=== PATIENT | male | born 1960 | race African-American/Black ===

== ENCOUNTER 2016-09-21 16:53 | Emergency (ER) | payer MEDICAID ==
--- NOTE | 2016-09-21 18:11 | ER Document Report ---
ED Medical Screen (RME) - General Chief Complaint: Toothache Stated Complaint: TOOTH PAIN Mode of Arrival: Ambulatory Information source: Patient Notes: 56 y/o M presents to ED c/o right posterior dental pain over the last 4 days. Reports saw dentist on Wednesday and prescribed PenVk and Tylenol with Codeine but pain is persistent. Denies fever, difficulty breathing, or swallowing. I have greeted and performed a rapid initial assessment of this patient. A comprehensive ED assessment and evaluation of the patient, analysis of test results and completion of the medical decision making process will be conducted by additional ED providers. TRAVEL OUTSIDE OF THE [place] IN LAST 30 DAYS: No - Related Data Allergies/Adverse Reactions: No Known Allergies Allergy (Verified 09/21/16 18:04) Past Medical History - Social History Chew tobacco use (# tins/day): No Frequency of alcohol use: None Drug Abuse: None - Past Medical History Cardiac Medical History: Reports: Hx Congestive Heart Failure, Hx Coronary Artery Disease - stents , Hx Heart Attack - 2001, Hx Hypertension Pulmonary Medical History: Denies: Hx Asthma - sarcoidosis, Hx Bronchitis, Hx COPD, Hx Pneumonia Neurological Medical History: Denies: Hx Cerebrovascular Accident, Hx Seizures Renal/ Medical History: Reports: Hx Kidney Stones. Denies: Hx Peritoneal Dialysis Musculoskeltal Medical History: Reports Hx Arthritis - hips,knees Past Surgical History: Reports: Hx Cardiac Catheterization - two stents - Immunizations Immunizations up to date: No Hx Diphtheria, Pertussis, Tetanus Vaccination: Yes Physical Exam - Vital signs Vitals: Pulse Resp BP Pulse Ox 67 16 124/89 H 98 09/21/16 18:01 09/21/16 18:01 09/21/16 18:01 09/21/16 18:01 - General General appearance: Appears well, Alert In distress: None - Respiratory Respiratory status: No respiratory distress Course - Vital Signs Vital signs: Temp Pulse Resp BP Pulse Ox 67 16 124/89 H 98 09/21/16 18:01 09/21/16 18:01 09/21/16 18:01 09/21/16 18:01
--- NOTE | 2016-09-21 19:31 | ER Document Report ---
ED Oral Problem - General Chief Complaint: Toothache Stated Complaint: TOOTH PAIN Time seen by provider: 19:26 Mode of Arrival: Ambulatory Information source: Patient Notes: This is a 56-year-old man that presents with right upper tooth pain. Patient was recently seen by a dentist and is referred to an oral surgeon. He has an appointment with the oral surgeon on . He is currently on Tylenol with Codeine No. 3 and penicillin. He presents cause a worsening pain. TRAVEL OUTSIDE OF THE [place] IN LAST 30 DAYS: No - HPI Patient complains to provider of: Toothache. No: Sore throat, Swelling of face , Swelling of jaw Onset: Last week Onset: Gradual Quality of pain: Dull Severity: Moderate Pain Level: 4 Context: Fractured tooth, Recent antibiotic use. denies: Recent dental extractions Sore throat: Moderate Associated symptoms: denies: Cough, Fever Worsened by: Heat Similar symptoms previously: No Recently seen / treated by doctor/dentist: Yes - Related Data Allergies/Adverse Reactions: No Known Allergies Allergy (Verified 09/21/16 18:04) Past Medical History - General Information source: Patient - Social History Smoking Status: Never Smoker Cigarette use (# per day): No Chew tobacco use (# tins/day): No Frequency of alcohol use: None Drug Abuse: None Lives with: Family Family History: Reviewed & Not Pertinent Patient has suicidal ideation: No Patient has homicidal ideation: No - Past Medical History Cardiac Medical History: Reports: Hx Congestive Heart Failure, Hx Coronary Artery Disease - stents , Hx Heart Attack - 2001, Hx Hypertension Pulmonary Medical History: Denies: Hx Asthma - sarcoidosis, Hx Bronchitis, Hx COPD, Hx Pneumonia Neurological Medical History: Denies: Hx Cerebrovascular Accident, Hx Seizures Renal/ Medical History: Reports: Hx Kidney Stones. Denies: Hx Peritoneal Dialysis Musculoskeltal Medical History: Reports Hx Arthritis - hips,knees Past Surgical History: Reports: Hx Cardiac Catheterization - two stents - Immunizations Immunizations up to date: No Hx Diphtheria, Pertussis, Tetanus Vaccination: Yes Review of Systems - Review of Systems Notes: Review of systems: Constitutional: Denies fever, chills. EENT: See H&P Cardiovascular: Denies chest pain, palpitations, dyspnea or edema. Respiratory: Denies wheezing, cough, hemoptysis. Abdomen: Denies abdominal pain, nausea, vomiting, diarrhea. Denies BRBPR or melena. Genitourinary: Denies dysuria, pyuria, hematuria, flank pain. Musculoskeletal: denies joint pain or swelling, denies back pain. Neurologic: Denies headache, photophobia, neck stiffness, weakness. Denies loss of bowel or bladder function. Denies saddle anesthesia. Skin: Denies rash, lesions. Physical Exam - Vital signs Vitals: Pulse Resp BP Pulse Ox 67 16 124/89 H 98 09/21/16 18:01 09/21/16 18:09/21/16 18:01 09/21/16 18:01 Notes: Physical exam: GENERAL: 56-year-old man, alert and oriented 3, no acute distress HEAD: Atraumatic, normocephalic. EYES: Pupils equal round and reactive to light, extraocular movements intact, sclera anicteric, conjunctiva are normal. ENT: oropharynx clear without exudates. Right upper dental caries. Moist mucous membranes. NECK: Normal range of motion, supple without lymphadenopathy. Soft in the submental and submandibular spaces. No neck tenderness. LUNGS: Breath sounds clear to auscultation bilaterally and equal. No wheezes rales or rhonchi. HEART: Regular rate and rhythm without murmurs, rubs or gallops. PSYCH: Normal mood, normal affect. SKIN: Warm, Dry, normal turgor, no rashes or lesions noted. Course - Vital Signs Vital signs: Temp Pulse Resp BP Pulse Ox 67 16 124/89 H 98 09/21/16 18:01 09/21/16 18:01 09/21/16 18:01 09/21/16 18:01 Discharge - Discharge Clinical Impression: dental caries Condition: Stable Disposition: HOME, SELF-CARE Instructions: Toothache (OM), Oral Narcotic Medication (OM), Penicillin V K ( [facility]) Additional Instructions: Recommendations: You can continue the penicillin as previously prescribed. Stop taking the Tylenol and codeine. The [place] is hydrocodone and Tylenol. You can take 1-2 every 6 hours for pain. This is a narcotic, see the narcotic instruction sheet. Do not drive or operate machinery while on the narcotic. They will make you constipated, drink plenty of fluids. Follow-up with the oral surgeon on as planned Prescriptions: Hydrocodone/Acetaminophen [[place] 5-325 mg Tablet] 2 tab PO Q6HP PRN #20 tablet PRN Reason:
[2016-09-21 20:08] VITALS: BP 145/73
== END 2016-09-21 20:10 | disposition home or self-care (01) ==
LOC: ER 16:53
DX: K02.9 Dental caries, unspecified (principal); K08.89 Other specified disorders of teeth and supporting structures
CPT/HCPCS: 99283

== ENCOUNTER 2016-10-29 10:15 | Day surgery (SDC) | payer MEDICAID ==
[2016-10-27 11:19] LABS: HEMATOCRIT 43.8 % (37.9-51.0); HEMOGLOBIN 14.3 g/dL (13.5-17.0); HGB HCT DIFFERENCE -0.9; MEAN CORPUSCULAR HEMOGLOBIN 28.6 pg (27.0-33.4); MEAN CORPUSCULAR HGB CONC 32.7 g/dL (32.0-36.0); MEAN CORPUSCULAR VOLUME 88 fl (80-97); RED CELL DISTRIBUTION WIDTH 13.1 % (11.5-14.0); WHITE BLOOD COUNT 6.8 10^3/uL (4.0-10.5)
[2016-10-27 11:47] LABS: ANION GAP 14 (5-19); BLOOD UREA NITROGEN 10 mg/dL (7-20); CALCIUM 9.6 mg/dL (8.4-10.2); CARBON DIOXIDE 26 mmol/L (22-30); CHLORIDE 107 mmol/L (98-107); CREATININE RESULT 0.62 mg/dL (0.52-1.25); GLUCOSE 104 mg/dL (75-110); POTASSIUM 3.8 mmol/L (3.6-5.0); SODIUM 146.9 mmol/L (137-145)
--- NOTE | 2016-10-27 13:11 | EKG REPORT ---
SEVERITY:- NORMAL ECG - SINUS RHYTHM : Confirmed by: Ashlyn Jang MD 27-Oct-2016 13:09:01
[~2016-10-29 10:15] MED LIST: LIDOCAINE 0.5% INJ-PF (5 MG/ML) 50 ML SDV SUBCUT PRN; RINGERS SOLUTION,LACTATED 1,000 ML IV PRN
[2016-10-29] MEDS ORDERED: MIDAZOLAM 2 MG/2 ML INJ ONE (10:23)
[2016-10-29] MEDS ORDERED: FENTANYL CITRATE INJ/PF 100 MCG/2 ML AMPUL ONE ×2 (10:23)
[2016-10-29] MEDS ORDERED: ACETAMINOPHEN 100 ML IV ONE (10:24)
[2016-10-29] MEDS ORDERED: DEXMEDETOMIDINE INJ 80 MCG/20 ML VIAL IV ONE (10:24)
[2016-10-29] MEDS ORDERED: PROPOFOL INJ 200 MG/20 ML VIAL IV ONE (10:24)
[2016-10-29] MEDS ORDERED: EPHEDRINE SULFATE INJ 50 MG/1 ML AMPULE ONE (10:24)
[2016-10-29] MEDS ORDERED: ONDANSETRON HCL INJ/PF 4 MG/2 ML SDV IV PRN (11:52)
[2016-10-29] MEDS ORDERED: DIPHENHYDRAMINE HCL 50 MG/ML VIAL IV PRN (11:52)
[2016-10-29] MEDS ORDERED: FENTANYL CITRATE INJ/PF 100 MCG/2 ML AMPUL IV PRN ×3 (11:52)
[2016-10-29] MEDS ORDERED: MEPERIDINE HCL/PF INJ 25 MG/1 ML DISP.SYRIN IV PRN (11:52)
[2016-10-29] MEDS ORDERED: PROMETHAZINE HCL INJ 25 MG/1 ML VIAL IV PRN ×2 (11:52)
[2016-10-29] MEDS ORDERED: LIDOCAINE 2%/EPINEPHRINE INJ 1.7 ML CARTRIDGE ONE (12:21)
[2016-10-29] MEDS ORDERED: BUPIVACAINE HCL 0.5%/EPI 1:200000 INJ 1.8 ML CARTRIDGE ONE (12:22)
--- NOTE | 2016-10-29 13:24 | Operative Report ---
Operative Report DATE OF SURGERY: 10/29/16 PREOPERATIVE DIAGNOSIS: Dental caries POSTOPERATIVE DIAGNOSIS: Same OPERATION: Surgical removal of teeth numbers 2 and 30 SURGEON: GERA OCONNOR ANESTHESIA: GA TISSUE REMOVED OR ALTERED: Teeth which were discarded COMPLICATIONS: None ESTIMATED BLOOD LOSS: 20 mL INTRAOPERATIVE FINDINGS: Broken down and nonrestorable teeth numbers 2 and 30 PROCEDURE: The patient was brought into operating room #4 and placed on the operating room table in supine position. General anesthesia was induced via a peripheral IV and continued utilizing endotracheal intubation. The patient was then prepped and draped in usual fashion for an intraoral procedure. A total of 3 carpules of 2% lidocaine with 1:100,000 epinephrine and 1 carpule of 1/2% Marcaine with 1 :200,000 epinephrine were delivered to the planned surgical sites via both infiltration and nerve block. The oral cavity and oropharynx were suctioned and a moistened oropharyngeal throat pack was placed. Full-thickness mucoperiosteal flaps were then developed via sulcular incisions with distobuccal release incisions. Ostectomy was completed as needed. Teeth were then delivered using elevators and forceps. The sockets were curetted free of any debris and irrigated with normal saline solution. The flaps were reapproximated and sutured with 4-0 chromic gut suture. The oral cavity was inspected and suctioned. It was found to be free of debris. The throat pack was removed. A bite block was used throughout the procedure. There was no sinus communication noted. The nerves were not seen. The mandible was intact postoperatively. A gauze pack was placed to aid in continued hemostasis. The patient was awakened from general anesthesia, extubated in the operating room and taken recovery room in spontaneous breathing fashion.
[2016-10-29] MEDS ORDERED: LIDOCAINE 2% INJ-PF (20 MG/ML) 10 ML AMPUL ONE (14:04)
[2016-10-29] MEDS ORDERED: DEXAMETHASONE SOD PHOSPHATE INJ 4 MG/1 ML VIAL ONE (14:04)
[2016-10-29] MEDS ORDERED: GLYCOPYRROLATE INJ 0.4 MG/2 ML VIAL ONE (14:04)
[2016-10-29] MEDS ORDERED: METOCLOPRAMIDE HCL INJ/PF 10 MG/2 ML SDV ONE (14:04)
[2016-10-29] MEDS ORDERED: KETOROLAC TROMETHAMINE 60 MG/2 ML SDV ONE (14:04)
[2016-10-29] MEDS ORDERED: SUCCINYLCHOLINE CHLORIDE INJ 200 MG/10 ML VIAL ONE (14:04)
[2016-10-29] MEDS ORDERED: ONDANSETRON HCL INJ/PF 4 MG/2 ML SDV ONE (14:04)
[2016-10-29] MEDS ORDERED: OXYCODONE-ACETAMINOPHEN 5-325 MG TABLET PO PRN (14:40)
[2016-10-29 15:29] VITALS: BP 117/70
== END 2016-10-29 16:25 | disposition home or self-care (01) ==
LOC: OROUT 10:15
PROVIDERS: ATTEND Dentist Oral and Maxillofacial Surgery
PROC: 0CDWXZ1 Extraction of Upper Tooth, Multiple, External Approach (ICD-10-PCS; 2016-10-29)
PROC: 0CDXXZ1 Extraction of Lower Tooth, Multiple, External Approach (ICD-10-PCS; principal; 2016-10-29 12:00)
DX: K02.9 Dental caries, unspecified (principal); J44.9 Chronic obstructive pulmonary disease, unspecified; I25.10 Atherosclerotic heart disease of native coronary artery without angina pectoris; K70.30 Alcoholic cirrhosis of liver without ascites; M17.9 Osteoarthritis of knee, unspecified; E66.9 Obesity, unspecified; D86.9 Sarcoidosis, unspecified; J30.2 Other seasonal allergic rhinitis; Z79.82 Long term (current) use of aspirin; Z79.899 Other long term (current) drug therapy
CPT/HCPCS: 41899; 93005; 36415; 85027; 80048; 93010; J2250; J3490 ×5; J1100; J1885; J3010; J2765; J0330; J2405; J2704; J0131; 170

== ENCOUNTER 2016-12-14 13:30 | Emergency (ER) | payer MEDICAID ==
--- NOTE | 2016-12-14 14:28 | RADIOLOGY REPORT (SQ) ---
EXAM DESCRIPTION: CHEST PA/LAT COMPLETED DATE/TIME: 12/14/2016 2:18 pm REASON FOR STUDY: chest pain COMPARISON: 09/08/2013 EXAM PARAMETERS: NUMBER OF VIEWS: two views TECHNIQUE: Digital Frontal and Lateral radiographic views of the chest acquired. RADIATION DOSE: NA LIMITATIONS: none FINDINGS: LUNGS AND PLEURA: Chronic scarring is seen in both upper lung [place]. There is lucency saldivar ggestive of emphysematous change. No acute infiltrate or pleural effusion is appreciated. MEDIASTINUM AND HILAR STRUCTURES: No masses or contour abnormalities. HEART AND VASCULAR STRUCTURES: Heart normal size. No evidence for failure. BONES: No acute findings. HARDWARE: None in the chest. OTHER: No other significant finding. IMPRESSION: Chronic lung changes with no acute cardiopulmonary disease. TECHNICAL DOCUMENTATION: JOB ID: [id number] [employer]- All Rights Reserved
--- NOTE | 2016-12-14 15:20 | ER Document Report ---
ED Cardiac - General Chief Complaint: Chest Pain > 30 Stated Complaint: CHEST PAIN Time Seen by Provider: 12/14/16 15:19 Mode of Arrival: Ambulatory Information source: Patient Notes: Pt c/o right anterior chest pain that started today. Pt states that when he gets up from chairs he lifts with his arms which causes his right chest to spasm and become painful. Pt denies any cough or cold symptoms. Pt denies any n/ v. Pt states that occasionally the muscles to his chest will spasm without provocation. TRAVEL OUTSIDE OF THE [place] IN LAST 30 DAYS: No - HPI Patient complains to provider of: Chest pain Chest pain location: Other - right chest Quality of pain: Other - spasm Pain level currently: 1 Cardiac risk factors: None Associated symptoms: denies: Abdominal pain, Anxiety, Back pain, Fatigue, Lightheaded, Nausea/vomiting, Neck pain, Palpitations, Shortness of breath Exacerbated by: Other - using upper extremity to lift out of chair Relieved by: Rest Similar symptoms previously: No Recently seen / treated by doctor: No - Related Data Allergies/Adverse Reactions: No Known Allergies Allergy (Verified 12/14/16 14:25) Past Medical History - General Information source: Patient - Social History Smoking Status: Never Smoker Frequency of alcohol use: None Drug Abuse: None Occupation: none Family History: Reviewed & Not Pertinent Patient has suicidal ideation: No Patient has homicidal ideation: No - Past Medical History Cardiac Medical History: Reports: Hx Congestive Heart Failure, Hx Coronary Artery Disease - stents x2, 2001/2002, Hx Heart Attack - 2001, Hx Hypertension Pulmonary Medical History: Denies: Hx Bronchitis, Hx COPD, Hx Pneumonia Comment Only: Hx Asthma - sarcoidosis Neurological Medical History: Denies: Hx Cerebrovascular Accident, Hx Seizures Renal/ Medical History: Reports: Hx Kidney Stones. Denies: Hx Peritoneal Dialysis Musculoskeltal Medical History: Reports Hx Arthritis - hips,knees Past Surgical History: Reports: Hx Cardiac Catheterization - two stents - Immunizations Immunizations up to date: No Hx Diphtheria, Pertussis, Tetanus Vaccination: Yes Review of Systems - Review of Systems Constitutional: No symptoms reported. denies: Fever, Recent illness EENT: No symptoms reported Cardiovascular: Chest pain Respiratory: No symptoms reported. denies: Cough, Short of breath Gastrointestinal: No symptoms reported. denies: Nausea, Vomiting Genitourinary: No symptoms reported Male Genitourinary: No symptoms reported Musculoskeletal: No symptoms reported. denies: Back pain Skin: No symptoms reported Hematologic/Lymphatic: No symptoms reported Neurological/Psychological: No symptoms reported Physical Exam - Vital signs Vitals: Temp Pulse Resp BP Pulse Ox 98.1 F 58 L 20 125/89 H 99 12/14/16 14:28 12/14/16 14:28 12/14/16 14:28 12/14/16 14:12/14/16 14:28 - General General appearance: Appears well, Alert In distress: None - HEENT Head: Normocephalic, Atraumatic Eyes: Normal Conjunctiva: Normal Pupils: PERRL Nasal: Normal Mouth/Lips: Normal Mucous membranes: Normal Neck: Normal, Supple. No: Lymphadenopathy - Respiratory Respiratory status: No respiratory distress Chest status: Nontender Breath sounds: Normal Chest palpation: Normal - Cardiovascular Rhythm: Regular Heart sounds: S1 appreciated, S2 appreciated Murmur: No - Abdominal Inspection: Normal Distension: No distension Bowel sounds: Normal Tenderness: Nontender Organomegaly: No organomegaly - Back Back: Normal, Nontender. No: CVA tenderness - Extremities General upper extremity: Normal inspection, Normal ROM General lower extremity: Normal inspection, Normal ROM - Neurological Neuro grossly intact: Yes Cognition: Normal [place] Coma Scale Eye Opening: Spontaneous [place] Coma Scale Verbal: Oriented [place] Coma Scale Motor: Obeys Commands [place] Coma Scale Total: 15 - Psychological Associated symptoms: Normal affect, Normal mood - Skin Skin Temperature: Warm Skin Moisture: Dry Skin Color: Normal Course - Re-evaluation Re-evalutation: 12/14/16 17:[address] Harris, reviewed pt's hx, presentation, and diagnostics. Dr harris advises rechecking trop and adding a tsh. 12/14/16 17:49 Patient resting comfortably in a wheelchair in lobby smiling, conversant with visitor. Patient denies any pain at this time. Patient updated regarding plan of care. 12/14/16 19:17 pt updated regarding plan of care, bedside report and handoff give to Francy CAPPS. Pt denies complaint at present. - Vital Signs Vital signs: Temp Pulse Resp BP Pulse Ox 98.1 F 58 L 20 125/89 H 99 12/14/16 14:28 12/14/16 14:28 12/14/16 14:28 12/14/16 14:28 12/14/16 14:28 - Laboratory Result Diagrams: 12/14/16 15:40 12/14/16 15:40 Laboratory results interpreted by me: 12/14/16 15:40 Total Protein 8.4 H Labs- Entire Visit 12/14/16 12/14/16 12/14/16 15:40 15:40 15:40 WBC 7.5 RBC 5.07 Hgb 14.4 Hct 44.6 MCV 88 MCH 28.4 MCHC 32.3 RDW 12.8 Plt Count 206 Seg Neutrophils % 47.2 Lymphocytes % 43.2 Monocytes % 6.1 Eosinophils % 2.6 Basophils % 0.9 Absolute Neutrophils 3.6 Absolute Lymphocytes 3.3 Absolute Monocytes 0.5 Absolute Eosinophils 0.2 Absolute Basophils 0.1 Sodium 143.4 Potassium 4.8 Chloride 104 Carbon Dioxide 29 Anion Gap 10 BUN 12 Creatinine 0.75 Est GFR ( Amer) > 60 Est GFR (Non-Af Amer) > 60 Glucose 93 Calcium 9.6 Total Bilirubin 0.8 Direct Bilirubin 0.4 Indirect Bilirubin Not Reportable Neonat Total Bilirubin Not Reportable AST 30 ALT 38 Alkaline Phosphatase 101 Creatine Kinase 86 Troponin I < 0.012 NT-Pro-B Natriuret Pep 42 Total Protein 8.4 H Albumin 4.4 Lipase 66.1 - Diagnostic Test Radiology reviewed: Reports reviewed Discharge - Discharge Clinical Impression: Muscle spasm Chest pain Qualifiers: Chest pain type: unspecified Qualified Code(s): R07.9 - Chest pain, unspecified Instructions: Chest Wall Pain ([facility]), Chest Pain of Unclear Cause ([facility]), Warm Packs ([facility]) Additional Instructions: Return immediately for any new or worsening symptoms Followup with your primary care provider, call tomorrow to make a followup appointment Prescriptions: Cyclobenzaprine HCl [Flexeril 10 Mg Tablet] 10 mg PO TID #12 tablet Referrals: DEEPALI TOURE MD [ACTIVE STAFF] - Follow up tomorrow
[2016-12-14 15:53] LABS: ABSOLUTE BASOPHILS # (AUTO) 0.1 10^3/uL (0.0-0.2); ABSOLUTE EOSINOPHILS # (AUTO) 0.2 10^3/uL (0.0-0.6); ABSOLUTE LYMPHOCYTES (AUTO) 3.3 10^3/uL (0.5-4.7); ABSOLUTE MONOCYTES (AUTO) 0.5 10^3/uL (0.1-1.4); ABSOLUTE NEUT (AUTO) 3.6 10^3/uL (1.7-8.2); BASOPHILS % (AUTO) 0.9 % (0-2); EOSINOPHILS % (AUTO) 2.6 % (0-6); HEMATOCRIT 44.6 % (37.9-51.0); HEMOGLOBIN 14.4 g/dL (13.5-17.0); HGB HCT DIFFERENCE -1.4; LYMPHOCYTES % (AUTO) 43.2 % (13-45); MEAN CORPUSCULAR HEMOGLOBIN 28.4 pg (27.0-33.4); MEAN CORPUSCULAR HGB CONC 32.3 g/dL (32.0-36.0); MEAN CORPUSCULAR VOLUME 88 fl (80-97); MONOCYTES % (AUTO) 6.1 % (3-13); RED BLOOD COUNT 5.07 10^6/uL (4.35-5.55); RED CELL DISTRIBUTION WIDTH 12.8 % (11.5-14.0); SEGMENTED NEUTROPHILS % (AUTO) 47.2 % (42-78); WHITE BLOOD COUNT 7.5 10^3/uL (4.0-10.5)
[2016-12-14 16:12] LABS: ALANINE AMINOTRANSFERASE 38 U/L (21-72); ALBUMIN 4.4 g/dL (3.5-5.0); ALKALINE PHOSPHATASE 101 U/L (38-126); ANION GAP 10 (5-19); ASPARTATE AMINO TRANSFERASE 30 U/L (17-59); BILIRUBIN,DIRECT 0.4 mg/dL (0.0-0.4); BILIRUBIN,TOTAL 0.8 mg/dL (0.2-1.3); BLOOD UREA NITROGEN 12 mg/dL (7-20); CALCIUM 9.6 mg/dL (8.4-10.2); CARBON DIOXIDE 29 mmol/L (22-30); CHLORIDE 104 mmol/L (98-107); CREATINE KINASE 86 U/L (55-170); CREATININE RESULT 0.75 mg/dL (0.52-1.25); GLUCOSE 93 mg/dL (75-110); LIPASE 66.1 U/L (23-300); POTASSIUM 4.8 mmol/L (3.6-5.0); SODIUM 143.4 mmol/L (137-145); TOTAL PROTEIN 8.4 g/dL (6.3-8.2)
[2016-12-14 16:24] LABS: TROPONIN I < 0.012 ng/mL
--- NOTE | 2016-12-14 18:39 | EKG REPORT ---
SEVERITY:- NORMAL ECG - SINUS RHYTHM : Confirmed by: Kevin Guardado MD 14-Dec-2016 18:37:59
[2016-12-14 20:26] VITALS: BP 127/84
== END 2016-12-14 20:26 | disposition home or self-care (01) ==
LOC: ER 13:30
DX: M62.838 Other muscle spasm (principal); R07.89 Other chest pain; I25.10 Atherosclerotic heart disease of native coronary artery without angina pectoris; I10 Essential (primary) hypertension; I25.2 Old myocardial infarction; Z98.61 Coronary angioplasty status
CPT/HCPCS: 36415; 71020; 80053; 82550; 83690; 83880; 84443; 84484; 85025; 93005; 93010; 99285

== ENCOUNTER → 2017-09-24 | Outpatient (CLI) | payer MEDICAID ==
[2017-09-24 10:09] LABS: ABSOLUTE BASOPHILS # (AUTO) 0.1 10^3/uL (0.0-0.2); ABSOLUTE EOSINOPHILS # (AUTO) 0.2 10^3/uL (0.0-0.6); ABSOLUTE LYMPHOCYTES (AUTO) 3.1 10^3/uL (0.5-4.7); ABSOLUTE MONOCYTES (AUTO) 0.6 10^3/uL (0.1-1.4); ABSOLUTE NEUT (AUTO) 3.2 10^3/uL (1.7-8.2); BASOPHILS % (AUTO) 0.9 % (0-2); EOSINOPHILS % (AUTO) 2.5 % (0-6); HEMATOCRIT 42.7 % (37.9-51.0); HEMOGLOBIN 14.2 g/dL (13.5-17.0); LYMPHOCYTES % (AUTO) 43.9 % (13-45); MEAN CORPUSCULAR HEMOGLOBIN 28.8 pg (27.0-33.4); MEAN CORPUSCULAR HGB CONC 33.2 g/dL (32.0-36.0); MEAN CORPUSCULAR VOLUME 87 fl (80-97); MONOCYTES % (AUTO) 7.7 % (3-13); PLATELET COUNT 194 10^3/uL (150-450); RED BLOOD COUNT 4.93 10^6/uL (4.35-5.55); RED CELL DISTRIBUTION WIDTH 12.7 % (11.5-14.0); TOTAL CELLS COUNTED % (AUTO) 100 %; WHITE BLOOD COUNT 7.2 10^3/uL (4.0-10.5)
[2017-09-24 10:35] LABS: ALANINE AMINOTRANSFERASE 43 U/L (21-72); ALBUMIN 4.7 g/dL (3.5-5.0); ALKALINE PHOSPHATASE 91 U/L (38-126); ANION GAP 13 (5-19); ASPARTATE AMINO TRANSFERASE 39 U/L (17-59); BILIRUBIN,DIRECT 0.2 mg/dL (0.0-0.4); BILIRUBIN,TOTAL 0.4 mg/dL (0.2-1.3); BLOOD UREA NITROGEN 12 mg/dL (7-20); CALCIUM 9.5 mg/dL (8.4-10.2); CARBON DIOXIDE 26 mmol/L (22-30); CHLORIDE 103 mmol/L (98-107); CHOLESTEROL 164.47 mg/dL (0-200); GLUCOSE 93 mg/dL (75-110); POTASSIUM 4.4 mmol/L (3.6-5.0); SODIUM 142.2 mmol/L (137-145); TOTAL PROTEIN 7.6 g/dL (6.3-8.2); TRIGLYCERIDES 113 mg/dL (<150)
[2017-09-24 10:46] LABS: DIRECT LDL 105 mg/dL (<100)
== END ==
LOC: OD 08:46
PROVIDERS: ATTEND Family Medicine Geriatric Medicine
DX: I25.10 Atherosclerotic heart disease of native coronary artery without angina pectoris (principal); J44.9 Chronic obstructive pulmonary disease, unspecified; D86.9 Sarcoidosis, unspecified; Z79.899 Other long term (current) drug therapy
CPT/HCPCS: 36415; 80053; 80061; 84443; 85025

== ENCOUNTER 2017-09-26 20:40 | Emergency (ER) | payer MEDICAID ==
[2017-09-26] MEDS ORDERED: ASPIRIN 81 MG TABLET, CHEWABLE PO ONE (21:10)
--- NOTE | 2017-09-26 21:46 | ER Document Report ---
ED Cardiac - General Chief Complaint: Chest Pain Stated Complaint: CHEST PAIN Time Seen by Provider: 09/26/17 21:24 Mode of Arrival: Ambulatory Information source: Patient TRAVEL OUTSIDE OF THE [place] IN LAST 30 DAYS: No - HPI Patient complains to provider of: Chest pain Notes: Patient is here with complaints of chest pain. He states that he had just eaten dinner and was eating a snack of Doritos in his bed when he started to have some pain felt like indigestion in his chest. He does report that he had some pain going down his left arm, but states that he has this frequently from a pinched nerve in his neck. He denies any new shortness of breath with this. He denies any chest pain currently. Nothing in particular seems to make the pain better or worse. He denies any fever or cough. He denies any leg pain or leg swelling, recent trips or surgeries, history of DVT or PE, history of cancer. Patient does have a history of CAD and has had 2 stents placed in the past and also has a history of congestive heart failure. He denies history of diabetes, smoking, drugs. He does not know his family history as he was adopted. At this point the patient states that he feels fine, he just wanted to make sure everything was okay. He denies any other complaints at this time. - Related Data Allergies/Adverse Reactions: No Known Allergies Allergy (Verified 12/14/16 14:25) Past Medical History - Social History Smoking Status: Former Smoker Family History: Reviewed & Not Pertinent Patient has suicidal ideation: No Patient has homicidal ideation: No - Past Medical History Cardiac Medical History: Reports: Hx Congestive Heart Failure, Hx Coronary Artery Disease - stents x2, , Hx Heart Attack - 2001, Hx Hypertension Pulmonary Medical History: Denies: Hx Bronchitis, Hx COPD, Hx Pneumonia Comment Only: Hx Asthma - sarcoidosis Neurological Medical History: Denies: Hx Cerebrovascular Accident, Hx Seizures Renal/ Medical History: Reports: Hx Kidney Stones. Denies: Hx Peritoneal Dialysis Musculoskeltal Medical History: Reports Hx Arthritis - hips,knees Past Surgical History: Reports: Hx Cardiac Catheterization - two stents, Hx Orthopedic Surgery - R hip replacement - Immunizations Immunizations up to date: No Hx Diphtheria, Pertussis, Tetanus Vaccination: Yes Review of Systems - Review of Systems -: Yes All other systems reviewed and negative Physical Exam - Vital signs Vitals: Temp Pulse Resp BP Pulse Ox 98.1 F 75 16 139/86 H 95 09/26/17 20:52 09/26/17 20:52 09/26/17 20:52 09/26/17 20:52 09/26/17 20:52 - Notes Notes: GENERAL: alert, cooperative, nontoxic, no distress. HEAD: normocephalic, atraumatic EYES: conjunctiva pink without discharge, no external redness or swelling. EARS: no external swelling, no external redness NOSE: atraumatic, no external swelling MOUTH/THROAT: mucous membranes moist and pink, posterior pharynx without erythema, swelling, exudate. No trismus or drooling. NECK: soft, supple, full range of motion, no meningismus. CHEST: no distress, lungs clear and equal throughout. No wheezing, rales, rhonchi. CARDIAC: regular rate and rhythm, no murmur, normal capillary refill, normal pulses. No peripheral edema noted. ABDOMEN: Soft, nontender. BACK: full range of motion, no CVA tenderness. EXTREMITIES: full range of motion of all extremities. No redness, no swelling. NEURO: alert and oriented x 3, no focal deficits, full range of motion of all extremities. PYSCH: appropriate mood, affect. Patient is cooperative. SKIN: pink, warm, dry, no rash. Course - Re-evaluation Re-evalutation: 09/27/17 00:15 The patient is nontoxic appearing with stable vitals. The patient arrives with complaints of chest pain approximately an hour and half prior to being evaluated here. Said that he had just eaten dinner and was eating Doritos in bed when he started to have what felt like indigestion. No diaphoresis or significant shortness of breath. He has no PE risk factors. PE is very unlikely in this patient. Patient has an initial EKG which is normal, negative troponin, negative chest x-ray aside from COPD changes. Would like to perform a delta troponin for completeness sake to rule out ACS in this patient, but he states that he would like to leave now and will be signing out AGAINST MEDICAL ADVICE. Patient has a heart score of 3. Again, the patient will be leaving AGAINST MEDICAL ADVICE. I explained to the patient that there is risk of bleeding without having a second troponin done. I am not completely able to rule out ACS as a source of his chest pain. Explained that he runs the risk of increased morbidity/mortality and even . He is of sound mind to make this decision and will be leaving AGAINST MEDICAL ADVICE. He was instructed to please return the emergency department at any time if he develops any worsening symptoms or has any further concerns. States that he has an appointment with his family physician tomorrow and he will be following up with his doctor at that time. The patient is noted to have elevated blood pressure during today's emergency department visit. The patient was informed of this finding. The patient was instructed that this may be related to pre-hypertension and requires further evaluation with a primary care provider. The patient has no hypertensive symptoms at this time. - Vital Signs Vital signs: Temp Pulse Resp BP Pulse Ox 98.1 F 75 17 115/79 98 09/26/17 20:52 09/26/17 20:52 09/27/17 00:01 09/27/17 00:01 09/27/17 00:01 - Laboratory Result Diagrams: 09/26/17 21:55 09/26/17 21:55 Laboratory results interpreted by me: 09/26/17 21:55 Seg Neutrophils % 38.9 L Lymphocytes % 50.7 H - Diagnostic Test Radiology reviewed: Image reviewed, Reports reviewed - COPD changes, no acute findings. - EKG Interpretation by [facility] EKG shows normal: Sinus rhythm, Spivey, Intervals, QRS Complexes, ST-T Waves Rate: Normal When compared to previous EKG there are: No significant change Discharge - Discharge Clinical Impression: Chest pain Qualifiers: Chest pain type: unspecified Qualified Code(s): R07.9 - Chest pain, unspecified Condition: Stable Disposition: AGAINST MEDICAL ADVICE Instructions: Chest Pain of Unclear Cause ([facility]) Additional Instructions: Follow-up with your doctor as scheduled tomorrow. Return the emergency department immediately for worsening chest pain, difficulty breathing, passing out, or for any further concerns at all. Your blood pressure was elevated during today's visit. Have this rechecked with your doctor. Forms: Elevated Blood Pressure, Smoking Cessation Education
[2017-09-26 22:10] LABS: ABSOLUTE BASOPHILS # (AUTO) 0.1 10^3/uL (0.0-0.2); ABSOLUTE EOSINOPHILS # (AUTO) 0.2 10^3/uL (0.0-0.6); ABSOLUTE LYMPHOCYTES (AUTO) 4.2 10^3/uL (0.5-4.7); ABSOLUTE MONOCYTES (AUTO) 0.6 10^3/uL (0.1-1.4); ABSOLUTE NEUT (AUTO) 3.2 10^3/uL (1.7-8.2); BASOPHILS % (AUTO) 1.1 % (0-2); HEMATOCRIT 40.9 % (37.9-51.0); HEMOGLOBIN 13.5 g/dL (13.5-17.0); LYMPHOCYTES % (AUTO) 50.7 % (13-45); MEAN CORPUSCULAR HEMOGLOBIN 28.7 pg (27.0-33.4); MEAN CORPUSCULAR HGB CONC 33.1 g/dL (32.0-36.0); MEAN CORPUSCULAR VOLUME 87 fl (80-97); MONOCYTES % (AUTO) 7.3 % (3-13); PLATELET COUNT 190 10^3/uL (150-450); RED BLOOD COUNT 4.72 10^6/uL (4.35-5.55); RED CELL DISTRIBUTION WIDTH 12.6 % (11.5-14.0); SEGMENTED NEUTROPHILS % (AUTO) 38.9 % (42-78); TOTAL CELLS COUNTED % (AUTO) 100 %; WHITE BLOOD COUNT 8.2 10^3/uL (4.0-10.5)
--- NOTE | 2017-09-26 22:20 | RADIOLOGY REPORT (SQ) ---
EXAM DESCRIPTION: CHEST SINGLE VIEW COMPLETED DATE/TIME: 09/26/2017 10:04 pm REASON FOR STUDY: chest pain COMPARISON: 12/14/2016 NUMBER OF VIEWS: One view. TECHNIQUE: Single frontal radiographic view of the chest acquired. LIMITATIONS: None. FINDINGS: LUNGS AND PLEURA: No opacities, masses or pneumothorax. No pleural effusion. Attenuated bl ood vessels and flattened dieter-diaphragms. MEDIASTINUM AND HILAR STRUCTURES: No masses. Contour normal. HEART AND VASCULAR STRUCTURES: Heart normal in size. Normal vasculature. BONES: No acute findings. HARDWARE: None in the chest. OTHER: No other significant finding. IMPRESSION: COPD. NO ACUTE RADIOGRAPHIC FINDING IN THE CHEST. TECHNICAL DOCUMENTATION: JOB ID: [id number] [employer]- All Rights Reserved Reading location - IP/workstation name: [email or web address]
[2017-09-26 22:28] LABS: ALANINE AMINOTRANSFERASE 35 U/L (21-72); ALBUMIN 4.3 g/dL (3.5-5.0); ALKALINE PHOSPHATASE 75 U/L (38-126); ANION GAP 12 (5-19); ASPARTATE AMINO TRANSFERASE 26 U/L (17-59); BILIRUBIN,DIRECT 0.1 mg/dL (0.0-0.4); BILIRUBIN,TOTAL 0.4 mg/dL (0.2-1.3); BLOOD UREA NITROGEN 11 mg/dL (7-20); CALCIUM 9.6 mg/dL (8.4-10.2); CARBON DIOXIDE 26 mmol/L (22-30); CHLORIDE 106 mmol/L (98-107); CREATINE KINASE 116 U/L (55-170); GLUCOSE 94 mg/dL (75-110); POTASSIUM 3.6 mmol/L (3.6-5.0); SODIUM 143.7 mmol/L (137-145); TOTAL PROTEIN 6.9 g/dL (6.3-8.2)
[2017-09-26 22:39] LABS: CREATINE KINASE MB 0.79 ng/mL (<4.55)
[2017-09-26 22:40] LABS: TROPONIN I < 0.012 ng/mL
--- NOTE | 2017-09-26 23:12 | EKG REPORT ---
SEVERITY:- NORMAL ECG - SINUS RHYTHM : Confirmed by: Kevin Guardado MD 26-Sep-2017 23:11:56
[2017-09-27 01:44] VITALS: BP 127/83
== END 2017-09-27 00:38 | disposition left against medical advice (07) ==
LOC: ER 20:40
DX: R07.9 Chest pain, unspecified (principal); I50.9 Heart failure, unspecified; Z87.891 Personal history of nicotine dependence; Z87.442 Personal history of urinary calculi
CPT/HCPCS: 36415; 71045; 80053; 82550; 82553; 84484; 85025; 93005; 93010; 99285

== ENCOUNTER 2017-10-11 10:07 | Emergency (ER) | payer MEDICAID ==
--- NOTE | 2017-10-11 10:29 | ER Document Report ---
ED Medical Screen (RME) - General Chief Complaint: Pain All Over Stated Complaint: BODY ACHES Time Seen by Provider: 10/11/17 10:27 Notes: pt has hx of two stents 10yrs ago. Patient has had some chest discomfort for the last couple of days. States that it does not feel similar to when he had the stents placed -he said the stent pain felt like a tightness and indigestion. He states he thinks that he may be having some chest discomfort from a new workout regimen. However he states that he is concerned because he has been lightheaded and dizzy however he thinks this may be due to pollen or sinus disease. TRAVEL OUTSIDE OF THE [place] IN LAST 30 DAYS: No - Related Data Allergies/Adverse Reactions: No Known Allergies Allergy (Verified 10/11/17 10:08) Past Medical History - Social History Frequency of alcohol use: None Drug Abuse: None - Past Medical History Cardiac Medical History: Reports: Hx Congestive Heart Failure, Hx Coronary Artery Disease - stents x2, 2001/2002, Hx Heart Attack - 2001, Hx Hypertension Pulmonary Medical History: Denies: Hx Bronchitis, Hx COPD, Hx Pneumonia Comment Only: Hx Asthma - sarcoidosis Neurological Medical History: Denies: Hx Cerebrovascular Accident, Hx Seizures Renal/ Medical History: Reports: Hx Kidney Stones. Denies: Hx Peritoneal Dialysis Musculoskeltal Medical History: Reports Hx Arthritis - hips,knees Past Surgical History: Reports: Hx Cardiac Catheterization - two stents, Hx Orthopedic Surgery - R hip replacement - Immunizations Immunizations up to date: No Hx Diphtheria, Pertussis, Tetanus Vaccination: Yes Physical Exam - Vital signs Vitals: Temp Pulse Resp BP Pulse Ox 97.9 F 72 16 145/95 H 97 10/11/17 10:13 10/11/17 10:13 10/11/17 10:13 10/11/17 10:13 10/11/17 10:13 Course - Vital Signs Vital signs: Temp Pulse Resp BP Pulse Ox 97.9 F 72 16 145/95 H 97 10/11/17 10:13 10/11/17 10:13 10/11/17 10:13 10/11/17 10:13 10/11/17 10:13
--- NOTE | 2017-10-11 11:10 | ER Document Report ---
ED General Pain - General Chief Complaint: Pain All Over Stated Complaint: BODY ACHES Time Seen by Provider: 10/11/17 10:27 Notes: The patient is a 57-year-old male, past medical history CAD, presents with diffuse body aches for several days and mild right upper chest pain that is worse with movement. He said that he has been working out recently right before the chest pain started and this pain feels different than when he had his stents placed for this. He is also having sinus congestion and is supposed to take Claritin and Flonase, but he has not been taking it. He denies fevers, difficulty swallowing, shortness of breath, leg swelling, numbness, tingling, nausea, vomiting, back pain or abdominal pain. TRAVEL OUTSIDE OF THE [place] IN LAST 30 DAYS: No - Related Data Allergies/Adverse Reactions: No Known Allergies Allergy (Verified 10/11/17 10:08) Past Medical History - General Information source: Patient - Social History Smoking Status: Former Smoker Frequency of alcohol use: None Drug Abuse: None Family History: Reviewed & Not Pertinent Patient has suicidal ideation: No Patient has homicidal ideation: No - Past Medical History Cardiac Medical History: Reports: Hx Congestive Heart Failure, Hx Coronary Artery Disease - stents x2, 2001/2002, Hx Heart Attack - 2001, Hx Hypertension Pulmonary Medical History: Denies: Hx Bronchitis, Hx COPD, Hx Pneumonia Comment Only: Hx Asthma - sarcoidosis Neurological Medical History: Denies: Hx Cerebrovascular Accident, Hx Seizures Renal/ Medical History: Reports: Hx Kidney Stones. Denies: Hx Peritoneal Dialysis Musculoskeltal Medical History: Reports Hx Arthritis - hips,knees Past Surgical History: Reports: Hx Cardiac Catheterization - two stents, Hx Orthopedic Surgery - R hip replacement - Immunizations Immunizations up to date: No Hx Diphtheria, Pertussis, Tetanus Vaccination: Yes Review of Systems - Review of Systems Notes: REVIEW OF SYSTEMS: CONSTITUTIONAL: -fevers, -chills EENT: -eye pain, -difficulty swallowing, +nasal congestion CARDIOVASCULAR: +chest pain, -syncope. RESPIRATORY: -cough, -SOB GASTROINTESTINAL: -abdominal pain, -nausea, -vomiting, -diarrhea GENITOURINARY: -dysuria, -hematuria MUSCULOSKELETAL: -back pain, -neck pain SKIN: -rash or skin lesions. HEMATOLOGIC: -easy bruising or bleeding. LYMPHATIC: -swollen, enlarged glands. NEUROLOGICAL: -altered mental status or loss of consciousness, -headache, - neurologic symptoms PSYCHIATRIC: -anxiety, -depression. ALL OTHER SYSTEMS REVIEWED AND NEGATIVE. Physical Exam - Vital signs Vitals: Temp Pulse Resp BP Pulse Ox 97.9 F 72 16 145/95 H 97 10/11/17 10:13 10/11/17 10:10/11/17 10:10/11/17 10:10/11/17 10:13 - Notes Notes: PHYSICAL EXAMINATION: GENERAL: Well-appearing, well-nourished and in no acute distress. HEAD: Atraumatic, normocephalic. EYES: Pupils equal round and reactive to light, extraocular movements intact, sclera anicteric, conjunctiva are normal. ENT: nares patent, oropharynx clear without exudates. Moist mucous membranes. Swollen nasal turbinates. Cobblestoning in posterior pharynx. NECK: Normal range of motion, supple without lymphadenopathy LUNGS: Breath sounds clear to auscultation bilaterally and equal. No wheezes rales or rhonchi. HEART: Regular rate and rhythm without murmurs CHEST WALL: Tenderness over left lateral chest wall. ABDOMEN: Soft, nontender, normoactive bowel sounds. No guarding, no rebound. No masses appreciated. EXTREMITIES: Normal range of motion, no pitting or edema. No cyanosis. Strong distal pulses. NEUROLOGICAL: Cranial nerves grossly intact. Normal speech, normal gait. Normal sensory and motor exams. PSYCH: Normal mood, normal affect. SKIN: Warm, Dry, normal turgor, no rashes or lesions noted. Course - Re-evaluation Re-evalutation: Patient appears very well. His EKG does not show any ischemic changes and troponin is negative. Rest of blood work is unremarkable. With chest pain starting after the lifting heavy weights during a chest workup, suspect that his pain is related to chest wall strain. However, with his risk factors, he will follow-up with his primary care physician for further evaluation and treatment. HEART score 3 (2 for risk factors, 1 for age). Also instructed him to take his Claritin and Flonase for his allergic rhinitis. Given very strict return precautions and he understands. - Vital Signs Vital signs: Temp Pulse Resp BP Pulse Ox 97.9 F 72 16 145/95 H 97 10/11/17 10:13 10/11/17 10:13 10/11/17 10:13 10/11/17 10:13 10/11/17 10:13 - Laboratory Result Diagrams: 10/11/17 10:55 10/11/17 10:55 Laboratory results interpreted by me: 10/11/17 10:55 Sodium 145.8 H Potassium 3.5 L - Diagnostic Test Radiology reviewed: Image reviewed, Reports reviewed Radiology results interpreted by me: CXR: NAD - EKG Interpretation by Me EKG shows normal: Sinus rhythm, [place], Intervals, QRS Complexes, ST-T Waves Rate: Normal Discharge - Discharge Clinical Impression: Allergic rhinitis Qualifiers: Allergic rhinitis trigger: other Allergic rhinitis seasonality: seasonal Qualified Code(s): J30.89 - Other allergic rhinitis Chest pain Qualifiers: Chest pain type: unspecified Qualified Code(s): R07.9 - Chest pain, unspecified Condition: Stable Disposition: HOME, SELF-CARE Additional Instructions: Use the Flonase and Claritin as directed. Follow with your primary care physician for further evaluation and treatment. You may use Motrin for any pain that occurs after you work out. CHEST PAIN OF UNCLEAR CAUSE: The exact cause of your chest pain isn't clear. Fortunately, there is no evidence of a dangerous medical condition. Further testing may be required to find the source of the pain. Most often, we find that this pain is coming from the chest wall -- the muscles or rib joints in the chest. But chest pain can come from the lung and lung lining, the esophagus, the heart valves or heart lining, and even the stomach or gallbladder. Rest. Eat lightly until the pain is gone. We may prescribe medicine for pain and inflammation. You should call the physician immediately if the pain radiates to the shoulder, jaw or arms; if you start to run a fever or develop a cough; or if you develop shortness of breath, or other new or alarming symptoms. NORMAL EXAM AND WORKUP: At this time, your examination and workup show no significant abnormality. No significant abnormal physical findings were noted. All laboratory, EKG, and imaging (x-ray, CT scans, ultrasound) studies that were ordered show no significant abnormality. Although your examination and all studies that were ordered showed no significant abnormal finding, there are no examinations and no studies that are 100% accurate. There is always the possibility that some abnormality could exist and not be detected with physical examination or within the limits and capabilities of laboratory and other studies. You should return or follow up as you were instructed on your visit today for further evaluation if your symptoms do not resolve. CHEST WALL PAIN: Your chest pain may be coming from the chest wall. This is often caused by straining the muscles or joints in the chest during physical activity, direct trauma, coughing, or vigorous vomiting. Persons with arthritis are especially prone to this type of pain, due to inflammation of the cartilage joints near the breast bone. Occasionally, no cause can be found. Rest from strenuous physical activity. This kind of chest pain is usually made worse by movement of the chest. Depending on the symptoms, we may prescribe medicine for pain, muscle relaxation, and antiinflammatory effects. If the pain is new, and seems to be due to muscle strain, cold packs can help. Otherwise, apply gentle warmth to the painful area for 15 minutes every hour or two. You should call contact the doctor immediately if things change. Further evaluation is needed if you develop a fever or cough, if the nature of the pain changes, or if you become short of breath. FOLLOW-UP CARE: If you have been referred to a physician for follow-up care, call the physician s office for an appointment as you were instructed or within the next two days. If you experience worsening or a significant change in your symptoms, notify the physician immediately or return to the Emergency Department at any time for re-evaluation. Sinusitis You have sinusitis, an infection of the sinus cavities of the face. The sinuses are air-filled chambers which open into the inside of the nose. Avoid chemical fumes, pollens, dusts, and smoke (especially cigarette smoke ). Keep the air humidified in your bedroom and work area and take plenty of liquids by mouth. This condition can be serious if the infection spreads. If your symptoms worsen, or if you develop severe headache, high fever, stiff neck, or a rash, you must call the doctor or return for re-evaluation. Prescriptions: Fluticasone Propionate [Flonase Nasal [place] 50 Mcg/[place] 16 gm] 1 spray NASL Q12 #1 inhaler Forms: Elevated Blood Pressure Referrals: DYLAN FAIRBANKS MD [Primary Care Provider] - Follow up as needed
[2017-10-11 11:14] LABS: ABSOLUTE BASOPHILS # (AUTO) 0.1 10^3/uL (0.0-0.2); ABSOLUTE EOSINOPHILS # (AUTO) 0.2 10^3/uL (0.0-0.6); ABSOLUTE LYMPHOCYTES (AUTO) 2.1 10^3/uL (0.5-4.7); ABSOLUTE MONOCYTES (AUTO) 0.4 10^3/uL (0.1-1.4); BASOPHILS % (AUTO) 1.2 % (0-2); EOSINOPHILS % (AUTO) 3.4 % (0-6); HEMATOCRIT 43.9 % (37.9-51.0); HEMOGLOBIN 14.5 g/dL (13.5-17.0); LYMPHOCYTES % (AUTO) 36.8 % (13-45); MEAN CORPUSCULAR HEMOGLOBIN 28.8 pg (27.0-33.4); MEAN CORPUSCULAR HGB CONC 33.1 g/dL (32.0-36.0); MEAN CORPUSCULAR VOLUME 87 fl (80-97); MONOCYTES % (AUTO) 6.6 % (3-13); PLATELET COUNT 198 10^3/uL (150-450); RED BLOOD COUNT 5.05 10^6/uL (4.35-5.55); RED CELL DISTRIBUTION WIDTH 12.7 % (11.5-14.0); TOTAL CELLS COUNTED % (AUTO) 100 %; WHITE BLOOD COUNT 5.8 10^3/uL (4.0-10.5)
[2017-10-11 11:29] LABS: ALANINE AMINOTRANSFERASE 27 U/L (21-72); ALBUMIN 4.2 g/dL (3.5-5.0); ALKALINE PHOSPHATASE 74 U/L (38-126); ANION GAP 12 (5-19); ASPARTATE AMINO TRANSFERASE 24 U/L (17-59); BILIRUBIN,DIRECT 0.3 mg/dL (0.0-0.4); BILIRUBIN,TOTAL 0.7 mg/dL (0.2-1.3); BLOOD UREA NITROGEN 8 mg/dL (7-20); CALCIUM 9.5 mg/dL (8.4-10.2); CARBON DIOXIDE 27 mmol/L (22-30); CHLORIDE 107 mmol/L (98-107); GLUCOSE 108 mg/dL (75-110); POTASSIUM 3.5 mmol/L (3.6-5.0); SODIUM 145.8 mmol/L (137-145); TOTAL PROTEIN 7.5 g/dL (6.3-8.2)
--- NOTE | 2017-10-11 13:02 | RADIOLOGY REPORT (SQ) ---
EXAM DESCRIPTION: CHEST PA/LAT COMPLETED DATE/TIME: 10/11/2017 12:52 pm REASON FOR STUDY: chest pain COMPARISON: 12/14/2016 EXAM PARAMETERS: NUMBER OF VIEWS: two views TECHNIQUE: Digital Frontal and Lateral radiographic views of the chest acquired. RADIATION DOSE: NA LIMITATIONS: none FINDINGS: LUNGS AND PLEURA: Emphysematous changes in the lungs, stable findings. Chronic scarring in the lungs, more so in the upper-mid lung zones. No acute pulmonary consolidation. No pneumothora x or pleural effusion. MEDIASTINUM AND HILAR STRUCTURES: No masses or contour abnormalities. HEART AND VASCULAR STRUCTURES: Heart normal size. No evidence for failure. BONES: No acute findings. HARDWARE: None in the chest. OTHER: No other significant finding. IMPRESSION: 1 No significant interval changes in the lungs since the prior examination dated 12/15/19 17. Emphysematous changes and chronic scarring in the lungs. No acute findings. TECHNICAL DOCUMENTATION: JOB ID: [id number] [employer]- All Rights Reserved Reading location - IP/workstation name: [email or web address]
[2017-10-11 13:11] VITALS: BP 112/74
--- NOTE | 2017-10-11 23:39 | EKG REPORT ---
SEVERITY:- NORMAL ECG - SINUS RHYTHM : Confirmed by: Anila Flor 11-Oct-2017 23:37:27
== END 2017-10-11 13:11 | disposition home or self-care (01) ==
LOC: ER 10:07
DX: R07.9 Chest pain, unspecified (principal); X50.0XXA Overexertion from strenuous movement or load, initial encounter; J30.89 Other allergic rhinitis; T45.0X6A Underdosing of antiallergic and antiemetic drugs, initial encounter; T49.6X6A Underdosing of otorhinolaryngological drugs and preparations, initial encounter; Z91.14 Patient's other noncompliance with medication regimen; I10 Essential (primary) hypertension; I25.10 Atherosclerotic heart disease of native coronary artery without angina pectoris; I25.2 Old myocardial infarction; Z95.5 Presence of coronary angioplasty implant and graft
CPT/HCPCS: 36415; 71046; 80053; 82550; 84484; 85025; 93005; 93010; 99284

== ENCOUNTER 2017-11-17 12:06 | Emergency (ER) | payer MEDICAID ==
[2017-11-17 12:12] VITALS: BP 116/75
--- NOTE | 2017-11-17 13:31 | ER Document Report ---
ED Respiratory Problem - General Chief Complaint: Sinus Congestion Stated Complaint: COLD SYMPTOMS Time Seen by Provider: 11/17/17 13:17 Mode of Arrival: Ambulatory Information source: Patient TRAVEL OUTSIDE OF THE [place] IN LAST 30 DAYS: No - HPI Patient complains to provider of: Other - nasal congestion and cough Notes: Patient is here with complaints of nasal congestion and mild cough for the last 2 days. Patient has a history of COPD as well as seasonal allergies. Is currently on Flonase and Claritin. States that over the last few days he developed nasal congestion and mild cough he denies any chest pain or shortness of breath. No fevers. No nausea, vomiting, diarrhea. No numbness, tingling, weakness. No severe headache. No blurred or loss vision. No numbness, tingling, weakness. He denies any other complaints at this time. - Related Data Allergies/Adverse Reactions: No Known Allergies Allergy (Verified 11/17/17 12:09) Past Medical History - Social History Smoking Status: Current Every Day Smoker Chew tobacco use (# tins/day): No Frequency of alcohol use: Occasional Drug Abuse: None Family History: Reviewed & Not Pertinent Patient has suicidal ideation: No Patient has homicidal ideation: No - Past Medical History Cardiac Medical History: Reports: Hx Congestive Heart Failure, Hx Coronary Artery Disease - stents x2, 2001/2002, Hx Heart Attack - 2001, Hx Hypertension Pulmonary Medical History: Reports: Hx COPD Denies: Hx Bronchitis, Hx Pneumonia Comment Only: Hx Asthma - sarcoidosis Neurological Medical History: Denies: Hx Cerebrovascular Accident, Hx Seizures Renal/ Medical History: Reports: Hx Kidney Stones. Denies: Hx Peritoneal Dialysis Musculoskeltal Medical History: Reports Hx Arthritis - hips,knees Past Surgical History: Reports: Hx Cardiac Catheterization - two stents, Hx Orthopedic Surgery - R hip replacement - Immunizations Immunizations up to date: No Hx Diphtheria, Pertussis, Tetanus Vaccination: Yes Review of Systems - Review of Systems -: Yes All other systems reviewed and negative Physical Exam - Vital signs Vitals: Temp Pulse Resp BP Pulse Ox 99.1 F 72 18 116/75 98 11/17/17 12:11 11/17/17 12:11 11/17/17 12:11 11/17/17 12:11 11/17/17 12:11 - Notes Notes: GENERAL: alert, cooperative, nontoxic, no distress. HEAD: normocephalic, atraumatic EYES: conjunctiva pink without discharge, no external redness or swelling. EARS: no external swelling, no external redness, no mastoid redness, swelling, tenderness. Ear canals are clear without swelling or drainage. TMs pearly herman , no redness, no bulging, normal landmarks, no perforation. NOSE: atraumatic, no external swelling. clear rhinorrhea noted. MOUTH/THROAT: mucous membranes moist and pink, posterior pharynx without erythema, swelling, exudate. No trismus or drooling. NECK: soft, supple, full range of motion, no meningismus. CHEST: no distress, lungs clear and equal throughout. No wheezing, rales, rhonchi. CARDIAC: regular rate and rhythm, no murmur, normal capillary refill, normal pulses. No peripheral edema noted. BACK: full range of motion, no CVA tenderness. EXTREMITIES: full range of motion of all extremities. No redness, no swelling. NEURO: alert and oriented A&O3, no focal deficits, full range of motion of all extremities. PYSCH: appropriate mood, affect. Patient is cooperative. SKIN: pink, warm, dry, no rash. Course - Re-evaluation Re-evalutation: 11/17/17 13:29 Patient is nontoxic appearing with stable vitals. The patient arrives with complaints of nasal congestion and cough for the last 2 days. No shortness of breath. No chest pain. Vitals are stable. Is not hypoxic. Exam is completely benign. He has no signs of traction. This point the patient is already taking Claritin and Flonase. He is instructed to continue taking this and I will write a prescription for Coricidin HPV he can take as needed for cough. Follow-up with his primary care doctor if not better in the next week, sooner for worsening symptoms, high fever, difficulty breathing or swallowing, chest pain, or for any further concerns. The patient's emergency department workup and current diagnosis were explained to the patient and or family. Follow-up instructions were provided. Medications if prescribed were discussed. Instructions for when to return to the emergency department including specific worrisome symptoms were discussed with the patient and/or family. - Vital Signs Vital signs: Temp Pulse Resp BP Pulse Ox 99.1 F 72 18 116/75 98 11/17/17 12:11 11/17/17 12:11 11/17/17 12:11 11/17/17 12:11 11/17/17 12:11 Discharge - Discharge Clinical Impression: URI (upper respiratory infection) Qualifiers: URI type: unspecified viral URI Qualified Code(s): J06.9 - Acute upper respiratory infection, unspecified Condition: Stable Disposition: HOME, SELF-CARE Instructions: Upper Respiratory Illness ([facility]) Additional Instructions: Take medications as prescribed. Continue taking her Claritin and Flonase. Follow-up with your doctor if not better in 1 week, sooner for worsening symptoms, fever, difficulty breathing or swallowing, chest pain, shortness of breath, persistent vomiting, or for any further concerns. Prescriptions: Chlorpheniramine/Dextromethorp [Coricidin Hbp Cough & Cold Tab] 1 each PO BID PRN #14 tablet PRN Reason: Referrals: DYLAN FAIRBANKS MD [Primary Care Provider] - Follow up as needed
== END 2017-11-17 13:35 | disposition home or self-care (01) ==
LOC: ER 12:06
DX: J06.9 Acute upper respiratory infection, unspecified (principal); B97.89 Other viral agents as the cause of diseases classified elsewhere; J30.2 Other seasonal allergic rhinitis; Z79.899 Other long term (current) drug therapy; J44.9 Chronic obstructive pulmonary disease, unspecified; R05 Cough; R09.81 Nasal congestion; F17.200 Nicotine dependence, unspecified, uncomplicated; I10 Essential (primary) hypertension; I25.10 Atherosclerotic heart disease of native coronary artery without angina pectoris; I25.2 Old myocardial infarction; Z95.5 Presence of coronary angioplasty implant and graft
CPT/HCPCS: 99283

== ENCOUNTER → 2018-02-14 | Outpatient (CLI) | payer MEDICAID ==
[2018-02-14 10:46] LABS: ALANINE AMINOTRANSFERASE 29 U/L (21-72); CHOLESTEROL 157.95 mg/dL (0-200); TRIGLYCERIDES 78 mg/dL (<150)
[2018-02-14 10:58] LABS: DIRECT LDL 97 mg/dL (<100)
== END ==
LOC: OD 08:27
PROVIDERS: ATTEND Family Medicine Geriatric Medicine
DX: E78.5 Hyperlipidemia, unspecified (principal)
CPT/HCPCS: 36415; 80061; 84460

== ENCOUNTER 2018-09-28 07:48 | Emergency (ER) | payer MEDICAID ==
[2018-09-28 07:55] VITALS: BP 146/75
--- NOTE | 2018-09-28 08:16 | ER Document Report ---
ED Respiratory Problem - General Chief Complaint: Cold Symptoms Stated Complaint: COLD SYMPTOMS Time Seen by Provider: 09/28/18 08:10 Primary Care Provider: ELLIE MAY MD [Primary Care Provider] - Follow up as needed Notes: 58-year-old male with history of sarcoidosis presents with 3 days of cough congestion and facial pressure. He states his right nostril has been draining yellow drainage and occasionally bleeding. The patient had some sore scratchy throat. Congestion cough. Some nausea but no vomiting no headache but facial pressure worse on the right than the left. Denies any chest pain or shortness of breath. TRAVEL OUTSIDE OF THE [place] IN LAST 30 DAYS: No - Related Data Allergies/Adverse Reactions: No Known Allergies Allergy (Verified 09/28/18 07:50) Past Medical History - Social History Smoking Status: Unknown if Ever Smoked Family History: Reviewed & Not Pertinent - Past Medical History Cardiac Medical History: Reports: Hx Congestive Heart Failure, Hx Coronary Artery Disease - stents x2, 2001/2002, Hx Heart Attack - 2001, Hx Hypertension Pulmonary Medical History: Reports: Hx COPD Denies: Hx Bronchitis, Hx Pneumonia Comment Only: Hx Asthma - sarcoidosis Neurological Medical History: Denies: Hx Cerebrovascular Accident, Hx Seizures Renal/ Medical History: Reports: Hx Kidney Stones. Denies: Hx Peritoneal Dialysis Musculoskeletal Medical History: Reports Hx Arthritis - hips,knees Past Surgical History: Reports: Hx Cardiac Catheterization - two stents, Hx Orthopedic Surgery - R hip replacement - Immunizations Immunizations up to date: No Hx Diphtheria, Pertussis, Tetanus Vaccination: Yes Review of Systems - Review of Systems Constitutional: Chills, Fever EENT: Nose congestion, Nose discharge, Sinus pressure, Sinus discharge. denies: Blurred vision, Double vision Cardiovascular: denies: Chest pain, Edema Respiratory: Cough. denies: Short of breath, Sputum Gastrointestinal: Nausea. denies: Abdominal pain, Diarrhea, Vomiting Genitourinary: denies: Frequency, Hematuria Musculoskeletal: denies: Back pain Neurological/Psychological: denies: Headaches Physical Exam - Vital signs Vitals: Temp Pulse Resp BP Pulse Ox 99.8 F 87 16 146/75 H 96 09/28/18 07:52 09/28/18 07:52 09/28/18 07:52 09/28/18 07:52 09/28/18 07:52 - Notes Notes: GENERAL_APPEARANCE: well_nourished, alert, cooperative, no_acute_distress, no_obvious_discomfort. VITALS: reviewed, see vital signs table. HEAD: no_swelling\tenderness on the head. EYES: PERRL, EOMI, conjunctiva_clear. NOSE: Yellow nasal discharge from the right with some blood. There is overall turbinate inflammation bilateral more so the right than the left MOUTH: (-)decreased moisture. THROAT: Mild throat_inflammation, no_airway_obstruction. no_lymphadenopathy NECK: supple, no_neck_tenderness, (-)thyromegaly. BACK: no_back_tenderness. CHEST_WALL: no_chest_tenderness. LUNGS: no_wheezing, no_rales, no_rhonchi, (-)accessory muscle use, good air exchange bilateral. HEART: normal_rate, normal_rhythm, normal_S1, normal_S2, (-)S3, (-)S4, no_murmur, no_rub. ABDOMEN: normal_BS, soft, no_abd_tenderness, (-)guarding, (-)rebound, no_organomegaly, no_abd_masses. EXTREMITIES: good pulses in all_extremities, no_swelling\tenderness in the extremities, no_edema. SKIN: warm, dry, good_color, no_rash. MENTAL_STATUS: speech_clear, oriented_X_3, normal_affect, responds_appropriately to questions. Course - Re-evaluation Re-evalutation: 09/28/18 08:16 58-year-old male presents with acute sinusitis. In his right nare he has yellow discharge with some blood. He has facial pressure on the right. He is a little bit of throat injection but not significant to seems to be strictly sinusitis we will place him on Augmentin for 10 days. Have him use [id number] decongestants. Otherwise he looks well he is neuro intact. - Vital Signs Vital signs: Temp Pulse Resp BP Pulse Ox 99.8 F 87 16 146/75 H 96 09/28/18 07:52 09/28/18 07:52 09/28/18 07:52 09/28/18 07:52 09/28/18 07:52 Discharge - Discharge Clinical Impression: Acute sinusitis Qualifiers: Sinusitis location: maxillary Recurrence: non-recurrent Qualified Code(s): J01.00 - Acute maxillary sinusitis, unspecified Disposition: HOME, SELF-CARE Instructions: Sinusitis ([facility]) Prescriptions: Amox Tr/Potassium Clavulanate [Augmentin 875-125 Tablet] 1 tab PO BID 10 Days #20 tablet Referrals: ELLIE MAY MD [Primary Care Provider] - Follow up as needed
== END 2018-09-28 08:31 | disposition home or self-care (01) ==
LOC: ER 07:48
DX: J01.00 Acute maxillary sinusitis, unspecified (principal); R05 Cough; R11.0 Nausea; R50.9 Fever, unspecified; R09.81 Nasal congestion; J02.9 Acute pharyngitis, unspecified; I25.10 Atherosclerotic heart disease of native coronary artery without angina pectoris; I10 Essential (primary) hypertension; I25.2 Old myocardial infarction; J44.9 Chronic obstructive pulmonary disease, unspecified; Z95.5 Presence of coronary angioplasty implant and graft
CPT/HCPCS: 99283

== ENCOUNTER → 2018-10-05 | Outpatient (CLI) | payer MEDICAID ==
--- NOTE | 2018-10-05 13:21 | RADIOLOGY REPORT (SQ) ---
EXAM DESCRIPTION: NM LIVER/SPLEEN SCAN COMPLETED DATE/TIME: 10/05/2018 1:08 pm REASON FOR STUDY: HISTORY OF CIRRHOSIS OF LIVER Z87.19 PERSONAL HISTORY OF OTHER DISEASES OF THE DI GESTIVE S COMPARISON: None. RADIONUCLIDE AND DOSE: 5 millicuries Tc-99m Sulfur Colloid. The route of agent administration: Intravenous ADDITIONAL DRUGS AND DOSES: None. TECHNIQUE: Images of the upper abdomen acquired in multiple projections following radionuclide admin istration. LIMITATIONS: None. FINDINGS: Liver: Normal size. Homogeneous activity. No focal lesions. Spleen: Normal size. Homogeneous activity. No focal lesions. Other: No other significant findings. IMPRESSION: Normal liver spleen scan. TECHNICAL DOCUMENTATION: JOB ID: [id number] [employer]- All Rights Reserved Reading location - IP/workstation name: [email or web address]
== END ==
LOC: RAD 10:44
PROVIDERS: ATTEND Family Medicine
DX: Z87.19 Personal history of other diseases of the digestive system (principal)
CPT/HCPCS: 78215; A9541

== ENCOUNTER 2018-12-12 16:22 | Emergency (ER) | payer MEDICAID ==
--- NOTE | 2018-12-14 10:22 | EKG REPORT ---
SEVERITY:- NORMAL ECG - SINUS RHYTHM : Confirmed by: Anila Flor 14-Dec-2018 10:22:01
== END 2018-12-12 17:20 | disposition left against medical advice (07) ==
LOC: ER 16:22
DX: Z53.21 Procedure and treatment not carried out due to patient leaving prior to being seen by health care provider (principal); R07.9 Chest pain, unspecified
CPT/HCPCS: 93005; 93010

== ENCOUNTER 2019-07-23 16:02 | Emergency (ER) | payer MEDICAID ==
[2019-07-23 17:12] VITALS: BP 106/72
--- NOTE | 2019-07-23 17:15 | ER Document Report ---
ED Medical Screen (RME) - General Chief Complaint: Groin Pain Stated Complaint: GROIN PAIN, PRESSURE Time Seen by Provider: 07/23/19 17:11 Primary Care Provider: KACEY PERRY MD [Primary Care Provider] - Follow up as needed TRAVEL OUTSIDE OF THE [place] IN LAST 30 DAYS: No - HPI Notes: 07/23/19 17:14 Patient is a 59-year-old male with a history of congestive heart failure who presents complaining of feeling constipated for the past week and having lower abdominal pain bilaterally. Patient states that he cannot have a good bowel movement and they are usually small and hard. He is still passing some gas today. He is urinating normally. No other nausea or vomiting. No fever. I have treated and performed a rapid initial assessment of this patient. A comprehensive ED assessment and evaluation of the patient, analysis of test results and completion of medical decision making process will be conducted by additional ED providers. PHYSICAL EXAMINATION: GENERAL: Well-appearing, well-nourished and in no acute distress. A&Ox4. Answers questions appropriately. Abdomen: Mild lower abdominal tenderness. Limited exam in triage. - Related Data Allergies/Adverse Reactions: No Known Allergies Allergy (Verified 07/23/19 17:12) Past Medical History - Past Medical History Cardiac Medical History: Reports: Hx Congestive Heart Failure, Hx Coronary Artery Disease - stents x2, , Hx Heart Attack - 2001, Hx Hypertension Pulmonary Medical History: Reports: Hx COPD Denies: Hx Bronchitis, Hx Pneumonia Comment Only: Hx Asthma - sarcoidosis Neurological Medical History: Denies: Hx Cerebrovascular Accident, Hx Seizures Renal/ Medical History: Reports: Hx Kidney Stones. Denies: Hx Peritoneal Dialysis Musculoskeltal Medical History: Reports Hx Arthritis - hips,knees Past Surgical History: Reports: Hx Cardiac Catheterization - two stents, Hx Orthopedic Surgery - R hip replacement - Immunizations Immunizations up to date: No Hx Diphtheria, Pertussis, Tetanus Vaccination: Yes Physical Exam - Vital signs Vitals: Temp Pulse Resp BP Pulse Ox 98.7 F 79 18 106/72 94 07/23/19 16:55 07/23/19 16:55 07/23/19 16:55 07/23/19 16:55 07/23/19 16:55 Course - Vital Signs Vital signs: Temp Pulse Resp BP Pulse Ox 98.7 F 79 18 106/72 94 07/23/19 16:55 07/23/19 16:55 07/23/19 16:55 07/23/19 16:55 07/23/19 16:55 Doctor's Discharge - Discharge Referrals: KACEY PERRY MD [Primary Care Provider] - Follow up as needed
[2019-07-23 18:20] LABS: ABSOLUTE BASOPHILS # (AUTO) 0.2 10^3/uL (0.0-0.2); ABSOLUTE EOSINOPHILS # (AUTO) 0.1 10^3/uL (0.0-0.6); ABSOLUTE LYMPHOCYTES (AUTO) 2.8 10^3/uL (0.5-4.7); ABSOLUTE MONOCYTES (AUTO) 1.7 10^3/uL (0.1-1.4); ABSOLUTE NEUT (AUTO) 13.4 10^3/uL (1.7-8.2); BASOPHILS % (AUTO) 1.1 % (0-2); EOSINOPHILS % (AUTO) 0.6 % (0-6); HEMATOCRIT 35.6 % (37.9-51.0); HEMOGLOBIN 11.7 g/dL (13.5-17.0); LYMPHOCYTES % (AUTO) 15.6 % (13-45); MEAN CORPUSCULAR HEMOGLOBIN 27.5 pg (27.0-33.4); MEAN CORPUSCULAR HGB CONC 32.8 g/dL (32.0-36.0); MEAN CORPUSCULAR VOLUME 84 fl (80-97); MONOCYTES % (AUTO) 9.1 % (3-13); PLATELET COUNT 316 10^3/uL (150-450); RED BLOOD COUNT 4.24 10^6/uL (4.35-5.55); RED CELL DISTRIBUTION WIDTH 13.1 % (11.5-14.0); SEGMENTED NEUTROPHILS % (AUTO) 73.6 % (42-78); TOTAL CELLS COUNTED % (AUTO) 100 %; WHITE BLOOD COUNT 18.2 10^3/uL (4.0-10.5)
[2019-07-23 18:34] LABS: ALBUMIN 3.8 g/dL (3.5-5.0); ALKALINE PHOSPHATASE 101 U/L (38-126); ANION GAP 15 (5-19); ASPARTATE AMINO TRANSFERASE 34 U/L (17-59); BILIRUBIN,DIRECT 0.3 mg/dL (0.0-0.4); BLOOD UREA NITROGEN 11 mg/dL (7-20); CALCIUM 9.4 mg/dL (8.4-10.2); CARBON DIOXIDE 25 mmol/L (22-30); CHLORIDE 99 mmol/L (98-107); GLUCOSE 93 mg/dL (75-110); POTASSIUM 3.7 mmol/L (3.6-5.0); TOTAL PROTEIN 7.8 g/dL (6.3-8.2)
--- NOTE | 2019-07-23 18:39 | ER Document Report ---
ED GI/ - General Chief Complaint: Constipation Stated Complaint: GROIN PAIN, PRESSURE Time Seen by Provider: 07/23/19 17:11 Primary Care Provider: [facility] [Provider Group] - Follow up tomorrow KACEY PERRY MD [COMMUNITY BASED STAFF] - Follow up as needed Notes: Patient is a 59-year-old male who presents the emergency department with a chief complaint of abdominal pain. He states that he feels like he has been constipated for the past week. States that he is not been eating very well and has been eating mainly hamburgers and no vegetables or fruits. He did have a small bowel movement today, but states that it was not enough. He states that it feels like a possible kidney stone pain also. Denies any fever, body aches but admits to chills at night. TRAVEL OUTSIDE OF THE [place] IN LAST 30 DAYS: No - Related Data Allergies/Adverse Reactions: No Known Allergies Allergy (Verified 07/23/19 17:12) Past Medical History - Social History Smoking Status: Never Smoker Chew tobacco use (# tins/day): No Frequency of alcohol use: None Drug Abuse: None Family History: Reviewed & Not Pertinent Patient has suicidal ideation: No Patient has homicidal ideation: No - Past Medical History Cardiac Medical History: Reports: Hx Congestive Heart Failure, Hx Coronary Artery Disease - stents x2, , Hx Heart Attack - 2001, Hx Hypertension Pulmonary Medical History: Reports: Hx COPD Denies: Hx Bronchitis, Hx Pneumonia Comment Only: Hx Asthma - sarcoidosis Neurological Medical History: Denies: Hx Cerebrovascular Accident, Hx Seizures Renal/ Medical History: Reports: Hx Kidney Stones. Denies: Hx Peritoneal Dialysis Musculoskeletal Medical History: Reports Hx Arthritis - hips,knees Past Surgical History: Reports: Hx Cardiac Catheterization - two stents, Hx Orthopedic Surgery - R hip replacement - Immunizations Immunizations up to date: No Hx Diphtheria, Pertussis, Tetanus Vaccination: Yes Review of Systems - Review of Systems Notes: REVIEW OF SYSTEMS: CONSTITUTIONAL : Denies recent illness. Denies recent unintentional weight loss. Denies fever, chills, or sweats. EENT: Denies eye, ear, throat, or mouth pain, discharge, or symptoms. Denies nasal or sinus congestion. CARDIOVASCULAR: Denies chest pain. RESPIRATORY: Denies shortness of breath, cough, congestion, difficulty breathing, or wheezing. GASTROINTESTINAL: See HPI. GENITOURINARY: See HPI. MUSCULOSKELETAL: Denies neck and back pain. Denies joint pain or swelling. SKIN: Denies rash, itchiness, or lesions HEMATOLOGIC : Denies easy bruising or bleeding. LYMPHATIC: Denies swollen, painful, enlarged glands. NEUROLOGICAL: Denies no numbness or tingling denies weakness. Denies headache. Denies altered mental status. Denies alteration in speech. PSYCHIATRIC: Denies stress, anxiety, alteration in sleep patterns, or d epression. All other systems reviewed and negative. Physical Exam - Vital signs Vitals: Temp Pulse Resp BP Pulse Ox 98.7 F 79 18 106/72 94 07/23/19 16:55 07/23/19 16:55 07/23/19 16:55 07/23/19 16:55 07/23/19 16:55 - Notes Notes: PHYSICAL EXAMINATION: GENERAL: Appears well, healthy, well-nourished, no acute distress. HEAD: Normocephalic, atraumatic. EYES: PERRL, conjunctiva normal, all extraocular movements intact, sclera nonicteric ENT: Moist mucous membranes. NECK: Supple, no noticeable swelling, redness, rash. Normal range of motion. LUNGS: Equal breath sounds bilaterally and clear to auscultation. No wheezes rales or rhonchi. CARDIOVASCULAR: S1-S2, regular rate, regular rhythm. Radial pulses 2+, normal. ABDOMEN: Normoactive bowel sounds. Firm, tender mid to right lower abdomen, no guarding, no rebound tenderness, and no masses palpated. EXTREMITIES: Normal strength and range of motion, no pitting or edema. No cyanosis. NEUROLOGICAL: Moves all extremities upon command. Strength 5/5 in all extremities. PSYCH: Normal mood, normal affect. SKIN: Warm, dry. No rash, lesions, ulcerations noted. Normal skin turgor. Course - Re-evaluation Re-evalutation: 07/23/19 18:36 Hematology shows a white blood cell count of 18,000. There is no shift. Patient has mild anemia noted with a hemoglobin of 11.7 hematocrit of 35.6. Urinalysis shows a trace amount of leukocytes. Gonorrhea and Chlamydia will be sent. Patient does not have any blood in his urine. Chemistries are unremarkable. Patient will be sent for a CT of the abdomen pelvis with IV contrast, as he has significant right lower quadrant pain. 07/23/19 19:[address] refusing a CT of the abdomen pelvis with IV contrast. Explained to the patient that there were stones noted on his KUB. I told him that we would get a better picture with an IV, but he states that he will absolutely not have any IV contrast. He is in agreement to have the CT without contrast. 07/23/19 21:45 CT of the abdomen pelvis shows that the patient has right lower lobe scarring in the left lung base. He also has bilateral renal calculi with no evidence of hydronephrosis or hydroureter ureter. Patient also has gallstones noted. There is no bowel obstruction, but according to the radiologist there is a large inflammatory mass with involvement of the loops of small bowel in the right lower quadrant. There could be a possible abscess, sigmoid diverticulitis, or neoplasm in the area. There may also be a fistula formation. I discussed these findings with Dr. Figueroa, the surgeon on. Dr. Figueroa will see the patient. I relayed the findings on to the patient and the patient states that he wants to "get another opinion." I will get Dr. Alanis, my attending to see the patient. Patient is also stating, "I do not want to be treated like a guinea pig and you guys are just experimenting on me." I explained to the patient that it is standard procedure to order labs and scans to figure out what is wrong with him. I told him that I am very concerned with this finding on his CT scan and that the surgeon is recommending oral contrast to have a more accurate depiction of what is going on in his abdomen. 07/23/19 22:14 Dr. Alanis came to bedside, and the patient became even more upset. Patient was stated, "I am going to tomer you. I should have went to [facility]." We discussed the risks and benefits of staying and leaving. He is opting to go home. Patient was yelling at the staff, myself, and Dr. Alanis. Security was called to bedside. He will be started on Augmentin will follow-up with the surgical clinic tomorrow. The patient has chosen to leave the facility against medical advice. The relevant issues have been reviewed and discussed with the patient and family at the bedside. At the time of this assessment there is no indication for involuntary commitment. The patient is alert, oriented, and able to express clearly their reasoning for not wanting to remain in the emergency department for further treatment. The patient is not clinically psychotic, intoxicated, and denies and suicidal ideation. Differential or suspected diagnoses based on medical screening exam: Diverticulitis, appendicitis, fistula, abdominal pain. The patient is aware of the concerning diagnoses and acknowledges understanding of the reasons for the following recommendations: Patient does not want to have CT with contrast done. The following recommendations/services were offered and refused: Patient refused IV contrast The following risks were explained: , permanent disability, loss of function, worsening abdominal pain, worsening possible abscess. Clinical impression: Patient is competent to make decisions regarding the medical that is being offered. - Vital Signs Vital signs: Temp Pulse Resp BP Pulse Ox 98.7 F 79 18 106/72 94 07/23/19 16:55 07/23/19 16:55 07/23/19 16:55 07/23/19 16:55 07/23/19 16:55 - Laboratory Result Diagrams: 07/23/19 18:08 07/23/19 18:08 Laboratory results interpreted by me: 07/23/19 07/23/19 18:08 18:51 WBC 18.2 H RBC 4.24 L Hgb 11.7 L Hct 35.6 L Absolute Neuts (auto) 13.4 H Absolute Monos (auto) 1.7 H Urine Protein 30 H Urine Ketones TRACE H Urine Urobilinogen 2.0 H Leukocyte Esterase Rfl TRACE H Urine Ascorbic Acid 20 H Discharge - Discharge Clinical Impression: Left against medical advice Abdominal pain Qualifiers: Abdominal location: right lower quadrant Qualified Code(s): R10.31 - Right lower quadrant pain Condition: Stable Disposition: AGAINST MEDICAL ADVICE Additional Instructions: You are seen today in the emergency department for abdominal pain. Your work-up was not complete, as you are wishing not to have a CT with contrast. You are wishing to leave. Is a possibility you could , your pain get worse, or have a worsening condition. You are being placed on antibiotics. Please make sure you take all your antibiotics as prescribed. Please follow-up with the surgical clinic tomorrow. Prescriptions: Amox Tr/Potassium Clavulanate [Augmentin 875-125 Tablet] 1 tab PO BID 10 Days tablet Referrals: KACEY PERRY MD [COMMUNITY BASED STAFF] - Follow up as needed [facility] [Provider Group] - Follow up tomorrow
--- NOTE | 2019-07-23 18:46 | RADIOLOGY REPORT (SQ) ---
EXAM DESCRIPTION: KUB/ABDOMEN (SINGLE VIEW) COMPLETED DATE/TIME: 07/23/2019 6:18 pm REASON FOR STUDY: abd pain, ?constipation/impaction COMPARISON: None. NUMBER OF VIEWS: One view. TECHNIQUE: Supine radiographic image of the abdomen acquired. LIMITATIONS: None. FINDINGS: BOWEL GAS PATTERN: Normal bowel gas pattern. No dilated loops. CALCIFICATIONS: Calcific densities projecting over the left greater than right renal shadows. SOFT TISSUES: No gross mass or suggestion of organomegaly. HARDWARE: Total right hip arthroplasty dystrophic calcification. Severe left hip osteoarthritis. BONES: No acute fracture. No worrisome bone lesions. OTHER: No other significant finding. IMPRESSION: Nonobstructive bowel gas pattern. No significant stool burden. Calcific densities projecting over the left greater than right renal shadows suggestive of nephrolith iasis. TECHNICAL DOCUMENTATION: JOB ID: [id number] [employer]- All Rights Reserved Reading location - IP/workstation name: [email or web address]
[2019-07-23 19:11] LABS: APPEARANCE,URINE SLIGHTLY-CLOUDY; BILIRUBIN,URINE NEGATIVE (NEGATIVE); COLOR,URINE YELLOW; GLUCOSE, URINE NEGATIVE (NEGATIVE); KETONES,URINE TRACE mg/dL (NEGATIVE); PROTEIN,URINE 30 mg/dL (NEGATIVE); URINE SPECIFIC GRAVITY 1.013
[2019-07-23] MEDS ORDERED: NORMAL SALINE 1000 ML 1,000 ML IV ONE (20:13)
[2019-07-23] MEDS ORDERED: MORPHINE SULFATE 10 MG/ML INJ IV ONE (20:13)
--- NOTE | 2019-07-23 21:24 | RADIOLOGY REPORT (SQ) ---
EXAM DESCRIPTION: CLINICAL HISTORY: 59 years Male abdominal pain; eval stone COMPARISON: None. TECHNIQUE: Contiguous axial images obtained through the abdomen and pelvis without IV contrast. Reformatted images obtained. This exam was performed according to our department optimization program which includes automated exposure control, adjustment of the mA and/or kv according to patient size and/or use of iterative reconstruction technique. FINDINGS: Patchy area of density in the right lower lobe anterolaterally. Area of scarring in the left lung base. The liver appears unremarkable. The spleen and pancreas appear unremarkable. No adrenal masses. Bilateral renal calculi without hydronephrosis or obstructive uropathy. The gallbladder is present. Gallstones are noted. No aneurysmal dilatation of the aorta. No bowel obstruction. Unremarkable appendix. There is an inflammatory mass in the right lower quadrant with gas and fluid. This is inseparable from loops of small bowel and may represent interloop abscess. The possibility of mass is not excluded. There is adjacent involvement of segments of the sigmoid colon both in the central abdomen and in the right pelvis with wall thickening and inflammatory change. There are scattered small lymph nodes noted. No significant fluid in the pelvis. Images are partially limited by beam hardening artifact from the hip prosthesis. IMPRESSION: Large inflammatory mass with involvement of loops of small bowel in the right lower quadrant. Findings may reflect intraloop abscess as a result of small bowel diverticulitis or adjacent sigmoid diverticulitis, or neoplasm with abscess or fistula formation. Possibility of Meckel's diverticulitis with abscess formation should also be considered. There is adjacent involvement of two separate loops of the sigmoid colon with wall thickening and inflammatory change. Renal calculi Area of stellate scarring in the right lung base which is similar to the examination from 2013 Diverticulosis
[2019-07-23] MEDS ORDERED: AMOXICILLIN TR/POT CLAVULANATE 500-125 MG TAB PO ONE (22:07)
[2019-07-23] MEDS ORDERED: AMOXICILLIN TRIHYD 250 MG CAPSULE PO ONE (22:07)
[2019-07-23 23:13] LABS: CHLAM PCR NOT DETECTED (NOT DETECT)
--- NOTE | 2019-07-23 23:35 | ER Document Report ---
Doctor's Note Notes: 07/23/19 23:31 Patient was initially seen and evaluated by the midlevel provider. She discussed CT findings with general surgery who requested repeat CT with contrast refused and she requires I go talk to the patient. I went in and talk to the patient. Advised him that his CT was definitely abnormal however the radiolog ist was unable determine the exact etiology. Advised him that if his appendicitis would need surgery it was inflammation of his colon he will need antibiotic tariq and abscess he would need drainage also advised him the possibility this could be cancer. Patient had a told him in ED we needed to repeat the CT with contrast. Initially he refused saying that we were just experimenting on him and was not sure why we needed to repeat the test I tried to explain again to the patient why we need to to repeat the test and he still refused saying that we were just experimenting on him. He then asked me if we can guarantee him that we would find a diagnosis if we repeated the CT and I told him that even with the CT with contrast sometimes we can always exact cause further studies might be indicated. He got extremely upset at this point saying that he was nocturnal or 6/min on him and that he wanted to leave. Patient is more than welcome to leave. Upon walking out of the room I told the midlevel providers to make sure she puts on his AMA form that he could of overwhelming sepsis. Normal antibiotics and have him follow-up in the clinic. He became extremely agitated and security was called. I went back in the room 1 additional time to try to convince the patient to stay for further testing he refuses
[2019-07-24 02:53] LABS: URINE AMPHETAMINES SCREEN NEGATIVE; URINE BARBITURATES SCREEN NEGATIVE; URINE BENZODIAZEPINES SCREEN NEGATIVE; URINE COCAINE SCREEN NEGATIVE; URINE MARIJUANA (THC) SCREEN UNCONFIRMED POSITIVE; URINE METHADONE SCREEN NEGATIVE; URINE PHENCYCLIDINE SCREEN NEGATIVE
== END 2019-07-23 22:10 | disposition left against medical advice (07) ==
LOC: ER 16:02
DX: R10.31 Right lower quadrant pain (principal); I50.9 Heart failure, unspecified; I11.0 Hypertensive heart disease with heart failure; I25.10 Atherosclerotic heart disease of native coronary artery without angina pectoris; Z87.442 Personal history of urinary calculi; Z96.641 Presence of right artificial hip joint; I25.2 Old myocardial infarction
CPT/HCPCS: 99284; 96361; 96374; 36415; 87086; 83690; 85025; 80053; 81001; 80307; 87491; 87591; 74018; 74176; J2270; J7030

== ENCOUNTER 2019-10-10 08:20 | Emergency (ER) | payer MEDICAID ==
--- NOTE | 2019-10-10 09:05 | ER Document Report ---
ED General - General Chief Complaint: Abdominal Pain Stated Complaint: ABDOMINAL PAIN Time Seen by Provider: 10/10/19 09:02 Primary Care Provider: MARYBEL BRAGA MD [ACTIVE STAFF] - Follow up as needed KATJA BATISTA MD [ACTIVE STAFF] - Follow up as needed DEEPALI TOURE MD [Primary Care Provider] - Follow up tomorrow TRAVEL OUTSIDE OF THE [place] IN LAST 30 DAYS: No - HPI Notes: 59-year-old male with a history of CHF, [place] with 2 stents in 2001 presents to the emergency room today with complaints of abdominal discomfort, bloating, erection, and GERD congestion that started last night. Pain is 4 out of 10 that comes and goes sharp and achy. patient states that he noticed pain worse after eating some [place] fried chicken last night. Reports some nausea and vomiting, states he had a formed BM yesterday, has been struggling with a history of constipation. Denies any melena patient does report he was notified that he has gallstones a couple months ago when he was having abdominal issues, has not followed up with a office services assistant for these gallstones since. Den ies fevers, chills, chest pain,palpitations, shortness of breath, dyspnea, diarrhea, hematuria,blurred vision, double vision, loss of vision, speech changes, LH, dizziness, syncope, headaches, wheezing, ST, URI, neck pain, weakness, bowel or bladder dysfunction, saddle anesthesia, numbness or tingling in bilateral upper or lower extremities equally, muscle paralysis, weakness in bilateral upper or lower extremities equally or rash. Denies IV drug use. - Related Data Allergies/Adverse Reactions: No Known Allergies Allergy (Verified 10/10/19 11:07) Home Medications: Propranolol, Furosemide, Loratadine Past Medical History - General Information source: Patient - Social History Smoking Status: Never Smoker Family History: Reviewed & Not Pertinent Patient has suicidal ideation: No Patient has homicidal ideation: No - Past Medical History Cardiac Medical History: Reports: Hx Congestive Heart Failure, Hx Coronary Artery Disease - stents x2, , Hx Heart Attack - 2001, Hx Hypertension Pulmonary Medical History: Reports: Hx COPD Denies: Hx Bronchitis, Hx Pneumonia Comment Only: Hx Asthma - sarcoidosis Neurological Medical History: Denies: Hx Cerebrovascular Accident, Hx Seizures Renal/ Medical History: Reports: Hx Kidney Stones. Denies: Hx Peritoneal Dialysis Musculoskeletal Medical History: Reports Hx Arthritis - hips,knees Past Surgical History: Reports: Hx Cardiac Catheterization - two stents, Hx Orthopedic Surgery - R hip replacement - Immunizations Immunizations up to date: No Hx Diphtheria, Pertussis, Tetanus Vaccination: Yes Review of Systems - Review of Systems Constitutional: No symptoms reported EENT: No symptoms reported Cardiovascular: No symptoms reported Respiratory: No symptoms reported Gastrointestinal: See HPI Genitourinary: No symptoms reported Male Genitourinary: No symptoms reported Musculoskeletal: No symptoms reported Skin: No symptoms reported Hematologic/Lymphatic: No symptoms reported Neurological/Psychological: No symptoms reported Physical Exam - Vital signs Vitals: Temp Pulse Resp BP Pulse Ox 98.3 F 88 18 159/88 H 97 10/10/19 08:24 10/10/19 08:24 10/10/19 08:24 10/10/19 08:24 10/10/19 08:24 - Notes Notes: PHYSICAL EXAMINATION:reviewed vital signs by RN GENERAL: Well-appearing, well-nourished and in no acute distress. HEAD: Atraumatic, normocephalic. EYES: Pupils equal round and reactive to light, extraocular movements intact, sclera anicteric, conjunctiva are normal. ENT: Nares patent, oropharynx clear without exudates. Moist mucous membranes. NECK: Normal range of motion, supple without lymphadenopathy LUNGS: Breath sounds clear to auscultation bilaterally and equal. No wheezes ra les or rhonchi. HEART: Regular rate and rhythm without murmurs ABDOMEN: Soft, epigastric and umbilical pain on palpation with mild distention of abdomen. No guarding, no rebound. No masses appreciated. No CVA tenderness appreciated bilaterally Musculoskeletal: Normal range of motion, no pitting or edema. No cyanosis. NEUROLOGICAL: Cranial nerves grossly intact. Normal speech, normal gait. Normal sensory, motor exams PSYCH: Normal mood, normal affect. SKIN: Warm, Dry, normal turgor, no rashes or lesions noted. Course - Re-evaluation Re-evalutation: 10/10/19 09:43 Afebrile vital stable no distress. Nurse's notes reviewed. CT abdomen pelvis with IV contrast in comparison to the CT that was done on 07/23/2019 with IV contrast shows the same small bowel mass where the differential is primary small bowel adenocarcinoma or lymphoma versus inflammation location as inflamed bowel loops which was also seen on the CT from July 23. Patient states that when he went to [facility], they did note this, and he followed up a month later but was "never told about this mass again" so he "assumed it was fine". CT also shows that patient has multiple left-sided intrarenal nonobstructive stones 1 to 2 cm in size in the left pole kidney as well as a 6 mm left proximal ureteral stone at the utero pelvic junction without left-sided hydronephrosis. CBC negative for leukocytosis or anemia, CMP negative for hepatic or renal dysfunction, no electrolyte disturbances. Lipase is normal. BMP was normal, initial troponin was less than 0.0012, urinalysis was unremarkable. With patient's history of 2 stents [place] and CHF, as well as patient having indigestion although he was given a GI cocktail which did help him remarkably, second troponin was repeated which did come back slightly elevated at 0.0016 although patient did not have any chest pain and does have a heart score less than 3 patient's EKG was negative for STEMI, his history is slightly suspicious due to indigestion with a history of [place] GERD, he is greater than 45, he does have a history of hypertension, history of [place] and family history of cardiovascular disease. His risk for myocardial event is 0.9 to 1.7%, will check a third troponin. Consulted with Dr. Nikhil Berry at [address] findings, he did feel that since there was no change in the mass that he does need wound VAC follow-up outpatient since he does not have an obstructive renal stone he also can follow-up outpatient. The last time patient was seen in the emergency room he did leave AGAINST MEDICAL ADVICE and states he went to [facility]. Dr. Hayes advised that he also follow-up with the provider that he did see at [facility] for these issues. After performing a Medical Screening Examination, I estimate there is LOW risk for RUPTURED ESOPHAGUS, PNEUMOTHORAX, PULMONARY EMBOLISM, ACUTE CORONARY SYNDROME, OR THORACIC AORTIC DISSECTION, acute appendicitis, bowel obstruction, acute cholecystitis, perforated diverticulitis, incarcerated hernia, pancreatitis, testicular torsion, perforated ulcer, thus I consider the discharge disposition reasonable. I have reevaluated this patient multiple times and no significant life threatening changes are noted. The patient and I have discussed the diagnosis and risks, and we agree with discharging home with close follow-up. We also discussed returning to the Emergency Department immediately if new or worsening symptoms occur. We have discussed the symptoms which are most concerning (e.g., chest pain, bloody sputum, worsening pain or shortness of breath) that necessitate immediate return. - Vital Signs Vital signs: Temp Pulse Resp BP Pulse Ox 98.3 F 88 18 159/88 H 97 10/10/19 08:24 10/10/19 08:24 10/10/19 08:24 10/10/19 08:24 10/10/19 08:24 - Laboratory Result Diagrams: 10/10/19 10:15 10/10/19 10:15 Laboratory results interpreted by me: 10/10/19 10/10/19 10/10/19 10:15 10:15 10:45 Hgb 12.4 L Hct 37.8 L RDW 14.2 H Seg Neutrophils % 79.3 H Glucose 138 H Ur Leukocyte Esterase SMALL H Discharge - Discharge Clinical Impression: Left renal stone, Small bowel mass Condition: Stable Disposition: HOME, SELF-CARE Instructions: Abdominal Pain ([facility]), Intravenous (IV) Fluids ([facility]), Kidney Stone ([facility]) Additional Instructions: Your labs are normal. You do have a kidney stone that is not obstructed, advised to take Flomax to help open up ureters to pass the stone, Zofran for any nausea or vomiting, ciprofloxacin so you do not get an infection in your urine and hydrocodone as needed for pain, do not drive, drink or operate heavy machinery while taking this medication cause sedation impairment of cognitive function. You have had 3 troponins which have all remained unremarkable. 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 you do need to follow-up with your primary care provider for further evaluation within the next 3 days. Prescriptions: Ciprofloxacin HCl [Cipro 500 mg Tablet] 500 mg PO BID #10 tablet Tamsulosin HCl [Flomax 0.4 mg Cap.sr] 0.4 mg PO DAILY #7 cap.sr.24h Ondansetron [Zofran Odt 4 mg Tablet] 1 - 2 tab PO Q4H PRN #15 tab.rapdis PRN Reason: For Nausea/Vomiting Forms: Return to Work Referrals: MARYBEL BRAGA MD [ACTIVE STAFF] - Follow up as needed DEEPALI TOURE MD [Primary Care Provider] - Follow up tomorrow KATJA BATISTA MD [ACTIVE STAFF] - Follow up as needed
[2019-10-10] MEDS ORDERED: ONDANSETRON HCL INJ/PF 4 MG/2 ML SDV IV ONE (09:09)
[2019-10-10] MEDS ORDERED: NORMAL SALINE 1000 ML 1,000 ML IV ONE ×2 (09:09→14:09)
[2019-10-10] MEDS ORDERED: LIDOCAINE 2% VISCOUS SOLN 15 ML UDCUP PO ONE (09:44)
[2019-10-10] MEDS ORDERED: MAG HYDROX/AL HYDROX/SIMETH SUSP 30 ML UDCUP PO ONE (09:44)
[2019-10-10] MEDS ORDERED: METOCLOPRAMIDE HCL ORAL SOLN 10 MG/10 ML UDCUP PO ONE (09:44)
[2019-10-10 10:29] LABS: ABSOLUTE BASOPHILS # (AUTO) 0.1 10^3/uL (0.0-0.2); ABSOLUTE EOSINOPHILS # (AUTO) 0.1 10^3/uL (0.0-0.6); ABSOLUTE LYMPHOCYTES (AUTO) 1.4 10^3/uL (0.5-4.7); ABSOLUTE MONOCYTES (AUTO) 0.4 10^3/uL (0.1-1.4); ABSOLUTE NEUT (AUTO) 7.4 10^3/uL (1.7-8.2); BASOPHILS % (AUTO) 0.7 % (0-2); EOSINOPHILS % (AUTO) 0.6 % (0-6); HEMATOCRIT 37.8 % (37.9-51.0); HEMOGLOBIN 12.4 g/dL (13.5-17.0); LYMPHOCYTES % (AUTO) 14.8 % (13-45); MEAN CORPUSCULAR HEMOGLOBIN 27.7 pg (27.0-33.4); MEAN CORPUSCULAR HGB CONC 32.7 g/dL (32.0-36.0); MEAN CORPUSCULAR VOLUME 85 fl (80-97); MONOCYTES % (AUTO) 4.6 % (3-13); PLATELET COUNT 286 10^3/uL (150-450); RED BLOOD COUNT 4.46 10^6/uL (4.35-5.55); RED CELL DISTRIBUTION WIDTH 14.2 % (11.5-14.0); SEGMENTED NEUTROPHILS % (AUTO) 79.3 % (42-78); TOTAL CELLS COUNTED % (AUTO) 100 %; WHITE BLOOD COUNT 9.3 10^3/uL (4.0-10.5)
[2019-10-10 11:00] LABS: ALBUMIN 4.2 g/dL (3.5-5.0); ALKALINE PHOSPHATASE 126 U/L (38-126); ANION GAP 12 (5-19); ASPARTATE AMINO TRANSFERASE 29 U/L (17-59); BILIRUBIN,DIRECT 0.3 mg/dL (0.0-0.4); BILIRUBIN,TOTAL 0.5 mg/dL (0.2-1.3); BLOOD UREA NITROGEN 12 mg/dL (7-20); CALCIUM 9.2 mg/dL (8.4-10.2); CARBON DIOXIDE 24 mmol/L (22-30); CHLORIDE 105 mmol/L (98-107); GLUCOSE 138 mg/dL (75-110); POTASSIUM 4.2 mmol/L (3.6-5.0)
[2019-10-10 11:05] LABS: TOTAL PROTEIN 8.2 g/dL (6.3-8.2)
[2019-10-10 11:14] LABS: APPEARANCE,URINE CLEAR; BILIRUBIN,URINE NEGATIVE (NEGATIVE); COLOR,URINE YELLOW; GLUCOSE, URINE NEGATIVE (NEGATIVE); KETONES,URINE NEGATIVE (NEGATIVE); LEUKOCYTE ESTERASE,URINE SMALL (NEGATIVE); NITRITE,URINE NEGATIVE (NEGATIVE); PROTEIN,URINE NEGATIVE (NEGATIVE); URINE SPECIFIC GRAVITY 1.011; UROBILINOGEN,URINE NEGATIVE mg/dL (<2.0)
--- NOTE | 2019-10-10 12:12 | RADIOLOGY REPORT (SQ) ---
EXAM DESCRIPTION: CT ABD/PELVIS WITH IV ONLY COMPLETED DATE/TIME: 10/10/2019 11:46 am REASON FOR STUDY: epigastric pain, abd pain, nausea, sudden onset COMPARISON: CT abdomen pelvis 07/23/2019, 07/12/2013 TECHNIQUE: CT scan of the abdomen and pelvis performed using helical scanning technique with dynamic intravenous contrast injection. No oral contrast. Images reviewed with lung, soft tissue, and bone windows. Reconstructed coronal and sagittal MPR images reviewed. Delayed images for evaluation of the urinary system also acquired. All images stored on PACS. All CT scanners at this facility use dose modulation, iterative reconstruction, and/or weight based d osing when appropriate to reduce radiation dose to as low as reasonably achievable (ALARA). [facility]: Dose Right [facility]: CareDose [facility]: Dose Right [facility]: Teradose 4D [facility]: Kublax CONTRAST TYPE AND DOSE: contrast/concentration: Isovue 350.00 mg/ml; Total Contrast Delivered: 100.0 ml; Total Saline Delivered: 44.4 ml RENAL FUNCTION: GFR > 60. RADIATION DOSE: CT Rad equipment meets quality standard of care and radiation dose reduction techniq ues were employed. CTDIvol: 11.0 - 14.2 mGy. DLP: 1439 mGy-cm.. LIMITATIONS: No oral contrast FINDINGS: On coronal images 33 through 41, an abnormal thick walled right lower quadrant small bowel loop is present. There is mild dilatation of distal small bowel loops in the right lower quadrant a s compared to more proximal jejunal loops. A primary right lower quadrant small bowel mass may be pr esent. Differential is primary small bowel adenocarcinoma or lymphoma versus inflammation from diver ticulosis/diverticulitis or inflammatory bowel disease. These findings are in the same location as i nflamed bowel loops on CT exam 07/23/2019 coronal images 28-35. There is no intra-abdominal or pelvic abscess. No free intraperitoneal air or fluid. Scattered colo dena diverticuli are present without CT signs of acute diverticulitis. LOWER CHEST: No significant findings. No nodules or infiltrates. LIVER: Normal size. No masses. No dilated ducts. SPLEEN: Normal size. No focal lesions. PANCREAS: No masses. No significant calcifications. No adjacent inflammation or peripancreatic fluid collections. Pancreatic duct not dilated. GALLBLADDER: No identified stones by CT criteria. No inflammatory changes to suggest cholecystitis. ADRENAL GLANDS: No significant masses or asymmetry. RIGHT KIDNEY AND URETER: No solid masses. There are multiple right-sided intrarenal nonobstructive stones, the largest is the right renal pelvis, 13 mm in length 720 Hounsfield units density. No hyd ronephrosis or hydroureter. LEFT KIDNEY AND URETER: No solid masses. There are multiple left-sided intrarenal nonobstructive st ones, 1 to 2 cm in size in the left lower pole kidney measuring 973 Hounsfield units. There is a 6 m m left proximal ureteral stone on coronal image 39, which was in the left lower pole kidney on 2018 CT. No significant left hydronephrosis. No hydroureter. AORTA AND VESSELS: No aneurysm. No dissection. Renal arteries, SMA, celiac without stenosis. RETROPERITONEUM: No retroperitoneal adenopathy, hemorrhage or masses. BOWEL AND PERITONEAL CAVITY: As above APPENDIX: Normal. PELVIS: No mass. No free fluid. Normal bladder. Streak artifact from right hip replacement ABDOMINAL WALL: No masses. No hernias. BONES: No significant or acute findings. OTHER: No other significant finding. IMPRESSION: Abnormal thick walled small bowel loops in the right lower quadrant. Differential is pr imary small bowel tumor versus chronic inflammation. 6 mm proximal left ureteral calculus at ureteral pelvic junction without left-sided hydronephrosis TECHNICAL DOCUMENTATION: JOB ID: [id number] Quality ID # [id number]: Final reports with documentation of one or more dose reduction techniques (e.g., Au tomated exposure control, adjustment of the mA and/or kV according to patient size, use of iterative reconstruction technique) 2010 [email or web address]- All Rights Reserved Reading location - IP/workstation name: [id number]
--- NOTE | 2019-10-10 12:15 | RADIOLOGY REPORT (SQ) ---
EXAM DESCRIPTION: CHEST 2 VIEWS COMPLETED DATE/TIME: 10/10/2019 11:56 am REASON FOR STUDY: epigastric pain COMPARISON: Chest films 10/11/2017, 12/14/2016, 09/08/2013 EXAM PARAMETERS: NUMBER OF VIEWS: two views TECHNIQUE: Digital Frontal and Lateral radiographic views of the chest acquired. RADIATION DOSE: NA LIMITATIONS: none FINDINGS: LUNGS AND PLEURA: Stable left upper lobe and right midlung pleural-parenchymal scarring. Lung apices are hyperlucent from obstructive disease. No acute infiltrates. No pleural effusion. No pneumothorax. MEDIASTINUM AND HILAR STRUCTURES: No masses or contour abnormalities. HEART AND VASCULAR STRUCTURES: Heart normal size. No evidence for failure. BONES: No acute findings. HARDWARE: None in the chest. OTHER: No other significant finding. IMPRESSION: No acute findings TECHNICAL DOCUMENTATION: JOB ID: [id number] 2010 [email or web address]- All Rights Reserved Reading location - IP/workstation name: [id number]
[2019-10-10 13:22] LABS: NT PRO BNP 39 pg/mL (<125); TROPONIN I < 0.012 ng/mL
[2019-10-10] MEDS ORDERED: HYDROCODONE/ACETAMINOPHEN 5-325 MG (6 TAB/ER DISP) PO PRN (14:15)
--- NOTE | 2019-10-10 14:34 | EKG REPORT ---
SEVERITY:- BORDERLINE ECG - SINUS RHYTHM BORDERLINE T WAVE ABNORMALITIES : Confirmed by: Ashlyn Jang MD 10-Oct-2019 14:32:58
[2019-10-10 20:25] VITALS: BP 124/81
== END 2019-10-10 20:28 | disposition home or self-care (01) ==
LOC: ER 08:20
DX: N20.0 Calculus of kidney (principal); K63.89 Other specified diseases of intestine; R14.0 Abdominal distension (gaseous); R10.9 Unspecified abdominal pain; R11.2 Nausea with vomiting, unspecified; I11.0 Hypertensive heart disease with heart failure; I50.9 Heart failure, unspecified; I25.2 Old myocardial infarction; Z87.442 Personal history of urinary calculi; Z96.641 Presence of right artificial hip joint
CPT/HCPCS: 93005; 99284; 96361; 96374; 36415; 83690; 85025; 80053; 81001; 84484; 83880; 71046; 74177; 93010; J3490 ×3; J2405; J7030

== ENCOUNTER 2019-11-05 01:45 | Observation (INO) | payer MEDICAID ==
[2019-11-05] MEDS ORDERED: ONDANSETRON HCL INJ/PF 4 MG/2 ML SDV IV ONE (02:38)
[2019-11-05] MEDS ORDERED: HYDROMORPHONE HCL INJ/PF 2 MG/ML AMPULE IV ONE (02:38)
--- NOTE | 2019-11-05 02:48 | ER Document Report ---
Entered by ANYA DEE SCRIBE 11/05/19 0233 Acting as scribe for:RODNEY CABRERA IV, MD ED GI/ - General Mode of Arrival: Wheelchair Information source: Patient TRAVEL OUTSIDE OF THE [place] IN LAST 30 DAYS: No <RODNEY CABRERA IV - Last Filed: 11/05/19 02:48> <JULIANNA GAYLE - Last Filed: 11/05/19 12:50> - General Chief Complaint: Abdominal Pain Stated Complaint: STOMACH PAIN Time Seen by Provider: 11/05/19 02:32 Primary Care Provider: DEEPALI TOURE MD [Primary Care Provider] - Follow up as needed Notes: This 59 year old male patient presents to the ED today with complaints of severe RLQ abdominal pain that started yesterday. Patient describes the pain as feeling like his abdomen is "atul" and making "rumbling noises". He reports that the pain is a 5/5 at this time. He was seen here x1 month ago and diagnosed with a 6 mm kidney stone. Patient denies back pain, nausea, vomiting, diarrhea, fever, or chills. He denies past abdominal surgeries. He states that his last meal was around 1900 yesterday evening. (RODNEY CABRERA IV) - Related Data Allergies/Adverse Reactions: No Known Allergies Allergy (Verified 10/10/19 11:07) Past Medical History - Social History Smoking Status: Never Smoker Cigarette use (# per day): No Chew tobacco use (# tins/day): No Smoking Education Provided: No Family History: Reviewed & Not Pertinent Patient has suicidal ideation: No Patient has homicidal ideation: No - Past Medical History Cardiac Medical History: Reports: Hx Congestive Heart Failure, Hx Coronary Artery Disease - stents x2, 2001/2002, Hx Heart Attack - 2001, Hx Hypertension Pulmonary Medical History: Reports: Hx COPD Comment Only: Hx Asthma - sarcoidosis Renal/ Medical History: Reports: Hx Kidney Stones Musculoskeletal Medical History: Reports Hx Arthritis - hips,knees Past Surgical History: Reports: Hx Cardiac Catheterization - two stents, Hx Orthopedic Surgery - R hip replacement - Immunizations Immunizations up to date: No Hx Diphtheria, Pertussis, Tetanus Vaccination: Yes <RODNEY CABRERA IV - Last Filed: 11/05/19 02:48> Review of Systems - Review of Systems Constitutional: See HPI. denies: Chills, Fever EENT: No symptoms reported Cardiovascular: No symptoms reported Respiratory: No symptoms reported Gastrointestinal: See HPI, Abdominal pain. denies: Diarrhea, Nausea, Vomiting Genitourinary: No symptoms reported Male Genitourinary: No symptoms reported Musculoskeletal: See HPI. denies: Back pain Skin: No symptoms reported Hematologic/Lymphatic: No symptoms reported Neurological/Psychological: No symptoms reported -: Yes All other systems reviewed and negative <RODNEY CABRERA IV - Last Filed: 11/05/19 02:48> Physical Exam - General General appearance: Alert - HEENT Head: Normocephalic, Atraumatic Eyes: Normal Pupils: PERRL - Respiratory Respiratory status: No respiratory distress Chest status: Nontender Breath sounds: Normal Chest palpation: Normal - Cardiovascular Rhythm: Regular Heart sounds: Normal auscultation Murmur: No Friction rub: No Gallop: None auscultated - Abdominal Inspection: Normal Distension: No distension Bowel sounds: Normal Tenderness: Tender - RLQ tenderness to palpation, Other - Abdomen soft Organomegaly: No organomegaly - Back Back: Normal, Nontender. No: CVA tenderness - Extremities General upper extremity: Normal inspection General lower extremity: Normal inspection - Neurological Neuro grossly intact: Yes - Psychological Associated symptoms: Normal affect, Normal mood - Skin Skin Temperature: Warm Skin Moisture: Dry Skin Color: Normal <RODNEY CABRERA IV - Last Filed: 11/05/19 02:48> - Vital signs Vitals: Temp Pulse Resp BP Pulse Ox 97.9 F 94 16 144/87 H 100 11/05/19 01:51 11/05/19 01:51 11/05/19 01:51 11/05/19 01:51 11/05/19 01:51 Course - Laboratory Result Diagrams: 11/05/19 03:30 11/05/19 04:12 <JULIANNA GAYLE - Last Filed: 11/05/19 12:50> - Re-evaluation Re-evalutation: 11/05/19 12:49 CT scan of abdomen and pelvis oral and IV contrast disclose the patient has cholelithiasis, colitis noted in the transverse colon to the rectum, ileus versus small bowel obstruction. Patient was presented for admission to the medical service and a consult was made to the surgical is Dr. Allred (JULIANNA GAYLE) - Vital Signs Vital signs: Temp Pulse Resp BP Pulse Ox 98 F 94 15 120/73 99 11/05/19 09:44 11/05/19 01:51 11/05/19 09:44 11/05/19 09:44 11/05/19 09:44 - Laboratory Laboratory results interpreted by me: 11/05/19 11/05/19 11/05/19 02:32 03:30 04:12 WBC 13.5 H RBC 4.19 L Hgb 11.2 L Hct 34.2 L MCH 26.8 L Lymph % (Auto) 10.0 L Absolute Neuts (auto) 11.2 H Seg Neutrophils % 83.4 H Potassium 3.3 L Glucose 138 H Alkaline Phosphatase 127 H Total Protein 8.6 H Ur Leukocyte Esterase MODERATE H Discharge <RODNEY CABRERA IV - Last Filed: 11/05/19 02:48> - Discharge Admitting Provider: Brandon (Hospitalist) Unit Admitted: Medical Floor <JULIANNA GAYLE - Last Filed: 11/05/19 12:50> - Discharge Clinical Impression: Abdominal pain, Colitis, Ureteral colic, Ureterolithiasis Condition: Fair Disposition: ADMITTED INPATIENT Referrals: DEEPALI TOURE MD [Primary Care Provider] - Follow up as needed I personally performed the services described in the documentation, reviewed and edited the documentation which was dictated to the scribe in my presence, and it accurately records my words and actions.
[2019-11-05] MEDS ORDERED: KETOROLAC TROMETHAMINE INJ/PF 30 MG/1 ML SDV IV ONE (03:08)
[2019-11-05 03:19] LABS: APPEARANCE,URINE CLEAR; BILIRUBIN,URINE NEGATIVE (NEGATIVE); COLOR,URINE YELLOW; GLUCOSE, URINE NEGATIVE (NEGATIVE); KETONES,URINE NEGATIVE (NEGATIVE); LEUKOCYTE ESTERASE,URINE MODERATE (NEGATIVE); NITRITE,URINE NEGATIVE (NEGATIVE); PROTEIN,URINE NEGATIVE (NEGATIVE); URINE SPECIFIC GRAVITY 1.013; UROBILINOGEN,URINE NEGATIVE mg/dL (<2.0)
[2019-11-05 03:37] LABS: ABSOLUTE EOSINOPHILS # (AUTO) 0.1 10^3/uL (0.0-0.6); ABSOLUTE MONOCYTES (AUTO) 0.7 10^3/uL (0.1-1.4); ABSOLUTE NEUT (AUTO) 11.2 10^3/uL (1.7-8.2); MEAN CORPUSCULAR VOLUME 82 fl (80-97); RED CELL DISTRIBUTION WIDTH 13.9 % (11.5-14.0); TOTAL CELLS COUNTED % (AUTO) 100 %
[2019-11-05 03:46] LABS: ABSOLUTE BASOPHILS # (AUTO) 0.1 10^3/uL (0.0-0.2); ABSOLUTE LYMPHOCYTES (AUTO) 1.3 10^3/uL (0.5-4.7); BASOPHILS % (AUTO) 0.4 % (0-2); EOSINOPHILS % (AUTO) 0.7 % (0-6); HEMATOCRIT 34.2 % (37.9-51.0); HEMOGLOBIN 11.2 g/dL (13.5-17.0); MEAN CORPUSCULAR HEMOGLOBIN 26.8 pg (27.0-33.4); MEAN CORPUSCULAR HGB CONC 32.9 g/dL (32.0-36.0); MONOCYTES % (AUTO) 5.5 % (3-13); PLATELET COUNT 294 10^3/uL (150-450); RED BLOOD COUNT 4.19 10^6/uL (4.35-5.55); SEGMENTED NEUTROPHILS % (AUTO) 83.4 % (42-78); WHITE BLOOD COUNT 13.5 10^3/uL (4.0-10.5)
[2019-11-05 04:52] LABS: ALBUMIN 4.4 g/dL (3.5-5.0); ALKALINE PHOSPHATASE 127 U/L (38-126); ANION GAP 9 (5-19); ASPARTATE AMINO TRANSFERASE 29 U/L (17-59); BILIRUBIN,DIRECT 0.2 mg/dL (0.0-0.4); BILIRUBIN,TOTAL 0.4 mg/dL (0.2-1.3); BLOOD UREA NITROGEN 12 mg/dL (7-20); CALCIUM 9.1 mg/dL (8.4-10.2); CARBON DIOXIDE 26 mmol/L (22-30); CHLORIDE 105 mmol/L (98-107); GLUCOSE 138 mg/dL (75-110); POTASSIUM 3.3 mmol/L (3.6-5.0); TOTAL PROTEIN 8.6 g/dL (6.3-8.2)
--- NOTE | 2019-11-05 07:26 | RADIOLOGY REPORT (SQ) ---
EXAM DESCRIPTION: CT ABDOMEN PELVIS WITH IV CONTRAST COMPLETED DATE/TME: 11/05/2019 00:00 CLINICAL HISTORY: 59 years Male, rlq pain Comparison: 10/10/19 Technique: IV and oral contrast. Coronal and sagittal reformat. This exam was performed according to our departmental dose-optimization program, which includes automated exposure control, adjustment of the mA and/or kV according to patient size and/or use of iterative reconstruction technique. [facility]: Dose Right [facility]: CareDose [facility]: Dose Right [facility]: Teradose 4D [facility]: SMITH (formerly [employer]) LIMITATIONS: None Findings: 0.5 cm left distal ureteral stone at the level of the S1 vertebral body with mild left hydronephrosis-hydroureter. 2.6 cm diameter dilated ileum with air-fluid levels due to ileus or low-grade obstruction. Orally administered contrast is seen to the level of the mid small bowel. [id number]-dc-ukioysed diffuse nondistended colitis from the level of the proximal transverse colon to the rectum. Left colon is displaced medially. Atelectasis/scar. Cholelithiasis/gallbladder sludge. Right total hip arthroplasty. Bilateral nephrolithiasis measures up to 1.5 cm on the left. Advanced coronary arterial calcification/stent. Atherosclerotic vascular disease. Hepatic steatosis. No ascites. No pneumoperitoneum. Normal appendix. No gross evidence of gallbladder inflammation, hepatobiliary obstruction, or portal vein defect. No evidence of abdominal aortic aneurysm. Inferior thorax, pancreas, spleen, adrenals, renal system, pelvic organs, lymphatics, vasculature, and musculoskeleton appear otherwise unremarkable. IMPRESSION: 1. 0.5 cm left distal ureteral stone at the level of the S1 vertebral body with mild left hydronephrosis-hydroureter. 2. 2.6 cm diameter dilated ileum with air-fluid levels due to ileus or low-grade obstruction. Orally administered contrast is seen to the level of the mid small bowel. [id number] diffuse nondistended colitis from the level of the proximal transverse colon to the rectum. Interval worsening. 3. Cholelithiasis/gallbladder sludge.
--- NOTE | 2019-11-05 12:09 | PDOC CONSULTATION ---
Consultation Consult Date: 11/05/19 Attending physician:: RODNEY CABRERA IV Provider Consulted: THERESA FULLER Consult reason:: abdominal pain History of Present Illness Admission Date/PCP: DEEPALI TOURE History of Present Illness: SHANIQUA BURNHAM is a 59 year old maleThis 59 year old male patient presents to the ED today with complaints of severe RLQ abdominal pain that started yesterday. Patient describes the pain as feeling like his abdomen is "atul" and making "rumbling noises". He reports that the pain is a 5/5 at this time. He was seen here x1 month ago and diagnosed with a 6 mm kidney stone. Patient denies back pain, nausea, vomiting, diarrhea, fever, or chills. He denies past abdominal surgeries. He states that his last meal was around 1900 yesterday evening Patient states that this pain has been on and off waxing and waning since June 2019 and has been worked up initially here about a month ago. The patient was discharged after CT scan. And then returned to [facility] where he was admitted for a number of days told that he had a questionable mass in the right lower quadrant on CT scan and was given antibiotics and left. He followed up again with at [facility] or repeat CT scan was obtained which showed that the mass was not present anymore. Patient states that eating [employer] chicken last night a large amount of it caused him to have gurgling and more pain in his stomach which caused him to present here to the emergency room today. He states that the pain did not resolve on its own and he did not have a bowel movement until after his CT scan was obtained today what caused him to horan to the bathroom and have diarrhea with a resolution of the abdominal pain. Past Medical History Cardiac Medical History: Reports: Congestive Heart Failure, Coronary Artery Disease - stents x2, 2001/2002, Myocardial Infarction - 2001, Hypertension Pulmonary Medical History: Reports: Chronic Obstructive Pulmonary Disease (COPD) Denies: Bronchitis, Pneumonia Comment Only: Asthma - sarcoidosis Neurological Medical History: Denies: Seizures Musculoskeltal Medical History: Reports: Arthritis - hips,knees Hematology: Denies: Anemia Past Surgical History Past Surgical History: Reports: Cardiac Catheterization - two stents, Orthopedic Surgery - R hip replacement Social History Smoking Status: Never Smoker Family History Family History: Reviewed & Not Pertinent Parental Family History Reviewed: No Children Family History Reviewed: NA Sibling(s) Family History Reviewed.: JORDI Medication/Allergy Home Medications: Loratadine 10 mg PO DAILY #7 tablet 01/20/13 Propranolol HCl 20 mg PO DAILY #7 tablet 01/20/13 Multivitamin [Daily Vitamin] 1 tab PO DAILY 09/08/13 Cholecalciferol (Vitamin D3) [Vitamin D3] 2,000 unit PO DAILY 10/27/16 Furosemide [Lasix] 20 mg PO DAILY 10/27/16 Allergies/Adverse Reactions: No Known Allergies Allergy (Verified 10/10/19 11:07) Review of Systems Constitutional: ABSENT: as per HPI, anorexia, chills, fatigue, fever(s), headache(s), night sweats, weakness, weight gain, weight loss, other Eyes: ABSENT: as per HPI, visual disturbances, other Ears: ABSENT: as per HPI, hearing changes, other Nose, Mouth, and Throat: ABSENT: as per HPI, headache(s), mouth pain, sore thr oat, vertigo, other Breasts: ABSENT: as per HPI, other Cardiovascular: ABSENT: as per HPI, chest pain, dyspnea on exertion, edema, orthropnea, palpitations, other Gastrointestinal: PRESENT: abdominal pain, bloating, diarrhea Musculoskeletal: ABSENT: as per HPI, back pain, deformity, joint swelling, muscle weakness, other Integumentary: ABSENT: as per HPI, diaphoresis, erythema, lesions, pruritus, rash, wounds, other Neurological: ABSENT: as per HPI, abnormal gait, abnormal movements, abnormal speech, confusion, convulsions, dizziness, focal weakness, frequent falls, lack of coordination, memory loss, numbness, paresthesias, restless legs, syncope, tingling, tremor(s), vertigo, weakness, other Psychiatric: ABSENT: as per HPI, anxiety, depression, hallucinations, homidical ideation, suicidal ideation, other Endocrine: ABSENT: as per HPI, cold intolerance, flushing, heat intolerance, menstrual abnormalities, polydipsia, polyphagia, polyuria, other Hematologic/Lymphatic: ABSENT: as per HPI, easy bleeding, easy bruising, lymphadenopathy, other Allergic/Immunologic: ABSENT: as per HPI, seasonal rhinorrhea, other Physical Exam Vital Signs: Temp Pulse Resp BP Pulse Ox 98 F 94 15 120/73 99 11/05/19 09:44 11/05/19 01:51 11/05/19 09:44 11/05/19 09:44 11/05/19 09:44 Intake & Output 11/04/19 11/05/19 11/06/19 06:59 06:59 06:59 Weight 92.986 kg General appearance: PRESENT: no acute distress, cooperative, mild distress, obese Head exam: PRESENT: atraumatic Eye exam: PRESENT: EOMI Ear exam: PRESENT: normal external ear exam Mouth exam: PRESENT: moist Neck exam: PRESENT: full ROM Respiratory exam: PRESENT: clear to auscultation meliton Cardiovascular exam: PRESENT: RRR Pulses: PRESENT: normal radial pulses, normal femoral pulses Breast: PRESENT: Normal GI/Abdominal exam: PRESENT: other - Abdomen is soft obese slightly hypotonic bowel sounds. Patient has no peritoneal signs has some generalized tenderness diffusely in all 4 quadrants to deep palpation Rectal exam: PRESENT: deferred Extremities exam: PRESENT: full ROM Musculoskeletal exam: PRESENT: full ROM Neurological exam: PRESENT: alert, awake, oriented to person, oriented to place Psychiatric exam: PRESENT: appropriate affect Skin exam: PRESENT: dry Results Laboratory Results: 11/05/19 03:30 11/05/19 04:12 11/05/19 11/05/19 11/05/19 02:32 03:30 03:30 WBC 13.5 H RBC 4.19 L Hgb 11.2 L Hct 34.2 L MCV 82 MCH 26.8 L MCHC 32.9 RDW 13.9 Plt Count 294 Seg Neutrophils % 83.4 H Sodium Cancelled Potassium Cancelled Chloride Cancelled Carbon Dioxide Cancelled Anion Gap Cancelled BUN Cancelled Creatinine Cancelled Est GFR ( Amer) Cancelled Est GFR (Non-Af Amer) Cancelled Glucose Cancelled Calcium Cancelled Total Bilirubin Cancelled AST Cancelled Alkaline Phosphatase Cancelled Total Protein Cancelled Albumin Cancelled Lipase Cancelled Urine Color YELLOW Urine Appearance CLEAR Urine pH 7.0 Ur Specific [place] 1.013 Urine Protein NEGATIVE Urine Glucose (UA) NEGATIVE Urine Ketones NEGATIVE Urine Blood NEGATIVE Urine Nitrite NEGATIVE Ur Leukocyte Esterase MODERATE H Urine WBC (Auto) 14 Urine RBC (Auto) 4 11/05/19 04:12 WBC RBC Hgb Hct MCV MCH MCHC RDW Plt Count Seg Neutrophils % Sodium 139.9 Potassium 3.3 L Chloride 105 Carbon Dioxide 26 Anion Gap 9 BUN 12 Creatinine 0.97 Est GFR ( Amer) > 60 Est GFR (Non-Af Amer) Glucose 138 H Calcium 9.1 Total Bilirubin 0.4 AST 29 Alkaline Phosphatase 127 H Total Protein 8.6 H Albumin 4.4 Lipase 26.4 Urine Color Urine Appearance Urine pH Ur Specific [place] Urine Protein Urine Glucose (UA) Urine Ketones Urine Blood Urine Nitrite Ur Leukocyte Esterase Urine WBC (Auto) Urine RBC (Auto) Impressions: Abdomen/Pelvis CT 11/05/19 00:00 IMPRESSION: 1. 0.5 cm left distal ureteral stone at the level of the S1 vertebral body with mild left hydronephrosis-hydroureter. 2. 2.6 cm diameter dilated ileum with air-fluid levels due to ileus or low-grade obstruction. Orally administered contrast is seen to the level of the mid small bowel. [id number] diffuse nondistended colitis from the level of the proximal transverse colon to the rectum. Interval worsening. 3. Cholelithiasis/gallbladder sludge. Assessment & Plan - Plan Summary Plan Summary: Impression; Patient had a somewhat prolonged course of generalized abdominal pain that waxes and wanes for the last few months and has had an extensive work-up with a number of CAT scans. Current findings are consistent with a left ureteral stone that he plans on seeing a urologist for the next couple of weeks. In addition to that the mass that was previously reported to me in the right lower quadrant but does not exist on this CAT scan he does have some generalized colitis there is no evidence of small bowel obstruction is no evidence of appendicitis he does have gallstones but no evidence of cholecystitis. Recommendations ice had a long discussion with the patient and explained that he does need this colonoscopy in the near future however due to the Kovic crisis this cannot be done acutely as he is not acutely ill at this time. I did we discussed that his diet may contributing to his abdominal complaints as he has been eating a fairly high fat fast food type diet. In fact he was doing fairly well until last night when he ate a high fat [employer] fried chicken diet that precipitated his abdominal complaints today that brought him to the emergency room. He underwent a CAT scan with oral contrast and after he completed that he had a horan to the bathroom where he had a large diarrheal bowel movement and states he feels better now. I given the patient my card for follow-up in surgical clinic explained to him that he does need a colonoscopy to evaluate his colitis I see no indication for emergent colonoscopy at this time. He also does not exhibit a acute bowel obstruction or an acute infectious process and in the abdominal cavity.
[2019-11-05] MEDS ORDERED: ACETAMINOPHEN 325 MG TABLET PO PRN (12:56)
[2019-11-05] MEDS ORDERED: ONDANSETRON HCL INJ/PF 4 MG/2 ML SDV IV PRN (13:04)
[2019-11-05] MEDS ORDERED: NORMAL SALINE 1000 ML 1,000 ML IV PRN (13:05)
--- NOTE | 2019-11-05 13:26 | PDOC H&P ---
History of Present Illness Admission Date/PCP: DEEPALI TOURE Patient complains of: abdominal pain History of Present Illness: SHANIQUA BURNHAM is a 59 year old male with a history of kidney stones, recurrent right lower quadrant pain, who presents to the hospital with complaints of sudden onset worsening of right lower quadrant pain started yesterday. His pain began 4 months ago but seems to be waxing and waning. States that he was triggered by eating [employer] chicken yesterday. States he has noticed often exacerbated by greasy food intake. Abdominal pain improved at this moment after he had an episode of diarrhea today. Currently states the pain is significantly better. Denies nausea or vomiting. Denies any other radiation of the pain. Also admits to mild pain in his left groin associated with urination. Denies hematuria. He has had an episode of bloody stool in the past but none recently. Does have known history of renal stone. Notably patient has had prior CT scans that have revealed suspicious findings in the right lower quadrant involving small bowel with question of whether there are masses versus inflammatory lesions. Past Medical History Medical History: Other - sarcoidosis Cardiac Medical History: Reports: Congestive Heart Failure, Coronary Artery Disease - stents x2, 2001/2002 Pulmonary Medical History: Denies: Bronchitis, Pneumonia Neurological Medical History: Denies: Seizures Musculoskeltal Medical History: Reports: Arthritis - hips,knees Hematology: Denies: Anemia Past Surgical History Past Surgical History: Reports: Cardiac Catheterization - two stents, Orthopedic Surgery - R hip replacement Social History Information Source: Patient Smoking Status: Never Smoker Frequency of Alcohol Use: None Hx Recreational Drug Use: No - Advance Directive Resuscitation Status: Full Code Family History Family History: Hypertension Parental Family History Reviewed: No Children Family History Reviewed: NA Sibling(s) Family History Reviewed.: NA Medication/Allergy Home Medications: Loratadine 10 mg PO DAILY #7 tablet 01/20/13 Propranolol HCl 20 mg PO DAILY #7 tablet 01/20/13 Multivitamin [Daily Vitamin] 1 tab PO DAILY 09/08/13 Cholecalciferol (Vitamin D3) [Vitamin D3] 2,000 unit PO DAILY 10/27/16 Furosemide [Lasix] 20 mg PO DAILY 10/27/16 Allergies/Adverse Reactions: No Known Allergies Allergy (Verified 10/10/19 11:07) Review of Systems Constitutional: ABSENT: fatigue, fever(s) Eyes: ABSENT: visual disturbances Nose, Mouth, and Throat: ABSENT: headache(s) Cardiovascular: ABSENT: chest pain Respiratory: ABSENT: cough, dyspnea Gastrointestinal: PRESENT: abdominal pain, bloating, diarrhea. ABSENT: nausea, vomiting Genitourinary: PRESENT: dysuria. ABSENT: hematuria Integumentary: ABSENT: diaphoresis Neurological: ABSENT: confusion Psychiatric: ABSENT: anxiety Endocrine: ABSENT: polydipsia, polyuria Hematologic/Lymphatic: ABSENT: easy bleeding Physical Exam Vital Signs: Temp Pulse Resp BP Pulse Ox 98 F 94 15 120/73 99 11/05/19 09:44 11/05/19 01:51 11/05/19 09:44 11/05/19 09:44 11/05/19 09:44 Intake & Output 11/04/19 11/05/19 11/06/19 06:59 06:59 06:59 Weight 92.986 kg General appearance: PRESENT: no acute distress, cooperative Mouth exam: PRESENT: neck supple Neck exam: ABSENT: JVD Respiratory exam: PRESENT: symmetrical, unlabored. ABSENT: accessory muscle use, retraction, tachypnea, wheezes Cardiovascular exam: PRESENT: RRR, +S1, +S2. ABSENT: tachycardia GI/Abdominal exam: PRESENT: normal bowel sounds, soft, tenderness - b/l lower abdomen. ABSENT: distended, firm, guarding, mass, rebound, rigid Neurological exam: PRESENT: alert, awake, oriented to person, oriented to place, oriented to time, oriented to situation Psychiatric exam: ABSENT: agitated, anxious Focused psych exam: ABSENT: pressured speech Skin exam: ABSENT: jaundice Results Laboratory Results: 11/05/19 03:30 11/05/19 04:12 11/05/19 11/05/19 11/05/19 02:32 03:30 03:30 WBC 13.5 H RBC 4.19 L Hgb 11.2 L Hct 34.2 L MCV 82 MCH 26.8 L MCHC 32.9 RDW 13.9 Plt Count 294 Seg Neutrophils % 83.4 H Sodium Cancelled Potassium Cancelled Chloride Cancelled Carbon Dioxide Cancelled Anion Gap Cancelled BUN Cancelled Creatinine Cancelled Est GFR ( Amer) Cancelled Est GFR (Non-Af Amer) Cancelled Glucose Cancelled Calcium Cancelled Total Bilirubin Cancelled AST Cancelled Alkaline Phosphatase Cancelled Total Protein Cancelled Albumin Cancelled Lipase Cancelled Urine Color YELLOW Urine Appearance CLEAR Urine pH 7.0 Ur Specific [place] 1.013 Urine Protein NEGATIVE Urine Glucose (UA) NEGATIVE Urine Ketones NEGATIVE Urine Blood NEGATIVE Urine Nitrite NEGATIVE Ur Leukocyte Esterase MODERATE H Urine WBC (Auto) 14 Urine RBC (Auto) 4 11/05/19 04:12 WBC RBC Hgb Hct MCV MCH MCHC RDW Plt Count Seg Neutrophils % Sodium 139.9 Potassium 3.3 L Chloride 105 Carbon Dioxide 26 Anion Gap 9 BUN 12 Creatinine 0.97 Est GFR ( Amer) > 60 Est GFR (Non-Af Amer) Glucose 138 H Calcium 9.1 Total Bilirubin 0.4 AST 29 Alkaline Phosphatase 127 H Total Protein 8.6 H Albumin 4.4 Lipase 26.4 Urine Color Urine Appearance Urine pH Ur Specific [place] Urine Protein Urine Glucose (UA) Urine Ketones Urine Blood Urine Nitrite Ur Leukocyte Esterase Urine WBC (Auto) Urine RBC (Auto) Impressions: Abdomen/Pelvis CT 11/05/19 00:00 IMPRESSION: 1. 0.5 cm left distal ureteral stone at the level of the S1 vertebral body with mild left hydronephrosis-hydroureter. 2. 2.6 cm diameter dilated ileum with air-fluid levels due to ileus or low-grade obstruction. Orally administered contrast is seen to the level of the mid small bowel. [id number] diffuse nondistended colitis from the level of the proximal transverse colon to the rectum. Interval worsening. 3. Cholelithiasis/gallbladder sludge. Assessment and Plan - Diagnosis (1) Abdominal pain Qualifiers: Abdominal location: lower abdomen, unspecified Qualified Code(s): R10.30 - Lower abdominal pain, unspecified Is this a current diagnosis for this admission?: Yes Plan: This appears to be an acute on chronic issue associated with some triggers. Evaluated with abdominal CT scans which have shown some suspicious ?inflammatory/masslike findings associated with small bowel. I reviewed the results of the CT scans including the one done last month with the radiologist conduit mechanic who recommends further evaluation for Melissa Diverticulum via Melissa scan. Surgery was consulted for evaluation of this questionable masslike appearance seen prior CTs - no intervention needed per surgery. (2) Colitis Is this a current diagnosis for this admission?: Yes Plan: Inflammatory, possibly infectious. Levaquin and Flagyl. Low-fat diet. Antiemetics as needed. Check CBC to monitor leukocytosis. Ideally he would benefit from colonoscopy evaluation in the outpatient setting to evaluate for other potential noninfectious causes of colitis including inflammatory bowel disease and colorectal cancer screening. I have recommended patient follow-up with his PCP for this. (3) Ureterolithiasis Is this a current diagnosis for this admission?: Yes Plan: Left ureteral stone 0.5cm. IV fluids. Tamsulosin - Time Time Spent with patient: 35 or more minutes
[2019-11-05] MEDS: TAMSULOSIN HCL 0.4 MG CAP.SR.24H PO SCH (14:27)
[2019-11-05] MEDS: LEVOFLOXACIN 500 MG/D5W RTU 500 MG/100 ML RTUPB IV SCH (14:28)
[2019-11-05] MEDS: METRONIDAZOLE 500 MG/NS RTU 500 MG/100 ML RTUPB IV SCH ×2 (19:00→23:45)
[2019-11-06] MEDS: METRONIDAZOLE 500 MG/NS RTU 500 MG/100 ML RTUPB IV SCH ×2 (05:12→11:22)
[2019-11-06 06:32] LABS: HEMATOCRIT 33.3 % (37.9-51.0); HEMOGLOBIN 11.1 g/dL (13.5-17.0); MEAN CORPUSCULAR HEMOGLOBIN 27.1 pg (27.0-33.4); MEAN CORPUSCULAR HGB CONC 33.4 g/dL (32.0-36.0); MEAN CORPUSCULAR VOLUME 81 fl (80-97); PLATELET COUNT 270 10^3/uL (150-450); RED BLOOD COUNT 4.11 10^6/uL (4.35-5.55); RED CELL DISTRIBUTION WIDTH 14.3 % (11.5-14.0); WHITE BLOOD COUNT 7.3 10^3/uL (4.0-10.5)
[2019-11-06 06:56] LABS: ANION GAP 7 (5-19); BLOOD UREA NITROGEN 9 mg/dL (7-20); CALCIUM 8.6 mg/dL (8.4-10.2); CARBON DIOXIDE 23 mmol/L (22-30); CHLORIDE 108 mmol/L (98-107); GLUCOSE 100 mg/dL (75-110); POTASSIUM 3.7 mmol/L (3.6-5.0)
[2019-11-06] MEDS: LEVOFLOXACIN 500 MG/D5W RTU 500 MG/100 ML RTUPB IV SCH (09:05)
[2019-11-06] MEDS ORDERED: ENOXAPARIN SODIUM INJ 40 MG/0.4 ML DISP.SYRIN SUBCUT SCH (10:00)
--- NOTE | 2019-11-06 10:17 | RADIOLOGY REPORT (SQ) ---
EXAM DESCRIPTION: NM MECKELS SCAN IMAGES COMPLETED DATE/TIME: 11/06/2019 9:42 am REASON FOR STUDY: RLQ pain. ?meckels diverticulum. COMPARISON: CT abdomen and pelvis from yesterday. RADIONUCLIDE AND DOSE: 10.8 mCi technetium 99 M sodium pertechnetate ADDITIONAL DRUGS AND DOSES: None. TECHNIQUE: Dynamic imaging of the abdomen and pelvis is performed after radiopharmaceutical administ ration. Includes flow imaging and 1 minutes per frame imaging out to 30 minutes. LIMITATIONS: None. FINDINGS: Expected prompt uptake in the stomach. Allowing for what appears to be expected activity excreted in the renal collecting systems, right gre ater than left, no foci to suggest ectopic gastric mucosa. Specifically, no abnormal accumulation in the right lower quadrant where a loop of abnormal ileum is noted on recent CT. IMPRESSION: 1. No abnormal uptake of radiopharmaceutical in the abdomen or more specifically in the right lower q uadrant (corresponding to the abnormal bowel noted on CT) to suggest Meckel's diverticulum. TECHNICAL DOCUMENTATION: JOB ID: [id number] [employer]- All Rights Reserved Reading location - IP/workstation name: [email or web address]
[2019-11-06] MEDS ORDERED: LORATADINE 10 MG TABLET PO SCH (10:45)
[2019-11-06] MEDS ORDERED: CHOLECALCIFEROL (D3) 1,000 UNIT (25 MCG) TABLET PO SCH (10:45)
[2019-11-06] MEDS ORDERED: FUROSEMIDE 20 MG TABLET PO SCH (10:45)
--- NOTE | 2019-11-06 10:53 | PDOC DISCHARGE SUMMARY ---
Impression - Admit/DC Date/PCP Admission Date/Primary Care Provider: 11/05/19 13:13 DEEPALI TOURE Discharge Date: 11/06/19 - Discharge Diagnosis (1) Abdominal pain Is this a current diagnosis for this admission?: Yes (2) Colitis Is this a current diagnosis for this admission?: Yes (3) Ureterolithiasis Is this a current diagnosis for this admission?: Yes - Additional Information Resuscitation Status: Full Code Discharge Diet: As Tolerated Discharge Activity: Activity As Tolerated Referrals: DEEPALI TOURE MD [Primary Care Provider] - Prescriptions: Ciprofloxacin HCl [Cipro 500 mg Tablet] 500 mg PO BID #14 tablet Metronidazole [Flagyl 500 mg Tablet] 500 mg PO TID #21 tablet Tamsulosin HCl [Flomax 0.4 mg Cap.sr] 0.4 mg PO DAILY #10 cap.sr.24h Home Medications: Loratadine 10 mg PO DAILY #7 tablet 01/20/13 Propranolol HCl 20 mg PO DAILY #7 tablet 01/20/13 Multivitamin [Daily Vitamin] 1 tab PO DAILY 09/08/13 Cholecalciferol (Vitamin D3) [Vitamin D3] 2,000 unit PO DAILY 10/27/16 Furosemide [Lasix] 20 mg PO DAILY 10/27/16 Aspirin [Ecotrin 81 mg EC Tablet] 81 mg PO DAILY 11/05/19 Ciprofloxacin HCl [Cipro 500 mg Tablet] 500 mg PO BID #14 tablet 11/06/19 Metronidazole [Flagyl 500 mg Tablet] 500 mg PO TID #21 tablet 11/06/19 Tamsulosin HCl [Flomax 0.4 mg Cap.sr] 0.4 mg PO DAILY #10 cap.sr.24h 11/06/19 History of Present Illiness History of Present Illness: SHANIQUA BURNHAM is a 59 year old male with a history of kidney stones, recurrent right lower quadrant pain, who presents to the hospital with complaints of sudden onset worsening of right lower quadrant pain started yesterday. His pain began 4 months ago but seems to be waxing and waning. States that he was triggered by eating [employer] chicken yesterday. States he has noticed often exacerbated by greasy food intake. Abdominal pain improved at this moment after he had an episode of diarrhea today. Currently states the pain is significantly better. Denies nausea or vomiting. Denies any other radiation of the pain. Also admits to mild pain in his left groin associated with urination. Denies hematuria. He has had an episode of bloody stool in the past but none recently. Does have known history of renal stone. Notably patient has had prior CT scans that have revealed suspicious findings in the right lower quadrant involving small bowel with question of whether there are masses versus inflammatory lesions. Hospital Course Hospital Course: Patient's abdominal pain was thought to be secondary to colitis. However CT scan did reveal some abnormality and inflammatory/masslike lesion in his right lower quadrant seems to be possibly associated with his small bowel. Upon discussion with the radiologist, a Meckel diverticulum scan was recommended which turned out to be negative for any Meckel's diverticulum. Patient was evaluated by surgery and no surgical intervention was needed while in the hospital. Patient has been recommended to have a colonoscopy done to see if any possible colonic lesion will be noted especially given that he needs colorectal cancer screening anyways. Patient was given antibiotics for his colitis and his leukocytosis has resolved today. His abdominal pain is also pretty much improved and he is ready to go home. He will take ciprofloxacin and Flagyl to complete 8 days of treatment. Left ureteral stone was noted on CT imaging and patient has been given fluids and tamsulosin given the size of the stone to help ease passage. Patient is safe for discharge at this time. Physical Exam Vital Signs: Temp Pulse Resp BP Pulse Ox 97.5 F 56 L 18 103/66 98 11/06/19 08:00 11/06/19 08:00 11/06/19 08:00 11/06/19 08:00 11/06/19 08:00 Intake & Output 11/05/19 11/06/19 11/07/19 06:59 06:59 06:59 Intake Total 1510 Balance 1510 Weight 92.986 kg 76.3 kg General appearance: PRESENT: no acute distress, cooperative Neurological exam: PRESENT: alert, awake, oriented to person, oriented to place, oriented to time Results Laboratory Results: WBC 7.3 10^3/uL (4.0-10.5) 11/06/19 05:19 RBC 4.11 10^6/uL (4.35-5.55) L 11/06/19 05:19 Hgb 11.1 g/dL (13.5-17.0) L 11/06/19 05:19 Hct 33.3 % (37.9-51.0) L 11/06/19 05:19 MCV 81 fl (80-97) 11/06/19 05:19 MCH 27.1 pg (27.0-33.4) 11/06/19 05:19 MCHC 33.4 g/dL (32.0-36.0) 11/06/19 05:19 RDW 14.3 % (11.5-14.0) H 11/06/19 05:19 Plt Count 270 10^3/uL (150-450) 11/06/19 05:19 Lymph % (Auto) 10.0 % (13-45) L 11/05/19 03:30 [place] % (Auto) 5.5 % (3-13) 11/05/19 03:30 Eos % (Auto) 0.7 % (0-6) 11/05/19 03:30 Baso % (Auto) 0.4 % (0-2) 11/05/19 03:30 Absolute Neuts (auto) 11.2 10^3/uL (1.7-8.2) H 11/05/19 03:30 Absolute Lymphs (auto) 1.3 10^3/uL (0.5-4.7) 11/05/19 03:30 Absolute Monos (auto) 0.7 10^3/uL (0.1-1.4) 11/05/19 03:30 Absolute Eos (auto) 0.1 10^3/uL (0.0-0.6) 11/05/19 03:30 Absolute Basos (auto) 0.1 10^3/uL (0.0-0.2) 11/05/19 03:30 Seg Neutrophils % 83.4 % (42-78) H 11/05/19 03:30 Sodium 138.3 mmol/L (137-145) 11/06/19 05:19 Potassium 3.7 mmol/L (3.6-5.0) 11/06/19 05:19 Chloride 108 mmol/L (98-107) H 11/06/19 05:19 Carbon Dioxide 23 mmol/L (22-30) 11/06/19 05:19 Anion Gap 7 (5-19) 11/06/19 05:19 BUN 9 mg/dL (7-20) 11/06/19 05:19 Creatinine 0.67 mg/dL (0.52-1.25) 11/06/19 05:19 Est GFR ( Amer) > 60 (>60) 11/06/19 05:19 Est GFR (Non-Af Amer) Cancelled 11/05/19 03:30 Est GFR (MDRD) Non-Af > 60 (>60) 11/06/19 05:19 Glucose 100 mg/dL (75-110) 11/06/19 05:19 Calcium 8.6 mg/dL (8.4-10.2) 11/06/19 05:19 Magnesium 2.0 mg/dL (1.6-2.3) 11/06/19 05:19 Total Bilirubin 0.4 mg/dL (0.2-1.3) 11/05/19 04:12 Direct Bilirubin 0.2 mg/dL (0.0-0.4) 11/05/19 04:12 Neonat Total Bilirubin Not Reportable 11/05/19 04:12 Neonat Direct Bilirubin Not Reportable 11/05/19 04:12 Neonat Indirect Bili Not Reportable 11/05/19 04:12 AST 29 U/L (17-59) 11/05/19 04:12 ALT 18 U/L (<50) 11/05/19 04:12 Alkaline Phosphatase 127 U/L (38-126) H 11/05/19 04:12 Total Protein 8.6 g/dL (6.3-8.2) H 11/05/19 04:12 Albumin 4.4 g/dL (3.5-5.0) 11/05/19 04:12 Lipase 26.4 U/L (23-300) 11/05/19 04:12 EGFR Cancelled 11/05/19 03:30 Urine Color YELLOW 11/05/19 02:32 Urine Appearance CLEAR 11/05/19 02:32 Urine pH 7.0 (5.0-9.0) 11/05/19 02:32 Ur Specific Maple 1.013 11/05/19 02:32 Urine Protein NEGATIVE mg/dL (NEGATIVE) 11/05/19 02:32 Urine Glucose (UA) NEGATIVE mg/dL (NEGATIVE) 11/05/19 02:32 Urine Ketones NEGATIVE mg/dL (NEGATIVE) 11/05/19 02:32 Urine Blood NEGATIVE (NEGATIVE) 11/05/19 02:32 Urine Nitrite NEGATIVE (NEGATIVE) 11/05/19 02:32 Urine Bilirubin NEGATIVE (NEGATIVE) 11/05/19 02:32 Urine Urobilinogen NEGATIVE mg/dL (<2.0) 11/05/19 02:32 Ur Leukocyte Esterase MODERATE (NEGATIVE) H 11/05/19 02:32 Urine WBC (Auto) 14 /HPF 11/05/19 02:32 Urine RBC (Auto) 4 /HPF 11/05/19 02:32 Urine Mucus (Auto) RARE /LPF 11/05/19 02:32 Urine Ascorbic Acid NEGATIVE (NEGATIVE) 11/05/19 02:32 Impressions: Abdomen/Pelvis CT 11/05/19 00:00 IMPRESSION: 1. 0.5 cm left distal ureteral stone at the level of the S1 vertebral body with mild left hydronephrosis-hydroureter. 2. 2.6 cm diameter dilated ileum with air-fluid levels due to ileus or low-grade obstruction. Orally administered contrast is seen to the level of the mid small bowel. Cgul-ck-ocyeieei diffuse nondistended colitis from the level of the proximal transverse colon to the rectum. Interval worsening. 3. Cholelithiasis/gallbladder sludge. Meckel's Diverticulum Nuclear Medic 11/06/19 00:00 IMPRESSION: 1. No abnormal uptake of radiopharmaceutical in the abdomen or more specifically in the right lower quadrant (corresponding to the abnormal bowel noted on CT) to suggest Meckel's diverticulum. Plan Time Spent: Less than 30 Minutes Stroke Is this a Stroke Patient?: No Acute Heart Failure - Is this a Heart Failure Patient?: No
[2019-11-06] MEDS ORDERED: ASPIRIN 81 MG TABLET, ENT COATED PO SCH (11:00)
[2019-11-06] MEDS: TAMSULOSIN HCL 0.4 MG CAP.SR.24H PO SCH (11:23)
[2019-11-06] MEDS ORDERED: PROPRANOLOL HCL 10 MG TABLET PO SCH (13:00)
[2019-11-06] MEDS ORDERED: PROPRANOLOL HCL 20 MG TABLET PO SCH (14:00)
[2019-11-06 14:53] VITALS: BP 104/66
[2019-11-07] MEDS ORDERED: MULTIVITAMIN TABLET PO SCH (10:00)
== END 2019-11-06 13:05 | disposition home or self-care (01) ==
LOC: ER 01:45 → EH 13:13 → 4N 14:50
PROVIDERS: ADMIT Internal Medicine; ATTEND Internal Medicine
DX: R10.31 Right lower quadrant pain (principal); K52.89 Other specified noninfective gastroenteritis and colitis; N13.2 Hydronephrosis with renal and ureteral calculous obstruction; K80.20 Calculus of gallbladder without cholecystitis without obstruction; D86.9 Sarcoidosis, unspecified; I25.10 Atherosclerotic heart disease of native coronary artery without angina pectoris; I11.0 Hypertensive heart disease with heart failure; I50.9 Heart failure, unspecified; E66.9 Obesity, unspecified; Z79.899 Other long term (current) drug therapy; Z79.82 Long term (current) use of aspirin; Z87.442 Personal history of urinary calculi; Z95.5 Presence of coronary angioplasty implant and graft
CPT/HCPCS: 99285; 96374; 96375; 36415 ×2; 87086; 83690; 83735; 85025; 85027; 80048; 80053; 81001; 78290; 74177; G0378 ×3; A9512; J3490 ×9; J1956 ×2; J1885; J2405; J7030; Q9969

== ENCOUNTER 2019-11-15 10:30 | Emergency (ER) | payer MEDICAID ==
--- NOTE | 2019-11-15 10:50 | ER Document Report ---
ED Medical Screen (RME) - General Chief Complaint: Abdominal Pain Stated Complaint: ABDOMINAL PAIN Time Seen by Provider: 11/15/19 10:46 Mode of Arrival: Wheelchair Information source: Patient Notes: 59-year-old male presented to ED for complaint of abdominal pain. He states he was hospitalized last week for colitis. He states he has had abdominal pain for a long time. He states he also has a kidney stone on the left. He does have a history of sarcoidosis high blood pressure cholesterol and colitis and kidney stones. He is alert oriented respirations regular nonlabored. He states it is very hard to sit in the chair due to the pain. He states he is nauseated and gagging. Will order blood urine and IV fluids and nausea medicine in the triage area. I have greeted and performed a rapid initial assessment of this patient. A comprehensive ED assessment and evaluation of the patient, analysis of test results and completion of medical decision making process will be conducted by an additional ED providers. TRAVEL OUTSIDE OF THE [place] IN LAST 30 DAYS: No - Related Data Allergies/Adverse Reactions: No Known Allergies Allergy (Verified 11/15/19 10:47) Past Medical History - Past Medical History Cardiac Medical History: Reports: Hx Congestive Heart Failure, Hx Coronary Artery Disease - stents x2, 2001/2002, Hx Heart Attack - 2001, Hx Hypertension Pulmonary Medical History: Reports: Hx COPD Denies: Hx Bronchitis, Hx Pneumonia Neurological Medical History: Denies: Hx Cerebrovascular Accident, Hx Seizures Renal/ Medical History: Reports: Hx Kidney Stones. Denies: Hx Peritoneal Dialysis Musculoskeltal Medical History: Reports Hx Arthritis - hips,knees Past Surgical History: Reports: Hx Cardiac Catheterization - two stents, Hx Orthopedic Surgery - R hip replacement - Immunizations Immunizations up to date: No Hx Diphtheria, Pertussis, Tetanus Vaccination: Yes Physical Exam - Vital signs Vitals: Temp Pulse Resp BP Pulse Ox 97.3 F 90 18 140/71 H 96 11/15/19 10:35 11/15/19 10:35 11/15/19 10:35 11/15/19 10:35 11/15/19 10:35 Course - Vital Signs Vital signs: Temp Pulse Resp BP Pulse Ox 97.3 F 90 18 140/71 H 96 11/15/19 10:35 11/15/19 10:35 11/15/19 10:35 11/15/19 10:35 11/15/19 10:35
[2019-11-15] MEDS ORDERED: KETOROLAC TROMETHAMINE INJ/PF 30 MG/1 ML SDV IV ONE (10:52)
[2019-11-15] MEDS ORDERED: NORMAL SALINE 1000 ML 1,000 ML IV ONE (10:52)
[2019-11-15] MEDS ORDERED: ONDANSETRON HCL INJ/PF 4 MG/2 ML SDV IV ONE ×2 (10:52→18:11)
[2019-11-15 11:46] LABS: ABSOLUTE BASOPHILS # (AUTO) 0.1 10^3/uL (0.0-0.2); ABSOLUTE LYMPHOCYTES (AUTO) 0.9 10^3/uL (0.5-4.7); ABSOLUTE MONOCYTES (AUTO) 0.6 10^3/uL (0.1-1.4); ABSOLUTE NEUT (AUTO) 12.7 10^3/uL (1.7-8.2); BASOPHILS % (AUTO) 0.6 % (0-2); HEMATOCRIT 39.2 % (37.9-51.0); HEMOGLOBIN 12.8 g/dL (13.5-17.0); LYMPHOCYTES % (AUTO) 6.5 % (13-45); MEAN CORPUSCULAR HGB CONC 32.7 g/dL (32.0-36.0); MEAN CORPUSCULAR VOLUME 83 fl (80-97); MONOCYTES % (AUTO) 4.1 % (3-13); PLATELET COUNT 324 10^3/uL (150-450); RED BLOOD COUNT 4.75 10^6/uL (4.35-5.55); RED CELL DISTRIBUTION WIDTH 16.7 % (11.5-14.0); SEGMENTED NEUTROPHILS % (AUTO) 88.8 % (42-78); TOTAL CELLS COUNTED % (AUTO) 100 %; WHITE BLOOD COUNT 14.4 10^3/uL (4.0-10.5)
--- NOTE | 2019-11-15 11:52 | ER Document Report ---
ED GI/ - General Chief Complaint: Abdominal Pain Stated Complaint: ABDOMINAL PAIN Time Seen by Provider: 11/15/19 10:46 Primary Care Provider: ELLIE MAY MD [Primary Care Provider] - Follow up as needed Mode of Arrival: Wheelchair Information source: Patient Notes: 59-year-old man presents to the emergency department history of hospitalization with diagnosis of colitis and right kidney stone. He states that he has had episodic worsening pain today, + nausea no vomiting, no diarrhea. He ate this morning, had a bowel movement prior to coming to the emergency department states that he is taken the antibiotics the way they prescribed at the time of his discharge 1 week ago. Describes the pain is right side at involving the lower back area and also right upper quadrant epigastric region. TRAVEL OUTSIDE OF THE [place] IN LAST 30 DAYS: No - Related Data Allergies/Adverse Reactions: No Known Allergies Allergy (Verified 11/15/19 10:47) Home Medications: lasix, propanolol, multivitamin Past Medical History - General Information source: Patient - Social History Smoking Status: Former Smoker Chew tobacco use (# tins/day): No Frequency of alcohol use: None Drug Abuse: None Family History: Hypertension Patient has suicidal ideation: No Patient has homicidal ideation: No - Past Medical History Cardiac Medical History: Reports: Hx Congestive Heart Failure, Hx Coronary Artery Disease - stents x2, , Hx Heart Attack - 2001, Hx Hypercholesterolemia, Hx Hypertension Pulmonary Medical History: Reports: Hx COPD Denies: Hx Bronchitis, Hx Pneumonia Neurological Medical History: Denies: Hx Cerebrovascular Accident, Hx Seizures Renal/ Medical History: Reports: Hx Kidney Stones. Denies: Hx Peritoneal Dialysis Musculoskeletal Medical History: Reports Hx Arthritis - hips,knees Past Surgical History: Reports: Hx Cardiac Catheterization - two stents, Hx Orthopedic Surgery - R hip replacement - Immunizations Immunizations up to date: No Hx Diphtheria, Pertussis, Tetanus Vaccination: Yes Review of Systems - Review of Systems Notes: Constitutional: Negative for fever. HENT: Negative for sore throat. Eyes: Negative for visual changes. Cardiovascular: Negative for chest pain. Respiratory: Negative for shortness of breath. Gastrointestinal: + abdominal pain, + nausea, no vomiting or diarrhea. Genitourinary: Negative for dysuria. Musculoskeletal: Negative for back pain. Skin: Negative for rash. Neurological: Negative for headaches, weakness or numbness. 10 point ROS negative except as marked above and in HPI. Physical Exam - Vital signs Vitals: Temp Pulse Resp BP Pulse Ox 97.3 F 90 18 140/71 H 96 11/15/19 10:35 11/15/19 10:35 11/15/19 10:35 11/15/19 10:35 11/15/19 10:35 - Notes Notes: PHYSICAL EXAMINATION: Physical Exam: General: Well-nourished well-developed 59-year-old man with mild acute distress HEENT: NC/AT, pupils equal round and reactive to light, MM moist,nares clear, oropharynx clear, airway patent Neck: supple, no adenopathy, no masses. Good range of motion Lungs: clear, no wheezing, no rales no rhonchi CVS: Regular rate and rhythm no murmur gallop or rub Abdomen: Soft, active, distended, tympanic to percussion, tenderness in the r ight upper quadrant, mid epigastric region, no guarding, no rebound, no masses, no hepatosplenomegaly Ext: No edema, clubbing or cyanosis. Neuro: Alert and responsive, moving all 4 extremities on command, cranial nerves intact, no focal findings Skin: Intact no open lesions, no rash PSYCH: Normal mood, normal affect. Course - Re-evaluation Re-evalutation: 11/15/19 12:06 Patient history of colitis, history of right kidney stone, now with a exacerbated episode of pain. Apparently given Toradol and Zofran in the emergency department with some improvement. Reimaging with CT scan and right upper quadrant ultrasound done in the emergency department today. Given his increased white count question of worsening infection. He is afebrile. 11/15/19 12:08 11/15/19 14:26 I discussed the findings of the CT scan with the patient, explained to him that there appears to be a mass in the area of the terminal ileum which could be causing obstruction. Surgical consultation is warranted. Patient notes that he is scheduled to see gastroenterology as an outpatient. Dr. Costa, general surgeon on-call was contacted and will see the patient in the emergency department. 11/15/19 16:12 I discussed the patient with our general surgeon who notes that, the hospital is on generator power in the operating room and will not be able to perform emergent surgery today for a small bowel obstruction. He is asked that the patient be transferred to another facility. I have contacted [facility], Dr. Lenin Oviedo, general surgeon promotions coordinator has excepted the patient in transfer. I have discussed the patient's current status, he is requested that the NG tube be placed, I discussed this plan with the patient and he is in agreement. Nasogastric tube to low intermittent suction is being placed. - Vital Signs Vital signs: Temp Pulse Resp BP Pulse Ox 98.4 F 81 16 111/58 L 93 11/15/19 15:30 11/15/19 15:30 11/15/19 15:30 11/15/19 15:30 11/15/19 15:30 - Laboratory Result Diagrams: 11/15/19 11:20 11/15/19 11:20 Laboratory results interpreted by me: 11/15/19 11/15/19 11:20 11:20 WBC 14.4 H Hgb 12.8 L RDW 16.7 H Lymph % (Auto) 6.5 L Absolute Neuts (auto) 12.7 H Seg Neutrophils % 88.8 H Glucose 163 H Total Protein 8.3 H Lipase 19.8 L - Diagnostic Test Radiology reviewed: Image reviewed, Reports reviewed - CT abdomen and pelvis with IV contrast: Small bowel obstruction noted level of the terminal ileum, 5.0 cm X 3.3 cm irregular heterogeneous mass. Radiologist raises the concerns of a possible malignancy. Bilateral kidney stones, nonobstructing. Discharge - Discharge Clinical Impression: Small bowel obstruction Abdominal pain Qualifiers: Abdominal location: generalized Qualified Code(s): R10.84 - Generalized abdominal pain Condition: Good Disposition: [facility] Referrals: ELLIE MAY MD [Primary Care Provider] - Follow up as needed
[2019-11-15 12:02] LABS: ALBUMIN 4.4 g/dL (3.5-5.0); ALKALINE PHOSPHATASE 97 U/L (38-126); ANION GAP 12 (5-19); ASPARTATE AMINO TRANSFERASE 34 U/L (17-59); BILIRUBIN,TOTAL 0.6 mg/dL (0.2-1.3); BLOOD UREA NITROGEN 10 mg/dL (7-20); CALCIUM 9.2 mg/dL (8.4-10.2); CARBON DIOXIDE 22 mmol/L (22-30); CHLORIDE 106 mmol/L (98-107); GLUCOSE 163 mg/dL (75-110); POTASSIUM 3.8 mmol/L (3.6-5.0); TOTAL PROTEIN 8.3 g/dL (6.3-8.2)
--- NOTE | 2019-11-15 13:49 | RADIOLOGY REPORT (SQ) ---
EXAM DESCRIPTION: U/S ABDOMEN LIMITED W/O DOP IMAGES COMPLETED DATE/TIME: 11/15/2019 1:17 pm REASON FOR STUDY: right upper quadrant pain COMPARISON: 03/13/2013 TECHNIQUE: Dynamic and static grayscale images acquired of the abdomen and recorded on PACS. Toshiao simona selected color Doppler and spectral images recorded. LIMITATIONS: None. FINDINGS: PANCREAS: No masses. Visualized pancreatic duct normal caliber. LIVER: The liver measures 14.9 cm in length, normal size. Echotexture normal. LIVER VASCULATURE: Normal directional flow of the main portal vein and hepatic veins. GALLBLADDER: Gallstones, stable finding. The gallbladder wall measures 2.0 mm, normal wall thicknes s. No pericholecystic fluid. ULTRASOUND-DETECTED BUSTILLO'S SIGN: Negative. INTRAHEPATIC DUCTS AND COMMON DUCT: CBD measures 5.0 mm in diameter, normal. The intrahepatic ducts normal caliber. No filling defects. INFERIOR VENA CAVA: Normal flow. AORTA: No aneurysm. RIGHT KIDNEY: The right kidney measures 11.5 x 5.6 cm, normal size. There are at least two nonobstr ucting calcifications which measure 10 x 8 x 4 mm and 14 x 11 x 6 mm PERITONEAL AND RIGHT PLEURAL SPACE: No ascites or effusions. OTHER: No other significant findings. IMPRESSION: 1. Gallstones, stable finding since the prior examination dated 03/13/2013. 2. No evidence of biliary obstruction. 3. Nonobstructing right renal calculi. TECHNICAL DOCUMENTATION: JOB ID: [id number] 2010 [employer]- All Rights Reserved Reading location - IP/workstation name: [email or web address]
--- NOTE | 2019-11-15 14:13 | RADIOLOGY REPORT (SQ) ---
EXAM DESCRIPTION: CT ABD/PELVIS WITH IV ONLY IMAGES COMPLETED DATE/TIME: 11/15/2019 1:34 pm REASON FOR STUDY: Rt sided abd pain COMPARISON: 11/05/2019 removed, 07/23/2019 TECHNIQUE: CT scan of the abdomen and pelvis performed using helical scanning technique with dynamic intravenous contrast injection. No oral contrast. Images reviewed with lung, soft tissue, and bone windows. Reconstructed coronal and sagittal MPR images reviewed. Delayed images for evaluation of the urinary system also acquired. All images stored on PACS. All CT scanners at this facility use dose modulation, iterative reconstruction, and/or weight based d osing when appropriate to reduce radiation dose to as low as reasonably achievable (ALARA). [facility]: Dose Right [facility]: CareDose [facility]: Dose Right [facility]: Teradose 4D [facility]: 3D Biomatrix CONTRAST TYPE AND DOSE: contrast/concentration: Isovue 350.00 mg/ml; Total Contrast Delivered: 100.0 ml; Total Saline Delivered: 45.0 ml RENAL FUNCTION: Creatinine 0.73 RADIATION DOSE: CT Rad equipment meets quality standard of care and radiation dose reduction techniq ues were employed. CTDIvol: 13.4 - 13.6 mGy. DLP: 2255 mGy-cm.. LIMITATIONS: None. FINDINGS: LOWER CHEST: Unchanged linear consolidation along the posterior right lower lobe, likely s carring and stable compared to 07/23/2019. LIVER: Normal size. No masses. No dilated ducts. SPLEEN: Normal size. No focal lesions. PANCREAS: No masses. No significant calcifications. No adjacent inflammation or peripancreatic fluid collections. Pancreatic duct not dilated. GALLBLADDER: Cholelithiasis. No secondary evidence of acute cholecystitis. ADRENAL GLANDS: No significant masses or asymmetry. RIGHT KIDNEY AND URETER: No solid masses. Multiple nonobstructing stones, largest within the interp olar region measuring 10 mm, stable. No hydronephrosis or hydroureter. LEFT KIDNEY AND URETER: No solid masses. Multiple nonobstructing stones, largest within the lower p ole measuring 16 mm, stable. There is a stable nonobstructing stone within the distal ureter measuri ng 4.5 mm. No hydronephrosis or hydroureter. AORTA AND VESSELS: No aneurysm. No dissection. Renal arteries, SMA, celiac without stenosis. RETROPERITONEUM: No retroperitoneal adenopathy, hemorrhage or masses. BOWEL AND PERITONEAL CAVITY: Again seen is a irregular heterogeneous mass within the a right lower qu adrant measuring approximately 5.0 x 3.3 cm (series 2, image 64). There are multiple loops of dilate d small bowel measuring up to 2.9 cm with associated gas fluid levels. Additionally there is signifi cant gastric distention. Decompressed small segment distal ileum at the level of the right lower billy drant mass. Gas and stool noted throughout the colon. APPENDIX: Normal. PELVIS: No mass. No free fluid. Normal bladder. ABDOMINAL WALL: No masses. No hernias. BONES: No acute bony abnormality. No suspicious osseous lesions. There is severe degenerative mohan es at the left hip with joint space loss, subchondral sclerosis and osteophytosis. Right total hip a rthroplasty. OTHER: No other significant finding. IMPRESSION: 1. Small bowel obstruction extending to the level of the distal ileum were there is a 5 .0 x 3.3 cm irregular heterogeneous mass. This is at the site of previously seen inflammatory mass d ating back to 07/23/2019. Recommend surgical consultation. Underlying malignancy should be excluded . 2. Multiple bilateral stones. Unchanged nonobstructing stone within the mid left ureter measuring 4 .5 mm. 3. Additional chronic findings as above. Findings discussed with at Dr. Milligan 1401 hours on 11/15/2019 TECHNICAL DOCUMENTATION: JOB ID: [id number] Quality ID # [id number]: Final reports with documentation of one or more dose reduction techniques (e.g., Au tomated exposure control, adjustment of the mA and/or kV according to patient size, use of iterative reconstruction technique) 2010 [employer]- All Rights Reserved Reading location - IP/workstation name: [email or web address]
--- NOTE | 2019-11-15 16:10 | Progress Note ---
Provider Note Provider Note: Called to see the patient regarding a CT scan concerning for a distal small bowel mass, with accompanying small bowel obstruction. After discussion with patient regarding treatment options, I have recommended surgical intervention and NG tube placement. After much deliberation, the patient has requested transfer to another facility. I have discussed this with the ER provider. They will attempt to find an accepting facility. If no accepting facility can be found, I have agreed to admit the patient and further discuss surgical intervention with him. I will make further plans after discussion with a tertiary care facility has been completed.
--- NOTE | 2019-11-15 17:09 | RADIOLOGY REPORT (SQ) ---
EXAM DESCRIPTION: KUB/ABDOMEN (SINGLE VIEW) IMAGES COMPLETED DATE/TIME: 11/15/2019 4:57 pm REASON FOR STUDY: NG Tube Verification COMPARISON: None. NUMBER OF VIEWS: One view. TECHNIQUE: Supine radiographic image of the abdomen acquired. LIMITATIONS: None. FINDINGS: BOWEL GAS PATTERN: Limited examination. Mildly dilated small bowel loops right lower billy drant of the abdomen. CALCIFICATIONS: No suspicious calcifications. SOFT TISSUES: No gross mass or suggestion of organomegaly. HARDWARE: Partially visualized nasogastric tube. The tip overlies the antral pyloric region of the stomach. None in the abdomen. BONES: No acute fracture. No worrisome bone lesions. OTHER: Incidentally, bilateral nephrolithiasis. Residual IV contrast in the bilateral renal collect ing systems related to CT abdomen and pelvis examination performed on 11/15/2019. IMPRESSION: 1. The tip of the partially visualized nasogastric tube overlies the antral pyloric reg ion of the stomach. 2. Additional findings as above. TECHNICAL DOCUMENTATION: JOB ID: [id number] 2010 [employer]- All Rights Reserved Reading location - IP/workstation name: [email or web address]
[2019-11-15] MEDS ORDERED: MORPHINE SULFATE 10 MG/ML INJ IV ONE (18:11)
[2019-11-15 19:49] VITALS: BP 139/82
== END 2019-11-15 19:58 | disposition short-term general hospital (02) ==
LOC: ER 10:30
DX: K56.609 Unspecified intestinal obstruction, unspecified as to partial versus complete obstruction (principal); R10.84 Generalized abdominal pain; R11.0 Nausea; M54.5 Low back pain; R10.11 Right upper quadrant pain; R10.13 Epigastric pain; Z87.891 Personal history of nicotine dependence; I50.9 Heart failure, unspecified; I25.10 Atherosclerotic heart disease of native coronary artery without angina pectoris; I25.2 Old myocardial infarction; I11.0 Hypertensive heart disease with heart failure; J44.9 Chronic obstructive pulmonary disease, unspecified
CPT/HCPCS: 96376; 99284; 96361; 96374; 96375; 36415; 83690; 85025; 80053; 74018; 76705; 74177; J1885; J2270; J2405; J7030

== ENCOUNTER → 2020-01-11 | Outpatient (CLI) | payer MEDICAID ==
[2020-01-11 09:49] LABS: ANION GAP 8 (5-19); BLOOD UREA NITROGEN 11 mg/dL (7-20); CALCIUM 9.2 mg/dL (8.4-10.2); CARBON DIOXIDE 24 mmol/L (22-30); CHLORIDE 109 mmol/L (98-107); GLUCOSE 113 mg/dL (75-110); POTASSIUM 3.7 mmol/L (3.6-5.0)
== END ==
LOC: OD 07:21
PROVIDERS: ATTEND Family Medicine
DX: Z13.1 Encounter for screening for diabetes mellitus (principal)
CPT/HCPCS: 36415; 80048

== ENCOUNTER 2020-01-22 09:45 | Emergency (ER) | payer MEDICAID ==
--- NOTE | 2020-01-22 10:24 | ER Document Report ---
ED Medical Screen (RME) - General Chief Complaint: Problem with Urinary Catheter Stated Complaint: PROBLEM WITH URIARU CATHETER Time Seen by Provider: 01/22/20 10:15 Primary Care Provider: ELLIE MAY MD [Primary Care Provider] - Follow up as needed Notes: Patient presents reporting malpositioned urostomy tube. Patient states he noticed it started to come out over the past week and gradually more of the tubi ng has extruded from the right flank area. Patient does complain of right flank pain today. No nausea or vomiting. Patient denies any fever. Patient reports a history of colon cancer and sarcoidosis and COPD. I have greeted and performed a rapid initial assessment of this patient. A comprehensive ED assessment and evaluation of the patient, analysis of test results and completion of the medical decision making process will be conducted by additional ED providers. TRAVEL OUTSIDE OF THE [place] IN LAST 30 DAYS: No - Related Data Allergies/Adverse Reactions: No Known Allergies Allergy (Verified 11/15/19 10:47) Past Medical History - Past Medical History Cardiac Medical History: Reports: Hx Congestive Heart Failure, Hx Coronary Artery Disease - stents x2, 2001/2002, Hx Heart Attack - 2001, Hx Hypercholesterolemia, Hx Hypertension Pulmonary Medical History: Reports: Hx COPD Denies: Hx Bronchitis, Hx Pneumonia Neurological Medical History: Denies: Hx Cerebrovascular Accident, Hx Seizures Renal/ Medical History: Reports: Hx Kidney Stones. Denies: Hx Peritoneal Dialysis Musculoskeltal Medical History: Reports Hx Arthritis - hips,knees Past Surgical History: Reports: Hx Cardiac Catheterization - two stents, Hx Orthopedic Surgery - R hip replacement - Immunizations Immunizations up to date: No Hx Diphtheria, Pertussis, Tetanus Vaccination: Yes Physical Exam - Vital signs Vitals: Temp Pulse Resp BP Pulse Ox 98.5 F 88 14 128/76 H 98 01/22/20 09:49 01/22/20 09:49 01/22/20 09:49 01/22/20 09:49 01/22/20 09:49 - General General appearance: Alert Notes: Ambulates with a stooped gait, tenderness to right flank area, yellow urine to urostomy leg bag Course - Vital Signs Vital signs: Temp Pulse Resp BP Pulse Ox 98.5 F 88 14 128/76 H 98 01/22/20 09:49 01/22/20 09:49 01/22/20 09:49 01/22/20 09:49 01/22/20 09:49 Doctor's Discharge - Discharge Referrals: ELLIE MAY MD [Primary Care Provider] - Follow up as needed
[2020-01-22 10:54] LABS: AMORPHOUS SEDIMENT,URINE TRACE /HPF; APPEARANCE,URINE CLOUDY; BILIRUBIN,URINE NEGATIVE (NEGATIVE); COLOR,URINE YELLOW; GLUCOSE, URINE NEGATIVE (NEGATIVE); KETONES,URINE NEGATIVE (NEGATIVE); LEUKOCYTE ESTERASE,URINE LARGE (NEGATIVE); NITRITE,URINE POSITIVE (NEGATIVE); PROTEIN,URINE 100 mg/dL (NEGATIVE); URINE SPECIFIC GRAVITY 1.005; UROBILINOGEN,URINE NEGATIVE mg/dL (<2.0)
[2020-01-22 10:55] LABS: ABSOLUTE BASOPHILS # (AUTO) 0.1 10^3/uL (0.0-0.2); ABSOLUTE EOSINOPHILS # (AUTO) 0.3 10^3/uL (0.0-0.6); ABSOLUTE LYMPHOCYTES (AUTO) 2.3 10^3/uL (0.5-4.7); ABSOLUTE MONOCYTES (AUTO) 0.6 10^3/uL (0.1-1.4); ABSOLUTE NEUT (AUTO) 2.9 10^3/uL (1.7-8.2); BASOPHILS % (AUTO) 0.9 % (0-2); EOSINOPHILS % (AUTO) 4.6 % (0-6); HEMATOCRIT 36.2 % (37.9-51.0); HEMOGLOBIN 11.3 g/dL (13.5-17.0); LYMPHOCYTES % (AUTO) 37.7 % (13-45); MEAN CORPUSCULAR HEMOGLOBIN 25.3 pg (27.0-33.4); MEAN CORPUSCULAR HGB CONC 31.3 g/dL (32.0-36.0); MEAN CORPUSCULAR VOLUME 81 fl (80-97); MONOCYTES % (AUTO) 9.2 % (3-13); PLATELET COUNT 363 10^3/uL (150-450); RED BLOOD COUNT 4.48 10^6/uL (4.35-5.55); SEGMENTED NEUTROPHILS % (AUTO) 47.6 % (42-78); TOTAL CELLS COUNTED % (AUTO) 100 %; WHITE BLOOD COUNT 6.1 10^3/uL (4.0-10.5)
[2020-01-22 11:14] LABS: ALBUMIN 3.8 g/dL (3.5-5.0); ALKALINE PHOSPHATASE 102 U/L (38-126); ANION GAP 9 (5-19); ASPARTATE AMINO TRANSFERASE 22 U/L (17-59); BILIRUBIN,TOTAL 0.3 mg/dL (0.2-1.3); BLOOD UREA NITROGEN 9 mg/dL (7-20); CALCIUM 9.2 mg/dL (8.4-10.2); CARBON DIOXIDE 26 mmol/L (22-30); CHLORIDE 107 mmol/L (98-107); GLUCOSE 103 mg/dL (75-110); POTASSIUM 3.7 mmol/L (3.6-5.0); TOTAL PROTEIN 8.2 g/dL (6.3-8.2)
[2020-01-22] MEDS ORDERED: OXYCODONE-ACETAMINOPHEN 5-325 MG TABLET PO ONE ×2 (12:48→18:21)
--- NOTE | 2020-01-22 13:38 | ER Document Report ---
ED General - General Chief Complaint: Flank Pain Stated Complaint: PROBLEM WITH URIARU CATHETER Time Seen by Provider: 01/22/20 10:15 Primary Care Provider: ELLIE MAY MD [Primary Care Provider] - Follow up as needed TRAVEL OUTSIDE OF THE [place] IN LAST 30 DAYS: No - HPI Notes: Chief complaint: Complication related to percutaneous nephrostomy HPI: 59-year-old male with history of recent surgery for colon cancer complicated by injury to his right ureter requiring placement of a right percuta neous nephrostomy several weeks ago by urologist in [facility] Dr. Leal. Patient is a rather poor historian but from what he can tell me he started noticing leakage of urine at the skin site this morning and is now complaining of flank pain. When he got up he noticed that his dressing was saturated with urine. He denies fever, chills, nausea or vomiting. He did not make any attempt to contact his urologist but came directly to the emergency department here. - Related Data Allergies/Adverse Reactions: No Known Allergies Allergy (Verified 11/15/19 10:47) Home Medications: propanolol, furosemide, aspirin, xarelto, vitamins Past Medical History - General Information source: Patient, [facility] Records - Social History Smoking Status: Never Smoker Chew tobacco use (# tins/day): No Drug Abuse: None Family History: Hypertension - Past Medical History Cardiac Medical History: Reports: Hx Congestive Heart Failure, Hx Coronary Artery Disease - stents x2, , Hx Heart Attack - 2001, Hx Hypercholesterolemia, Hx Hypertension Pulmonary Medical History: Reports: Hx COPD Denies: Hx Bronchitis, Hx Pneumonia Neurological Medical History: Denies: Hx Cerebrovascular Accident, Hx Seizures Renal/ Medical History: Reports: Hx Kidney Stones. Denies: Hx Peritoneal Dialysis Malignancy Medical History: Reports Hx Colorectal Cancer Musculoskeletal Medical History: Reports Hx Arthritis - hips,knees Past Surgical History: Reports: Hx Cardiac Catheterization - two stents, Hx Orthopedic Surgery - R hip replacement, Other - Partial colectomy and right percutaneous nephrostomy - Immunizations Immunizations up to date: No Hx Diphtheria, Pertussis, Tetanus Vaccination: Yes Review of Systems - Review of Systems Notes: Constitutional: Negative for fever. HENT: Negative for sore throat. Eyes: Negative for visual changes. Cardiovascular: Negative for chest pain. Respiratory: Negative for shortness of breath. Gastrointestinal: Negative for abdominal pain, vomiting or diarrhea. Genitourinary: As per HPI Musculoskeletal: Otherwise negative. Skin: Negative for rash. Neurological: Negative for headaches, weakness or numbness. 10 point ROS negative except as marked above and in HPI. Physical Exam - Vital signs Vitals: Temp Pulse Resp BP Pulse Ox 98.5 F 88 14 128/76 H 98 01/22/20 09:49 01/22/20 09:49 01/22/20 09:49 01/22/20 09:49 01/22/20 09:49 - Notes Notes: GENERAL: Well-developed well-nourished male approximately stated age appearing in mild discomfort. SKIN: Good turgor no rashes. HEAD: Normocephalic atraumatic. EYES: PERRLA. EOMI. Conjunctivae and sclerae clear. EARS: CANALS AND TMS CLEAR. NOSE: CLEAR. MOUTH: Moist mucosa. Good dentition. No stridor or edema. No drooling. NECK: Supple. No masses or thyromegaly. No adenopathy. Carotids 2+ without bruits. No JVD. BACK: Percutaneous nephrostomy present on the right. The drainage tube appears to be partially dislodged and there is leakage of urine around the tube. There is no redness or purulent drainage. No tenderness to palpation in this area. CHEST: Respirations unlabored. Breath sounds clear and symmetrical. HEART: Regular rhythm. No murmur gallop or rub. ABDOMEN: Soft nontender without masses, organomegaly or rebound. Bowel sounds normally active. No bruits. GENITALIA: Deferred. EXTREMITIES: No edema. No calf tenderness. Cap refill less than 1.5 seconds. Dorsalis pedis and posterior tibial pulses 3+ and symmetrical. NEUROLOGICAL: GCS 15. Alert and oriented x3. Normal gait. Fluent speech. Cranial nerves II through XII intact. Sensorimotor and cerebellar normal. Normal tone. PSYCHIATRIC: Appropriate affect. Course - Re-evaluation Re-evalutation: 01/22/20 13:34 I spoke with interventional radiology here and not doing any cases due to COVID precautions. I have made repeated attempts to reach Dr. Leal by telephone without success over the last 35 minutes. I have a message left for him please call me so I can arrange to send patient back for replacement of the nephrostomy tube. 01/22/20 13:52 Dr. Leal has returned my call and requested that we try to coordinate transport to [facility] for interventional radiology there to replace the tube. I have contacted the transfer center and I am waiting for interventional radiologist to call me back to authorize transport. 01/22/20 14:40 Interventional radiologist at [facility] states they were unable to accommodate the patient on their schedule today. Dr. Raul Leal from urology has subsequently contacted us advised that he will accept patient to his service on general surgery floor at [facility]. We are awaiting bed assignment at this time and transfer will be coordinated. EMTALA form completed. - Vital Signs Vital signs: Temp Pulse Resp BP Pulse Ox 98.5 F 88 14 128/76 H 98 01/22/20 11:21 01/22/20 09:49 01/22/20 09:49 01/22/20 09:49 01/22/20 09:49 - Laboratory Result Diagrams: 01/22/20 10:37 01/22/20 10:37 Laboratory results interpreted by me: 01/22/20 01/22/20 10:37 10:37 Hgb 11.3 L Hct 36.2 L MCH 25.3 L MCHC 31.3 L RDW 21.0 H Urine Protein 100 H Urine Blood LARGE H Urine Nitrite POSITIVE H Ur Leukocyte Esterase LARGE H Discharge - Discharge Clinical Impression: Displaced percutaneous nephrostomy tube Condition: Stable Disposition: [facility] Referrals: ELLIE MAY MD [Primary Care Provider] - Follow up as needed
[2020-01-22 20:28] VITALS: BP 133/75
== END 2020-01-22 20:35 | disposition short-term general hospital (02) ==
LOC: ER 09:45
DX: N99.538 Other complication of continent stoma of urinary tract (principal); N99.528 Other complication of incontinent external stoma of urinary tract; Y83.8 Other surgical procedures as the cause of abnormal reaction of the patient, or of later complication, without mention of misadventure at the time of the procedure; R10.9 Unspecified abdominal pain; I11.0 Hypertensive heart disease with heart failure; I50.9 Heart failure, unspecified; I25.10 Atherosclerotic heart disease of native coronary artery without angina pectoris; I25.2 Old myocardial infarction; Z79.899 Other long term (current) drug therapy; Z79.01 Long term (current) use of anticoagulants; Z79.82 Long term (current) use of aspirin; Z98.890 Other specified postprocedural states
CPT/HCPCS: 36415; 80053; 81001; 85025; 85379; 99284

== ENCOUNTER 2020-02-27 00:14 | Emergency (ER) | payer MEDICAID ==
[2020-02-27] MEDS ORDERED: ACETAMINOPHEN 325 MG TABLET PO ONE (01:59)
[2020-02-27] MEDS ORDERED: NORMAL SALINE 1000 ML 1,000 ML IV ONE (02:05)
--- NOTE | 2020-02-27 02:06 | ER Document Report ---
ED General - General TRAVEL OUTSIDE OF THE [place] IN LAST 30 DAYS: No - Related Data Home Medications: propranolol, lasix, asa, vitamins,xarelto, flonase,claritin <ARIELLA METZGER - Last Filed: 02/28/20 17:48> <FIORELLA SUE - Last Filed: 03/04/20 15:20> - General Chief Complaint: Nose Bleed Stated Complaint: NOSE BLEED Time Seen by Provider: 02/27/20 01:28 Primary Care Provider: ELLIE MAY MD [Primary Care Provider] - Follow up in 3-5 days Notes: Patient is a 59-year-old male with a history of colon cancer who presents emergency department with a chief complaint of a nosebleed. Patient also states that he feels the way he did towards the end of his submission for his urostomy tube. Patient states that he had a fever starting tonight. Patient is currently on Xarelto for a DVT. He also has a history of hypertension and CHF. States that he is taking his medications as prescribed. Denies abdominal pain, flank pain, dysuria, cough, or any other symptoms. Patient states that he is just here for a nose bleed and just happened to have a fever. (ARIELLA METZGER) - Related Data Allergies/Adverse Reactions: No Known Allergies Allergy (Verified 11/15/19 10:47) Past Medical History - General Information source: Patient - Social History Smoking Status: Never Smoker Family History: Hypertension Patient has homicidal ideation: No - Past Medical History Cardiac Medical History: Reports: Hx Congestive Heart Failure, Hx Coronary Artery Disease - stents x2, , Hx Heart Attack - 2001, Hx Hypercholesterolemia, Hx Hypertension Pulmonary Medical History: Reports: Hx COPD Denies: Hx Bronchitis, Hx Pneumonia Neurological Medical History: Denies: Hx Cerebrovascular Accident, Hx Seizures Renal/ Medical History: Reports: Hx Kidney Stones. Denies: Hx Peritoneal Dialysis Malignancy Medical History: Reports Hx Colorectal Cancer Musculoskeletal Medical History: Reports Hx Arthritis - hips,knees Past Surgical History: Reports: Hx Cardiac Catheterization - two stents, Hx Orthopedic Surgery - R hip replacement, Other - Partial colectomy and right percutaneous nephrostomy - Immunizations Immunizations up to date: No Hx Diphtheria, Pertussis, Tetanus Vaccination: Yes <OMARI METZGERIE Sandhya - Last Filed: 02/28/20 17:48> Review of Systems <ARIELLA METZGER - Last Filed: 02/28/20 17:48> - Review of Systems Notes: REVIEW OF SYSTEMS: CONSTITUTIONAL : Denies recent illness. Denies recent unintentional weight loss. See HPI. EENT: See HPI. CARDIOVASCULAR: Denies chest pain. RESPIRATORY: Denies shortness of breath, cough, congestion, difficulty breathing, or wheezing. GASTROINTESTINAL: Denies nausea, vomiting, and diarrhea. Denies abdominal pain. Denies constipation. GENITOURINARY: Denies difficulty urinating, burning, blood in urine, urgency or frequency. MUSCULOSKELETAL: Denies neck and back pain. Denies joint pain or swelling. SKIN: Denies rash, itchiness, or lesions HEMATOLOGIC : Denies easy bruising or bleeding. LYMPHATIC: Denies swollen, painful, enlarged glands. NEUROLOGICAL: Denies no numbness or tingling denies weakness. Denies headache. Denies altered mental status. Denies alteration in speech. PSYCHIATRIC: Denies stress, anxiety, alteration in sleep patterns, or depression. All other systems reviewed and negative. (ARIELLA METZGER) Physical Exam <ARIELLA METZGER - Last Filed: 02/28/20 17:48> - Vital signs Vitals: Temp Pulse Resp BP Pulse Ox 101.7 F H 117 H 20 124/74 97 02/27/20 00:38 02/27/20 00:38 02/27/20 00:38 02/27/20 00:38 02/27/20 00:38 - Notes Notes: PHYSICAL EXAMINATION: GENERAL: Appears well, healthy, well-nourished, no acute distress. HEAD: Normocephalic, atraumatic. EYES: PERRL, conjunctiva normal, all extraocular movements intact, sclera nonicteric ENT: Moist mucous membranes. NECK: Supple, no noticeable swelling, redness, rash. Normal range of motion. LUNGS: Equal breath sounds bilaterally and clear to auscultation. No wheezes rales or rhonchi. CARDIOVASCULAR: S1-S2, regular rate, regular rhythm. Radial pulses 2+, normal. ABDOMEN: Normoactive bowel sounds. Soft, nontender, no guarding, no rebound tenderness, and no masses palpated. EXTREMITIES: Normal strength and range of motion, no pitting or edema. No cyanosis. NEUROLOGICAL: Moves all extremities upon command. Strength 5/5 in all extremities. PSYCH: Normal mood, normal affect. SKIN: Warm, dry. No rash, lesions, ulcerations noted. Normal skin turgor. (ARIELLA METZGER) Course - Laboratory Result Diagrams: 02/27/20 02:33 02/27/20 03:31 <ARIELLA METZGER - Last Filed: 02/28/20 17:48> - Laboratory Result Diagrams: 02/27/20 02:33 02/27/20 03:31 <SAMIA SUEDAVIS Pat - Last Filed: 03/04/20 15:20> - Re-evaluation Re-evalutation: 02/27/20 02:09 Heart rate is 117 and he has a temperature of 100. He only took 325 mg of Tylenol. We will give him some more Tylenol and give him IV fluids. We will send urine for culture. We will also send urine from the urostomy tube for culture. 02/27/20 06:38 Vital signs have greatly improved and the patient's temperature is now 99.6. Heart rate is 79. Patient received a gram of Rocephin here in the emergency department. Patient states that he does feel better. His bleeding from his left nostril has been controlled by placing tissue in his left nostril. We talked about how the patient is on Flonase. I told him to take a break from his Flonase, as this makes his nose dry. Urine shows Leukocytes and urine culture was sent from urostomy tube and clean catch. Patient's potassium was also 3.0. His potassium was replaced here in the emergency department. We will place him on 20 M EQ's of potassium, as he currently takes Lasix. (ARIELLA METZGER) - Vital Signs Vital signs: Temp Pulse Resp BP Pulse Ox 100.1 F 117 H 28 H 123/82 99 02/27/20 08:44 02/27/20 00:38 02/27/20 08:01 02/27/20 08:00 02/27/20 08:01 - Laboratory Laboratory results interpreted by me: 02/27/20 02/27/20 02/27/20 02:33 02:33 02:33 WBC 18.2 H RBC 4.22 L Hgb 11.0 L Hct 33.6 L MCH 26.0 L RDW 20.5 H Band Neutrophils % 1 L Abs Neuts (Manual) 14.4 H PT 24.2 H Sodium Potassium Glucose Total Bilirubin Urine Protein 100 H Urine Blood LARGE H Urine Urobilinogen 4.0 H Leukocyte Esterase Rfl SMALL H Urine Ascorbic Acid 40 H 02/27/20 02/27/20 03:31 04:53 WBC RBC Hgb Hct MCH RDW Band Neutrophils % Abs Neuts (Manual) PT Sodium 135.0 L Potassium 3.0 L* Glucose 122 H Total Bilirubin 1.7 H Urine Protein Urine Blood MODERATE H Urine Urobilinogen Leukocyte Esterase Rfl LARGE H Urine Ascorbic Acid Discharge <RAIELLA METZGER - Last Filed: 02/28/20 17:48> <FIORELLA SUE - Last Filed: 03/04/20 15:20> - Discharge Clinical Impression: Epistaxis Urinary tract infection Qualifiers: Urinary tract infection type: site unspecified Hematuria presence: with hematuria Qualified Code(s): N39.0 - Urinary tract infection, site not specified Fever Qualifiers: Fever type: unspecified Qualified Code(s): R50.9 - Fever, unspecified Condition: Stable Disposition: HOME, SELF-CARE Instructions: Cephalexin ([facility]) Additional Instructions: You were seen today in the emergency department for a nosebleed. The bleeding was controlled on its own. If you do end up having bleeding again, please apply pressure like you did with the toilet paper. You also had a fever. You have a urinary tract infection. You are being started on antibiotics. Please make sure you take all your antibiotics as prescribed. Take Tylenol 1000 mg every 6 hours as needed for a fever. Your potassium was also low. This is due to you taking your Lasix. Please continue to take your Lasix, but please start taking potassium. Have your primary care provider redraw labs in 3 days to make sure potassium is normal. If you pass out, have worsening symptoms, do not feel better after receiving antibiotics, please return to the emergency department. Prescriptions: Cephalexin [Keflex] 500 mg PO BID #14 capsule Potassium Chloride 20 meq PO DAILY #4 [id number] Referrals: ELLIE MAY MD [Primary Care Provider] - Follow up in 3-5 days
[2020-02-27] MEDS ORDERED: CEFTRIAXONE INJ 1000 MG VIAL IV ONE (02:10)
[2020-02-27 02:55] LABS: VENOUS BLOOD BASE EXCESS 0.1 mmol/L; VENOUS BLOOD PCO2 46.2 mmHg (35-63); VENOUS BLOOD PH 7.37 (7.30-7.42)
[2020-02-27 03:03] LABS: HEMATOCRIT 33.6 % (37.9-51.0); MEAN CORPUSCULAR HGB CONC 32.7 g/dL (32.0-36.0); MEAN CORPUSCULAR VOLUME 80 fl (80-97); PLATELET COUNT 204 10^3/uL (150-450); RED BLOOD COUNT 4.22 10^6/uL (4.35-5.55); RED CELL DISTRIBUTION WIDTH 20.5 % (11.5-14.0); WHITE BLOOD COUNT 18.2 10^3/uL (4.0-10.5)
[2020-02-27 03:06] LABS: INTERNATIONAL RATION (INR) 2.17; PROTHROMBIN TIME 24.2 SEC (11.4-15.4)
[2020-02-27 03:30] LABS: BAND NEUTROPHILS % (MANUAL) 1 % (3-5); LYMPHOCYTES % (MANUAL) 16 % (13-45); SEGMENTED NEUTROPHILS % (MAN) 78 % (42-78); TOTAL CELLS COUNTED 100
[2020-02-27 03:31] LABS: ABSOLUTE LYMPHOCYTES# (MANUAL) 2.9 10^3/uL (0.5-4.7); ABSOLUTE MONOCYTES # (MANUAL) 0.9 10^3/uL (0.1-1.4); BASOPHILS % (MANUAL) 0 % (0-2); EOSINOPHILS % (MANUAL) 0 % (0-6); MONOCYTES % (MANUAL) 5 % (3-13)
[2020-02-27 03:32] LABS: ANISOCYTOSIS 2+; OVALOCYTES SLIGHT; PLATELET COMMENT ADEQUATE; POIKILOCYTOSIS SLIGHT; POLYCHROMASIA SLIGHT; SCHISTOCYTES SLIGHT; TOXIC GRANULATION SLIGHT; TOXIC VACUOLATION PRESENT
[2020-02-27 04:03] LABS: ALBUMIN 3.5 g/dL (3.5-5.0); ALKALINE PHOSPHATASE 79 U/L (38-126); ANION GAP 9 (5-19); ASPARTATE AMINO TRANSFERASE 22 U/L (17-59); BILIRUBIN,DIRECT 0.1 mg/dL (0.0-0.4); BILIRUBIN,TOTAL 1.7 mg/dL (0.2-1.3); BLOOD UREA NITROGEN 8 mg/dL (7-20); CALCIUM 8.5 mg/dL (8.4-10.2); CARBON DIOXIDE 22 mmol/L (22-30); CHLORIDE 104 mmol/L (98-107); GLUCOSE 122 mg/dL (75-110); TOTAL PROTEIN 7.3 g/dL (6.3-8.2)
[2020-02-27] MEDS ORDERED: POTASSIUM CHLORIDE 20 MEQ PACKET PO ONE (04:19)
[2020-02-27] MEDS ORDERED: POTASSI CL 20 MEQ/50 ML RIDER 20 MEQ/50 ML RTUPB IV ONE (04:20)
[2020-02-27] MEDS ORDERED: POTASSIUM CHLORIDE 10 MEQ TABLET.ER PO ONE (04:58)
[2020-02-27 05:22] LABS: APPEARANCE,URINE SLIGHTLY-CLOUDY; BILIRUBIN,URINE NEGATIVE (NEGATIVE); COLOR,URINE YELLOW; GLUCOSE, URINE NEGATIVE (NEGATIVE); KETONES,URINE NEGATIVE (NEGATIVE); PROTEIN,URINE 100 mg/dL (NEGATIVE); URINE SPECIFIC GRAVITY 1.018
[2020-02-27 06:02] LABS: APPEARANCE,URINE CLEAR; BILIRUBIN,URINE NEGATIVE (NEGATIVE); COLOR,URINE YELLOW; GLUCOSE, URINE NEGATIVE (NEGATIVE); KETONES,URINE NEGATIVE (NEGATIVE); PROTEIN,URINE NEGATIVE (NEGATIVE); URINE SPECIFIC GRAVITY 1.005; UROBILINOGEN,URINE NEGATIVE mg/dL (<2.0)
--- NOTE | 2020-02-27 08:33 | EKG REPORT ---
SEVERITY:- ABNORMAL ECG - SINUS TACHYCARDIA NONSPECIFIC T ABNORMALITIES, LATERAL LEADS : Confirmed by: Kevin Guardado MD 27-Feb-2020 08:32:33
[2020-02-27 08:45] VITALS: BP 123/82
== END 2020-02-27 08:44 | disposition home or self-care (01) ==
LOC: ER 00:14
DX: R04.0 Epistaxis (principal); N39.0 Urinary tract infection, site not specified; R31.9 Hematuria, unspecified; R50.9 Fever, unspecified; I11.0 Hypertensive heart disease with heart failure; I50.9 Heart failure, unspecified; I25.10 Atherosclerotic heart disease of native coronary artery without angina pectoris; I25.2 Old myocardial infarction; J44.9 Chronic obstructive pulmonary disease, unspecified; I82.409 Acute embolism and thrombosis of unspecified deep veins of unspecified lower extremity; Z79.01 Long term (current) use of anticoagulants; Z79.899 Other long term (current) drug therapy; Z79.82 Long term (current) use of aspirin; Z95.5 Presence of coronary angioplasty implant and graft; Z85.048 Personal history of other malignant neoplasm of rectum, rectosigmoid junction, and anus; Z93.6 Other artificial openings of urinary tract status
CPT/HCPCS: 93005; 99283; 96365; 96366; 96367; 36415; 87040; 87086; 83605; 85025; 85610; 87088; 80053; 81001; 87186; 82803; 93010; J3490; J0696; J3480; J7030

== ENCOUNTER → 2020-03-05 | Outpatient (CLI) | payer MEDICAID ==
[2020-03-05 11:45] LABS: ANION GAP 9 (5-19); BLOOD UREA NITROGEN 13 mg/dL (7-20); CALCIUM 9.8 mg/dL (8.4-10.2); CARBON DIOXIDE 27 mmol/L (22-30); CHLORIDE 107 mmol/L (98-107); GLUCOSE 96 mg/dL (75-110); POTASSIUM 4.6 mmol/L (3.6-5.0)
== END ==
LOC: OD 10:21
PROVIDERS: ATTEND Family Medicine
DX: E87.6 Hypokalemia (principal)
CPT/HCPCS: 36415; 80048

== ENCOUNTER 2020-03-18 22:06 | Emergency (ER) | payer MEDICAID ==
--- NOTE | 2020-03-18 22:51 | ER Document Report ---
ED Medical Screen (RME) - General Chief Complaint: Headache Stated Complaint: HEADACHE Time Seen by Provider: 03/18/20 22:46 Primary Care Provider: ELLIE MAY MD [Primary Care Provider] - Follow up as needed Notes: 59-year-old male with chief complaint of suddenly developing a frontal headache that made him feel dizzy, started at 2130 tonight while he was playing PlayStation. He states that the headache is actually reduced now compared to prior and it is only vague now, he states that he still feels intermittently mildly lightheaded. He denies chest pain but he states that he has had "indigestion" going on for a few days. He also states that last time he had a UTI he felt lightheaded. He denies fever, vomiting, dental pain, focal numbness or weakness, visual changes, or any other complaints. He does not have frequent headaches. He has a history of colon cancer status post surgery. TRAVEL OUTSIDE OF THE [place] IN LAST 30 DAYS: No - Related Data Allergies/Adverse Reactions: No Known Allergies Allergy (Verified 11/15/19 10:47) Past Medical History - Past Medical History Cardiac Medical History: Reports: Hx Congestive Heart Failure, Hx Coronary Artery Disease - stents x2, 2001/2002, Hx Heart Attack - 2001, Hx Hypercholesterolemia, Hx Hypertension Pulmonary Medical History: Reports: Hx COPD Denies: Hx Bronchitis, Hx Pneumonia Neurological Medical History: Denies: Hx Cerebrovascular Accident, Hx Seizures Renal/ Medical History: Reports: Hx Kidney Stones. Denies: Hx Peritoneal Dialysis Malignancy Medical History: Reports Hx Colorectal Cancer Musculoskeltal Medical History: Reports Hx Arthritis - hips,knees Past Surgical History: Reports: Hx Cardiac Catheterization - two stents, Hx Orthopedic Surgery - R hip replacement, Other - Partial colectomy and right percutaneous nephrostomy - Immunizations Immunizations up to date: No Hx Diphtheria, Pertussis, Tetanus Vaccination: Yes Physical Exam - Neurological Neuro grossly intact: Yes Cognition: Normal Orientation: AAOx4 Sean Coma Scale Eye Opening: Spontaneous Amalia Coma Scale Verbal: Oriented Sean Coma Scale Motor: Obeys Commands Sean Coma Scale Total: 15 Speech: Normal. No: Dysarthria, Expressive aphasia Cranial nerves: Normal Cerebellar coordination: Other - Patient with ataxic gait but reportedly chronic due to his hips Motor strength normal: LUE, RUE, LLE, RLE Course - Re-evaluation Re-evalutation: Patient nontoxic in appearance, smiling, conversational. However because of her description of the headache CT will be performed to rule out subarachnoid hemorrhage, patient is well within the timeframe. I have greeted and performed a rapid initial assessment of this patient. A comprehensive ED assessment and evaluation of the patient, analysis of test results and completion of the medical decision making process will be conducted by additional ED providers. Doctor's Discharge - Discharge Referrals: ELLIE MAY MD [Primary Care Provider] - Follow up as needed
--- NOTE | 2020-03-18 23:23 | RADIOLOGY REPORT (SQ) ---
CT HEAD WITHOUT IV CONTRAST XR CHEST 1 VIEW HISTORY: Lightheadedness and weakness. COMPARISON: 11/02/2014 TECHNIQUE: 1. CT scan of the brain was performed without IV contrast. 2. Single AP view of the chest was submitted for interpretation. This exam was performed according to our departmental dose-optimization program, which includes automated exposure control, adjustment of the mA and/or kV according to patient size and/or use of iterative reconstruction technique. FINDINGS: The ventricles, cisterns, and sulci are age-appropriate. No evidence of acute infarction, intracranial hemorrhage, extra-axial fluid collection, or midline shift. No air-fluid levels are seen in the paranasal sinuses to suggest acute sinusitis. No depressed skull fracture. The heart size is within normal limits. There is no pulmonary vascular congestion. No consolidation, pleural effusion, or pneumothorax is seen. The bony structures are preserved. There is chronic scarring in the lower lung zones. IMPRESSION: 1. No acute intracranial findings. 2. No evidence of acute cardiopulmonary disease.
[2020-03-18 23:51] LABS: APPEARANCE,URINE CLOUDY; BILIRUBIN,URINE NEGATIVE (NEGATIVE); COLOR,URINE YELLOW; GLUCOSE, URINE NEGATIVE (NEGATIVE); KETONES,URINE NEGATIVE (NEGATIVE); LEUKOCYTE ESTERASE,URINE LARGE (NEGATIVE); NITRITE,URINE POSITIVE (NEGATIVE); PROTEIN,URINE 100 mg/dL (NEGATIVE); URINE SPECIFIC GRAVITY 1.011; UROBILINOGEN,URINE NEGATIVE mg/dL (<2.0)
[2020-03-19 00:09] LABS: ABSOLUTE BASOPHILS # (AUTO) 0.1 10^3/uL (0.0-0.2); ABSOLUTE EOSINOPHILS # (AUTO) 0.2 10^3/uL (0.0-0.6); ABSOLUTE LYMPHOCYTES (AUTO) 2.6 10^3/uL (0.5-4.7); ABSOLUTE MONOCYTES (AUTO) 0.5 10^3/uL (0.1-1.4); ABSOLUTE NEUT (AUTO) 3.6 10^3/uL (1.7-8.2); BASOPHILS % (AUTO) 0.9 % (0-2); EOSINOPHILS % (AUTO) 3.2 % (0-6); HEMOGLOBIN 12.2 g/dL (13.5-17.0); LYMPHOCYTES % (AUTO) 37.2 % (13-45); MEAN CORPUSCULAR HEMOGLOBIN 26.6 pg (27.0-33.4); MEAN CORPUSCULAR HGB CONC 32.2 g/dL (32.0-36.0); MEAN CORPUSCULAR VOLUME 83 fl (80-97); MONOCYTES % (AUTO) 7.3 % (3-13); PLATELET COUNT 246 10^3/uL (150-450); RED CELL DISTRIBUTION WIDTH 17.9 % (11.5-14.0); SEGMENTED NEUTROPHILS % (AUTO) 51.4 % (42-78); TOTAL CELLS COUNTED % (AUTO) 100 %; WHITE BLOOD COUNT 7.1 10^3/uL (4.0-10.5)
[2020-03-19 00:12] LABS: ALBUMIN 4.3 g/dL (3.5-5.0); ALKALINE PHOSPHATASE 98 U/L (38-126); ANION GAP 10 (5-19); ASPARTATE AMINO TRANSFERASE 34 U/L (17-59); BILIRUBIN,DIRECT 0.3 mg/dL (0.0-0.4); BILIRUBIN,TOTAL 0.4 mg/dL (0.2-1.3); BLOOD UREA NITROGEN 12 mg/dL (7-20); CALCIUM 9.4 mg/dL (8.4-10.2); CARBON DIOXIDE 24 mmol/L (22-30); CHLORIDE 106 mmol/L (98-107); GLUCOSE 130 mg/dL (75-110); POTASSIUM 3.7 mmol/L (3.6-5.0)
[2020-03-19 00:27] LABS: ANISOCYTOSIS 1+; OVALOCYTES 2+; PLATELET COMMENT ADEQUATE; POIKILOCYTOSIS 1+; TEAR DROP CELLS 1+; TOXIC GRANULATION 1+
[2020-03-19] MEDS ORDERED: SULFAMETHOXAZOLE/TRIMETHOPRIM 800-160 MG TABLET PO ONE (03:07)
--- NOTE | 2020-03-19 03:09 | ER Document Report ---
ED General - General Chief Complaint: Headache Stated Complaint: HEADACHE Time Seen by Provider: 03/18/20 22:46 Primary Care Provider: ELLIE MAY MD [Primary Care Provider] - Follow up as needed Notes: Patient is a 59-year-old male that comes to the Emergency Department with chief complaint of suddenly developing a frontal headache that made him feel dizzy, started at 2130 tonight while he was playing PlayStation. He states that the headache is actually reduced now compared to prior and it is only vague now, he states that he still feels intermittently mildly lightheaded. He denies chest pain but he states that he has had "indigestion" going on for a few days. He also states that last time he had a UTI he felt lightheaded. He denies fever, vomiting, dental pain, focal numbness or weakness, visual changes, or any other complaints. He does not have frequent headaches. He has a history of colon c ancer status post surgery, CAD with stents. TRAVEL OUTSIDE OF THE [place] IN LAST 30 DAYS: No - Related Data Allergies/Adverse Reactions: No Known Allergies Allergy (Verified 11/15/19 10:47) Past Medical History - General Information source: Patient - Social History Smoking Status: Never Smoker Drug Abuse: None Lives with: Family Family History: Hypertension - Past Medical History Cardiac Medical History: Reports: Hx Congestive Heart Failure, Hx Coronary Artery Disease - stents x2, 2001/2002, Hx Heart Attack - 2001, Hx Hypercholesterolemia, Hx Hypertension Pulmonary Medical History: Reports: Hx COPD Denies: Hx Bronchitis, Hx Pneumonia Neurological Medical History: Denies: Hx Cerebrovascular Accident, Hx Seizures Renal/ Medical History: Reports: Hx Kidney Stones. Denies: Hx Peritoneal Dialysis Malignancy Medical History: Reports Hx Colorectal Cancer Musculoskeletal Medical History: Reports Hx Arthritis - hips,knees Past Surgical History: Reports: Hx Cardiac Catheterization - two stents, Hx Orthopedic Surgery - R hip replacement, Other - Partial colectomy and right percutaneous nephrostomy - Immunizations Immunizations up to date: No Hx Diphtheria, Pertussis, Tetanus Vaccination: Yes Review of Systems - Review of Systems Constitutional: See HPI EENT: No symptoms reported Cardiovascular: No symptoms reported Respiratory: No symptoms reported Gastrointestinal: See HPI Genitourinary: No symptoms reported Male Genitourinary: No symptoms reported Musculoskeletal: No symptoms reported Skin: No symptoms reported Hematologic/Lymphatic: No symptoms reported Neurological/Psychological: See HPI Physical Exam - Vital signs Vitals: Temp Pulse Resp BP Pulse Ox 98.2 F 73 18 140/80 H 100 03/18/20 23:14 03/18/20 23:14 03/18/20 23:14 03/18/20 23:14 03/18/20 23:14 - Notes Notes: GENERAL: Alert, interacts well. No acute distress. HEAD: Normocephalic, atraumatic. EYES: Pupils equal, round, and reactive to light. Extraocular movements intact. ENT: Oral mucosa moist, tongue midline. Oropharynx unremarkable. Airway patent. NECK: Full range of motion. Supple. Trachea midline. No lymphadenopathy. LUNGS: Clear to auscultation bilaterally, no wheezes, rales, or rhonchi. No respiratory distress. Non-tender chest wall. HEART: Regular rate and rhythm. No murmur ABDOMEN: Soft, non-tender. Non-distended. EXTREMITIES: Moves all 4 extremities spontaneously. No edema, normal radial and dorsalis pedis pulses bilaterally. No cyanosis. BACK: no cervical, thoracic, lumbar midline tenderness. No saddle anesthesia, normal distal neurovascular exam. Moves all extremities in full range of motion. NEUROLOGICAL: Alert and oriented x3. Normal speech. Patient with slight ataxic gait secondary to his hips which is reportedly chronic. Cranial nerves II through XII grossly intact. Strength 5/5 in all extremities. PSYCH: Normal affect, normal mood. SKIN: Warm, dry, normal turgor. No rashes or lesions noted. Course - Re-evaluation Re-evalutation: I reexamined patient, I also saw him in triage. On reexamination patient has no complaints, he denies lightheadedness, he has not had any chest pain or dizziness, he has not had any focal neurological deficits. His headache which initially was worse and then milder has now completely resolved without any intervention by me. In addition to the CT of the head was performed well before 6 hours. Very low suspicion of subarachnoid hemorrhage, low suspicion of acute intracranial abnormality based on his resolution, lack of other symptoms, negative work-up. Vital signs unremarkable. CBC, chemistry, troponin, EKG, urinalysis reviewed. Urinalysis does indicate significantly worse urine than previously, culture was placed, discussed options, patient placed on antibiotics. On review of previous infection there are some resistances but Bactrim covered the infections. As result he was placed on this. Patient reporting some GERD for several days but based on his negative troponin and unremarkable EKG after several days I have very low suspicion that this is cardiac. Patient with no reported chest pain. I disc ussed follow-up and return precautions at length, patient states appreciation and agreement. Stable, well-appearing, asymptomatic at time of discharge. - Vital Signs Vital signs: Temp Pulse Resp BP Pulse Ox 98.4 F 88 16 136/80 H 100 03/19/20 03:38 03/19/20 03:38 03/19/20 03:38 03/19/20 03:38 03/19/20 03:38 - Laboratory Result Diagrams: 03/18/20 23:47 03/18/20 23:47 Laboratory results interpreted by me: 03/18/20 03/18/20 03/18/20 23:20 23:47 23:47 Hgb 12.2 L MCH 26.6 L RDW 17.9 H Glucose 130 H Urine Protein 100 H Urine Blood LARGE H Urine Nitrite POSITIVE H Ur Leukocyte Esterase LARGE H Urine Ascorbic Acid 20 H - EKG Interpretation by Me Additional EKG results interpreted by me: EKG shows sinus rhythm at a rate of 61, QTc 407, normal axis, no T wave invers ions or ST segment changes in consecutive leads Discharge - Discharge Clinical Impression: Dizziness Headache Qualifiers: Headache type: unspecified Headache chronicity pattern: acute headache Intractability: not intractable Qualified Code(s): R51 - Headache Condition: Stable Disposition: HOME, SELF-CARE Additional Instructions: Your imaging of the head and remaining work-up did not show any concerning findings except for the urinary tract infection. Take the antibiotics as prescribed to completion. We have urine culture growing at all lab and you will be contacted for any concerning results. Follow-up with your primary care for additional management. Return if you worsen including fever, vomiting, return for severe headache, chest pain, passing out, or any other concerning symptoms. Prescriptions: Sulfamethoxazole/Trimethoprim [Bactrim Ds Tablet] 1 each PO BID #14 tablet Referrals: ELLIE MAY MD [Primary Care Provider] - Follow up as needed
[2020-03-19 03:47] VITALS: BP 136/80
--- NOTE | 2020-03-19 17:04 | EKG REPORT ---
SEVERITY:- NORMAL ECG - SINUS RHYTHM : Confirmed by: Ashlyn Jang MD 19-Mar-2020 17:03:56
== END 2020-03-19 03:38 | disposition home or self-care (01) ==
LOC: ER 22:06
DX: R51 Headache (principal); R42 Dizziness and giddiness; K21.9 Gastro-esophageal reflux disease without esophagitis; I25.10 Atherosclerotic heart disease of native coronary artery without angina pectoris; I10 Essential (primary) hypertension; J44.9 Chronic obstructive pulmonary disease, unspecified; Z87.440 Personal history of urinary (tract) infections; Z95.5 Presence of coronary angioplasty implant and graft
CPT/HCPCS: 93005; 99285; 36415; 85025; 80053; 81001; 84484; 71045; 70450; 93010; J3490

== ENCOUNTER 2020-03-26 18:34 | Emergency (ER) | payer MEDICAID ==
--- NOTE | 2020-03-26 20:43 | ER Document Report ---
ED Medical Screen (RME) - General Chief Complaint: Urinary Problem Stated Complaint: BLOOD IN URINE Time Seen by Provider: 03/26/20 20:23 Primary Care Provider: ELLIE MAY MD [Primary Care Provider] - Follow up as needed TRAVEL OUTSIDE OF THE [place] IN LAST 30 DAYS: No - HPI Notes: 03/26/20 20:36 59-year-old male with a history of colon cancer, nephrolithiasis and UTI pre sents to the emergency room today for hematuria that he noticed while he was urinating today. Patient reports that back in October 2019 he had surgery for his colon cancer where they accidentally cut his left his left ureter, which he now has a left nephrostomy drain, he was put on Xarelto in November 2019 due to having a left leg DVT. Patient came to the ER for epistaxis with it then found out he had a UTI, was placed on Keflex. Patient returned couple weeks later because he was having a headache which they subsequently found out that he had a worsening UTI at the end of February and was placed on Bactrim. Patient's taken his last Bactrim tonight and noticed today that he is having hematuria and feels a dull ache in his back. Patient reports his last bowel movement was today, no melena. Patient denies any chills or fever. Denies any chest pain shortness of breath, nausea vomiting or diarrhea. I have greeted and performed a rapid initial assessment of this patient. A comprehensive ED assessment and evaluation of the patient, analysis of test results and completion of the medical decision making process will be conducted by additional ED providers. PHYSICAL EXAMINATION: GENERAL: Well-appearing, well-nourished and in no acute distress. HEAD: Atraumatic, normocephalic. CV: s1, s2 regular LUNGS: No respiratory distress abd: dull cva tendernss cva tenderness. Left nephrostomy tube intact. Musculoskeletal: Normal range of motion NEUROLOGICAL: Normal speech, normal gait. SKIN: Warm, Dry, normal turgor, no rashes or lesions noted. - Related Data Allergies/Adverse Reactions: No Known Allergies Allergy (Verified 11/15/19 10:47) Past Medical History - Social History Frequency of alcohol use: None Drug Abuse: None - Past Medical History Cardiac Medical History: Reports: Hx Congestive Heart Failure, Hx Coronary Artery Disease - stents x2, , Hx Heart Attack - 2001, Hx Hypercholesterolemia, Hx Hypertension Pulmonary Medical History: Reports: Hx COPD Denies: Hx Bronchitis, Hx Pneumonia Neurological Medical History: Denies: Hx Cerebrovascular Accident, Hx Seizures Renal/ Medical History: Reports: Hx Kidney Stones. Denies: Hx Peritoneal Dialysis Malignancy Medical History: Reports Hx Colorectal Cancer Musculoskeltal Medical History: Reports Hx Arthritis - hips,knees Past Surgical History: Reports: Hx Cardiac Catheterization - two stents, Hx Orthopedic Surgery - R hip replacement, Other - Partial colectomy and right per cutaneous nephrostomy - Immunizations Immunizations up to date: No Hx Diphtheria, Pertussis, Tetanus Vaccination: Yes Physical Exam - Vital signs Vitals: Temp Pulse Resp BP Pulse Ox 98.1 F 71 16 132/75 H 99 03/26/20 19:04 03/26/20 19:04 03/26/20 19:04 03/26/20 19:04 03/26/20 19:04 Course - Vital Signs Vital signs: Temp Pulse Resp BP Pulse Ox 98.1 F 71 16 132/75 H 99 03/26/20 19:04 03/26/20 19:04 03/26/20 19:04 03/26/20 19:04 03/26/20 19:04 Doctor's Discharge - Discharge Referrals: ELLIE MAY MD [Primary Care Provider] - Follow up as needed
--- NOTE | 2020-03-26 21:53 | RADIOLOGY REPORT (SQ) ---
EXAM DESCRIPTION: Retroperitoneal ultrasound. CLINICAL HISTORY: 59 years Male; hematuria,left nephrostomytube,hx kidneystones,UTI TECHNIQUE: Bilateral renal ultrasound was performed. COMPARISON: CT scan of the abdomen and pelvis 11/15/2019 FINDINGS: Visualized portions of IVC and aorta are unremarkable. Right kidney: The kidney measures 12.6 x 6.8 x 5.6 cm. Echogenicity is within normal limits. Nephrostomy tube is in the renal pelvis. No hydronephrosis. The stones seen on the CT scan are not well appreciated on this exam. Left kidney: The kidney measures 10.9 x 4.8 x 6.2 cm. Echogenicity is normal. Blood flow is present. There are shadowing structures in the lower pole consistent with stones. These are not measured or suspicious by the rest room maid.. No hydronephrosis Bladder: The bladder is empty. Ureteral jets were not seen. IMPRESSION: 1. Right-sided nephrostomy tube is in place. No hydronephrosis. 2. Kidney stone seen on CT scan are not well appreciated on this exam. Multiple stones in the lower pole of the left kidney were not fully seen.
[2020-03-27 00:51] LABS: HEMATOCRIT 39.4 % (37.9-51.0); HEMOGLOBIN 12.9 g/dL (13.5-17.0); MEAN CORPUSCULAR HEMOGLOBIN 27.2 pg (27.0-33.4); MEAN CORPUSCULAR HGB CONC 32.8 g/dL (32.0-36.0); MEAN CORPUSCULAR VOLUME 83 fl (80-97); PLATELET COUNT 211 10^3/uL (150-450); RED BLOOD COUNT 4.77 10^6/uL (4.35-5.55); RED CELL DISTRIBUTION WIDTH 17.2 % (11.5-14.0); WHITE BLOOD COUNT 8.7 10^3/uL (4.0-10.5)
[2020-03-27 00:53] LABS: INTERNATIONAL RATION (INR) 1.42; PROTHROMBIN TIME 17.5 SEC (11.4-15.4)
[2020-03-27 00:54] LABS: PARTIAL THROMBOPLASTIN TIME 36.4 SEC (23.5-35.8)
[2020-03-27 01:09] LABS: ANION GAP 15 (5-19)
[2020-03-27 01:18] LABS: ALBUMIN 4.5 g/dL (3.5-5.0); ALKALINE PHOSPHATASE 86 U/L (38-126); ASPARTATE AMINO TRANSFERASE 29 U/L (17-59); BILIRUBIN,DIRECT 0.3 mg/dL (0.0-0.4); BILIRUBIN,TOTAL 0.5 mg/dL (0.2-1.3); BLOOD UREA NITROGEN 12 mg/dL (7-20); CALCIUM 8.1 mg/dL (8.4-10.2); CARBON DIOXIDE 21 mmol/L (22-30); CHLORIDE 104 mmol/L (98-107); GLUCOSE 117 mg/dL (75-110); POTASSIUM 3.5 mmol/L (3.6-5.0); TOTAL PROTEIN 8.1 g/dL (6.3-8.2)
[2020-03-27 01:21] LABS: ABSOLUTE LYMPHOCYTES# (MANUAL) 3.7 10^3/uL (0.5-4.7); ABSOLUTE MONOCYTES # (MANUAL) 0.3 10^3/uL (0.1-1.4); ANISOCYTOSIS 1+; BASOPHILS % (MANUAL) 0 % (0-2); EOSINOPHILS % (MANUAL) 1 % (0-6); LYMPHOCYTES % (MANUAL) 43 % (13-45); MONOCYTES % (MANUAL) 4 % (3-13); OVALOCYTES SLIGHT; PLATELET COMMENT ADEQUATE; POIKILOCYTOSIS SLIGHT; SCHISTOCYTES SLIGHT; SEGMENTED NEUTROPHILS % (MAN) 52 % (42-78); TEAR DROP CELLS SLIGHT; TOTAL CELLS COUNTED 100; TOXIC GRANULATION SLIGHT
--- NOTE | 2020-03-27 02:36 | ER Document Report ---
ED General - General Chief Complaint: Blood in Catheter Stated Complaint: BLOOD IN URINE Time Seen by Provider: 03/26/20 20:23 Primary Care Provider: ELLIE MAY MD [Primary Care Provider] - Follow up as needed TRAVEL OUTSIDE OF THE [place] IN LAST 30 DAYS: No - HPI Notes: Patient is a 59-year-old male who presents to the ER for evaluation of blood in his urine. He has a nephrostomy tube on the right, secondary to a ureteral injury during colon resection secondary to colon cancer. The patient has had recurrent blood in his urine. A few weeks ago he was diagnosed with a urinary tract infection, started on Cipro and Keflex. He states his symptoms improved for about 2 weeks, then he was started on Bactrim and the blood in his urine returned. He states this also happens when he is not drinking enough. He has had no fevers or chills. No nausea or vomiting. He denies any penile discharge. He states the blood is in his nephrostomy bag as well as what he urinates. He denies any back pain. - Related Data Allergies/Adverse Reactions: No Known Allergies Allergy (Verified 11/15/19 10:47) Past Medical History - General Information source: Patient - Social History Smoking Status: Never Smoker Frequency of alcohol use: None Drug Abuse: None Family History: Hypertension Patient has homicidal ideation: No - Past Medical History Cardiac Medical History: Reports: Hx Congestive Heart Failure, Hx Coronary Artery Disease - stents x2, , Hx Heart Attack - 2001, Hx H ypercholesterolemia, Hx Hypertension Pulmonary Medical History: Reports: Hx COPD Denies: Hx Bronchitis, Hx Pneumonia Neurological Medical History: Denies: Hx Cerebrovascular Accident, Hx Seizures Renal/ Medical History: Reports: Hx Kidney Stones. Denies: Hx Peritoneal Dialysis Malignancy Medical History: Reports Hx Colorectal Cancer Musculoskeletal Medical History: Reports Hx Arthritis - hips,knees Past Surgical History: Reports: Hx Cardiac Catheterization - two stents, Hx Orthopedic Surgery - R hip replacement, Other - Partial colectomy and right percutaneous nephrostomy - Immunizations Immunizations up to date: No Hx Diphtheria, Pertussis, Tetanus Vaccination: Yes Review of Systems - Review of Systems Constitutional: No symptoms reported EENT: No symptoms reported Cardiovascular: No symptoms reported Respiratory: No symptoms reported Gastrointestinal: No symptoms reported Genitourinary: See HPI Musculoskeletal: No symptoms reported Skin: No symptoms reported Neurological/Psychological: No symptoms reported Physical Exam - Vital signs Vitals: Temp Pulse Resp BP Pulse Ox 98.1 F 71 16 132/75 H 99 03/26/20 19:04 03/26/20 19:04 03/26/20 19:04 03/26/20 19:04 03/26/20 19:04 - Notes Notes: Vital signs reviewed, please refer to chart. Head is normocephalic, atraumatic. Pupils equal round, reactive to light. Neck is supple without meningismus. Heart is regular rate and rhythm. Lungs are clear to auscultation bilaterally. Abdomen is soft, nontender, normoactive bowel sounds throughout. Examination of the spine yields no midline tenderness or step-off. The patient has nephrostomy tubing in place, bandage left intact. No soiling of the bandage, no surrounding erythema. No CVA tenderness. Nephrostomy bag is draining dark urine. Extremities without cyanosis, clubbing. Posterior calves are nontender. Peripheral pulses are equal. Skin is warm and dry. Patient is awake, alert, neurological exam is nonfocal. Course - Re-evaluation Re-evalutation: 03/27/20 02:35 Patient presents to the emergency department for evaluation. He complains of hematuria. He is concerned that he has an infection. He states that while he was on the Bactrim his urine was clear. The patient has no systemic symptoms at this time. His laboratory investigations including CBC and CMP are unremarkable. I am still awaiting urinalysis, but suspect I will restart the patient on Bactrim. We will give him another week, as perhaps the course was not long enough for his last UTI. I strongly encouraged him to follow-up with primary care and urology. 03/27/20 02:55 Large blood and small lights in his urine. Given the timing of this, I think it is suspicious for infection. It is sent for culture. Patient treated with Bactrim. He is to follow-up with primary care and urology. - Vital Signs Vital signs: Temp Pulse Resp BP Pulse Ox 98.0 F 71 16 136/78 H 97 03/27/20 00:17 03/27/20 00:17 03/26/20 19:04 03/27/20 00:17 03/27/20 00:17 - Laboratory Result Diagrams: 03/27/20 00:31 03/27/20 00:31 Laboratory results interpreted by me: 03/26/20 03/27/20 03/27/20 19:57 00:31 00:31 Hgb 12.9 L RDW 17.2 H PT 17.5 H APTT 36.4 H Potassium Carbon Dioxide Glucose Calcium Urine Protein 100 H Urine Blood LARGE H Ur Leukocyte Esterase LARGE H 03/27/20 00:31 Hgb RDW PT APTT Potassium 3.5 L Carbon Dioxide 21 L Glucose 117 H Calcium 8.1 L Urine Protein Urine Blood Ur Leukocyte Esterase - Diagnostic Test Radiology reviewed: Reports reviewed Radiology results interpreted by me: 03/27/20 02:36 Renal Ultrasound 03/26/20 20:33 IMPRESSION: 1. Right-sided nephrostomy tube is in place. No hydronephrosis. 2. Kidney stone seen on CT scan are not well appreciated on this exam. Multiple stones in the lower pole of the left kidney were not fully seen. Discharge - Discharge Clinical Impression: Urinary tract infection Qualifiers: Urinary tract infection type: site unspecified Hematuria presence: with hematuria Qualified Code(s): N39.0 - Urinary tract infection, site not specified Condition: Stable Disposition: HOME, SELF-CARE Instructions: Trimethoprim-Sulfa ([facility]), Urinary Tract Infection ([facility]) Additional Instructions: Take Bactrim as directed until gone. Follow-up with your primary care and discuss the possibility of prophylactic antibiotics. If you develop fevers, vomiting, increased pain, or any other new or concerning symptoms, please return immediately to the ER for further evaluation. Prescriptions: Sulfamethoxazole/Trimethoprim [Bactrim Ds Tablet] 1 each PO BID #30 tablet Referrals: ELLIE MAY MD [Primary Care Provider] - Follow up as needed
[2020-03-27 02:45] LABS: APPEARANCE,URINE SLIGHTLY-CLOUDY; BILIRUBIN,URINE NEGATIVE (NEGATIVE); COLOR,URINE AMBER; GLUCOSE, URINE NEGATIVE (NEGATIVE); KETONES,URINE NEGATIVE (NEGATIVE); LEUKOCYTE ESTERASE,URINE LARGE (NEGATIVE); NITRITE,URINE NEGATIVE (NEGATIVE); PROTEIN,URINE 100 mg/dL (NEGATIVE); UROBILINOGEN,URINE NEGATIVE mg/dL (<2.0)
[2020-03-27] MEDS ORDERED: SULFAMETHOXAZOLE/TRIMETHOPRIM 800-160 MG TABLET PO ONE (02:47)
[2020-03-27 03:29] VITALS: BP 133/72
== END 2020-03-27 03:15 | disposition home or self-care (01) ==
LOC: ER 18:34
DX: N39.0 Urinary tract infection, site not specified (principal); R31.0 Gross hematuria; I25.10 Atherosclerotic heart disease of native coronary artery without angina pectoris; I10 Essential (primary) hypertension; I25.2 Old myocardial infarction; Z93.6 Other artificial openings of urinary tract status; Z85.048 Personal history of other malignant neoplasm of rectum, rectosigmoid junction, and anus; Z95.5 Presence of coronary angioplasty implant and graft; Z90.49 Acquired absence of other specified parts of digestive tract
CPT/HCPCS: 99284; 36415; 87086; 83605; 85025; 85610; 85730; 87088; 80053; 81001; 76775; J3490; 87186

== ENCOUNTER 2020-04-15 19:11 | Emergency (ER) | payer MEDICAID ==
--- NOTE | 2020-04-15 21:06 | ER Document Report ---
ED Medical Screen (RME) - General Chief Complaint: Urinary Problem Stated Complaint: URINARY COMPLAINT Time Seen by Provider: 04/15/20 20:58 Primary Care Provider: ELLIE MAY MD [Primary Care Provider] - Follow up as needed Mode of Arrival: Ambulatory Information source: Patient Notes: HPI; 59-year-old male past medical history significant for colon cancer with urostomy presents to the emergency room complaining of recurrent UTI symptoms. States he is having dark bloody urine for the past week. Finished antibiotics 2 days ago. Has not followed up outpatient. States "I feel like I have an infection again". He denies any fevers, no nausea, no vomiting. PE: Alert and oriented x3. Lungs: Clear to auscultation without rales, rhonchi, wheezes. Heart: Regular rate and rhythm without murmurs, rubs, gallops. I have greeted and performed a rapid initial assessment of this patient. A comprehensive ED assessment and evaluation of the patient, analysis of test results and completion of the medical decision making process will be conducted by additional ED providers. I have specifically instructed the patient or family members with the patient to immediately return to any nursing staff should anything change in the patient's condition or with their chief complaint. TRAVEL OUTSIDE OF THE [place] IN LAST 30 DAYS: No - Related Data Allergies/Adverse Reactions: No Known Allergies Allergy (Verified 04/15/20 20:58) Past Medical History - Past Medical History Cardiac Medical History: Reports: Hx Congestive Heart Failure, Hx Coronary Artery Disease - stents x2, 2001/2002, Hx Heart Attack - 2001, Hx Hypercholes terolemia, Hx Hypertension Pulmonary Medical History: Reports: Hx COPD Denies: Hx Bronchitis, Hx Pneumonia Neurological Medical History: Denies: Hx Cerebrovascular Accident, Hx Seizures Renal/ Medical History: Reports: Hx Kidney Stones. Denies: Hx Peritoneal Dialysis Malignancy Medical History: Reports Hx Colorectal Cancer Musculoskeltal Medical History: Reports Hx Arthritis - hips,knees Past Surgical History: Reports: Hx Cardiac Catheterization - two stents, Hx Orthopedic Surgery - R hip replacement, Other - Partial colectomy and right percutaneous nephrostomy - Immunizations Immunizations up to date: No Hx Diphtheria, Pertussis, Tetanus Vaccination: Yes Physical Exam - Vital signs Vitals: Temp Pulse Resp BP Pulse Ox 97.8 F 76 20 122/80 98 04/15/20 19:24 04/15/20 19:24 04/15/20 19:24 04/15/20 19:24 04/15/20 19:24 Course - Vital Signs Vital signs: Temp Pulse Resp BP Pulse Ox 97.8 F 76 20 122/80 98 04/15/20 19:24 04/15/20 19:24 04/15/20 19:24 04/15/20 19:24 04/15/20 19:24 Doctor's Discharge - Discharge Referrals: ELLIE MAY MD [Primary Care Provider] - Follow up as needed
[2020-04-15 22:10] LABS: INTERNATIONAL RATION (INR) 1.45; PROTHROMBIN TIME 17.8 SEC (11.4-15.4)
[2020-04-15 22:15] LABS: ABSOLUTE BASOPHILS # (AUTO) 0.1 10^3/uL (0.0-0.2); ABSOLUTE EOSINOPHILS # (AUTO) 0.2 10^3/uL (0.0-0.6); ABSOLUTE LYMPHOCYTES (AUTO) 3.3 10^3/uL (0.5-4.7); ABSOLUTE MONOCYTES (AUTO) 0.6 10^3/uL (0.1-1.4); ABSOLUTE NEUT (AUTO) 3.5 10^3/uL (1.7-8.2); BASOPHILS % (AUTO) 0.8 % (0-2); EOSINOPHILS % (AUTO) 2.2 % (0-6); HEMATOCRIT 39.2 % (37.9-51.0); HEMOGLOBIN 13.1 g/dL (13.5-17.0); LYMPHOCYTES % (AUTO) 43.6 % (13-45); MEAN CORPUSCULAR HEMOGLOBIN 28.3 pg (27.0-33.4); MEAN CORPUSCULAR HGB CONC 33.3 g/dL (32.0-36.0); MEAN CORPUSCULAR VOLUME 85 fl (80-97); MONOCYTES % (AUTO) 7.8 % (3-13); PLATELET COUNT 245 10^3/uL (150-450); RED BLOOD COUNT 4.63 10^6/uL (4.35-5.55); RED CELL DISTRIBUTION WIDTH 15.4 % (11.5-14.0); SEGMENTED NEUTROPHILS % (AUTO) 45.6 % (42-78); TOTAL CELLS COUNTED % (AUTO) 100 %; WHITE BLOOD COUNT 7.6 10^3/uL (4.0-10.5)
[2020-04-15 22:23] LABS: ALBUMIN 4.7 g/dL (3.5-5.0); ALKALINE PHOSPHATASE 98 U/L (38-126); ANION GAP 10 (5-19); ASPARTATE AMINO TRANSFERASE 33 U/L (17-59); BILIRUBIN,DIRECT 0.2 mg/dL (0.0-0.4); BILIRUBIN,TOTAL 0.4 mg/dL (0.2-1.3); BLOOD UREA NITROGEN 13 mg/dL (7-20); CALCIUM 9.7 mg/dL (8.4-10.2); CARBON DIOXIDE 27 mmol/L (22-30); CHLORIDE 104 mmol/L (98-107); GLUCOSE 81 mg/dL (75-110); POTASSIUM 4.2 mmol/L (3.6-5.0); TOTAL PROTEIN 8.6 g/dL (6.3-8.2)
[2020-04-15 22:33] LABS: ANISOCYTOSIS 1+; POIKILOCYTOSIS 1+; TOXIC GRANULATION SLIGHT
[2020-04-15 22:34] LABS: OVALOCYTES 1+; PLATELET COMMENT ADEQUATE; TEAR DROP CELLS 1+
[2020-04-16 00:53] LABS: APPEARANCE,URINE SLIGHTLY-CLOUDY; BILIRUBIN,URINE NEGATIVE (NEGATIVE); COLOR,URINE YELLOW; GLUCOSE, URINE NEGATIVE (NEGATIVE); KETONES,URINE NEGATIVE (NEGATIVE); PROTEIN,URINE 100 mg/dL (NEGATIVE); URINE SPECIFIC GRAVITY 1.016; UROBILINOGEN,URINE NEGATIVE mg/dL (<2.0)
--- NOTE | 2020-04-16 01:27 | ER Document Report ---
ED GI/ - General Chief Complaint: Urinary Problem Stated Complaint: URINARY COMPLAINT Time Seen by Provider: 04/15/20 20:58 Primary Care Provider: ELLIE MYA MD [Primary Care Provider] - Follow up as needed Mode of Arrival: Ambulatory Notes: Patient is a 59-year-old male that comes emergency department for chief complaint of urinary symptoms. He states that he feels "just a little off", he states that when he urinates he sees dark urine which is mixed with blood. He states when this starts he is usually getting an infection. Patient currently has a urostomy bag, he states that he had colon surgery for removal of colon cancer and he had accidental injury of the ureter on one side. He states that he is following with the surgeon limited, he states he is supposed to have a urologist in [place] but he never gets to see them, he is asking for a local urologist he can see instead. He denies fever, vomiting, abdominal pain, flank pain, chills, or any other complaints. TRAVEL OUTSIDE OF THE [place] IN LAST 30 DAYS: No - Related Data Allergies/Adverse Reactions: No Known Allergies Allergy (Verified 04/15/20 20:58) Past Medical History - General Information source: Patient - Social History Smoking Status: Former Smoker Frequency of alcohol use: None Drug Abuse: None Lives with: Family Family History: Hypertension Patient has homicidal ideation: No - Past Medical History Cardiac Medical History: Reports: Hx Congestive Heart Failure, Hx Coronary Artery Disease - stents x2, 2001/2002, Hx Heart Attack - 2001, Hx Hypercholeste rolemia, Hx Hypertension Pulmonary Medical History: Reports: Hx COPD Denies: Hx Bronchitis, Hx Pneumonia Neurological Medical History: Denies: Hx Cerebrovascular Accident, Hx Seizures Renal/ Medical History: Reports: Hx Kidney Stones. Denies: Hx Peritoneal Dialysis Malignancy Medical History: Reports Hx Colorectal Cancer Musculoskeletal Medical History: Reports Hx Arthritis - hips,knees Past Surgical History: Reports: Hx Cardiac Catheterization - two stents, Hx Orthopedic Surgery - R hip replacement, Other - Partial colectomy and right perc utaneous nephrostomy - Immunizations Hx Diphtheria, Pertussis, Tetanus Vaccination: Yes Review of Systems - Review of Systems Constitutional: See HPI EENT: No symptoms reported Cardiovascular: No symptoms reported Respiratory: No symptoms reported Gastrointestinal: See HPI Genitourinary: See HPI Male Genitourinary: See HPI Musculoskeletal: No symptoms reported Skin: No symptoms reported Hematologic/Lymphatic: No symptoms reported Neurological/Psychological: No symptoms reported Physical Exam - Vital signs Vitals: Temp Pulse Resp BP Pulse Ox 97.8 F 76 20 122/80 98 04/15/20 19:24 04/15/20 19:24 04/15/20 19:24 04/15/20 19:24 04/15/20 19:24 - Notes Notes: GENERAL: Alert, interacts well. No acute distress. HEAD: Normocephalic, atraumatic. EYES: Pupils equal, round, and reactive to light. Extraocular movements intact. ENT: Oral mucosa moist, tongue midline. Oropharynx unremarkable. Airway patent. NECK: Full range of motion. Supple. Trachea midline. No lymphadenopathy. LUNGS: Clear to auscultation bilaterally, no wheezes, rales, or rhonchi. No respiratory distress. Non-tender chest wall. HEART: Regular rate and rhythm. No murmur ABDOMEN: Soft, non-tender. Non-distended. Bowel sounds present in all 4 quadrants. GENITOURINARY: No swelling, erythema, tenderness, discharge, or concerning findings noted otherwise. Slightly cloudy urine noted to be in a urostomy bag on the right but no gross blood or other abnormality noted. Unremarkable evaluation otherwise. EXTREMITIES: Moves all 4 extremities spontaneously. No edema, normal radial and dorsalis pedis pulses bilaterally. No cyanosis. BACK: no cervical, thoracic, lumbar midline tenderness. No saddle anesthesia, normal distal neurovascular exam. Moves all extremities in full range of motion. NEUROLOGICAL: Alert and oriented x3. Normal speech. Cranial nerves II through XII grossly intact. Strength 5/5 in all extremities. PSYCH: Normal affect, normal mood. SKIN: Warm, dry, normal turgor. No rashes or lesions noted. Course - Re-evaluation Re-evalutation: Most recent urine culture showed Enterococcus faecalis approximately 3 weeks ago. This was sensitive to everything. Patient has been most recently on Bactrim (twice). Patient does not have leukocytosis, his renal function is unremarkable, his urine is suspicious for infection and was cultured. Patient has no fever, tachycardia, and he has no abdominal pain or constitutional symptoms at this time. He also denies flank pain. As result I have very low suspicion of infected ureterolithiasis at this time. Discussed details, provided with local referral, provided with copy of his urine culture, discussed return precautions. Patient states appreciation and agreement. Stable and well-appearing at time of discharge. - Vital Signs Vital signs: Temp Pulse Resp BP Pulse Ox 98.3 F 63 16 121/75 98 04/16/20 01:40 04/16/20 01:40 04/16/20 01:40 04/16/20 01:40 04/16/20 01:40 - Laboratory Result Diagrams: 04/15/20 21:47 04/15/20 21:47 Laboratory results interpreted by me: 04/15/20 04/15/20 04/15/20 21:28 21:47 21:47 Hgb 13.1 L RDW 15.4 H PT Total Protein 8.6 H Urine Protein 100 H Urine Blood LARGE H Leukocyte Esterase Rfl SMALL H 04/15/20 21:47 Hgb RDW PT 17.8 H Total Protein Urine Protein Urine Blood Leukocyte Esterase Rfl Discharge - Discharge Clinical Impression: Urinary symptom or sign Condition: Stable Disposition: HOME, SELF-CARE Additional Instructions: Your urine is suspicious for infection. We have a new culture growing in the lab, please follow-up with the urology referral listed below tomorrow, bring the copy of your previous culture, start your antibiotics as prescribed. Return if you worsen including developing abdominal pain, flank pain, fever, vomiting, or any other concerning or worsening symptoms. [facility] [address] [place] [address] Prescriptions: Ciprofloxacin HCl [Cipro 500 mg Tablet] 500 mg PO BID 7 Days #14 tablet Referrals: ELLIE MAY MD [Primary Care Provider] - Follow up as needed
[2020-04-16] MEDS ORDERED: CIPROFLOXACIN HCL 500 MG TABLET PO ONE (01:31)
[2020-04-16 01:41] VITALS: BP 121/75
== END 2020-04-16 01:30 | disposition home or self-care (01) ==
LOC: ER 19:11
DX: R31.0 Gross hematuria (principal); I25.10 Atherosclerotic heart disease of native coronary artery without angina pectoris; I10 Essential (primary) hypertension; J44.9 Chronic obstructive pulmonary disease, unspecified; Z85.048 Personal history of other malignant neoplasm of rectum, rectosigmoid junction, and anus; Z93.6 Other artificial openings of urinary tract status; Z87.442 Personal history of urinary calculi; Z95.5 Presence of coronary angioplasty implant and graft; Z87.891 Personal history of nicotine dependence; Z87.440 Personal history of urinary (tract) infections
CPT/HCPCS: 99283; 36415; 85025; 85610; 80053; 81001; J3490; 87086

== ENCOUNTER 2020-04-22 10:12 | Emergency (ER) | payer MEDICAID ==
--- NOTE | 2020-04-22 11:11 | ER Document Report ---
ED Medical Screen (RME) - General Chief Complaint: Chest Pain Stated Complaint: CHEST PAIN Time Seen by Provider: 04/22/20 11:03 Primary Care Provider: ELLIE MAY MD [Primary Care Provider] - Follow up as needed Notes: Patient is a 52-year-old male with a history of an AL in early who presents emergency department with chief complaint of chest pain. Describes his pain as an indigestion feeling. Patient states that his symptoms started yesterday evening. 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 Patient also has history of urostomy tube, that was placed at [facility]. Exam: S1, S2. Sinus rhythm on twelve-lead EKG. I have greeted and performed a rapid initial assessment of this patient. A comprehensive ED assessment and evaluation of the patient, analysis of test results and completion of medical decision making process will be conducted by an additional ED providers. TRAVEL OUTSIDE OF THE [place] IN LAST 30 DAYS: No - Related Data Allergies/Adverse Reactions: No Known Allergies Allergy (Verified 04/22/20 11:02) Home Medications: XARELTO. ASA Past Medical History - Social History Chew tobacco use (# tins/day): No Frequency of alcohol use: None Drug Abuse: None - Past Medical History Cardiac Medical History: Reports: Hx Congestive Heart Failure, Hx Coronary Artery Disease - stents x2, 2001/2002, Hx Heart Attack - 2001, Hx Hypercholesterolemia, Hx Hypertension Pulmonary Medical History: Reports: Hx COPD Denies: Hx Bronchitis, Hx Pneumonia Neurological Medical History: Denies: Hx Cerebrovascular Accident, Hx Seizures Renal/ Medical History: Reports: Hx Kidney Stones. Denies: Hx Peritoneal Dialysis Malignancy Medical History: Reports Hx Colorectal Cancer Musculoskeltal Medical History: Reports Hx Arthritis - hips,knees Past Surgical History: Reports: Hx Cardiac Catheterization - two stents, Hx Orthopedic Surgery - R hip replacement, Other - Partial colectomy and right percutaneous nephrostomy - Immunizations Immunizations up to date: No Hx Diphtheria, Pertussis, Tetanus Vaccination: Yes Physical Exam - Vital signs Vitals: Temp Pulse Resp BP Pulse Ox 98.3 F 80 18 122/72 98 04/22/20 10:25 04/22/20 10:25 04/22/20 10:25 04/22/20 10:25 04/22/20 10:25 Course - Vital Signs Vital signs: Temp Pulse Resp BP Pulse Ox 98.3 F 80 18 122/72 98 04/22/20 10:25 04/22/20 10:25 04/22/20 10:25 04/22/20 10:25 04/22/20 10:25 Doctor's Discharge - Discharge Referrals: ELLIE MAY MD [Primary Care Provider] - Follow up as needed
--- NOTE | 2020-04-22 12:33 | RADIOLOGY REPORT (SQ) ---
EXAM DESCRIPTION: CHEST 2 VIEWS IMAGES COMPLETED DATE/TIME: 04/22/2020 12:20 pm REASON FOR STUDY: chest pain COMPARISON: AP view of the chest from 03/18/2020. EXAM PARAMETERS: NUMBER OF VIEWS: Two views. TECHNIQUE: PA and lateral views of the chest were obtained. RADIATION DOSE: NA LIMITATIONS: None. FINDINGS: LUNGS AND PLEURA: COPD and chronic bilateral reticular opacities. The nodular opacities t hat project over the posterior right 6th rib and above the posterior left 6th rib could represent gra nulomata. There is no acute consolidation, pleural effusion or pneumothorax. MEDIASTINUM AND HILAR STRUCTURES: No mediastinal or hilar contour abnormality. HEART AND VASCULAR STRUCTURES: The cardiac silhouette and pulmonary vasculature are within normal escobar its. BONES: No acute findings. HARDWARE: None in the chest. OTHER: No other finding. IMPRESSION: COPD without a superimposed acute cardiopulmonary process. TECHNICAL DOCUMENTATION: JOB ID: [id number] 2010 [employer]- All Rights Reserved Reading location - IP/workstation name: [email or web address]
[2020-04-22 12:43] LABS: ABSOLUTE BASOPHILS # (AUTO) 0.1 10^3/uL (0.0-0.2); ABSOLUTE EOSINOPHILS # (AUTO) 0.1 10^3/uL (0.0-0.6); ABSOLUTE LYMPHOCYTES (AUTO) 2.5 10^3/uL (0.5-4.7); ABSOLUTE MONOCYTES (AUTO) 0.4 10^3/uL (0.1-1.4); ABSOLUTE NEUT (AUTO) 3.4 10^3/uL (1.7-8.2); BASOPHILS % (AUTO) 0.9 % (0-2); HEMATOCRIT 40.2 % (37.9-51.0); HEMOGLOBIN 13.2 g/dL (13.5-17.0); LYMPHOCYTES % (AUTO) 38.6 % (13-45); MEAN CORPUSCULAR HEMOGLOBIN 28.2 pg (27.0-33.4); MEAN CORPUSCULAR HGB CONC 32.9 g/dL (32.0-36.0); MEAN CORPUSCULAR VOLUME 86 fl (80-97); MONOCYTES % (AUTO) 6.7 % (3-13); PLATELET COUNT 217 10^3/uL (150-450); RED CELL DISTRIBUTION WIDTH 15.1 % (11.5-14.0); SEGMENTED NEUTROPHILS % (AUTO) 51.8 % (42-78); TOTAL CELLS COUNTED % (AUTO) 100 %; WHITE BLOOD COUNT 6.6 10^3/uL (4.0-10.5)
[2020-04-22 13:05] LABS: ALBUMIN 4.2 g/dL (3.5-5.0); ALKALINE PHOSPHATASE 82 U/L (38-126); ANION GAP 11 (5-19); ASPARTATE AMINO TRANSFERASE 36 U/L (17-59); BILIRUBIN,DIRECT 0.2 mg/dL (0.0-0.4); BILIRUBIN,TOTAL 0.7 mg/dL (0.2-1.3); BLOOD UREA NITROGEN 10 mg/dL (7-20); CALCIUM 9.2 mg/dL (8.4-10.2); CARBON DIOXIDE 23 mmol/L (22-30); CHLORIDE 105 mmol/L (98-107); CREATINE KINASE 86 U/L (55-170); GLUCOSE 83 mg/dL (75-110); TOTAL PROTEIN 7.9 g/dL (6.3-8.2)
--- NOTE | 2020-04-22 13:11 | EKG REPORT ---
SEVERITY:- NORMAL ECG - SINUS RHYTHM : Confirmed by: Kevin Guardado MD 22-Apr-2020 13:10:35
[2020-04-22 13:14] LABS: NT PRO BNP 29 pg/mL (<125)
[2020-04-22 13:17] LABS: TROPONIN I < 0.012 ng/mL
[2020-04-22] MEDS ORDERED: METOCLOPRAMIDE HCL ORAL SOLN 10 MG/10 ML UDCUP PO ONE ×2 (14:51→17:00)
[2020-04-22] MEDS ORDERED: MAG HYDROX/AL HYDROX/SIMETH SUSP 30 ML UDCUP PO ONE ×2 (14:51→17:00)
[2020-04-22] MEDS ORDERED: LIDOCAINE 2% VISCOUS SOLN 15 ML UDCUP PO ONE ×2 (14:51→17:00)
--- NOTE | 2020-04-22 18:40 | ER Document Report ---
ED Cardiac - General Chief Complaint: Chest Pain Stated Complaint: CHEST PAIN Time Seen by Provider: 04/22/20 11:03 Primary Care Provider: ELLIE MAY MD [Primary Care Provider] - Follow up tomorrow Mode of Arrival: Ambulatory Information source: Patient TRAVEL OUTSIDE OF THE [place] IN LAST 30 DAYS: No - HPI Notes: Patient complains of right upper chest pain. He states he is had it since Wednesday. It is been somewhat intermittent. Nothing is really made it better or worse. He states it may be anxiety or indigestion. However he states that in the past he had a similar pain and ended up with a stent however this was approximately 18 years ago. He has not had any significant shortness of breath. He does have a history of past DVT and is currently on Xarelto. Patient has had no recent cough cold or congestion. He has not been sweaty has had no significant nausea. He does have a history of colon cancer. Patient describes the pain as a sharp pain as well as "indigestion". He has not discovered any makes it better or worse. No significant radiation of this pain. - Related Data Allergies/Adverse Reactions: No Known Allergies Allergy (Verified 04/22/20 11:02) Home Medications: XARELTO. ASA Past Medical History - General Information source: Patient - Social History Smoking Status: Former Smoker Chew tobacco use (# tins/day): No Frequency of alcohol use: None Drug Abuse: None Family History: Hypertension Patient has homicidal ideation: No - Past Medical History Cardiac Medical History: Reports: Hx Congestive Heart Failure, Hx Coronary Artery Disease - stents x2, 2001/2002, Hx Heart Attack - 2001, Hx Hypercholesterolemia, Hx Hypertension Pulmonary Medical History: Reports: Hx COPD Denies: Hx Bronchitis, Hx Pneumonia Neurological Medical History: Denies: Hx Cerebrovascular Accident, Hx Seizures Renal/ Medical History: Reports: Hx Kidney Stones. Denies: Hx Peritoneal Dialysis Malignancy Medical History: Reports Hx Colorectal Cancer Musculoskeletal Medical History: Reports Hx Arthritis - hips,knees Past Surgical History: Reports: Hx Cardiac Catheterization - two stents, Hx Orthopedic Surgery - R hip replacement, Other - Partial colectomy and right percutaneous nephrostomy - Immunizations Immunizations up to date: No Hx Diphtheria, Pertussis, Tetanus Vaccination: Yes Review of Systems - Review of Systems Constitutional: denies: Chills, Fever Cardiovascular: Chest pain. denies: Palpitations Respiratory: denies: Cough, Short of breath -: Yes All other systems reviewed and negative Physical Exam - Vital signs Vitals: Temp Pulse Resp BP Pulse Ox 98.3 F 80 18 122/72 98 04/22/20 10:25 04/22/20 10:25 04/22/20 10:25 04/22/20 10:25 04/22/20 10:25 Interpretation: Normal - General General appearance: Appears well, Alert - HEENT Head: Normocephalic, Atraumatic Eyes: Normal Pupils: PERRL - Respiratory Respiratory status: No respiratory distress Chest status: Nontender Breath sounds: Normal Chest palpation: Normal - Cardiovascular Rhythm: Regular Heart sounds: Normal auscultation Murmur: No - Abdominal Inspection: Normal Distension: No distension Bowel sounds: Normal Tenderness: Nontender Organomegaly: No organomegaly - Back Back: Normal, Nontender - Extremities General upper extremity: Normal inspection, Nontender, Normal color, Normal ROM, Normal temperature General lower extremity: Normal inspection, Nontender, Normal color, Normal ROM, Normal temperature, Normal weight bearing. No: Silvia's sign - Neurological Neuro grossly intact: Yes Cognition: Normal Orientation: AAOx4 [place] Coma Scale Eye Opening: Spontaneous Sean Coma Scale Verbal: Oriented [place] Coma Scale Motor: Obeys Commands [place] Coma Scale Total: 15 Speech: Normal Motor strength normal: LUE, RUE, LLE, RLE Sensory: Normal - Psychological Associated symptoms: Normal affect, Normal mood - Skin Skin Temperature: Warm Skin Moisture: Dry Skin Color: Normal Course - Re-evaluation Re-evalutation: 04/22/20 18:38 Patient presents with atypical chest pain. It is in the right upper outer quadrant. Palpation this area shows no tenderness. Chest x-ray is unremarkable. He has no ischemic changes on EKG. He has a negative troponin despite 2-1/2 days of pain. He has no significant associated symptoms such as nausea or sweating. His vital signs are normal and he is in no distress. Patient does have a previous history of DVT however he is already on Xarelto. The fact the patient is on a blood thinner coupled with the fact that he is not tachypneic or tachycardic made a CTA of the chest seem unnecessary. At this time I think the patient's pain is most likely not related to neither cardiac nor lung pathology - Vital Signs Vital signs: Temp Pulse Resp BP Pulse Ox 97.8 F 60 18 113/68 99 04/22/20 14:17 04/22/20 14:17 04/22/20 14:17 04/22/20 14:17 04/22/20 14:17 - Laboratory Result Diagrams: 04/22/20 12:25 04/22/20 12:25 Laboratory results interpreted by me: 04/22/20 12:25 Hgb 13.2 L RDW 15.1 H - Diagnostic Test Radiology reviewed: Image reviewed, Reports reviewed - EKG Interpretation by Ak EKG shows normal: Sinus rhythm Rate: Normal - 84 Rhythm: NSR Joy/QRS: No: Right axis deviation, Left axis deviation Additional EKG results interpreted by me: 04/22/20 18:51 Patient had a second EKG performed at 1846. This EKG shows a mild sinus bradycardia with a rate of 57. Patient has a normal axis. There are no changes from the previous EKG other than rate. Discharge - Discharge Clinical Impression: Atypical chest pain Condition: Stable Disposition: HOME, SELF-CARE Instructions: Chest Pain of Unclear Cause ([facility]) Additional Instructions: Please call your primary care physician first thing in the morning to arrange follow-up Referrals: ELLIE MAY MD [Primary Care Provider] - Follow up tomorrow
[2020-04-22 19:42] VITALS: BP 136/76
--- NOTE | 2020-04-23 07:16 | EKG REPORT ---
SEVERITY:- NORMAL ECG - SINUS RHYTHM : Confirmed by: Kevin Guardado MD 23-Apr-2020 07:16:39
== END 2020-04-22 19:43 | disposition home or self-care (01) ==
LOC: ER 10:12
DX: R07.89 Other chest pain (principal); J44.9 Chronic obstructive pulmonary disease, unspecified; R00.1 Bradycardia, unspecified; I25.10 Atherosclerotic heart disease of native coronary artery without angina pectoris; I10 Essential (primary) hypertension; I25.2 Old myocardial infarction; Z95.5 Presence of coronary angioplasty implant and graft; Z86.718 Personal history of other venous thrombosis and embolism; Z79.01 Long term (current) use of anticoagulants; Z79.82 Long term (current) use of aspirin; Z85.048 Personal history of other malignant neoplasm of rectum, rectosigmoid junction, and anus; Z87.891 Personal history of nicotine dependence
CPT/HCPCS: 93005; 99285; 36415; 82550; 83735; 85025; 80053; 84484; 83880; 71046; 93010; J3490 ×3

== ENCOUNTER 2020-05-14 06:05 | Emergency (ER) | payer MEDICAID ==
--- NOTE | 2020-05-14 07:25 | RADIOLOGY REPORT (SQ) ---
EXAM DESCRIPTION: CT HEAD WITHOUT IV CONTRAST COMPLETED DATE/TME: 05/14/2020 00:00 CLINICAL HISTORY: 59 years, Male, s/s stroke COMPARISON: 03/18/2020 TECHNIQUE: Axial CT images of the brain were obtained without contrast. Sagittal and coronal reformats were performed. DLP 1070 Images stored on PACS. All CT scanners at this facility use dose modulation, iterative reconstruction, and/or weight based dosing when appropriate to reduce radiation dose to as low as reasonably achievable (ALARA). [facility]: Dose Right [facility]: CareDose [facility]: Dose Right [facility]: Teradose 4D [facility]: Smart [place] LIMITATIONS: None. FINDINGS: There is no acute cortical infarct, hemorrhage, mass, edema, hydrocephalus, or extra-axial fluid collection. The herman-white matter differentiation is preserved. The paranasal sinuses and mastoid air cells are clear. There is no acute fracture. IMPRESSION: No acute intracranial abnormality. TECHNICAL DOCUMENTATION: Quality ID # [id number]: Final reports with documentation of one or more dose reduction techniques (e.g., Automated exposure control, adjustment of the mA and/or kV according to patient size, use of iterative reconstruction technique) copyright 2011 [employer]- All Rights Reserved
--- NOTE | 2020-05-14 07:38 | RADIOLOGY REPORT (SQ) ---
EXAM: XR Chest, 1 View EXAM DATE/TIME: 05/14/2020 00:00 CLINICAL HISTORY: The patient is 59 years old and is Male; stroke TECHNIQUE: Frontal view of the chest. COMPARISON: Chest radiograph from 04/22/2020 FINDINGS: LUNGS: Small calcified granuloma again visualized projecting over the right midlung. There is an irregular density projecting over the left mid to upper lung which is unchanged compared to numerous prior exams and is most compatible with scarring. There is also mild parenchymal scarring centrally in the right lung. There are no new opacities visualized. No consolidation. PLEURAL SPACE: Unremarkable. No pneumothorax. HEART: No significant enlargement of the cardiac silhouette. MEDIASTINUM: Unremarkable. BONES/JOINTS: No acute osseous findings. IMPRESSION: No acute findings visualized in the chest.
[2020-05-14 09:10] LABS: APPEARANCE,URINE CLEAR; BILIRUBIN,URINE NEGATIVE (NEGATIVE); COLOR,URINE STRAW; GLUCOSE, URINE NEGATIVE (NEGATIVE); KETONES,URINE NEGATIVE (NEGATIVE); LEUKOCYTE ESTERASE,URINE SMALL (NEGATIVE); NITRITE,URINE NEGATIVE (NEGATIVE); PROTEIN,URINE NEGATIVE (NEGATIVE); URINE SPECIFIC GRAVITY 1.006; UROBILINOGEN,URINE NEGATIVE mg/dL (<2.0)
[2020-05-14 09:14] LABS: ABSOLUTE BASOPHILS # (AUTO) 0.1 10^3/uL (0.0-0.2); ABSOLUTE EOSINOPHILS # (AUTO) 0.1 10^3/uL (0.0-0.6); ABSOLUTE LYMPHOCYTES (AUTO) 1.9 10^3/uL (0.5-4.7); ABSOLUTE MONOCYTES (AUTO) 0.4 10^3/uL (0.1-1.4); ABSOLUTE NEUT (AUTO) 3.6 10^3/uL (1.7-8.2); BASOPHILS % (AUTO) 1.1 % (0-2); EOSINOPHILS % (AUTO) 1.4 % (0-6); HEMATOCRIT 40.9 % (37.9-51.0); HEMOGLOBIN 13.8 g/dL (13.5-17.0); LYMPHOCYTES % (AUTO) 31.3 % (13-45); MEAN CORPUSCULAR HGB CONC 33.7 g/dL (32.0-36.0); MEAN CORPUSCULAR VOLUME 86 fl (80-97); PLATELET COUNT 240 10^3/uL (150-450); RED BLOOD COUNT 4.76 10^6/uL (4.35-5.55); RED CELL DISTRIBUTION WIDTH 14.5 % (11.5-14.0); SEGMENTED NEUTROPHILS % (AUTO) 59.2 % (42-78); TOTAL CELLS COUNTED % (AUTO) 100 %; WHITE BLOOD COUNT 6.2 10^3/uL (4.0-10.5)
--- NOTE | 2020-05-14 10:07 | EKG REPORT ---
SEVERITY:- NORMAL ECG - SINUS RHYTHM : Confirmed by: Toribio Burger MD 14-May-2020 10:07:30
--- NOTE | 2020-05-14 11:13 | ER Document Report ---
ED Dizziness/Weakness - General Chief Complaint: S/S of Possible Stroke Stated Complaint: GENERAL WEAKNESS Time Seen by Provider: 05/14/20 07:34 Primary Care Provider: ELLIE MAY MD [Primary Care Provider] - Follow up as needed Mode of Arrival: Ambulatory Information source: Patient TRAVEL OUTSIDE OF THE [place] IN LAST 30 DAYS: No - HPI Notes: Patient states when he woke up this morning he had a couple episodes of feeling weak. He states that these were intermittent. The were with movement and better when he rested. He states this made him nervous so he came to the emergency department. He states currently he does not have any symptoms. No significant pain. He does state that he just finished antibiotics for urinary tract infection. He has had no vomiting or diarrhea. The dizziness was moderate in intensity. And would last a few seconds at a time. - Related Data Allergies/Adverse Reactions: No Known Allergies Allergy (Verified 04/22/20 11:02) Past Medical History - General Information source: Patient - Social History Smoking Status: Never Smoker Frequency of alcohol use: None Drug Abuse: None Family History: Hypertension - Past Medical History Cardiac Medical History: Reports: Hx Congestive Heart Failure, Hx Coronary Artery Disease - stents x2, , Hx Heart Attack - 2001, Hx Hypercholesterolemia, Hx Hypertension Pulmonary Medical History: Reports: Hx COPD Denies: Hx Bronchitis, Hx Pneumonia Neurological Medical History: Denies: Hx Cerebrovascular Accident, Hx Seizures Renal/ Medical History: Reports: Hx Kidney Stones. Denies: Hx Peritoneal Dialysis Malignancy Medical History: Reports Hx Colorectal Cancer Musculoskeletal Medical History: Reports Hx Arthritis - hips,knees Past Surgical History: Reports: Hx Cardiac Catheterization - two stents, Hx Orthopedic Surgery - R hip replacement, Other - Partial colectomy and right percutaneous nephrostomy - Immunizations Immunizations up to date: No Hx Diphtheria, Pertussis, Tetanus Vaccination: Yes Review of Systems - Review of Systems Constitutional: denies: Chills, Fever Cardiovascular: denies: Chest pain, Palpitations Respiratory: denies: Cough, Short of breath -: Yes All other systems reviewed and negative Physical Exam - Vital signs Vitals: Temp Pulse Resp BP Pulse Ox 98 F 80 16 144/80 H 98 05/14/20 06:53 05/14/20 06:53 05/14/20 06:53 05/14/20 06:53 05/14/20 06:53 Interpretation: Normal - General General appearance: Appears well, Alert - HEENT Head: Normocephalic, Atraumatic Eyes: Normal Pupils: PERRL - Respiratory Respiratory status: No respiratory distress Chest status: Nontender Breath sounds: Normal Chest palpation: Normal - Cardiovascular Rhythm: Regular Heart sounds: Normal auscultation Murmur: No - Abdominal Inspection: Normal Distension: No distension Bowel sounds: Normal Tenderness: Nontender Organomegaly: No organomegaly - Back Back: Normal, Nontender - Extremities General upper extremity: Normal inspection, Nontender, Normal color, Normal ROM, Normal temperature General lower extremity: Normal inspection, Nontender, Normal color, Normal ROM, Normal temperature, Normal weight bearing. No: Silvia's sign - Neurological Neuro grossly intact: Yes Cognition: Normal Orientation: AAOx4 [place] Coma Scale Eye Opening: Spontaneous [place] Coma Scale Verbal: Oriented Sean Coma Scale Motor: Obeys Commands [place] Coma Scale Total: 15 Speech: Normal Cranial nerves: Normal Cerebellar coordination: Normal. No: Gait ataxia Motor strength normal: LUE, RUE, LLE, RLE Additional motor exam normals: No: Equal category development manager, Pronator drift Sensory: Normal - Psychological Associated symptoms: Normal affect, Normal mood - Skin Skin Temperature: Warm Skin Moisture: Dry Skin Color: Normal Course - Re-evaluation Re-evalutation: 05/14/20 11:09 Patient presents with some intermittent dizziness. Neurological exam is unremarkable. Head CT is also unremarkable. EKG is normal. Patient currently has no symptoms. He does appear to have a persistent urinary tract infection. He does have a complicated urology history with a current ileostomy bag. He just finished antibiotics yet his urine continues to appear to be infected. The most recent culture shows pansensitive Enterococcus. I am going to switch the patient to cefdinir. I have also called his urologist, Dr. Leal. I have arranged for the patient to have an appointment in 3 days, this Wednesday, 17 May 2020. I have relayed to the patient that he has the appointment at 11 AM. - Vital Signs Vital signs: Temp Pulse Resp BP Pulse Ox 98 F 84 16 128/74 H 98 05/14/20 06:53 05/14/20 07:20 05/14/20 07:20 05/14/20 07:20 05/14/20 07:20 - Laboratory Result Diagrams: 05/14/20 08:40 05/14/20 08:40 Laboratory results interpreted by me: 05/14/20 05/14/20 08:40 08:40 RDW 14.5 H Urine Blood LARGE H Ur Leukocyte Esterase SMALL H - Diagnostic Test Radiology reviewed: Image reviewed, Reports reviewed - EKG Interpretation by Me EKG shows normal: Sinus rhythm Rate: Normal - 64 Rhythm: NSR Vincent/QRS: No: Right axis deviation, Left axis deviation Discharge - Discharge Clinical Impression: Dizziness UTI (urinary tract infection) Qualifiers: Urinary tract infection type: site unspecified Hematuria presence: with hematuria Qualified Code(s): N39.0 - Urinary tract infection, site not specified; R31.9 - Hematuria, unspecified Condition: Stable Disposition: HOME, SELF-CARE Instructions: Urinary Tract Infection ([facility]) Additional Instructions: You have an appointment this Wednesday, 17 May at [address] Leal. Please make sure you go to his office for the appointment. Prescriptions: Cefdinir 300 mg PO BID 7 Days #14 capsule Forms: Return to Work
[2020-05-14 12:14] LABS: ALBUMIN 4.5 g/dL (3.5-5.0); ALKALINE PHOSPHATASE 109 U/L (38-126); ANION GAP 11 (5-19); ASPARTATE AMINO TRANSFERASE 32 U/L (17-59); BILIRUBIN,DIRECT 0.2 mg/dL (0.0-0.4); BILIRUBIN,TOTAL 0.7 mg/dL (0.2-1.3); BLOOD UREA NITROGEN 12 mg/dL (7-20); CALCIUM 9.7 mg/dL (8.4-10.2); CARBON DIOXIDE 24 mmol/L (22-30); CHLORIDE 105 mmol/L (98-107); CREATINE KINASE 82 U/L (55-170); GLUCOSE 94 mg/dL (75-110); POTASSIUM 4.7 mmol/L (3.6-5.0); TOTAL PROTEIN 8.4 g/dL (6.3-8.2)
[2020-05-14 13:59] VITALS: BP 119/82
== END 2020-05-14 13:59 | disposition home or self-care (01) ==
LOC: ER 06:05
DX: R53.1 Weakness (principal); I11.0 Hypertensive heart disease with heart failure; I50.9 Heart failure, unspecified; I25.10 Atherosclerotic heart disease of native coronary artery without angina pectoris; E78.00 Pure hypercholesterolemia, unspecified; I25.2 Old myocardial infarction
CPT/HCPCS: 36415; 70450; 71045; 80053; 81001; 82550; 85025; 93005; 93010; 99285

== ENCOUNTER 2020-05-27 02:10 | Emergency (ER) | payer MEDICAID ==
[2020-05-27 02:44] LABS: APPEARANCE,URINE CLEAR; BILIRUBIN,URINE NEGATIVE (NEGATIVE); COLOR,URINE STRAW; GLUCOSE, URINE NEGATIVE (NEGATIVE); KETONES,URINE NEGATIVE (NEGATIVE); LEUKOCYTE ESTERASE,URINE SMALL (NEGATIVE); NITRITE,URINE NEGATIVE (NEGATIVE); PROTEIN,URINE NEGATIVE (NEGATIVE); URINE SPECIFIC GRAVITY 1.004; UROBILINOGEN,URINE NEGATIVE mg/dL (<2.0)
--- NOTE | 2020-05-27 04:47 | ER Document Report ---
ED GI/ - General Chief Complaint: Urinary Problem Stated Complaint: FOUL SMELLING URINE,BURNING WHILE URINATING Time Seen by Provider: 05/27/20 04:20 Primary Care Provider: ELLIE MAY MD [Primary Care Provider] - Follow up as needed Notes: Patient is a 59-year-old male that comes emergency department for chief complaint of concerned about a possible urinary tract infection. Patient states that he noticed that his urine started smelling foul, he states that he also had some mild discomfort with urination over the past day although this resolved today. He denies hematuria, abdominal pain, flank pain, nausea/vomiting, fever/chills. Patient has a history of a urostomy bag on the right side, he had partial colectomy for removal of colon cancer and he had accidental injury of the ureter on the right side, he is pending follow-up for repair with [facility]. Patient states that he has not wanted to follow-up with them and he is pending his primary care to refer him to [facility] instead. Patient states he has had frequent infections and he has been off his most recent antibiotic approximately 1 week. He denies any current symptoms. He states he thinks he passed a kidney stone recently as well but he did not feel it passing and he only saw what looked like a stone in the tubing. TRAVEL OUTSIDE OF THE [place] IN LAST 30 DAYS: No - Related Data Allergies/Adverse Reactions: No Known Allergies Allergy (Verified 04/22/20 11:02) Past Medical History - General Information source: Patient - Social History Smoking Status: Never Smoker Chew tobacco use (# tins/day): No Frequency of alcohol use: None Drug Abuse: None Lives with: Family Family History: Hypertension Patient has homicidal ideation: No - Past Medical History Cardiac Medical History: Reports: Hx Congestive Heart Failure, Hx Coronary Artery Disease - stents x2, , Hx Heart Attack - 2001, Hx Hypercholesterolemia, Hx Hypertension Pulmonary Medical History: Reports: Hx COPD Denies: Hx Bronchitis, Hx Pneumonia Neurological Medical History: Denies: Hx Cerebrovascular Accident, Hx Seizures Renal/ Medical History: Reports: Hx Kidney Stones. Denies: Hx Peritoneal Dialysis Malignancy Medical History: Reports Hx Colorectal Cancer Musculoskeletal Medical History: Reports Hx Arthritis - hips,knees Past Surgical History: Reports: Hx Cardiac Catheterization - two stents, Hx Orthopedic Surgery - R hip replacement, Other - Partial colectomy and right percutaneous nephrostomy - Immunizations Immunizations up to date: No Hx Diphtheria, Pertussis, Tetanus Vaccination: Yes Review of Systems - Review of Systems Constitutional: No symptoms reported EENT: No symptoms reported Cardiovascular: No symptoms reported Respiratory: No symptoms reported Gastrointestinal: No symptoms reported Genitourinary: See HPI Male Genitourinary: No symptoms reported Musculoskeletal: No symptoms reported Skin: No symptoms reported Hematologic/Lymphatic: No symptoms reported Neurological/Psychological: No symptoms reported Physical Exam - Vital signs Vitals: Temp Pulse Resp BP Pulse Ox 97.9 F 63 20 148/78 H 98 05/27/20 02:20 05/27/20 02:20 05/27/20 02:20 05/27/20 02:20 05/27/20 02:20 - Notes Notes: GENERAL: Alert, interacts well. No acute distress. HEAD: Normocephalic, atraumatic. EYES: Pupils equal, round, and reactive to light. Extraocular movements intact. ENT: Oral mucosa moist, tongue midline. Oropharynx unremarkable. Airway patent. NECK: Full range of motion. Supple. Trachea midline. No lymphadenopathy. LUNGS: Clear to auscultation bilaterally, no wheezes, rales, or rhonchi. No respiratory distress. Non-tender chest wall. HEART: Regular rate and rhythm. No murmur ABDOMEN: Ventral scar in the lower abdomen, nontender abdomen in general, no distention or rigidity. Unremarkable otherwise. GENITOURINARY: No swelling, erythema, pain, or concerning findings noted. EXTREMITIES: Moves all 4 extremities spontaneously. No edema, normal radial and dorsalis pedis pulses bilaterally. No cyanosis. BACK: Nephrostomy tube in place on the right side with clean dressing and no surrounding drainage, erythema, tenderness, or concerning findings in the tubing. No cervical, thoracic, lumbar midline tenderness. No saddle anesthesia, normal distal neurovascular exam. Moves all extremities in full range of motion. NEUROLOGICAL: Alert and oriented x3. Normal speech. Cranial nerves II through XII grossly intact. Strength 5/5 in all extremities. PSYCH: Normal affect, normal mood. SKIN: Warm, dry, normal turgor. No rashes or lesions noted. Course - Re-evaluation Re-evalutation: Patient talkative and well-appearing. Urostomy tube does not appear infected, tubing is clear with a few sediment, urine is actually surprisingly clean, abdomen soft and benign, vital signs unremarkable. I discussed findings with patient. We will place a culture but no antibiotics will be started at this time. Patient was pleasantly surprised with his urine results, he has no additional complaints, he states he has good follow-up and he just needs a dressing currency exchange specialist his nephrostomy tube site. This was provided. Patient is urinating without difficulty. I discussed monitoring, follow-up, and return precautions in detail. Patient states appreciation and agreement. Stable and well-appearing at time of discharge. - Vital Signs Vital signs: Temp Pulse Resp BP Pulse Ox 97.8 F 57 L 16 142/84 H 100 05/27/20 05:00 05/27/20 05:00 05/27/20 05:00 05/27/20 05:00 05/27/20 05:00 - Laboratory Laboratory results interpreted by me: 05/27/20 02:30 Urine Blood LARGE H Ur Leukocyte Esterase SMALL H Discharge - Discharge Clinical Impression: Urinary symptom or sign Condition: Stable Disposition: HOME, SELF-CARE Additional Instructions: We have a urine culture pending, you will be contacted and treated if there are any concerning results. Follow-up with your urology and primary care for additional management. Return if you worsen including developing abdominal or back pain, fever, vomiting, or any other concerning or worsening symptoms. Referrals: ELLIE MAY MD [Primary Care Provider] - Follow up as needed
[2020-05-27 05:48] VITALS: BP 142/84
== END 2020-05-27 05:00 | disposition home or self-care (01) ==
LOC: ER 02:10
DX: R39.89 Other symptoms and signs involving the genitourinary system (principal); I25.10 Atherosclerotic heart disease of native coronary artery without angina pectoris; I10 Essential (primary) hypertension; Z93.6 Other artificial openings of urinary tract status; Z90.49 Acquired absence of other specified parts of digestive tract; Z85.048 Personal history of other malignant neoplasm of rectum, rectosigmoid junction, and anus; J44.9 Chronic obstructive pulmonary disease, unspecified; Z87.442 Personal history of urinary calculi
CPT/HCPCS: 81001; 87086; 99283

== ENCOUNTER 2020-06-28 00:20 | Emergency (ER) | payer MEDICAID ==
--- NOTE | 2020-06-28 01:00 | ER Document Report ---
ED Medical Screen (RME) - General Chief Complaint: Leg Pain Stated Complaint: BILATERAL LEG PAIN Time Seen by Provider: 06/28/20 00:31 Primary Care Provider: ELLIE MAY MD [Primary Care Provider] - Follow up as needed TRAVEL OUTSIDE OF THE [place] IN LAST 30 DAYS: No - HPI Notes: 06/28/20 00:51 60 year old male with PMH of CHF, HTN, colon cancer, nephrostomy, DVT to the ED with C/O bilateral leg cramping for some time and foul smelling urine. HE states that he had colon cancer and back in the spring of this year, he had it resected. During that resection, his ureter on the right side was lacerated. THis resulted in him have an nephrostomy. STates that he has urine collecting in that bag and also he urinated regularly. States he has frequent urination. He feels like the bag specimen of urine is always concentrated, strong smelling, and dark in appearance. He states this prompts him to drink more fluid. However, he states he takes daily Lasix for a history of CHF. Naturally, this medication makes him urinate more. In regards to his leg pain, he states it is in the back of both calves. When he had his colon resection, he developed a DVT in his left calf. He was placed on Xarelto. He continues to take the Xarelto. States now he has pain in both of his calves. Denies swelling in the calves and also denies erythema or warm. Denies fevers, chills. DEnies chest pain, SOB. On brief medical screening exam, patient appears to be pale. He has clear lungs to auscultation. Non tender to palpation of the abdomen. calves are not swollen and not painful to palpation. I performed a brief medical screening exam on the patient and determined that he will need further management by mainside provider. I have placed initial orders to help expedite his care. - Related Data Allergies/Adverse Reactions: No Known Allergies Allergy (Verified 04/22/20 11:02) Past Medical History - Past Medical History Cardiac Medical History: Reports: Hx Congestive Heart Failure, Hx Coronary Artery Disease - stents x2, 2001/2002, Hx Heart Attack - 2001, Hx Hypercholesterolemia, Hx Hypertension Pulmonary Medical History: Reports: Hx COPD Denies: Hx Bronchitis, Hx Pneumonia Neurological Medical History: Denies: Hx Cerebrovascular Accident, Hx Seizures Renal/ Medical History: Reports: Hx Kidney Stones. Denies: Hx Peritoneal Dialysis Malignancy Medical History: Reports Hx Colorectal Cancer Musculoskeltal Medical History: Reports Hx Arthritis - hips,knees Past Surgical History: Reports: Hx Cardiac Catheterization - two stents, Hx Orthopedic Surgery - R hip replacement, Other - Partial colectomy and right percutaneous nephrostomy - Immunizations Immunizations up to date: No Hx Diphtheria, Pertussis, Tetanus Vaccination: Yes Physical Exam - Vital signs Vitals: Temp Pulse Resp BP Pulse Ox 98.3 F 69 24 H 138/77 H 99 06/28/20 00:25 06/28/20 00:25 06/28/20 00:25 06/28/20 00:25 06/28/20 00:25 Course - Vital Signs Vital signs: Temp Pulse Resp BP Pulse Ox 98.3 F 69 24 H 138/77 H 99 06/28/20 00:25 06/28/20 00:25 06/28/20 00:25 06/28/20 00:25 06/28/20 00:25 Doctor's Discharge - Discharge Referrals: ELLIE MAY MD [Primary Care Provider] - Follow up as needed
[2020-06-28 01:39] LABS: APPEARANCE,URINE SLIGHTLY-CLOUDY; BILIRUBIN,URINE NEGATIVE (NEGATIVE); COLOR,URINE YELLOW; GLUCOSE, URINE NEGATIVE (NEGATIVE); KETONES,URINE NEGATIVE (NEGATIVE); PROTEIN,URINE NEGATIVE (NEGATIVE); URINE SPECIFIC GRAVITY 1.003; UROBILINOGEN,URINE NEGATIVE mg/dL (<2.0)
--- NOTE | 2020-06-28 01:43 | ER Document Report ---
ED General - General Chief Complaint: Leg Pain Stated Complaint: BILATERAL LEG PAIN Time Seen by Provider: 06/28/20 00:31 Primary Care Provider: ELLIE MAY MD [Primary Care Provider] - Follow up as needed TRAVEL OUTSIDE OF THE [place] IN LAST 30 DAYS: No - HPI Notes: 60-year-old male presents with dark urine and bilateral leg cramps. Patient states that he has had cramping in his calves for the past couple of days. He states that he has been playing video games in a new chair and believes that he is doing a lot of pressing down on his feet, notices that he is sore after playing video games. He had surgery in October and was diagnosed with a DVT in the left calf postoperatively, he takes Xarelto daily. He denies swelling in his legs. He also notes that he has gotten out of shape and will also have leg cramping exercise. Patient has a right nephrostomy tube, during surgery for removal of his right-sided colon cancer his right ureter was cut. He states that he has noticed some dark urine over the past couple days and it is foul- smelling. He has had about 5 UTIs since its insertion, states his last UTI was in April. He denies fever or chills. He never received chemo. He states that he is follow-up with [facility] for reversal of the nephrostomy/ureteral injury. He states that he keeps his nephrostomy site very clean and has not noticed any abnormal discharge or redness. - Related Data Allergies/Adverse Reactions: No Known Allergies Allergy (Verified 04/22/20 11:02) Home Medications: lasix. xarelto. propranolol. asa Vit D. Multi vit. sinus pill Past Medical History - General Information source: Patient - Social History Smoking Status: Never Smoker Chew tobacco use (# tins/day): No Frequency of alcohol use: None Family History: Hypertension Patient has homicidal ideation: No - Past Medical History Cardiac Medical History: Reports: Hx Congestive Heart Failure, Hx Coronary Artery Disease - stents x2, 2001/2002, Hx Heart Attack - 2001, Hx Hypercholesterolemia, Hx Hypertension Pulmonary Medical History: Reports: Hx COPD Denies: Hx Bronchitis, Hx Pneumonia Neurological Medical History: Denies: Hx Cerebrovascular Accident, Hx Seizures Renal/ Medical History: Reports: Hx Kidney Stones. Denies: Hx Peritoneal Dialysis Malignancy Medical History: Reports Hx Colorectal Cancer Musculoskeletal Medical History: Reports Hx Arthritis - hips,knees Past Surgical History: Reports: Hx Cardiac Catheterization - two stents, Hx Orthopedic Surgery - R hip replacement, Other - Partial colectomy and right percutaneous nephrostomy - Immunizations Immunizations up to date: No Hx Diphtheria, Pertussis, Tetanus Vaccination: Yes Review of Systems - Review of Systems Constitutional: denies: Chills, Fever EENT: No symptoms reported Cardiovascular: No symptoms reported Respiratory: No symptoms reported Gastrointestinal: denies: Abdominal pain Genitourinary: See HPI Male Genitourinary: No symptoms reported Musculoskeletal: See HPI Skin: No symptoms reported Hematologic/Lymphatic: No symptoms reported Neurological/Psychological: No symptoms reported Physical Exam - Vital signs Vitals: Temp Pulse Resp BP Pulse Ox 98.3 F 69 24 H 138/77 H 99 06/28/20 00:25 06/28/20 00:25 06/28/20 00:25 06/28/20 00:25 06/28/20 00:25 - General General appearance: Appears well, Alert In distress: None - HEENT Head: Normocephalic, Atraumatic Eyes: No: Scleral icterus Extraocular movements intact: Yes Pupils: PERRL - Respiratory Breath sounds: Normal - Cardiovascular Rhythm: Regular Heart sounds: Normal auscultation - Abdominal Tenderness: Nontender - Genitourinary Notes: Right nephrostomy tube site clean and nontender - Back Back: No: CVA tenderness - Extremities General upper extremity: Normal ROM, Normal strength, Normal temperature General lower extremity: Normal ROM, Normal strength, Normal temperature. No: Edema - Neurological Neuro grossly intact: Yes Cognition: Normal Orientation: AAOx4 - Psychological Associated symptoms: Normal affect - Skin Skin Temperature: Warm Course - Re-evaluation Re-evalutation: 60-year-old male presents with dark/foul-smelling urine in his nephrostomy bag along with some bilateral leg cramps. Patient is afebrile and hemodynamically stable, he has no CVA tenderness or tenderness about his nephrostomy site. Urine will be sent to evaluate for infection as he is at risk for this. Abdomen is otherwise nontender. In terms of his bilateral leg cramping, he continues on Xarelto therefore I would have a low suspicion for DVT at this time, he states that he is fairly active. Possible he is just having muscle cramps from over use. There is no swelling or tenderness to his legs. Will check a CK and electrolytes to rule out other metabolic process. 06/28/20 02:35 No leukocytosis or left shift. Electrolytes within normal limits. Creatinine within normal limits. No elevation of CK. Urine is positive for UTI, sent for culture. Reviewed previous cultures, looks like it is typically Enterococcus which is pansensitive. Patient was given a dose of Augmentin and will be prescribed the same. Patient was updated on all results. Patient has upcoming follow-up at [facility]. Return precautions given, stable at time of discharge. - Vital Signs Vital signs: Temp Pulse Resp BP Pulse Ox 97.4 F 56 L 16 135/84 H 99 06/28/20 02:46 06/28/20 02:46 06/28/20 02:46 06/28/20 02:46 06/28/20 02:46 - Laboratory Result Diagrams: 06/28/20 01:33 06/28/20 01:33 Laboratory results interpreted by me: 06/28/20 06/28/20 06/28/20 00:58 01:33 01:33 Hgb 12.8 L Chloride 109 H Glucose 115 H Urine Blood MODERATE H Urine Nitrite (Reflex) POSITIVE H Leukocyte Esterase Rfl LARGE H Discharge - Discharge Clinical Impression: Pyelonephritis of right kidney Disposition: HOME, SELF-CARE Additional Instructions: Please begin course of Augmentin. You will be called based on the culture if the antibiotic needs to be changed. Please follow-up at [facility] as planned. Return to the emergency department for any concerning worsening symptoms. Prescriptions: Amoxicillin/Potassium Clav [Augmentin 875-125 Tablet] 1 tab PO Q12 10 Days #20 tablet Referrals: ELLIE MAY MD [Primary Care Provider] - Follow up as needed
[2020-06-28 01:47] LABS: ABSOLUTE BASOPHILS # (AUTO) 0.1 10^3/uL (0.0-0.2); ABSOLUTE EOSINOPHILS # (AUTO) 0.2 10^3/uL (0.0-0.6); ABSOLUTE LYMPHOCYTES (AUTO) 3.6 10^3/uL (0.5-4.7); ABSOLUTE MONOCYTES (AUTO) 0.7 10^3/uL (0.1-1.4); ABSOLUTE NEUT (AUTO) 4.1 10^3/uL (1.7-8.2); BASOPHILS % (AUTO) 1.4 % (0-2); EOSINOPHILS % (AUTO) 2.6 % (0-6); HEMOGLOBIN 12.8 g/dL (13.5-17.0); LYMPHOCYTES % (AUTO) 41.5 % (13-45); MEAN CORPUSCULAR HEMOGLOBIN 28.6 pg (27.0-33.4); MEAN CORPUSCULAR HGB CONC 32.7 g/dL (32.0-36.0); MEAN CORPUSCULAR VOLUME 87 fl (80-97); MONOCYTES % (AUTO) 7.5 % (3-13); PLATELET COUNT 232 10^3/uL (150-450); RED BLOOD COUNT 4.47 10^6/uL (4.35-5.55); RED CELL DISTRIBUTION WIDTH 13.1 % (11.5-14.0); TOTAL CELLS COUNTED % (AUTO) 100 %; WHITE BLOOD COUNT 8.6 10^3/uL (4.0-10.5)
[2020-06-28 02:03] LABS: ANION GAP 12 (5-19); BLOOD UREA NITROGEN 9 mg/dL (7-20); CALCIUM 9.1 mg/dL (8.4-10.2); CARBON DIOXIDE 22 mmol/L (22-30); CHLORIDE 109 mmol/L (98-107); CREATINE KINASE 104 U/L (55-170); GLUCOSE 115 mg/dL (75-110); POTASSIUM 4.1 mmol/L (3.6-5.0)
[2020-06-28] MEDS ORDERED: AMOXICILLIN TR/POT CLAVULANATE 875-125 MG TAB PO ONE (02:22)
[2020-06-28 02:51] VITALS: BP 135/84
== END 2020-06-28 02:51 | disposition home or self-care (01) ==
LOC: ER 00:20
DX: N12 Tubulo-interstitial nephritis, not specified as acute or chronic (principal); R25.2 Cramp and spasm; Z79.01 Long term (current) use of anticoagulants; Z93.6 Other artificial openings of urinary tract status; I11.0 Hypertensive heart disease with heart failure; I50.9 Heart failure, unspecified; I25.2 Old myocardial infarction; J44.9 Chronic obstructive pulmonary disease, unspecified; Z86.718 Personal history of other venous thrombosis and embolism; Z79.899 Other long term (current) drug therapy; Z79.82 Long term (current) use of aspirin; Z95.5 Presence of coronary angioplasty implant and graft; Z85.048 Personal history of other malignant neoplasm of rectum, rectosigmoid junction, and anus
CPT/HCPCS: 99283; 36415; 87086; 82550; 83735; 84100; 85025; 87088; 80048; 81001; 87186; J3490

== ENCOUNTER 2020-07-04 03:30 | Emergency (ER) | payer MEDICAID ==
--- NOTE | 2020-07-04 04:53 | ER Document Report ---
ED GI/ - General Chief Complaint: Urinary Problem Stated Complaint: POSSIBLE UTI Time Seen by Provider: 07/04/20 04:00 Primary Care Provider: ELLIE MAY MD [Primary Care Provider] - Follow up as needed Notes: Patient is a 60-year-old male presents to the emergency department for feeling weak, nauseated, and generally not feeling well. Patient was seen 6 days ago and was diagnosed with a urinary tract infection. He was started on Augmentin for urinary tract infection from his right nephrostomy tube. Labs came back and patient was prescribed Bactrim 2 days ago. Patient states that he had a symptoms prior to starting Bactrim. Reports that he did have some diarrhea prior to starting antibiotics. Patient denies any fevers. Denies any urinary symptoms or abdominal pain. Denies any vomiting. TRAVEL OUTSIDE OF THE [place] IN LAST 30 DAYS: No - Related Data Allergies/Adverse Reactions: No Known Allergies Allergy (Verified 04/22/20 11:02) Home Medications: bactrim, propranolol, lasix, aspirin, vitamin, sinus tab, xaralto, Past Medical History - Social History Smoking Status: Never Smoker Frequency of alcohol use: None Drug Abuse: None Family History: Hypertension - Past Medical History Cardiac Medical History: Reports: Hx Congestive Heart Failure, Hx Coronary Artery Disease - stents x2, 2001/2002, Hx Heart Attack - 2001, Hx Hypercholesterolemia, Hx Hypertension Pulmonary Medical History: Reports: Hx COPD Denies: Hx Bronchitis, Hx Pneumonia Neurological Medical History: Denies: Hx Cerebrovascular Accident, Hx Seizures Renal/ Medical History: Reports: Hx Kidney Stones. Denies: Hx Peritoneal Dialysis Malignancy Medical History: Reports Hx Colorectal Cancer Musculoskeletal Medical History: Reports Hx Arthritis - hips,knees Past Surgical History: Reports: Hx Cardiac Catheterization - two stents, Hx Orthopedic Surgery - R hip replacement, Other - Partial colectomy and right percutaneous nephrostomy - Immunizations Immunizations up to date: No Hx Diphtheria, Pertussis, Tetanus Vaccination: Yes Review of Systems - Review of Systems Notes: REVIEW OF SYSTEMS: CONSTITUTIONAL : Denies recent illness. Denies recent unintentional weight loss. Denies fever, chills, or sweats. EENT: Denies eye, ear, throat, or mouth pain, discharge, or symptoms. Denies nasal or sinus congestion. CARDIOVASCULAR: Denies chest pain. RESPIRATORY: Denies shortness of breath, cough, congestion, difficulty breathing, or wheezing. GASTROINTESTINAL: Denies vomiting. Denies abdominal pain. Denies constipation. See HPI. GENITOURINARY: Denies difficulty urinating, burning, blood in urine, urgency or frequency. MUSCULOSKELETAL: Denies neck and back pain. Denies joint pain or swelling. SKIN: Denies rash, itchiness, or lesions HEMATOLOGIC : Denies easy bruising or bleeding. LYMPHATIC: Denies swollen, painful, enlarged glands. NEUROLOGICAL: See HPI. Denies headache. Denies altered mental status. Denies alteration in speech. PSYCHIATRIC: Denies stress, anxiety, alteration in sleep patterns, or depression. All other systems reviewed and negative. Physical Exam - Vital signs Vitals: Temp Pulse Resp BP Pulse Ox 97.9 F 60 20 160/88 H 98 07/04/20 03:36 07/04/20 03:36 07/04/20 03:36 07/04/20 03:36 07/04/20 03:36 - Notes Notes: PHYSICAL EXAMINATION: GENERAL: Appears well, healthy, well-nourished, no acute distress. HEAD: Normocephalic, atraumatic. EYES: PERRL, conjunctiva normal, all extraocular movements intact, sclera nonicteric ENT: Moist mucous membranes. NECK: Supple, no noticeable swelling, redness, rash. Normal range of motion. LUNGS: Equal breath sounds bilaterally and clear to auscultation. No wheezes rales or rhonchi. CARDIOVASCULAR: S1-S2, regular rate, regular rhythm. Radial pulses 2+, normal. ABDOMEN: Normoactive bowel sounds. Soft, nontender, no guarding, no rebound tenderness, and no masses palpated. EXTREMITIES: Normal strength and range of motion, no pitting or edema. No cyanosis. NEUROLOGICAL: Moves all extremities upon command. Strength 5/5 in all extremities. PSYCH: Normal mood, normal affect. SKIN: Warm, dry. No rash, lesions, ulcerations noted. Normal skin turgor. BACK: Urostomy tube noted to right flank area. Course - Re-evaluation Re-evalutation: 07/04/20 04:54 Micro report reviewed from previous visit and the only medications that were against E. coli and Stenotrophomonas Maltophilia are Bactrim and ceftazidime. Will redraw labs and reassess. Patient denies being nauseous at this time. Labs will be redrawn and will reevaluate. 07/04/20 07:34 Hematology is unremarkable. Chemistries are normal. Patient is nontoxic in appearance. I have a low suspicion for appendicitis, bowel obstruction, is mesenteric ischemia, or any life-threatening etiology at this time. Stool for WBCs is negative. Stool culture is pending and C. difficile is also pending. Educated the patient on brat diet. Advised him to continue to take his Bactrim, as this is the only medication that covers both organisms on his urine culture. I did not reculture or recheck a urinalysis, as this would be redundant. We will give him Zofran for nausea if needed. He is in agreement with this plan. Follow-up precautions were given. Verbal discharge instructions were given to the patient. They verbalized understanding. They are stable for discharge. - Vital Signs Vital signs: Temp Pulse Resp BP Pulse Ox 97.9 F 60 20 160/88 H 98 07/04/20 03:36 07/04/20 03:36 07/04/20 03:36 07/04/20 03:36 07/04/20 03:36 - Laboratory Results Result Diagrams: 07/04/20 06:42 07/04/20 06:42 Laboratory Results Interpreted: 07/04/20 06:42 Hgb 13.4 L Critical Laboratory Results Reviewed: No Critical Results - Radiology Results Critical Radiology Results Reviewed: No Critical Results Discharge - Discharge Clinical Impression: Urinary tract infection Qualifiers: Urinary tract infection type: site unspecified Hematuria presence: with hematur ia Qualified Code(s): N39.0 - Urinary tract infection, site not specified Diarrhea Qualifiers: Diarrhea type: unspecified type Qualified Code(s): R19.7 - Diarrhea, unspecified Condition: Stable Disposition: HOME, SELF-CARE Instructions: Trimethoprim-Sulfa ([facility]) Additional Instructions: You were seen in the emergency department for feeling weak and having diarrhea. If you continue to have diarrhea, please stick with the BRAT diet: Bananas, rice, applesauce, and toast. Continue to take your antibiotics as prescribed. If your stool sample is positive for anything, you will be called. Follow-up with your primary care provider in regards to this visit. Prescriptions: Ondansetron [Zofran Odt 4 mg Tablet] 1 - 2 tab PO Q4H PRN #15 tab.rapdis PRN Reason: For Nausea/Vomiting Referrals: ELLIE MAY MD [Primary Care Provider] - Follow up as needed
[2020-07-04 07:07] LABS: ABSOLUTE BASOPHILS # (AUTO) 0.1 10^3/uL (0.0-0.2); ABSOLUTE EOSINOPHILS # (AUTO) 0.2 10^3/uL (0.0-0.6); ABSOLUTE LYMPHOCYTES (AUTO) 2.6 10^3/uL (0.5-4.7); ABSOLUTE MONOCYTES (AUTO) 0.5 10^3/uL (0.1-1.4); ABSOLUTE NEUT (AUTO) 3.3 10^3/uL (1.7-8.2); BASOPHILS % (AUTO) 0.9 % (0-2); HEMATOCRIT 40.5 % (37.9-51.0); HEMOGLOBIN 13.4 g/dL (13.5-17.0); LYMPHOCYTES % (AUTO) 39.3 % (13-45); MEAN CORPUSCULAR HEMOGLOBIN 28.8 pg (27.0-33.4); MEAN CORPUSCULAR VOLUME 87 fl (80-97); MONOCYTES % (AUTO) 7.9 % (3-13); PLATELET COUNT 211 10^3/uL (150-450); RED BLOOD COUNT 4.63 10^6/uL (4.35-5.55); SEGMENTED NEUTROPHILS % (AUTO) 48.9 % (42-78); TOTAL CELLS COUNTED % (AUTO) 100 %; WHITE BLOOD COUNT 6.7 10^3/uL (4.0-10.5)
[2020-07-04 07:19] LABS: ALBUMIN 4.1 g/dL (3.5-5.0); ALKALINE PHOSPHATASE 96 U/L (38-126); ANION GAP 9 (5-19); ASPARTATE AMINO TRANSFERASE 31 U/L (17-59); BILIRUBIN,TOTAL 0.4 mg/dL (0.2-1.3); BLOOD UREA NITROGEN 8 mg/dL (7-20); CALCIUM 9.2 mg/dL (8.4-10.2); CARBON DIOXIDE 25 mmol/L (22-30); CHLORIDE 107 mmol/L (98-107); GLUCOSE 89 mg/dL (75-110); POTASSIUM 3.6 mmol/L (3.6-5.0); TOTAL PROTEIN 7.7 g/dL (6.3-8.2)
[2020-07-04 08:22] VITALS: BP 132/86
[2020-07-04 09:20] LABS: C DIFFICILE GDH NEGATIVE (NEGATIVE)
== END 2020-07-04 08:23 | disposition home or self-care (01) ==
LOC: ER 03:30
DX: N39.0 Urinary tract infection, site not specified (principal); R31.9 Hematuria, unspecified; R19.7 Diarrhea, unspecified; R53.1 Weakness; R11.0 Nausea; I11.0 Hypertensive heart disease with heart failure; I50.9 Heart failure, unspecified; I25.10 Atherosclerotic heart disease of native coronary artery without angina pectoris; J44.9 Chronic obstructive pulmonary disease, unspecified; I25.2 Old myocardial infarction; Z93.6 Other artificial openings of urinary tract status; Z79.899 Other long term (current) drug therapy; Z79.82 Long term (current) use of aspirin; Z79.01 Long term (current) use of anticoagulants; Z95.5 Presence of coronary angioplasty implant and graft; Z85.048 Personal history of other malignant neoplasm of rectum, rectosigmoid junction, and anus
CPT/HCPCS: 36415; 80053; 85025; 87045; 87205; 87324; 87449; 89055; 99283

== ENCOUNTER 2020-07-12 10:44 | Emergency (ER) | payer MEDICAID ==
--- NOTE | 2020-07-12 10:53 | ER Document Report ---
ED Medical Screen (RME) - General Chief Complaint: Dizziness Stated Complaint: DIZZINESS Time Seen by Provider: 07/12/20 10:46 Primary Care Provider: ELLIE MAY MD [Primary Care Provider] - Follow up as needed Notes: Patient states that he was shopping about 20 minutes ago and suddenly had dizziness in which she felt faint. Patient reports chest pain that he describes as indigestion. Patient denies any nausea or vomiting. Patient does report some shortness of breath but is uncertain if it may be anxiety related. Patient reports a history of CHF, sarcoidosis and colon cancer. Patient is currently being treated for UTI. I have greeted and performed a rapid initial assessment of this patient. A comprehensive ED assessment and evaluation of the patient, analysis of test results and completion of the medical decision making process will be conducted by additional ED providers. TRAVEL OUTSIDE OF THE [place] IN LAST 30 DAYS: No - Related Data Allergies/Adverse Reactions: No Known Allergies Allergy (Verified 04/22/20 11:02) Past Medical History - Past Medical History Cardiac Medical History: Reports: Hx Congestive Heart Failure, Hx Coronary Artery Disease - stents x2, 2001/2002, Hx Heart Attack - 2001, Hx Hypercholesterolemia, Hx Hypertension Pulmonary Medical History: Reports: Hx COPD Denies: Hx Bronchitis, Hx Pneumonia Neurological Medical History: Denies: Hx Cerebrovascular Accident, Hx Seizures Renal/ Medical History: Reports: Hx Kidney Stones. Denies: Hx Peritoneal Dialysis Malignancy Medical History: Reports Hx Colorectal Cancer Musculoskeltal Medical History: Reports Hx Arthritis - hips,knees Past Surgical History: Reports: Hx Cardiac Catheterization - two stents, Hx Orthopedic Surgery - R hip replacement, Other - Partial colectomy and right percutaneous nephrostomy - Immunizations Immunizations up to date: No Hx Diphtheria, Pertussis, Tetanus Vaccination: Yes Physical Exam - General General appearance: Appears well, Alert - Respiratory Respiratory status: No respiratory distress - Cardiovascular Rhythm: Regular Doctor's Discharge - Discharge Referrals: ELLIE MAY MD [Primary Care Provider] - Follow up as needed
--- NOTE | 2020-07-12 11:33 | RADIOLOGY REPORT (SQ) ---
EXAM DESCRIPTION: CHEST SINGLE VIEW IMAGES COMPLETED DATE/TIME: 07/12/2020 11:12 am REASON FOR STUDY: cp, dizzy COMPARISON: 05/14/2020 EXAM PARAMETERS: NUMBER OF VIEWS: One view. TECHNIQUE: Single frontal radiographic view of the chest acquired. RADIATION DOSE: NA LIMITATIONS: None. FINDINGS: LUNGS AND PLEURA: Stable chronic interstitial changes without focal consolidation, pleural effusion or pneumothorax. MEDIASTINUM AND HILAR STRUCTURES: No masses. Contour normal. HEART AND VASCULAR STRUCTURES: Heart normal in size. Normal vasculature. BONES: No acute findings. HARDWARE: None in the chest. OTHER: No other significant finding. IMPRESSION: No evidence of acute cardiopulmonary process. TECHNICAL DOCUMENTATION: JOB ID: [id number] 2010 [employer]- All Rights Reserved Reading location - IP/workstation name: [email or web address]
--- NOTE | 2020-07-12 11:54 | ER Document Report ---
Entered by RUEL MEDEL SCRIBE 07/12/20 2190 Acting as scribe for:MIRELLA LAWRENCE MD ED General - General Chief Complaint: Dizziness Stated Complaint: DIZZINESS Time Seen by Provider: 07/12/20 10:46 Primary Care Provider: ELLIE MAY MD [Primary Care Provider] - Follow up in 3-5 days Information source: Patient Notes: This 60 year old male patient presents to the emergency department today with complaints of feeling lightheaded for the last few days. Patient reports that he went to his PCP yesterday and requested blood work because of this lightheaded ness. He thinks he may have low blood sugar because when he gets hungry he feels lightheaded. He reports he went to [employer] this morning for his blood draw, went to [employer] and ate a croissant, and he went to [employer] and felt lightheaded so he decided he needed to come to the emergency department. He does mention that he thinks he may have gotten anxious about his symptoms. TRAVEL OUTSIDE OF THE [place] IN LAST 30 DAYS: No - Related Data Allergies/Adverse Reactions: No Known Allergies Allergy (Verified 04/22/20 11:02) Past Medical History - General Information source: Patient - Social History Smoking Status: Former Smoker Cigarette use (# per day): No Frequency of alcohol use: None Drug Abuse: None Lives with: Family Family History: Reviewed & Not Pertinent, Hypertension Patient has homicidal ideation: No - Past Medical History Cardiac Medical History: Reports: Hx Congestive Heart Failure, Hx Coronary Artery Disease - stents x2, 2001/2002, Hx Heart Attack - 2012, Hx Hypercholesterolemia, Hx Hypertension Pulmonary Medical History: Reports: Hx COPD Renal/ Medical History: Reports: Hx Kidney Stones Malignancy Medical History: Reports Hx Colorectal Cancer Musculoskeletal Medical History: Reports Hx Arthritis - hips,knees Past Surgical History: Reports: Hx Cardiac Catheterization - two stents, Hx Orthopedic Surgery - R hip replacement, Other - Partial colectomy and right percutaneous nephrostomy - Immunizations Immunizations up to date: No Hx Diphtheria, Pertussis, Tetanus Vaccination: Yes Review of Systems - Review of Systems Constitutional: No symptoms reported EENT: No symptoms reported Cardiovascular: See HPI, Lightheaded Respiratory: No symptoms reported Gastrointestinal: No symptoms reported Genitourinary: No symptoms reported Male Genitourinary: No symptoms reported Musculoskeletal: No symptoms reported Skin: No symptoms reported Hematologic/Lymphatic: No symptoms reported Neurological/Psychological: See HPI, Anxiety -: Yes All other systems reviewed and negative Physical Exam - Vital signs Vitals: Temp Pulse Resp BP Pulse Ox 98.2 F 74 20 135/93 H 99 07/12/20 10:57 07/12/20 10:57 07/12/20 10:57 07/12/20 10:57 07/12/20 10:57 - Notes Notes: Physical Exam: General: Alert, appears well. HEENT: Normocephalic. Atraumatic. PERRL. Extraocular movements intact. Oropharynx clear. Neck: Supple. Non-tender. Respiratory: No respiratory distress. Clear and equal breath sounds bilaterally. Cardiovascular: Regular rate and rhythm. Abdominal: Normal Inspection. Non-tender. No distension. Normal Bowel Sounds. Back: No gross abnormalities. Extremities: Moves all four extremities. Upper extremities: Normal inspection. Normal ROM. Lower extremities: Normal inspection. No edema. Normal ROM. Neurological: Normal cognition. AAOx4. Normal speech. Psychological: Normal affect. Normal Mood. Skin: Warm. Dry. Normal color. Course - Re-evaluation Re-evalutation: 07/12/20 12:18 I tried to get the patient to sit up so I could have him look up and down and see if I could provoke his dizziness. He complained of not being able to sit up due to muscle weakness which is a chronic problem, he states maybe it is his bad posture but he has never been able to sit up like other people. He complains of pain in his neck when I have him look up, but he states that is not new is been going on for a while and again he is very vague. He complains about anxiety and panic attacks when he thinks about his health issues. He is concerned about doctors discussing repairing his ureter so that he can have the nephrostomy tube removed. I was eventually able to get him to sit upright while he held onto each bed rail, when I assisted him in looking up and down in [id number] he did not get any nystagmus, or dizziness, he stated he was just lightheaded. 07/12/20 15:03 The patient was evaluated during the global COVID-19 pandemic and that diagnosis was suspected/considered upon their initial presentation. Their evaluation, treatment and testing was consistent with current guidelines for patients who present with complaints or symptoms that may be related to COVID-19. 07/12/20 15:03 After the Ativan, the patient felt relaxed. It was very difficult to get a straight answer about was he still lightheaded, or was it better. His only response was it seemed to let the pressure out. 07/12/20 15:13 I just had a long talk with the patient about his symptoms and his anxiety. He states at night he gets headaches and feels like his face is tightening up and he is afraid he could have a seizure. He is also very concerned about his blood pressure being too high, it is 124/82 with a pulse of 60 and a pulse ox of 100% on room air. He wants to know if that is good. I have tried to reassure the patient, but not very successfully. When I suggested that he get Covid tested due to his new symptoms, he was afraid that would cause even more anxiety so I told him that was his decision but we would not press him on it. I further encouraged him to follow-up with his primary care provider and discuss his anxiety problems with her and possibly start on an SSRI type medication. - Vital Signs Vital signs: Temp Pulse Resp BP Pulse Ox 98.2 F 74 19 121/85 98 07/12/20 10:57 07/12/20 10:57 07/12/20 15:37 07/12/20 15:37 07/12/20 15:37 - Laboratory Results Result Diagrams: 07/12/20 12:43 07/12/20 12:43 Laboratory Results Interpreted: 07/12/20 07/12/20 12:43 12:43 Hgb 13.2 L Glucose 112 H Critical Laboratory Results Reviewed: No Critical Results - Radiology Results Critical Radiology Results Reviewed: No Critical Results - EKG Interpretation by Me EKG shows normal: Sinus rhythm, [place], Intervals, QRS Complexes, ST-T Waves Rate: Normal - 77 Rhythm: NSR Discharge - Discharge Clinical Impression: Anxiety about health, Light-headed feeling Condition: Stable Disposition: HOME, SELF-CARE Additional Instructions: Anxiety The physician feels that some of your health problems are being caused by anxiety. Anxiety affects your health in many ways. Anxiety alone can cause palpitations, sweats, chest pains, abdominal pains, shortness of breath, and headaches. It contributes to ulcer disease, high blood pressure, irritable bowel syndrome, and has been shown to cause flare-ups of many other diseases. Anxiety is not a simple disorder to treat. If the anxiety is due to recent life stresses, you may simply need time to "work through" the changes. If the anxiety is due to an underlying unhappiness with yourself or due to psychiatric disturbance, professional help will be needed. Your physician can refer you for further help if needed. Anti-anxiety medication is occasionally given if the stress is acute or if you are having trouble sleeping. Chronic or frequent use of these medications is not a good idea because the body becomes reliant on it, preventing you from dealing with life's normal stresses. Follow-up with your primary care provider early next week to discuss your anxiety problems and also to recheck you for the lightheaded sensations you have been having. RETURN TO THE EMERGENCY ROOM IF ANY NEW OR WORSENING SYMPTOMS. Referrals: ELLIE MAY MD [Primary Care Provider] - Follow up in 3-5 days I personally performed the services described in the documentation, reviewed and edited the documentation which was dictated to the scribe in my presence, and it accurately records my words and actions.
[2020-07-12] MEDS ORDERED: LORAZEPAM INJ 2 MG/1 ML VIAL IV ONE (12:17)
[2020-07-12 13:01] LABS: ABSOLUTE BASOPHILS # (AUTO) 0.1 10^3/uL (0.0-0.2); ABSOLUTE EOSINOPHILS # (AUTO) 0.2 10^3/uL (0.0-0.6); ABSOLUTE LYMPHOCYTES (AUTO) 2.5 10^3/uL (0.5-4.7); ABSOLUTE MONOCYTES (AUTO) 0.4 10^3/uL (0.1-1.4); ABSOLUTE NEUT (AUTO) 3.7 10^3/uL (1.7-8.2); EOSINOPHILS % (AUTO) 2.3 % (0-6); HEMATOCRIT 39.3 % (37.9-51.0); HEMOGLOBIN 13.2 g/dL (13.5-17.0); LYMPHOCYTES % (AUTO) 36.8 % (13-45); MEAN CORPUSCULAR HEMOGLOBIN 29.2 pg (27.0-33.4); MEAN CORPUSCULAR HGB CONC 33.5 g/dL (32.0-36.0); MEAN CORPUSCULAR VOLUME 87 fl (80-97); MONOCYTES % (AUTO) 6.5 % (3-13); PLATELET COUNT 232 10^3/uL (150-450); RED BLOOD COUNT 4.52 10^6/uL (4.35-5.55); RED CELL DISTRIBUTION WIDTH 13.2 % (11.5-14.0); SEGMENTED NEUTROPHILS % (AUTO) 53.4 % (42-78); TOTAL CELLS COUNTED % (AUTO) 100 %; WHITE BLOOD COUNT 6.9 10^3/uL (4.0-10.5)
[2020-07-12 13:16] LABS: ALBUMIN 4.2 g/dL (3.5-5.0); ALKALINE PHOSPHATASE 95 U/L (38-126); ANION GAP 10 (5-19); ASPARTATE AMINO TRANSFERASE 34 U/L (17-59); BILIRUBIN,DIRECT 0.1 mg/dL (0.0-0.4); BILIRUBIN,TOTAL 0.5 mg/dL (0.2-1.3); BLOOD UREA NITROGEN 10 mg/dL (7-20); CALCIUM 9.6 mg/dL (8.4-10.2); CARBON DIOXIDE 24 mmol/L (22-30); CHLORIDE 106 mmol/L (98-107); GLUCOSE 112 mg/dL (75-110); POTASSIUM 3.9 mmol/L (3.6-5.0)
[2020-07-12 15:49] VITALS: BP 121/85
--- NOTE | 2020-07-13 17:21 | EKG REPORT ---
SEVERITY:- NORMAL ECG - SINUS RHYTHM : Confirmed by: Ashlyn Jang MD 13-Jul-2020 17:20:03
== END 2020-07-12 15:47 | disposition home or self-care (01) ==
LOC: ER 10:44
DX: F41.9 Anxiety disorder, unspecified (principal); R42 Dizziness and giddiness; I50.9 Heart failure, unspecified; I25.10 Atherosclerotic heart disease of native coronary artery without angina pectoris; E78.00 Pure hypercholesterolemia, unspecified; I11.0 Hypertensive heart disease with heart failure; I25.2 Old myocardial infarction; Z87.442 Personal history of urinary calculi
CPT/HCPCS: 93005; 99285; 96374; 36415; 83735; 87070; 84484; 71045; 93010; J2060

== ENCOUNTER → 2020-07-12 | Outpatient (CLI) | payer MEDICAID ==
[2020-07-12 09:25] LABS: ABSOLUTE BASOPHILS # (AUTO) 0.1 10^3/uL (0.0-0.2); ABSOLUTE EOSINOPHILS # (AUTO) 0.2 10^3/uL (0.0-0.6); ABSOLUTE LYMPHOCYTES (AUTO) 2.7 10^3/uL (0.5-4.7); ABSOLUTE MONOCYTES (AUTO) 0.5 10^3/uL (0.1-1.4); ABSOLUTE NEUT (AUTO) 3.8 10^3/uL (1.7-8.2); BASOPHILS % (AUTO) 1.1 % (0-2); EOSINOPHILS % (AUTO) 2.4 % (0-6); HEMATOCRIT 42.8 % (37.9-51.0); HEMOGLOBIN 13.8 g/dL (13.5-17.0); LYMPHOCYTES % (AUTO) 37.2 % (13-45); MEAN CORPUSCULAR HEMOGLOBIN 28.3 pg (27.0-33.4); MEAN CORPUSCULAR HGB CONC 32.3 g/dL (32.0-36.0); MEAN CORPUSCULAR VOLUME 87 fl (80-97); MONOCYTES % (AUTO) 7.5 % (3-13); PLATELET COUNT 224 10^3/uL (150-450); RED BLOOD COUNT 4.89 10^6/uL (4.35-5.55); RED CELL DISTRIBUTION WIDTH 13.2 % (11.5-14.0); SEGMENTED NEUTROPHILS % (AUTO) 51.8 % (42-78); TOTAL CELLS COUNTED % (AUTO) 100 %; WHITE BLOOD COUNT 7.3 10^3/uL (4.0-10.5)
[2020-07-12 09:46] LABS: ALBUMIN 4.5 g/dL (3.5-5.0); ALKALINE PHOSPHATASE 103 U/L (38-126); ANION GAP 12 (5-19); ASPARTATE AMINO TRANSFERASE 36 U/L (17-59); BILIRUBIN,DIRECT 0.2 mg/dL (0.0-0.4); BILIRUBIN,TOTAL 0.7 mg/dL (0.2-1.3); BLOOD UREA NITROGEN 9 mg/dL (7-20); CALCIUM 9.7 mg/dL (8.4-10.2); CARBON DIOXIDE 23 mmol/L (22-30); CHLORIDE 107 mmol/L (98-107); GLUCOSE 94 mg/dL (75-110); POTASSIUM 4.3 mmol/L (3.6-5.0); TOTAL PROTEIN 8.5 g/dL (6.3-8.2)
== END ==
LOC: OD 08:48
PROVIDERS: ATTEND Family Medicine
DX: R63.1 Polydipsia (principal); R53.83 Other fatigue
CPT/HCPCS: 36415; 80053; 84443; 85025

== ENCOUNTER 2020-07-13 16:58 | Emergency (ER) | payer MEDICAID ==
--- NOTE | 2020-07-13 17:35 | ER Document Report ---
ED Medical Screen (RME) - General Information source: Patient TRAVEL OUTSIDE OF THE [place] IN LAST 30 DAYS: No <MARCUS OCHOA - Last Filed: 07/13/20 17:35> <RODNEY CABRERA IV - Last Filed: 07/13/20 22:12> - General Chief Complaint: Flank Pain Stated Complaint: FLANK PAIN Time Seen by Provider: 07/13/20 17:27 Primary Care Provider: ELLIE MAY MD [Primary Care Provider] - Follow up as needed Notes: Patient presents complaining of right flank pain that started this evening. Patient states he is had increased drainage to the bandage over his right sided urostomy tube. Patient reports blood tinged drainage to his urostomy collection bag. Patient reports a history of MA, CHF sarcoidosis, colorectal cancer, and a urostomy tube. I have greeted and performed a rapid initial assessment of this patient. A comprehensive ED assessment and evaluation of the patient, analysis of test results and completion of the medical decision making process will be conducted by additional ED providers. (MARCUS OCHOA) - Related Data Allergies/Adverse Reactions: No Known Allergies Allergy (Verified 04/22/20 11:02) Past Medical History - Past Medical History Cardiac Medical History: Reports: Hx Congestive Heart Failure, Hx Coronary Artery Disease - stents x2, 2001/2002, Hx Heart Attack - 2011, Hx Hypercholesterolemia, Hx Hypertension Pulmonary Medical History: Reports: Hx COPD Denies: Hx Bronchitis, Hx Pneumonia Neurological Medical History: Denies: Hx Cerebrovascular Accident, Hx Seizures Renal/ Medical History: Reports: Hx Kidney Stones. Denies: Hx Peritoneal Dialysis Malignancy Medical History: Reports Hx Colorectal Cancer Musculoskeltal Medical History: Reports Hx Arthritis - hips,knees Past Surgical History: Reports: Hx Bowel Surgery - colon cancer removal, Hx Cardiac Catheterization - two stents, Hx Orthopedic Surgery - R hip replacement, Hx Urinary Tract Surgery - right nephrostomy in place, Other - Partial colectomy and right percutaneous nephrostomy - Immunizations Immunizations up to date: No Hx Diphtheria, Pertussis, Tetanus Vaccination: Yes <MARCUS OCHOA - Last Filed: 07/13/20 17:35> Physical Exam - Back Back: CVA tenderness - Right <MARCUS OCHOA - Last Filed: 07/13/20 17:35> - Vital signs Vitals: Temp Pulse Resp BP Pulse Ox 98.3 F 93 16 144/89 H 96 07/13/20 17:13 07/13/20 17:13 07/13/20 17:13 07/13/20 17:13 07/13/20 17:13 Course - Laboratory Results Result Diagrams: 07/13/20 20:24 07/13/20 20:24 Critical Laboratory Results Reviewed: Yes - Abnormal urinalysis Attending or Supervising Physician who Reviewed Labs: RODNEY CABRERA IV - Urinalysis and prior urine culture reviewed <RODNEY CABRERA IV - Last Filed: 07/13/20 22:12> - Re-evaluation Re-evalutation: 07/13/20 22:00 Results of ED MSE discussed with patient. All questions were answered prior to discharge. Emergency signs and symptoms, reasons to return to the emergency department discussed with patient. Medical decision making: Patient's urine culture from 06/28/2020 reviewed by this MD. Findings: The only oral agent that covers for both types of bacteria found in the patient's culture is Bactrim. This MD will start the patient back on Bactrim double strength twice daily for 14 days. (RODNEY CABRERA IV) - Vital Signs Vital signs: Temp Pulse Resp BP Pulse Ox 98.3 F 93 16 144/89 H 96 07/13/20 17:13 07/13/20 17:13 07/13/20 17:13 07/13/20 17:13 07/13/20 17:13 - Laboratory Results Laboratory Results Interpreted: 07/13/20 07/13/20 07/13/20 18:52 20:24 20:24 WBC 10.7 H Hgb 12.7 L Glucose 124 H Urine Protein 100 H Urine Blood LARGE H Ur Leukocyte Esterase MODERATE H - EKG Interpretation by Me Additional EKG results interpreted by me: 07/13/20 22:04 EKG obtained on 07/13/2020 at 1946 hrs. was interpreted by this MD. Findings: Normal sinus rhythm, rate 85, normal axis, LA interval appears to be within normal limits, P waves preceding QRS complexes, QRS complexes appear to be narrow, QTC is 405, there is no obvious pattern of ST segment elevation, depression or reciprocal changes seen to suggest acute myocardial ischemia or infarction. When compared with EKG from 07/12/2020, the morphology of the 2 EKGs appears to be grossly the same. Impression: Normal sinus rhythm with nonspecific ST segments. (RODNEY CABRERA IV) Doctor's Discharge <MARCUS OCHOA - Last Filed: 07/13/20 17:35> <RODNEY CABRERA IV - Last Filed: 07/13/20 22:12> - Discharge Clinical Impression: UTI (urinary tract infection) Qualifiers: Urinary tract infection type: site unspecified Hematuria presence: with hematuria Qualified Code(s): N39.0 - Urinary tract infection, site not specified; R31.9 - Hematuria, unspecified Condition: Stable Disposition: HOME, SELF-CARE Instructions: Trimethoprim-Sulfa ([facility]) Additional Instructions: Return to the Emergency Department without delay if any worse. HOME CARE INSTRUCTIONS & INFORMATION: Thank you for choosing us for your medical needs. We hope you're satisfied with the care you received. After you leave, you must properly care for your problem and, at the same time, observe its progress. Any condition can change. Some illnesses can change rapidly over hours or days. If your condition worsens, return to the Emergency Department or see your physician promptly. ABOUT YOUR X-RAYS AND EKG'S: If you had an EKG or X-rays taken, they have been read by the Emergency Physician. The X-rays and EKG's will also be read by a Radiologist or Data Sme within 24 hours. If discrepancies are noted, you will be notified by telephone. Please be certain the ED has a correct telephone number & address where you can be reached. Also, realize that some fractures or abnormalities do not show up on initial X-rays. If your symptoms continue, see your physician. ABOUT YOUR LABORATORY TEST: If you had laboratory tests, the results have been reviewed by the Emergency Physician. Some test results (for example cultures) may not be available for several days. You will be contacted if any test result shows you need additional treatment. Please be certain the ED has a correct telephone number and address where you can be reached. ABOUT YOUR MEDICATIONS: You will receive instructions on how to take your medicine on the prescription label you receive. Additional information may be provided by the Pharmacy. If you have questions afterwards, call the ED for clarification or further instructions. Some prescribed medications may cause d rowsiness. Do not perform tasks such as driving a car or operating machinery without consulting your Pharmacist. If you feel you need a refill of pain medication, your condition will need re-evaluation. Please do not call for a refill of any medication. ABOUT YOUR SIGNATURE: Signature of this document acknowledges to followin. Understanding that you received emergency treatment and that you may be released before al medical problems are known or treated. Please be certain the ED has a correct phone number & address where you can be reached. 2. Acknowledgement that you will arrange for follow-up care as recommended. 3. Authorization for the Emergency Physician to provide information to your follow-up Physician in order to maximize your care. AT ANY TIME, IF YOUR SYMPTOMS CHANGE SIGNIFICANTLY OR WORSEN OR YOU DEVELOP NEW SYMPTOMS, RETURN TO THE EMERGENCY DEPARTMENT IMMEDIATELY FOR RE-EVALUATION. OUR GOAL IS TO PROVIDE EXCELLENT MEDICAL CARE! WE HOPE THAT WE HAVE MET YOUR EXPECTATIONS DURING YOUR EMERGENCY DEPARTMENT VISIT AND THAT YOU FEEL YOU HAVE RECEIVED EXCELLENT CARE! Prescriptions: Hydrocodone/Acetaminophen [[place] 5-325 mg Tablet] 1 tab PO Q6HP PRN #12 tablet PRN Reason: pain Sulfamethoxazole/Trimethoprim [Bactrim Ds Tablet] 1 each PO BID #28 tablet Referrals: ELLIE MAY MD [Primary Care Provider] - Follow up as needed
[2020-07-13] MEDS ORDERED: HYDROCODONE/ACETAMINOPHEN 5-325 MG TABLET PO ONE ×2 (18:43→21:59)
[2020-07-13 19:17] LABS: APPEARANCE,URINE SLIGHTLY-CLOUDY; BILIRUBIN,URINE NEGATIVE (NEGATIVE); COLOR,URINE YELLOW; GLUCOSE, URINE NEGATIVE (NEGATIVE); KETONES,URINE NEGATIVE (NEGATIVE); LEUKOCYTE ESTERASE,URINE MODERATE (NEGATIVE); NITRITE,URINE NEGATIVE (NEGATIVE); PROTEIN,URINE 100 mg/dL (NEGATIVE); URINE SPECIFIC GRAVITY 1.013; UROBILINOGEN,URINE NEGATIVE mg/dL (<2.0)
[2020-07-13 20:32] LABS: ABSOLUTE BASOPHILS # (AUTO) 0.1 10^3/uL (0.0-0.2); ABSOLUTE EOSINOPHILS # (AUTO) 0.1 10^3/uL (0.0-0.6); ABSOLUTE LYMPHOCYTES (AUTO) 1.7 10^3/uL (0.5-4.7); ABSOLUTE MONOCYTES (AUTO) 0.9 10^3/uL (0.1-1.4); ABSOLUTE NEUT (AUTO) 7.9 10^3/uL (1.7-8.2); BASOPHILS % (AUTO) 0.6 % (0-2); EOSINOPHILS % (AUTO) 1.3 % (0-6); HEMOGLOBIN 12.7 g/dL (13.5-17.0); LYMPHOCYTES % (AUTO) 15.9 % (13-45); MEAN CORPUSCULAR HEMOGLOBIN 28.5 pg (27.0-33.4); MEAN CORPUSCULAR HGB CONC 32.5 g/dL (32.0-36.0); MEAN CORPUSCULAR VOLUME 88 fl (80-97); MONOCYTES % (AUTO) 8.3 % (3-13); PLATELET COUNT 204 10^3/uL (150-450); RED BLOOD COUNT 4.44 10^6/uL (4.35-5.55); RED CELL DISTRIBUTION WIDTH 13.3 % (11.5-14.0); SEGMENTED NEUTROPHILS % (AUTO) 73.9 % (42-78); TOTAL CELLS COUNTED % (AUTO) 100 %; WHITE BLOOD COUNT 10.7 10^3/uL (4.0-10.5)
[2020-07-13 20:50] LABS: ALBUMIN 4.1 g/dL (3.5-5.0); ALKALINE PHOSPHATASE 92 U/L (38-126); ANION GAP 10 (5-19); ASPARTATE AMINO TRANSFERASE 31 U/L (17-59); BILIRUBIN,TOTAL 0.5 mg/dL (0.2-1.3); BLOOD UREA NITROGEN 14 mg/dL (7-20); CALCIUM 9.4 mg/dL (8.4-10.2); CARBON DIOXIDE 22 mmol/L (22-30); CHLORIDE 106 mmol/L (98-107); GLUCOSE 124 mg/dL (75-110); POTASSIUM 3.9 mmol/L (3.6-5.0); TOTAL PROTEIN 7.9 g/dL (6.3-8.2)
[2020-07-13] MEDS ORDERED: HYDROCODONE/ACETAMINOPHEN 5-325 MG (6 TAB/ER DISP) PO PRN (21:59)
[2020-07-13] MEDS ORDERED: SULFAMETHOXAZOLE/TRIMETHOPRIM 800-160 MG TABLET PO ONE (21:59)
[2020-07-13 22:30] VITALS: BP 128/88
--- NOTE | 2020-07-14 12:13 | EKG REPORT ---
SEVERITY:- OTHERWISE NORMAL ECG - SINUS RHYTHM ATRIAL PREMATURE COMPLEX : Confirmed by: Ashlyn Jang MD 14-Jul-2020 12:12:01
== END 2020-07-13 22:36 | disposition home or self-care (01) ==
LOC: ER 16:58
DX: N39.0 Urinary tract infection, site not specified (principal); B96.89 Other specified bacterial agents as the cause of diseases classified elsewhere; R31.0 Gross hematuria; I25.10 Atherosclerotic heart disease of native coronary artery without angina pectoris; I10 Essential (primary) hypertension; J44.9 Chronic obstructive pulmonary disease, unspecified; Z93.6 Other artificial openings of urinary tract status; Z85.048 Personal history of other malignant neoplasm of rectum, rectosigmoid junction, and anus
CPT/HCPCS: 93005; 99284; 36415; 87086; 85025; 87088; 80053; 81001; 93010; J3490; 87186

== ENCOUNTER 2020-07-14 22:08 | Inpatient (IN) | payer MEDICAID ==
[2020-07-14] MEDS ORDERED: CEFTRIAXONE 1 GM/D5W RTU 1 GM/50 ML RTUPB IV ONE (22:35)
--- NOTE | 2020-07-14 22:35 | ER Document Report ---
ED Medical Screen (RME) - General Stated Complaint: POSSIBLE UTI Time Seen by Provider: 07/14/20 22:21 Primary Care Provider: ELLIE MAY MD [Primary Care Provider] - Follow up as needed Mode of Arrival: Ambulatory Information source: Patient Notes: Patient is a 60-year-old well-nourished male comes emergency room complaining continue to feel bad. Patient had a nephrostomy tube placed about 7 months ago. Since that point time he has had urinary tract infections off and on starting this past Wednesday patient started coming to the ER and being seen. He is being treated for urinary tract infection currently seen late last evening on 07/13/2020 and discharged earlier in the morning on 07/14/2020. Patient got Bactrim and states he is not getting better he feels worse than he did before. Given these findings patient was reevaluated. He denies any fevers that he knows of at this time. Physical exam: Patient is a well-nourished well-developed 60-year-old male no apparent distress. Cardiac: Patient slightly tachycardic at 103 bpm. Blood pressure slightly hypotensive at 118/71. Patient's O2 saturation is also 95% on room air. But he is temperature is 98.8. Lungs: Bilateral breath sounds with breath sounds increased clear to auscultation. Abdomen bowel sounds present 4 quads nontender to palpate. Given the patient is come back for 3 times in a row looking back at his CBC his WBC is starting to climb just minimally over the first 2 times it was drawn. Given this we will repeat the WBC also put in a lactic acid and we will also recheck his urine again. Patient's urine yesterday had a large amount of bacteria. I have greeted and performed a rapid initial assessment of this patient. A comprehensive ED assessment and evaluation of the patient, analysis of test results and completion of the medical decision making process will be conducted by additional ED providers. Dictation of this chart was performed using voice recognition software; therefore, there may be some unintended grammatical errors. TRAVEL OUTSIDE OF THE [place] IN LAST 30 DAYS: No - Related Data Allergies/Adverse Reactions: No Known Allergies Allergy (Verified 04/22/20 11:02) Past Medical History - Past Medical History Cardiac Medical History: Reports: Hx Congestive Heart Failure, Hx Coronary Artery Disease - stents x2, , Hx Heart Attack - 2012, Hx Hypercholesterolemia, Hx Hypertension Pulmonary Medical History: Reports: Hx COPD Denies: Hx Bronchitis, Hx Pneumonia Neurological Medical History: Denies: Hx Cerebrovascular Accident, Hx Seizures Renal/ Medical History: Reports: Hx Kidney Stones. Denies: Hx Peritoneal Dialysis Malignancy Medical History: Reports Hx Colorectal Cancer Musculoskeltal Medical History: Reports Hx Arthritis - hips,knees Past Surgical History: Reports: Hx Bowel Surgery - colon cancer removal, Hx Cardiac Catheterization - two stents, Hx Orthopedic Surgery - R hip replacement, Hx Urinary Tract Surgery - right nephrostomy in place, Other - Partial colectomy and right percutaneous nephrostomy - Immunizations Immunizations up to date: No Hx Diphtheria, Pertussis, Tetanus Vaccination: Yes Physical Exam - Vital signs Vitals: Temp Pulse Resp BP Pulse Ox 98.8 F 103 H 16 118/71 95 07/14/20 22:15 07/14/20 22:15 07/14/20 22:15 07/14/20 22:15 07/14/20 22:15 Course - Vital Signs Vital signs: Temp Pulse Resp BP Pulse Ox 98.8 F 103 H 16 118/71 95 07/14/20 22:15 07/14/20 22:15 07/14/20 22:15 07/14/20 22:15 07/14/20 22:15 Doctor's Discharge - Discharge Referrals: ELLIE MAY MD [Primary Care Provider] - Follow up as needed
[2020-07-14 23:27] LABS: APPEARANCE,URINE CLOUDY; BILIRUBIN,URINE NEGATIVE (NEGATIVE); COLOR,URINE YELLOW; GLUCOSE, URINE NEGATIVE (NEGATIVE); KETONES,URINE NEGATIVE (NEGATIVE); LEUKOCYTE ESTERASE,URINE LARGE (NEGATIVE); NITRITE,URINE NEGATIVE (NEGATIVE); PROTEIN,URINE 30 mg/dL (NEGATIVE); UROBILINOGEN,URINE NEGATIVE mg/dL (<2.0)
[2020-07-14 23:47] LABS: ABSOLUTE LYMPHOCYTES (AUTO) 2.5 10^3/uL (0.5-4.7); ABSOLUTE NEUT (AUTO) 8.9 10^3/uL (1.7-8.2); BASOPHILS % (AUTO) 0.4 % (0-2); EOSINOPHILS % (AUTO) 0.1 % (0-6); HEMATOCRIT 43.7 % (37.9-51.0); HEMOGLOBIN 14.2 g/dL (13.5-17.0); LYMPHOCYTES % (AUTO) 19.8 % (13-45); MEAN CORPUSCULAR HEMOGLOBIN 28.5 pg (27.0-33.4); MEAN CORPUSCULAR HGB CONC 32.6 g/dL (32.0-36.0); MEAN CORPUSCULAR VOLUME 88 fl (80-97); MONOCYTES % (AUTO) 8.3 % (3-13); PLATELET COUNT 184 10^3/uL (150-450); RED BLOOD COUNT 4.98 10^6/uL (4.35-5.55); RED CELL DISTRIBUTION WIDTH 13.4 % (11.5-14.0); SEGMENTED NEUTROPHILS % (AUTO) 71.4 % (42-78); TOTAL CELLS COUNTED % (AUTO) 100 %; WHITE BLOOD COUNT 12.5 10^3/uL (4.0-10.5)
[2020-07-15 00:20] LABS: ALBUMIN 4.6 g/dL (3.5-5.0); ALKALINE PHOSPHATASE 100 U/L (38-126); ANION GAP 15 (5-19); ASPARTATE AMINO TRANSFERASE 48 U/L (17-59); BILIRUBIN,DIRECT 0.2 mg/dL (0.0-0.4); BLOOD UREA NITROGEN 13 mg/dL (7-20); CALCIUM 9.5 mg/dL (8.4-10.2); CARBON DIOXIDE 22 mmol/L (22-30); CHLORIDE 101 mmol/L (98-107); GLUCOSE 97 mg/dL (75-110); TOTAL PROTEIN 8.7 g/dL (6.3-8.2)
[2020-07-15] MEDS ORDERED: NORMAL SALINE 1000 ML 1,000 ML IV ONE (01:58)
[2020-07-15] MEDS ORDERED: ACETAMINOPHEN 325 MG TABLET PO ONE (01:58)
[2020-07-15] MEDS ORDERED: CEFTAZIDIME INJ 1 GM VIAL IV ONE (01:58)
--- NOTE | 2020-07-15 02:15 | ER Document Report ---
ED General - General Chief Complaint: Urinary Problem Stated Complaint: POSSIBLE UTI Time Seen by Provider: 07/14/20 22:21 Mode of Arrival: Ambulatory TRAVEL OUTSIDE OF THE [place] IN LAST 30 DAYS: No - HPI Context: Chief Complaint: [Fever and malaise] [This is a 60-year-old male with a history of colon surgery at [facility] back in October 2019 that was complicated by ligation of the patient's "urethra" according to the patient. Patient had a nephrostomy tube placed in his right kidney that is attached to a leg bag. Patient presented yesterday complaining of similar symptoms and was found to have a urinary tract infection. This MD saw this patient yesterday and reviewed his most recent urine culture results and prescribed him Bactrim which was found to have sensitivity to both organisms that grew out of his latest urine culture. Patient states he has been taking the Bactrim but his not feeling any better and is having fever and fatigue. ] History obtained from [patient] Symptoms began:[3 days ago] Onset: [Gradual] Timing: [Gradual] Quality: [Aching] Intensity: [5] Location: [Generalized myalgias] Radiation: [Denies] [The pain does not migrate to a new location.] Aggravating factors: [none] Relieving factors: [none] [Denies] SOB [Denies] nausea [Denies] vomiting [Denies] sweats Positive fever [Denies] cough [Denies] calf or leg swelling or pain - Related Data Allergies/Adverse Reactions: No Known Allergies Allergy (Verified 04/22/20 11:02) Past Medical History - General Information source: Patient - Social History Smoking Status: Never Smoker Family History: Reviewed & Not Pertinent, Hypertension - Past Medical History Cardiac Medical History: Reports: Hx Congestive Heart Failure, Hx Coronary Artery Disease - stents x2, , Hx Heart Attack - 2012, Hx Hypercholesterolemia, Hx Hypertension Pulmonary Medical History: Reports: Hx COPD Denies: Hx Bronchitis, Hx Pneumonia Neurological Medical History: Denies: Hx Cerebrovascular Accident, Hx Seizures Renal/ Medical History: Reports: Hx Kidney Stones. Denies: Hx Peritoneal Dialysis Malignancy Medical History: Reports Hx Colorectal Cancer Musculoskeletal Medical History: Reports Hx Arthritis - hips,knees Past Surgical History: Reports: Hx Bowel Surgery - colon cancer removal, Hx Cardiac Catheterization - two stents, Hx Orthopedic Surgery - R hip replacement, Hx Urinary Tract Surgery - right nephrostomy in place, Other - Partial colectomy and right percutaneous nephrostomy - Immunizations Immunizations up to date: No Hx Diphtheria, Pertussis, Tetanus Vaccination: Yes Review of Systems - Review of Systems Notes: Review of systems as below unless otherwise stated in HPI. CONSTITUTIONAL Positive fever, [No] chills. Positive fatigue, positive malaise EYES [No] eye pain. ENT [No] URI symptoms, [No] sore throat, [No] ear pain. CARDIOVASCULAR [No] chest pain, [No] palpitations, [No] edema. RESPIRATORY [No] Cough, [No] SOB, [No] wheezing. GASTROINTESTINAL [No] abdominal pain, [No] nausea, [No] Diarrhea, [No] Vomiting, [No] constipation, [No] melena, [No] rectal bleeding. GENITOURINARY [No] dysuria, [No] urinary frequency, [No] hematuria, [No] urinary urgency, positive flank pain MUSCULOSKELETAL [No] Back pain. Positive flank pain SKIN [No] Rash. NEUROLOGIC [No] Headache, [No] recent seizures, [No] paralysis,[No] parathesias. ENDOCRINE [No] polyuria. HEMO/LYMPATIC [No] easy brusing PSYCHIATRIC [No] depression. Physical Exam - Vital signs Vitals: Temp Pulse Resp BP Pulse Ox 98.8 F 103 H 16 118/71 95 07/14/20 22:15 07/14/20 22:15 07/14/20 22:15 07/14/20 22:15 07/14/20 22:15 - Notes Notes: CONSTITUTIONAL [Vital signs reviewed, Patient appears uncomfortable comfortable, Alert and oriented X 3, Normal stature.] HEAD [Atraumatic, Normocephalic.] EYES [Eyes are normal to inspection, No discharge from eyes, Extraocular muscles intact, Sclera are normal, Conjunctiva are normal.] ENT [External ears normal to inspection, Nose examination normal, Mouth normal to inspection.] NECK [Normal ROM, No jugular venous distention, No meningeal signs, ] RESPIRATORY CHEST [Chest is nontender, Breath sounds normal, No respiratory distress.] CARDIOVASCULAR Tachycardia no murmurs, Normal S1 S2, No rub, No gallop.] ABDOMEN [Abdomen is nontender, No pulsatile masses, No other masses, Bowel sounds normal, No distension, No peritoneal signs, No hernias.] BACK [There is right-sided CVA Tenderness to palpation, nephrostomy tube appears intact] UPPER EXTREMITY [Inspection normal, No cyanosis, No clubbing, No edema, LOWER EXTREMITY [Inspection normal, No cyanosis, No clubbing, No edema, No calf tenderness, NEURO [No focal motor deficits, No focal sensory deficits, Speech normal.] SKIN [Skin is warm, Skin is dry, Skin is normal color.] LYMPHATIC [No adenopathy in neck.] PSYCHIATRIC [Normal affect. ] Course - Re-evaluation Re-evalutation: 07/15/20 05:12 Patient has failed outpatient oral antibiotic therapy. Patient is febrile, tachycardic and states he is feeling worse. This MD discussed admission with the patient who is agreeable to being admitted for IV antibiotics. - Vital Signs Vital signs: Temp Pulse Resp BP Pulse Ox 101.9 F H 94 16 129/72 H 97 07/15/20 01:43 07/15/20 01:43 07/15/20 01:43 07/15/20 01:43 07/15/20 01:43 - Laboratory Results Result Diagrams: 07/14/20 23:30 07/14/20 23:30 Laboratory Results Interpreted: 07/14/20 07/14/20 07/14/20 22:56 23:30 23:30 WBC 12.5 H Absolute Neuts (auto) 8.9 H Total Protein 8.7 H Urine Protein 30 H Urine Blood LARGE H Ur Leukocyte Esterase LARGE H Urine Ascorbic Acid 20 H Critical Laboratory Results Reviewed: Yes Attending or Supervising Physician who Reviewed Labs: RODNEY CABRERA IV - Patient's white count has increased from yesterday, urinary tract infection appears worse - Radiology Results Critical Radiology Results Reviewed: No Critical Results - No radiology studies ordered for patient by this MD - Consults Dr. Olivia Time consulted: 02:14 Reason for consultation: 07/15/20 02:14 Patient failed to respond to outpatient oral antibiotic therapy for UTI Consulted provider: will come to ER Discharge - Discharge Clinical Impression: UTI (urinary tract infection) Qualifiers: Urinary tract infection type: site unspecified Hematuria presence: with hematuria Qualified Code(s): N39.0 - Urinary tract infection, site not specified Condition: Stable Disposition: ADMITTED OBSERVATION Admitting Provider: Ne Unit Admitted: Medical Floor
[2020-07-15] MEDS ORDERED: ONDANSETRON HCL INJ/PF 4 MG/2 ML SDV IV PRN (03:01)
[2020-07-15] MEDS ORDERED: OXYCODONE-ACETAMINOPHEN 5-325 MG TABLET PO PRN (03:20)
--- NOTE | 2020-07-15 04:01 | PDOC H&P ---
History of Present Illness Admission Date/PCP: ELLIE MAY MD Patient complains of: Fever History of Present Illness: SHANIQUA BURNHAM JR is a 60 year old male with a history of colon cancer status post resection and surgery was complicated by right ureter injury with right- sided nephrostomy tube placement in September 2019 now presents to the ED reporting that he has been feeling bad. He states that he has flulike symptoms with intermittent fever, fatigue and body aches. He reports that intermittently his urine in the urine bag becomes cloudy and reddish in color whenever he experiences the pain. He has been treated for similar symptoms resulting in UTI multiple times in the past few months. He has been to emergency department 5 times in the past 2 weeks for similar symptoms and urine culture drawn on 06/28/2020 grew E. coli and stenotrophomonas. Patient was sent home with Bactrim based on sensitivity result from urine culture but the symptoms failed to improve. He denies any back pain, cough, shortness of breath, chest pain, palpitation, dizziness, nausea, vomiting, diarrhea, dysuria, frequency or urgency of urination. Past Medical History Cardiac Medical History: Reports: Congestive Heart Failure, Coronary Artery Disease - stents x2, 2001/2002, Myocardial Infarction - 2011, Hyperlipidema, Hy pertension Pulmonary Medical History: Reports: Chronic Obstructive Pulmonary Disease (COPD) Denies: Bronchitis, Pneumonia Neurological Medical History: Denies: Seizures Malignancy Medical History: Reports: Colorectal Cancer Musculoskeltal Medical History: Reports: Arthritis - hips,knees Hematology: Denies: Anemia Past Surgical History Past Surgical History: Reports: Cardiac Catheterization - two stents, Orthopedic Surgery - R hip replacement, Other - Partial colectomy and right percutaneous nephrostomy Social History Information Source: Patient Smoking Status: Never Smoker Frequency of Alcohol Use: None Hx Recreational Drug Use: No Drugs: None Hx Prescription Drug Abuse: No - Advance Directive Resuscitation Status: Full Code Family History Family History: Reviewed & Not Pertinent, Hypertension Parental Family History Reviewed: Yes Children Family History Reviewed: Yes Sibling(s) Family History Reviewed.: Yes Medication/Allergy Home Medications: Loratadine 10 mg PO DAILY #7 tablet 01/20/13 Propranolol HCl 20 mg PO DAILY #7 tablet 01/20/13 Multivitamin [Daily Vitamin] 1 tab PO DAILY 09/08/13 Cholecalciferol (Vitamin D3) [Vitamin D3] 2,000 unit PO DAILY 10/27/16 Furosemide [Lasix] 20 mg PO DAILY 10/27/16 Aspirin [Ecotrin 81 mg EC Tablet] 81 mg PO DAILY 11/05/19 Ciprofloxacin HCl [Cipro 500 mg Tablet] 500 mg PO BID #14 tablet 11/06/19 Metronidazole [Flagyl 500 mg Tablet] 500 mg PO TID #21 tablet 11/06/19 Tamsulosin HCl [Flomax 0.4 mg Cap.sr] 0.4 mg PO DAILY #10 cap.sr.24h 11/06/19 Cephalexin [Keflex] 500 mg PO BID #14 capsule 02/27/20 Potassium Chloride 20 meq PO DAILY #4 tab.er.prt 02/27/20 Sulfamethoxazole/Trimethoprim [Bactrim Ds Tablet] 1 each PO BID #14 tablet 03/19/20 Sulfamethoxazole/Trimethoprim [Bactrim Ds Tablet] 1 each PO BID #30 tablet 03/27/20 Ciprofloxacin HCl [Cipro 500 mg Tablet] 500 mg PO BID 7 Days #14 tablet 04/16/20 Cefdinir 300 mg PO BID 7 Days #14 capsule 05/14/20 Amoxicillin/Potassium Clav [Augmentin 875-125 Tablet] 1 tab PO Q12 10 Days #20 tablet 06/28/20 Ondansetron [Zofran Odt 4 mg Tablet] 1 - 2 tab PO Q4H PRN #15 tab.rapdis 07/04/20 Hydrocodone/Acetaminophen [[place] 5-325 mg Tablet] 1 tab PO Q6HP PRN #12 tablet 07/13/20 Sulfamethoxazole/Trimethoprim [Bactrim Ds Tablet] 1 each PO BID #28 tablet 07/13/20 Allergies/Adverse Reactions: No Known Allergies Allergy (Verified 04/22/20 11:02) Review of Systems Constitutional: PRESENT: as per HPI Eyes: ABSENT: visual disturbances Ears: ABSENT: hearing changes Nose, Mouth, and Throat: ABSENT: mouth pain, sore throat Cardiovascular: ABSENT: chest pain, dyspnea on exertion, edema, orthropnea, palpitations Respiratory: ABSENT: cough, hemoptysis Gastrointestinal: ABSENT: abdominal pain, constipation, diarrhea, hematemesis, hematochezia, nausea, vomiting Genitourinary: PRESENT: as per HPI Musculoskeletal: ABSENT: joint swelling Integumentary: ABSENT: rash, wounds Neurological: ABSENT: abnormal gait, abnormal speech, confusion, dizziness, focal weakness, syncope Psychiatric: ABSENT: anxiety, depression, homidical ideation, suicidal ideation Endocrine: ABSENT: cold intolerance, heat intolerance, polydipsia, polyuria Hematologic/Lymphatic: ABSENT: easy bleeding, easy bruising Physical Exam Vital Signs: Temp Pulse Resp BP Pulse Ox 101.9 F H 94 16 129/72 H 97 07/15/20 01:43 07/15/20 01:43 07/15/20 01:43 07/15/20 01:43 07/15/20 01:43 Intake & Output 07/13/20 07/14/20 07/15/20 06:59 06:59 06:59 Weight 91 kg Additional comments: GENERAL APPEARANCE: Alert and oriented x3, in no acute distress HEENT: Normocephalic and atraumatic. No scleral icterus. Moist oral mucosa NECK: Supple. No lymphadenopathy or tenderness. No JVD CHEST: Symmetric. Nontender to palpation. LUNGS: Clear with good air entry bilaterally. No wheezing or crackles HEART: Regular rate and rhythm with normal S1 and S2. No murmurs, gallops, or rubs. ABDOMEN: Flat, soft, active bowel sounds, no direct or rebound tenderness. No organomegaly detected. Genitourinary: Right nephrostomy tube in place, no costovertebral angle tenderness, no erythema or tenderness at the site of nephrostomy tube EXTREMITIES: No cyanosis, clubbing, or edema. MUSCULOSKELETAL: No deformity, atrophy or swelling noted PSYCHIATRIC: Recent and remote memory is intact. Appropriate mood and affect. SKIN: Warm, dry, and well perfused. No lesions or rashes are noted. NEUROLOGIC: No focal sensory or motor deficits are noted. Results Laboratory Results: 07/14/20 23:30 07/14/20 23:30 07/14/20 07/14/20 07/14/20 22:56 23:30 23:30 WBC 12.5 H RBC 4.98 Hgb 14.2 Hct 43.7 MCV 88 MCH 28.5 MCHC 32.6 RDW 13.4 Plt Count 184 Seg Neutrophils % 71.4 Sodium 138.2 Potassium 4.0 Chloride 101 Carbon Dioxide 22 Anion Gap 15 BUN 13 Creatinine 1.12 Est GFR ( Amer) > 60 Glucose 97 Lactic Acid Calcium 9.5 Total Bilirubin 1.0 AST 48 Alkaline Phosphatase 100 Total Protein 8.7 H Albumin 4.6 Urine Color YELLOW Urine Appearance CLOUDY Urine pH 6.0 Ur Specific [place] 1.010 Urine Protein 30 H Urine Glucose (UA) NEGATIVE Urine Ketones NEGATIVE Urine Blood LARGE H Urine Nitrite NEGATIVE Ur Leukocyte Esterase LARGE H Urine WBC (Auto) >182 Urine RBC (Auto) 127 07/14/20 23:30 WBC RBC Hgb Hct MCV MCH MCHC RDW Plt Count Seg Neutrophils % Sodium Potassium Chloride Carbon Dioxide Anion Gap BUN Creatinine Est GFR ( Amer) Glucose Lactic Acid 1.9 Calcium Total Bilirubin AST Alkaline Phosphatase Total Protein Albumin Urine Color Urine Appearance Urine pH Ur Specific [place] Urine Protein Urine Glucose (UA) Urine Ketones Urine Blood Urine Nitrite Ur Leukocyte Esterase Urine WBC (Auto) Urine RBC (Auto) Assessment and Plan - Diagnosis (1) Complicated UTI (urinary tract infection) Is this a current diagnosis for this admission?: Yes Plan: Patient presents with generalized body aches, fever and fatigue Has been treated with antibiotic for an extended period of time multiple times UA consistent with UTI with large leukocyte esterase and multiple WBCs Was tachycardic, febrile with a temperature of 1.9 on presentation and has leukocytosis Urine culture obtained on 06/28 grew E. coli and stenotrophomonas was sensitive to Bactrim and ceftazidime but patient has been on Bactrim since then and has not responded Started him on ceftazidime 2 mg every [address] abdomen/pelvis to assess for any collection Follow-up with urine and blood cultures Patient to follow-up with urology at [place] after discharge (2) Sepsis Is this a current diagnosis for this admission?: Yes Plan: Patient meets criteria for sepsis per SIRS criteria: Tachycardic, febrile and has leukocytosis Likely source of infection being urinary tract infection with right nephrostomy tube in place Started him on ceftazidime per previous urine culture and sensitivity Lactic acid was within the normal limit Continue IV hydration with LR at 125 mL/h Follow-up with CT abdomen and pelvis (3) Leukocytosis Is this a current diagnosis for this admission?: Yes Plan: Likely due to complicated UTI Continue treatment as stated above (4) History of colon cancer Is this a current diagnosis for this admission?: Yes Plan: Status post resection of the tumor 7 months back at [facility] Patient states that he had intra-abdominal finding on follow-up imaging concerning for recurrence But he states that he did not want to follow out and undergo further work-up at the same facility due to the ureter injury he sustained during the surgery He states that he is going to follow-up at [place] CT abdomen and pelvis has been ordered Consider heme-onc consult (5) History of sarcoidosis Is this a current diagnosis for this admission?: Yes Plan: Currently not in a flareup and not on any medication Continue to monitor (6) Overweight (BMI 25.0-29.9) Is this a current diagnosis for this admission?: Yes Plan: Encourage lifestyle modification including dietary change and regular exercise - Time Time Spent with patient: 35 or more minutes Total Critical Time (Minutes): 45 Medications reviewed and adjusted accordingly: Yes Anticipated Discharge Disposition: Home, Self Care Anticipated Discharge Timeframe: within 72 hours - Inpatient Certification Based on my medical assessment, after consideration of the patient's comorbidities, presenting symptoms, or acuity I expect that the services needed warrant INPATIENT care.: Yes I certify that my determination is in accordance with my understanding of Medicare's requirements for reasonable and necessary INPATIENT services [42 CFR 412.3e].: Yes Medical Necessity: Failure to Improve With Outpatient Therapy, Significant Comorbidiites Make Outpatient Treatment Too Risky, Need For IV Fluids, Need for IV Antibiotics Post Hospital Care: D/C or Transfer Summary
[2020-07-15] MEDS: FAMOTIDINE 20 MG TABLET PO SCH (09:15)
[2020-07-15] MEDS ORDERED: ENOXAPARIN SODIUM INJ 40 MG/0.4 ML DISP.SYRIN SUBCUT SCH (10:00)
[2020-07-15] MEDS: ACETAMINOPHEN 325 MG TABLET PO PRN (11:19)
[2020-07-15] MEDS: CEFTAZIDIME PENTAHYDRATE 2 GM in DEXTROSE 5%-WATER 100 ML IV SCH ×2 (11:19→17:25)
--- NOTE | 2020-07-15 11:58 | RADIOLOGY REPORT (SQ) ---
EXAM DESCRIPTION: CT ABD/PELVIS COMBO IMAGES COMPLETED DATE/TIME: 07/15/2020 10:59 am REASON FOR STUDY: Complicated UTI, failure to improve with antibioti COMPARISON: Renal ultrasound from 03/26/2020. TECHNIQUE: CT scan of the abdomen and pelvis performed with and without intravenous contrast, and wi thout oral contrast. Contrasted imaging performed helical scanning technique and dynamic intravenous contrast injection. Images reviewed with lung, soft tissue, and bone windows. Reconstructed coronal a nd sagittal MPR images reviewed. Delayed images for evaluation of the urinary system also acquired. A ll images stored on PACS. All CT scanners at this facility use dose modulation, iterative reconstruction, and/or weight based d osing when appropriate to reduce radiation dose to as low as reasonably achievable (ALARA). [facility]: Dose Right [facility]: CareDose [facility]: Dose Right [facility]: Teradose 4D [facility]: [place] CONTRAST TYPE AND DOSE: Contrast/concentration: Isovue 350.00 mmol/ml; Total Contrast Delivered: 100 .0 ml; Total Saline Delivered: 25.0 ml RENAL FUNCTION: Creatinine 1.12 milligrams/deciliter. RADIATION DOSE: CT Rad equipment meets quality standard of care and radiation dose reduction techniq ues were employed. CTDIvol: 12.0 - 13.3 mGy. DLP: 1937 mGy-cm. LIMITATIONS: None. FINDINGS: NON-CONTRASTED IMAGING: There is no evidence hepatic steatosis. Several bilateral calicea l calculi that on the right measure up to 9 mm in diameter. There is no ureterolithiasis or cystolit hiasis. POST-CONTRASTED IMAGING: LOWER CHEST: No acute abnormality. LIVER: The morphology of the liver is noncirrhotic. The portal veins are patent. There is no hepati c mass. SPLEEN: No splenomegaly or splenic mass. There are 2 adjacent accessory splenules in the left upper quadrant (image 11 of series 3). PANCREAS: No acute gross abnormality of the pancreas. GALLBLADDER: Cholelithiasis. There is no pericholecystic inflammation or biliary ductal dilatation. ADRENAL GLANDS: No mass or asymmetry. RIGHT KIDNEY AND URETER: The loop of the percutaneous nephrostomy catheter projects within the renal pelvis. There is a focus of gas within an upper pole calyx (image 22 of series 3) and in the upper po le of the kidney (image 25 of series 3) there is a perfusion defect that effaces the normal corticome dullary differentiation. There is no hydronephrosis or hydroureter. There is a trace amount of flui d around the kidney. There is no perinephric abscess. LEFT KIDNEY AND URETER: No solid mass, hydronephrosis or hydroureter. AORTA AND VESSELS: No aneurysm or dissection of the abdominal aorta. RETROPERITONEUM: Prominent post caval and lateral caval lymph nodes that measure up to 8 mm in short axis diameter. BOWEL AND PERITONEAL CAVITY: Status post bowel resection and anastomosis. There are 2 adjacent nodul es in the pelvis (lateral to the sigmoid colon, image 67 of series 3) that have increased in size sin ce the CT from 11/15/2019 and measure 23 x 23 mm and 21 x 19 mm. There is no bowel obstruction, bowel wall thickening or pericolonic/ perienteric inflammation. APPENDIX: Unable to identify the appendix. PELVIS: Evaluation of the pelvis is limited by the artifact generated from the arthroplasty hardware. The urinary bladder is contracted. The prostate gland is enlarged. ABDOMINAL WALL: Ventral laparotomy incision. There is no mass or hernia. BONES: Severe osteoarthrosis of the left femoroacetabular joint. OTHER: No other finding. IMPRESSION: 1. The right-sided percutaneous nephrostomy catheter is in proper position and there is no hydronephrosis. There is a focus of gas within an upper pole calyx (image 22 of series 3) and in t he upper pole of the kidney (image 25 of series 3) there is a perfusion defect that effaces the arlette l corticomedullary differentiation - this is concerning for a pyelonephritis. There is a trace amount of fluid around the right kidney - there is no drainable perinephric abscess. 2. Status post bowel resection and anastomosis. There are 2 adjacent nodules in the pelvis (lateral to the sigmoid colon, image 67 of series 3) that have increased in size since the CT from 11/15/2019 a nd measure 23 x 23 mm and 21 x 19 mm - these nodules are concerning for malignancy. TECHNICAL DOCUMENTATION: JOB ID: [id number] Quality ID # [id number]: Final reports with documentation of one or more dose reduction techniques (e.g., Au tomated exposure control, adjustment of the mA and/or kV according to patient size, use of iterative reconstruction technique) 2010 [employer]- All Rights Reserved Reading location - IP/workstation name: [email or web address]
[2020-07-15] MEDS: PROPRANOLOL HCL 20 MG TABLET PO SCH (12:13)
--- NOTE | 2020-07-15 15:59 | PDOC PROGRESS REPORT ---
Subjective Date:: 07/15/20 Subjective:: SHANIQUA BURNHAM JR is a 60 year old male with a history of colon cancer status p ost resection and surgery was complicated by right ureter injury with right- sided nephrostomy tube placement in September 2019 now presents to the ED reporting that he has been feeling bad. He states that he has flulike symptoms with intermittent fever, fatigue and body aches. He reports that intermittently his urine in the urine bag becomes cloudy and reddish in color whenever he experiences the pain. He has been treated for similar symptoms resulting in UTI multiple times in the past few months. He has been to emergency department 5 times in the past 2 weeks for similar symptoms and urine culture drawn on 06/28/2020 grew E. coli and stenotrophomonas. Patient was sent home with Bactrim based on sensitivity result from urine culture but the symptoms failed to improve. He denies any back pain, cough, shortness of breath, chest pain, palpitation, dizziness, nausea, vomiting, diarrhea, dysuria, frequency or urgency of urination. D1 Hospital stay. Patient was seen and examined at bedside. No new complains, no flank pain, no chills. Urine culture growing gram negative rods. He is currently on ceftazidime. CT abd/pelvis showed findings consistent with pyelonephritis. There is a trace amount of fluid around the right kidney there is no drainable perinephric abscess. There is also note of increased nodules lateral to the sigmoid colon which are concerning for malignancy. Reason For Visit: COMPLICATED UTI, FAILED OUTPATIENT TREATMENT Physical Exam Vital Signs: Temp Pulse Resp BP Pulse Ox 98.5 F 100 17 130/74 H 100 07/15/20 12:32 07/15/20 11:56 07/15/20 11:56 07/15/20 11:56 07/15/20 07:15 Intake & Output 07/14/20 07/15/20 07/16/20 06:59 06:59 06:59 Intake Total 1000 420 Balance 1000 420 Weight 91 kg General appearance: PRESENT: no acute distress, cooperative Head exam: PRESENT: atraumatic, normocephalic Eye exam: PRESENT: EOMI, PERRLA Mouth exam: PRESENT: moist Neck exam: PRESENT: full ROM Respiratory exam: PRESENT: clear to auscultation meliton, symmetrical, unlabored Cardiovascular exam: PRESENT: RRR, +S1, +S2 GI/Abdominal exam: PRESENT: normal bowel sounds, soft. ABSENT: rebound, tenderness Extremities exam: PRESENT: full ROM Musculoskeletal exam: PRESENT: full ROM Neurological exam: PRESENT: alert, awake, oriented to person, oriented to place, oriented to time, oriented to situation Psychiatric exam: PRESENT: normal mood Skin exam: PRESENT: normal color Results Laboratory Results: 07/14/20 23:30 07/14/20 23:30 07/14/20 07/14/20 07/14/20 22:56 23:30 23:30 WBC 12.5 H RBC 4.98 Hgb 14.2 Hct 43.7 MCV 88 MCH 28.5 MCHC 32.6 RDW 13.4 Plt Count 184 Seg Neutrophils % 71.4 Sodium 138.2 Potassium 4.0 Chloride 101 Carbon Dioxide 22 Anion Gap 15 BUN 13 Creatinine 1.12 Est GFR ( Amer) > 60 Glucose 97 Lactic Acid Calcium 9.5 Total Bilirubin 1.0 AST 48 Alkaline Phosphatase 100 Total Protein 8.7 H Albumin 4.6 Urine Color YELLOW Urine Appearance CLOUDY Urine pH 6.0 Ur Specific [place] 1.010 Urine Protein 30 H Urine Glucose (UA) NEGATIVE Urine Ketones NEGATIVE Urine Blood LARGE H Urine Nitrite NEGATIVE Ur Leukocyte Esterase LARGE H Urine WBC (Auto) >182 Urine RBC (Auto) 127 07/14/20 23:30 WBC RBC Hgb Hct MCV MCH MCHC RDW Plt Count Seg Neutrophils % Sodium Potassium Chloride Carbon Dioxide Anion Gap BUN Creatinine Est GFR ( Amer) Glucose Lactic Acid 1.9 Calcium Total Bilirubin AST Alkaline Phosphatase Total Protein Albumin Urine Color Urine Appearance Urine pH Ur Specific [place] Urine Protein Urine Glucose (UA) Urine Ketones Urine Blood Urine Nitrite Ur Leukocyte Esterase Urine WBC (Auto) Urine RBC (Auto) Impressions: Abdomen/Pelvis CT 07/15/20 09:00 IMPRESSION: 1. The right-sided percutaneous nephrostomy catheter is in proper position and there is no hydronephrosis. There is a focus of gas within an upper pole calyx (image 22 of series 3) and in the upper pole of the kidney (image 25 of series 3) there is a perfusion defect that effaces the normal corticomedull rusty differentiation - this is concerning for a pyelonephritis. There is a trace amount of fluid around the right kidney - there is no drainable perinephric abscess. 2. Status post bowel resection and anastomosis. There are 2 adjacent nodules in the pelvis (lateral to the sigmoid colon, image 67 of series 3) that have increased in size since the CT from 11/15/2019 and measure 23 x 23 mm and 21 x 19 mm - these nodules are concerning for malignancy. Assessment and Plan - Diagnosis (1) Sepsis Qualifiers: Sepsis type: sepsis due to unspecified organism Sepsis acute organ dysfunction status: without acute organ dysfunction Qualified Code(s): A41.9 - Sepsis, unspecified organism Is this a current diagnosis for this admission?: Yes Plan: Patient meets criteria for sepsis per SIRS criteria: Tachycardic, febrile and has leukocytosis Likely source of infection being urinary tract infection with right nephrostomy tube in place Started him on ceftazidime per previous urine culture and sensitivity Lactic acid was within the normal limit Continue IV hydration with LR at 125 mL/h CT abdomen finding showed consistent with pyelonephritis. Drainable perinephric abscess. Also noted of nodules around the sigmoid colon concerning for malignancy. (2) Complicated UTI (urinary tract infection) Is this a current diagnosis for this admission?: Yes Plan: Patient presents with generalized body aches, fever and fatigue Has been treated with antibiotic for an extended period of time multiple times UA consistent with UTI with large leukocyte esterase and multiple WBCs Was tachycardic, febrile with a temperature of 1.9 on presentation and has leukocytosis Urine culture obtained on 06/28 grew E. coli and stenotrophomonas was sensitive to Bactrim and ceftazidime but patient has been on Bactrim since then and has not responded Started him on ceftazidime 2 mg every [address] abdomen showing pyelonephritis and nodules concerning for colon malignancy. No perinephric abscess. Follow-up with urine and blood cultures Patient to follow-up with urology at [place] after discharge (3) History of colon cancer Is this a current diagnosis for this admission?: Yes Plan: Status post resection of the tumor 7 months back at [facility] Patient states that he had intra-abdominal finding on follow-up imaging concerning for recurrence But he states that he did not want to follow out and undergo further work-up at the same facility due to the ureter injury he sustained during the surgery He states that he is going to follow-up at [place] CT abdomen and pelvis showed nodules concerning for malignancy Needs to follow-up with an oncologist as an outpatient I am not sure what further treatment for his colon cancer we can provide here inpatient. We will hold off on oncology consult for now (4) Overweight (BMI 25.0-29.9) Is this a current diagnosis for this admission?: Yes Plan: Encourage lifestyle modification including dietary change and regular exercise (5) History of sarcoidosis Is this a current diagnosis for this admission?: Yes Plan: Currently not in a flareup and not on any medication Continue to monitor - Time Time Spent with patient: 25-34 minutes Medications reviewed and adjusted accordingly: Yes Anticipated Discharge Disposition: Home, Self Care Anticipated Discharge Timeframe: TBD
[2020-07-15] MEDS: RIVAROXABAN 10 MG TABLET PO SCH (17:25)
[2020-07-16] MEDS: FAMOTIDINE 20 MG TABLET PO SCH ×3 (05:04→22:10)
[2020-07-16] MEDS: CEFTAZIDIME PENTAHYDRATE 2 GM in DEXTROSE 5%-WATER 100 ML IV SCH ×3 (05:17→17:21)
[2020-07-16 05:22] LABS: ABSOLUTE BASOPHILS # (AUTO) 0.1 10^3/uL (0.0-0.2); ABSOLUTE LYMPHOCYTES (AUTO) 2.6 10^3/uL (0.5-4.7); ABSOLUTE MONOCYTES (AUTO) 1.9 10^3/uL (0.1-1.4); ABSOLUTE NEUT (AUTO) 6.5 10^3/uL (1.7-8.2); BASOPHILS % (AUTO) 0.6 % (0-2); EOSINOPHILS % (AUTO) 0.2 % (0-6); HEMATOCRIT 34.2 % (37.9-51.0); LYMPHOCYTES % (AUTO) 23.5 % (13-45); MEAN CORPUSCULAR HEMOGLOBIN 28.4 pg (27.0-33.4); MEAN CORPUSCULAR HGB CONC 32.6 g/dL (32.0-36.0); MEAN CORPUSCULAR VOLUME 87 fl (80-97); MONOCYTES % (AUTO) 16.9 % (3-13); PLATELET COUNT 155 10^3/uL (150-450); RED BLOOD COUNT 3.93 10^6/uL (4.35-5.55); RED CELL DISTRIBUTION WIDTH 12.8 % (11.5-14.0); SEGMENTED NEUTROPHILS % (AUTO) 58.8 % (42-78); TOTAL CELLS COUNTED % (AUTO) 100 %; WHITE BLOOD COUNT 11.1 10^3/uL (4.0-10.5)
[2020-07-16 05:23] LABS: HEMOGLOBIN 11.2 g/dL (13.5-17.0)
[2020-07-16 05:40] LABS: ANION GAP 9 (5-19)
[2020-07-16 05:41] LABS: BLOOD UREA NITROGEN 12 mg/dL (7-20); CALCIUM 8.6 mg/dL (8.4-10.2); CARBON DIOXIDE 24 mmol/L (22-30); CHLORIDE 104 mmol/L (98-107); GLUCOSE 99 mg/dL (75-110); POTASSIUM 3.7 mmol/L (3.6-5.0)
[2020-07-16] MEDS: FUROSEMIDE 20 MG TABLET PO SCH (09:06)
[2020-07-16] MEDS: ASPIRIN 81 MG TABLET, ENT COATED PO SCH (09:06)
[2020-07-16] MEDS: LORATADINE 10 MG TABLET PO SCH (09:06)
[2020-07-16] MEDS: CHOLECALCIFEROL (D3) 1,000 UNIT (25 MCG) TABLET PO SCH (09:06)
[2020-07-16] MEDS: PROPRANOLOL HCL 20 MG TABLET PO SCH (09:06)
[2020-07-16] MEDS ORDERED: CHOLECALCIFEROL 2000 UNIT PO SCH (10:00)
[2020-07-16] MEDS ORDERED: PROPRANOLOL HCL 10 MG TABLET PO SCH (10:00)
[2020-07-16] MEDS: RIVAROXABAN 10 MG TABLET PO SCH (17:21)
--- NOTE | 2020-07-16 20:18 | PDOC PROGRESS REPORT ---
Subjective Date:: 07/16/20 Subjective:: SHANIQUA BURNHAM JR is a 60 year old male with a history of colon cancer status p ost resection and surgery was complicated by right ureter injury with right- sided nephrostomy tube placement in September 2019 now presents to the ED reporting that he has been feeling bad. He states that he has flulike symptoms with intermittent fever, fatigue and body aches. He reports that intermittently his urine in the urine bag becomes cloudy and reddish in color whenever he experiences the pain. He has been treated for similar symptoms resulting in UTI multiple times in the past few months. He has been to emergency department 5 times in the past 2 weeks for similar symptoms and urine culture drawn on 06/28/2020 grew E. coli and stenotrophomonas. Patient was sent home with Bactrim based on sensitivity result from urine culture but the symptoms failed to improve. He denies any back pain, cough, shortness of breath, chest pain, palpitation, dizziness, nausea, vomiting, diarrhea, dysuria, frequency or urgency of urination. D1 Hospital stay. Patient was seen and examined at bedside. No new complains, no flank pain, no chills. Urine culture growing gram negative rods. He is currently on ceftazidime. CT abd/pelvis showed findings consistent with pyelonephritis. There is a trace amount of fluid around the right kidney there is no drainable perinephric abscess. There is also note of increased nodules lateral to the sigmoid colon which are concerning for malignancy. D2 hospital stay. Patient was seen and examined at bedside. Reports that he feels much better today, denied any fever, flank pain, chest pain, SOB.He has good appetite. He will likely need 1-2 more days of IV abx. Discussed with him as well the enlarged lymph nodes noted on CT abdomen which is concerning for malignancy. Apparently this was noted by his oncologist on a previously done CT abdomen and he was advised that he needed a biopsy however he is reluctant to go back to [place] since his surgery and subsequent ureteral injury. Reason For Visit: COMPLICATED UTI, FAILED OUTPATIENT TREATMENT Physical Exam Vital Signs: Temp Pulse Resp BP Pulse Ox 98.0 F 74 17 118/69 97 07/16/20 16:40 07/16/20 16:40 07/16/20 16:40 07/16/20 16:40 07/16/20 16:40 Intake & Output 07/15/20 07/16/20 07/17/20 06:59 06:59 06:59 Intake Total 9226 348 4188 Output Total 500 2050 Balance 1000 -80 -735 Weight 91 kg 91.2 kg 92.8 kg General appearance: PRESENT: no acute distress, cooperative Head exam: PRESENT: atraumatic, normocephalic Eye exam: PRESENT: EOMI, PERRLA Mouth exam: PRESENT: moist Neck exam: PRESENT: full ROM Respiratory exam: PRESENT: clear to auscultation meliton, symmetrical, unlabored Cardiovascular exam: PRESENT: RRR, +S1, +S2 GI/Abdominal exam: PRESENT: other - Nephrostomy tube right side Extremities exam: PRESENT: full ROM Musculoskeletal exam: PRESENT: full ROM Neurological exam: PRESENT: alert, awake, oriented to person, oriented to place, oriented to time, oriented to situation Results Laboratory Results: 07/16/20 04:55 07/16/20 04:55 07/16/20 07/16/20 04:55 04:55 WBC 11.1 H RBC 3.93 L Hgb 11.2 L D Hct 34.2 L MCV 87 MCH 28.4 MCHC 32.6 RDW 12.8 Plt Count 155 Seg Neutrophils % 58.8 Sodium 136.9 L Potassium 3.7 Chloride 104 Carbon Dioxide 24 Anion Gap 9 BUN 12 Creatinine 1.06 Est GFR ( Amer) > 60 Glucose 99 Calcium 8.6 Impressions: Abdomen/Pelvis CT 07/15/20 09:00 IMPRESSION: 1. The right-sided percutaneous nephrostomy catheter is in proper position and there is no hydronephrosis. There is a focus of gas within an upper pole calyx (image 22 of series 3) and in the upper pole of the kidney (image 25 of series 3) there is a perfusion defect that effaces the normal corticomedullary differentiation - this is concerning for a pyelonephritis. There is a trace amount of fluid around the right kidney - there is no drainable perinephric abscess. 2. Status post bowel resection and anastomosis. There are 2 adjacent nodules in the pelvis (lateral to the sigmoid colon, image 67 of series 3) that have increased in size since the CT from 11/15/2019 and measure 23 x 23 mm and 21 x 19 mm - these nodules are concerning for malignancy. Assessment and Plan - Diagnosis (1) Sepsis Qualifiers: Sepsis type: sepsis due to unspecified organism Sepsis acute organ dysfunction status: without acute organ dysfunction Qualified Code(s): A41.9 - Sepsis, unspecified organism Is this a current diagnosis for this admission?: Yes Plan: RESOLVED Patient meets criteria for sepsis per SIRS criteria: Tachycardic, febrile and has leukocytosis Likely source of infection being urinary tract infection with right nephrostomy tube in place Started him on ceftazidime per previous urine culture and sensitivity Lactic acid was within the normal limit CT abdomen finding showed consistent with pyelonephritis. Drainable perinephric abscess. Also noted of nodules around the sigmoid colon concerning for kimberly yanes. (2) Complicated UTI (urinary tract infection) Is this a current diagnosis for this admission?: Yes Plan: Patient presents with generalized body aches, fever and fatigue Has been treated with antibiotic for an extended period of time multiple times UA consistent with UTI with large leukocyte esterase and multiple WBCs Urine culture obtained on 06/28 grew E. coli and stenotrophomonas was sensitive to Bactrim and ceftazidime but patient has been on Bactrim since then and has not responded Started him on ceftazidime 2 mg every [address] abdomen showing pyelonephritis and nodules concerning for colon malignancy. No perinephric abscess. urine culture growing strenotrophomonas sensitive to ceftazidime Patient to follow-up with urology at [place] after discharge (3) History of colon cancer Is this a current diagnosis for this admission?: Yes Plan: Status post resection of the tumor 7 months back at [facility] Patient states that he had intra-abdominal finding on follow-up imaging concerning for recurrence But he states that he did not want to follow out and undergo further work-up at the same facility due to the ureter injury he sustained during the surgery He states that he is going to follow-up at [place] CT abdomen and pelvis showed nodules concerning for malignancy Needs to follow-up with an oncologist as an outpatient I am not sure what further treatment for his colon cancer we can provide here inpatient. We will hold off on oncology consult for now (4) Overweight (BMI 25.0-29.9) Is this a current diagnosis for this admission?: Yes Plan: Encourage lifestyle modification including dietary change and regular exercise (5) History of sarcoidosis Is this a current diagnosis for this admission?: Yes Plan: Currently not in a flareup and not on any medication Continue to monitor - Time Time Spent with patient: 25-34 minutes Medications reviewed and adjusted accordingly: Yes Anticipated Discharge Disposition: Home, Self Care Anticipated Discharge Timeframe: TBD
--- NOTE | 2020-07-16 23:20 | CDI QUERY ---
<JILLIAN BENITEZ - Last Filed: 07/16/20 23:18> CDI Query CDI Review: We are seeking further clarification of documentation to reflect the severity of illness of your patient. Per H&P: Sepsis type: sepsis due to unspecified organism Sepsis acute organ dysfunction status: without acute organ dysfunction Qualified Code(s): A41.9 - Sepsis, unspecified organism Is this a current diagnosis for this admission?: Yes Plan: Patient meets criteria for sepsis per SIRS criteria: Tachycardic, febrile and h as leukocytosis Likely source of infection being urinary tract infection with right nephrostomy tube in place Based on your medical judgement, can you further clarify in the Progress Notes and the Discharge Summary: UTI due to nephrostomy tube UTI not due to nephrostomy tube Unable to determine Other Thank you for your consideration. SUSIE HernandezN RN Clinical Mannequin Decorator Physician Advisor [email or web address] <KENIA MERCHANT - Last Filed: 07/20/20 16:23> CDI Query CDI Review: discharge summary addednded
[2020-07-17] MEDS: CEFTAZIDIME PENTAHYDRATE 2 GM in DEXTROSE 5%-WATER 100 ML IV SCH ×3 (02:36→17:07)
[2020-07-17] MEDS: ACETAMINOPHEN 325 MG TABLET PO PRN (02:52)
[2020-07-17] MEDS: FUROSEMIDE 20 MG TABLET PO SCH (09:09)
[2020-07-17] MEDS: FAMOTIDINE 20 MG TABLET PO SCH (09:09)
[2020-07-17] MEDS: ASPIRIN 81 MG TABLET, ENT COATED PO SCH (09:09)
[2020-07-17] MEDS: PROPRANOLOL HCL 20 MG TABLET PO SCH (09:09)
[2020-07-17] MEDS: LORATADINE 10 MG TABLET PO SCH (09:10)
[2020-07-17] MEDS: CHOLECALCIFEROL (D3) 1,000 UNIT (25 MCG) TABLET PO SCH (09:10)
[2020-07-17] MEDS: RIVAROXABAN 10 MG TABLET PO SCH (16:15)
--- NOTE | 2020-07-17 17:09 | PDOC PROGRESS REPORT ---
Subjective Date:: 07/17/20 Subjective:: SHANIQUA BURNHAM JR is a 60 year old male with a history of colon cancer status p ost resection and surgery was complicated by right ureter injury with right- sided nephrostomy tube placement in September 2019 now presents to the ED reporting that he has been feeling bad. He states that he has flulike symptoms with intermittent fever, fatigue and body aches. He reports that intermittently his urine in the urine bag becomes cloudy and reddish in color whenever he experiences the pain. He has been treated for similar symptoms resulting in UTI multiple times in the past few months. He has been to emergency department 5 times in the past 2 weeks for similar symptoms and urine culture drawn on 06/28/2020 grew E. coli and stenotrophomonas. Patient was sent home with Bactrim based on sensitivity result from urine culture but the symptoms failed to improve. He denies any back pain, cough, shortness of breath, chest pain, palpitation, dizziness, nausea, vomiting, diarrhea, dysuria, frequency or urgency of urination. D1 Hospital stay. Patient was seen and examined at bedside. No new complains, no flank pain, no chills. Urine culture growing gram negative rods. He is currently on ceftazidime. CT abd/pelvis showed findings consistent with pyelonephritis. There is a trace amount of fluid around the right kidney there is no drainable perinephric abscess. There is also note of increased nodules lateral to the sigmoid colon which are concerning for malignancy. D2 hospital stay. Patient was seen and examined at bedside. Reports that he feels much better today, denied any fever, flank pain, chest pain, SOB.He has good appetite. He will likely need 1-2 more days of IV abx. Discussed with him as well the enlarged lymph nodes noted on CT abdomen which is concerning for malignancy. Apparently this was noted by his oncologist on a previously done CT abdomen and he was advised that he needed a biopsy however he is reluctant to go back to [place] since his surgery and subsequent ureteral injury. D3 hospital stay. Patient was seen and examined at bedside. Denies any new complains, afebrile, no chills, no nausea/vomiting. Plan for discharge tomorrow after switching to oral abx. Reason For Visit: COMPLICATED UTI, FAILED OUTPATIENT TREATMENT Physical Exam Vital Signs: Temp Pulse Resp BP Pulse Ox 97.7 F 68 18 117/73 97 07/17/20 11:01 07/17/20 11:01 07/17/20 11:01 07/17/20 11:01 07/17/20 11:01 Intake & Output 07/16/20 07/17/20 07/18/20 06:59 06:59 06:59 Intake Total 420 1565 595 Output Total 500 2050 600 Balance -80 -485 -5 Weight 91.2 kg 92.8 kg General appearance: PRESENT: no acute distress, cooperative Head exam: PRESENT: atraumatic, normocephalic Eye exam: PRESENT: EOMI, PERRLA Mouth exam: PRESENT: moist Neck exam: PRESENT: full ROM Respiratory exam: PRESENT: clear to auscultation meliton, symmetrical. ABSENT: unlabored Cardiovascular exam: PRESENT: RRR, +S1, +S2 Pulses: PRESENT: +2 pedal pulses bilateral GI/Abdominal exam: PRESENT: normal bowel sounds Extremities exam: PRESENT: full ROM Musculoskeletal exam: PRESENT: full ROM Results Laboratory Results: 07/16/20 04:55 07/16/20 04:55 Impressions: Abdomen/Pelvis CT 07/15/20 09:00 IMPRESSION: 1. The right-sided percutaneous nephrostomy catheter is in proper position and there is no hydronephrosis. There is a focus of gas within an upper pole calyx (image 22 of series 3) and in the upper pole of the kidney (image 25 of series 3) there is a perfusion defect that effaces the normal corticomedullary differentiation - this is concerning for a pyelonephritis. There is a trace amount of fluid around the right kidney - there is no drainable perinephric abscess. 2. Status post bowel resection and anastomosis. There are 2 adjacent nodules in the pelvis (lateral to the sigmoid colon, image 67 of series 3) that have increased in size since the CT from 11/15/2019 and measure 23 x 23 mm and 21 x 19 mm - these nodules are concerning for malignancy. Assessment and Plan - Diagnosis (1) Sepsis Qualifiers: Sepsis type: sepsis due to unspecified organism Sepsis acute organ dysfunction status: without acute organ dysfunction Qualified Code(s): A41.9 - Sepsis, unspecified organism Is this a current diagnosis for this admission?: Yes Plan: RESOLVED Patient meets criteria for sepsis per SIRS criteria: Tachycardic, febrile and has leukocytosis Likely source of infection being urinary tract infection with right nephrostomy tube in place Started him on ceftazidime per previous urine culture and sensitivity Lactic acid was within the normal limit CT abdomen finding showed consistent with pyelonephritis. no Drainable p erinephric abscess. Also noted of nodules around the sigmoid colon concerning for malignancy. (2) Complicated UTI (urinary tract infection) Is this a current diagnosis for this admission?: Yes Plan: Patient presents with generalized body aches, fever and fatigue Has been treated with antibiotic for an extended period of time multiple times UA consistent with UTI with large leukocyte esterase and multiple WBCs Urine culture obtained on 06/28 grew E. coli and stenotrophomonas was sensitive to Bactrim and ceftazidime but patient has been on Bactrim since then and has not responded Started him on ceftazidime 2 mg every [address] abdomen showing pyelonephritis and nodules concerning for colon malignancy. No perinephric abscess. urine culture growing strenotrophomonas sensitive to ceftazidime Patient to follow-up with urology at [place] after discharge (3) History of colon cancer Is this a current diagnosis for this admission?: Yes Plan: Status post resection of the tumor 7 months back at [facility] Patient states that he had intra-abdominal finding on follow-up imaging concerning for recurrence But he states that he did not want to follow out and undergo further work-up at the same facility due to the ureter injury he sustained during the surgery He states that he is going to follow-up at [place] CT abdomen and pelvis showed nodules concerning for malignancy Needs to follow-up with an oncologist as an outpatient I am not sure what further treatment for his colon cancer we can provide here inpatient. We will hold off on oncology consult for now (4) Overweight (BMI 25.0-29.9) Is this a current diagnosis for this admission?: Yes Plan: Encourage lifestyle modification including dietary change and regular exercise (5) History of sarcoidosis Is this a current diagnosis for this admission?: Yes Plan: Currently not in a flareup and not on any medication Continue to monitor - Time Time Spent with patient: 15-24 minutes Medications reviewed and adjusted accordingly: Yes Anticipated Discharge Disposition: Home, Self Care Anticipated Discharge Timeframe: within 24 hours
[2020-07-18] MEDS: FAMOTIDINE 20 MG TABLET PO SCH ×2 (03:47→09:39)
[2020-07-18] MEDS: CEFTAZIDIME PENTAHYDRATE 2 GM in DEXTROSE 5%-WATER 100 ML IV SCH ×2 (03:47→09:39)
[2020-07-18] MEDS: LORATADINE 10 MG TABLET PO SCH (09:39)
[2020-07-18] MEDS: CHOLECALCIFEROL (D3) 1,000 UNIT (25 MCG) TABLET PO SCH (09:39)
[2020-07-18] MEDS: FUROSEMIDE 20 MG TABLET PO SCH (09:39)
[2020-07-18] MEDS: ASPIRIN 81 MG TABLET, ENT COATED PO SCH (09:40)
[2020-07-18] MEDS: PROPRANOLOL HCL 20 MG TABLET PO SCH (09:40)
[2020-07-18 13:07] VITALS: BP 119/67
--- NOTE | 2020-07-20 16:23 | PDOC DISCHARGE SUMMARY ---
Impression - Admit/DC Date/PCP Admission Date/Primary Care Provider: 07/15/20 13:23 ELLIE MAY MD Discharge Date: 07/18/20 - Discharge Diagnosis (1) Sepsis Is this a current diagnosis for this admission?: Yes (2) Complicated UTI (urinary tract infection) Is this a current diagnosis for this admission?: Yes (3) History of colon cancer Is this a current diagnosis for this admission?: Yes (4) Overweight (BMI 25.0-29.9) Is this a current diagnosis for this admission?: Yes (5) History of sarcoidosis Is this a current diagnosis for this admission?: Yes (6) Urinary tract infection associated with nephrostomy catheter Is this a current diagnosis for this admission?: Yes - Assessment Summary: (1) Sepsis Qualifiers: Sepsis type: sepsis due to unspecified organism Sepsis acute organ dysfunction status: without acute organ dysfunction Qualified Code(s): A41.9 - Sepsis, unspecified organism Is this a current diagnosis for this admission?: Yes Plan: RESOLVED Patient meets criteria for sepsis per SIRS criteria: Tachycardic, febrile and has leukocytosis Likely source of infection being urinary tract infection with right nephrostomy tube in place Started him on ceftazidime per previous urine culture and sensitivity Lactic acid was within the normal limit CT abdomen finding showed consistent with pyelonephritis. no Drainable perinephric abscess. Also noted of nodules around the sigmoid colon concerning for malignancy. (2) Complicated UTI (urinary tract infection) Is this a current diagnosis for this admission?: Yes Plan: Patient presents with generalized body aches, fever and fatigue Has been treated with antibiotic for an extended period of time multiple times UA consistent with UTI with large leukocyte esterase and multiple WBCs Urine culture obtained on 06/28 grew E. coli and stenotrophomonas was sensitive to Bactrim and ceftazidime but patient has been on Bactrim since then and has not responded Started him on ceftazidime 2 mg every [address] abdomen showing pyelonephritis and nodules concerning for colon malignancy. No perinephric abscess. urine culture growing strenotrophomonas sensitive to ceftazidime Patient to follow-up with urology at [place] after discharge (3) History of colon cancer Is this a current diagnosis for this admission?: Yes Plan: Status post resection of the tumor 7 months back at [facility] Patient states that he had intra-abdominal finding on follow-up imaging concerning for recurrence But he states that he did not want to follow out and undergo further work-up at the same facility due to the ureter injury he sustained during the surgery He states that he is going to follow-up at [place] CT abdomen and pelvis showed nodules concerning for malignancy Needs to follow-up with an oncologist as an outpatient I am not sure what further treatment for his colon cancer we can provide here inpatient. We will hold off on oncology consult for now (4) Overweight (BMI 25.0-29.9) Is this a current diagnosis for this admission?: Yes Plan: Encourage lifestyle modification including dietary change and regular exercise (5) History of sarcoidosis Is this a current diagnosis for this admission?: Yes Plan: Currently not in a flareup and not on any medication Continue to monitor - Additional Information Resuscitation Status: Full Code Discharge Diet: As Tolerated Discharge Activity: Activity As Tolerated Referrals: ELLIE MAY MD [Primary Care Provider] - Follow up as needed Prescriptions: Amoxicillin Trihydrate [Amoxil 500 mg Capsule] 500 mg PO TID 10 Days #30 cap Levofloxacin [Levaquin 750 mg Tablet] 750 mg PO DAILY 10 Days #10 tab Home Medications: Loratadine 10 mg PO DAILY #7 tablet 01/20/13 Propranolol HCl 20 mg PO DAILY #7 tablet 01/20/13 Multivitamin [Daily Vitamin] 1 tab PO DAILY 09/08/13 Cholecalciferol (Vitamin D3) [Vitamin D3] 2,000 unit PO DAILY 10/27/16 Furosemide [Lasix] 20 mg PO DAILY 10/27/16 Aspirin [Ecotrin 81 mg EC Tablet] 81 mg PO DAILY 11/05/19 Tamsulosin HCl [Flomax 0.4 mg Cap.sr] 0.4 mg PO DAILY #10 cap.sr.24h 11/06/19 Hydrocodone/Acetaminophen [[place] 5-325 mg Tablet] 1 tab PO Q6HP PRN #12 tablet 07/13/20 Fexofenadine HCl [Ana María Allergy] 180 mg PO DAILY 07/15/20 Ondansetron [Zofran Odt 4 mg Tablet] 1 - 2 tab PO Q4HP PRN 07/15/20 Rivaroxaban [Xarelto 10 mg Tablet] 20 mg PO DAILY 07/15/20 Amoxicillin Trihydrate [Amoxil 500 mg Capsule] 500 mg PO TID 10 Days #30 cap 12/24/20 Levofloxacin [Levaquin 750 mg Tablet] 750 mg PO DAILY 10 Days #10 tab 07/18/20 History of Present Illiness History of Present Illness: SHANIQUA BURNHAM JR is a 60 year old male, with a history of colon cancer status post resection and surgery was complicated by right ureter injury with right- sided nephrostomy tube placement in September 2019 now presents to the ED reporting that he has been feeling bad. He states that he has flulike symptoms with intermittent fever, fatigue and body aches. He reports that intermittently his urine in the urine bag becomes cloudy and reddish in color whenever he experiences the pain. He has been treated for similar symptoms resulting in UTI multiple times in the past few months. He has been to emergency department 5 times in the past 2 weeks for similar symptoms and urine culture drawn on 06/28/2020 grew E. coli and stenotrophomonas. Patient was sent home with Bactrim based on sensitivity result from urine culture but the symptoms failed to improve. He denies any back pain, cough, shortness of breath, chest pain, palpitation, dizziness, nausea, vomiting, diarrhea, dysuria, frequency or urgency of urination. Hospital Course Hospital Course: D1 Hospital stay. Patient was seen and examined at bedside. No new complains, no flank pain, no chills. Urine culture growing gram negative rods. He is currently on ceftazidime. CT abd/pelvis showed findings consistent with pyelonephritis. There is a trace amount of fluid around the right kidney there is no drainable perinephric abscess. There is also note of increased nodules lateral to the sigmoid colon which are concerning for malignancy. D2 hospital stay. Patient was seen and examined at bedside. Reports that he feels much better today, denied any fever, flank pain, chest pain, SOB.He has good appetite. He will likely need 1-2 more days of IV abx. Discussed with him as well the enlarged lymph nodes noted on CT abdomen which is concerning for malignancy. Apparently this was noted by his oncologist on a previously done CT abdomen and he was advised that he needed a biopsy however he is reluctant to go back to [place] since his surgery and subsequent ureteral injury. D3 hospital stay. Patient was seen and examined at bedside. Denies any new complains, afebrile, no chills, no nausea/vomiting. Plan for discharge tomorrow after switching to oral abx. Physical Exam Vital Signs: Temp Pulse Resp BP Pulse Ox 98.1 F 72 17 119/67 99 07/18/20 13:04 07/18/20 13:04 07/18/20 13:04 07/18/20 13:04 07/18/20 13:04 Intake & Output 07/19/20 07/20/20 07/21/20 06:59 06:59 06:59 Intake Total 360 Output Total 375 Balance -15 General appearance: PRESENT: no acute distress, cooperative Head exam: PRESENT: atraumatic, normocephalic Eye exam: PRESENT: EOMI, PERRLA Mouth exam: PRESENT: moist Neck exam: PRESENT: full ROM Respiratory exam: PRESENT: clear to auscultation meliton, symmetrical, unlabored Cardiovascular exam: PRESENT: RRR, +S1, +S2 Pulses: PRESENT: +2 pedal pulses bilateral GI/Abdominal exam: PRESENT: normal bowel sounds, soft. ABSENT: rebound, tenderness Gentrourinary exam: PRESENT: other - nephrostomy Extremities exam: PRESENT: full ROM Musculoskeletal exam: PRESENT: full ROM Neurological exam: PRESENT: alert, awake, oriented to person, oriented to place, oriented to time, oriented to situation Psychiatric exam: PRESENT: normal mood Skin exam: PRESENT: normal color Results Laboratory Results: WBC 11.1 10^3/uL (4.0-10.5) H 07/16/20 04:55 RBC 3.93 10^6/uL (4.35-5.55) L 07/16/20 04:55 Hgb 11.2 g/dL (13.5-17.0) L D 07/16/20 04:55 Hct 34.2 % (37.9-51.0) L 07/16/20 04:55 MCV 87 fl (80-97) 07/16/20 04:55 MCH 28.4 pg (27.0-33.4) 07/16/20 04:55 MCHC 32.6 g/dL (32.0-36.0) 07/16/20 04:55 RDW 12.8 % (11.5-14.0) 07/16/20 04:55 Plt Count 155 10^3/uL (150-450) 07/16/20 04:55 Lymph % (Auto) 23.5 % (13-45) 07/16/20 04:55 [place] % (Auto) 16.9 % (3-13) H 07/16/20 04:55 Eos % (Auto) 0.2 % (0-6) 07/16/20 04:55 Baso % (Auto) 0.6 % (0-2) 07/16/20 04:55 Absolute Neuts (auto) 6.5 10^3/uL (1.7-8.2) 07/16/20 04:55 Absolute Lymphs (auto) 2.6 10^3/uL (0.5-4.7) 07/16/20 04:55 Absolute Monos (auto) 1.9 10^3/uL (0.1-1.4) H 07/16/20 04:55 Absolute Eos (auto) 0.0 10^3/uL (0.0-0.6) 07/16/20 04:55 Absolute Basos (auto) 0.1 10^3/uL (0.0-0.2) 07/16/20 04:55 Seg Neutrophils % 58.8 % (42-78) 07/16/20 04:55 Sodium 136.9 mmol/L (137-145) L 07/16/20 04:55 Potassium 3.7 mmol/L (3.6-5.0) 07/16/20 04:55 Chloride 104 mmol/L (98-107) 07/16/20 04:55 Carbon Dioxide 24 mmol/L (22-30) 07/16/20 04:55 Anion Gap 9 (5-19) 07/16/20 04:55 BUN 12 mg/dL (7-20) 07/16/20 04:55 Creatinine 1.06 mg/dL (0.52-1.25) 07/16/20 04:55 Est GFR ( Amer) > 60 (>60) 07/16/20 04:55 Est GFR (MDRD) Non-Af > 60 (>60) 07/16/20 04:55 Glucose 99 mg/dL (75-110) 07/16/20 04:55 Lactic Acid 1.9 mmol/L (0.7-2.1) 07/14/20 23:30 Calcium 8.6 mg/dL (8.4-10.2) 07/16/20 04:55 Total Bilirubin 1.0 mg/dL (0.2-1.3) 07/14/20 23:30 Direct Bilirubin 0.2 mg/dL (0.0-0.4) 07/14/20 23:30 Neonat Total Bilirubin Not Reportable 07/14/20 23:30 Neonat Direct Bilirubin Not Reportable 07/14/20 23:30 Neonat Indirect Bili Not Reportable 07/14/20 23:30 AST 48 U/L (17-59) 07/14/20 23:30 ALT 40 U/L (<50) 07/14/20 23:30 Alkaline Phosphatase 100 U/L (38-126) 07/14/20 23:30 Total Protein 8.7 g/dL (6.3-8.2) H 07/14/20 23:30 Albumin 4.6 g/dL (3.5-5.0) 07/14/20 23:30 Urine Color YELLOW 07/14/20 22:56 Urine Appearance CLOUDY 07/14/20 22:56 Urine pH 6.0 (5.0-9.0) 07/14/20 22:56 Ur Specific [place] 1.010 07/14/20 22:56 Urine Protein 30 mg/dL (NEGATIVE) H 07/14/20 22:56 Urine Glucose (UA) NEGATIVE mg/dL (NEGATIVE) 07/14/20 22:56 Urine Ketones NEGATIVE mg/dL (NEGATIVE) 07/14/20 22:56 Urine Blood LARGE (NEGATIVE) H 07/14/20 22:56 Urine Nitrite NEGATIVE (NEGATIVE) 07/14/20 22:56 Urine Bilirubin NEGATIVE (NEGATIVE) 07/14/20 22:56 Urine Urobilinogen NEGATIVE mg/dL (<2.0) 07/14/20 22:56 Ur Leukocyte Esterase LARGE (NEGATIVE) H 07/14/20 22:56 Urine WBC (Auto) >182 /HPF 07/14/20 22:56 Urine RBC (Auto) 127 /HPF 07/14/20 22:56 Urine Bacteria (Auto) TRACE /HPF 07/14/20 22:56 Urine WBC Clumps MOD /HPF 07/14/20 22:56 Squamous Epi Cells Auto <1 /HPF 07/14/20 22:56 Urine Mucus (Auto) RARE /LPF 07/14/20 22:56 Urine Ascorbic Acid 20 (NEGATIVE) H 07/14/20 22:56 Impressions: Abdomen/Pelvis CT 07/15/20 09:00 IMPRESSION: 1. The right-sided percutaneous nephrostomy catheter is in proper position and there is no hydronephrosis. There is a focus of gas within an upper pole calyx (image 22 of series 3) and in the upper pole of the kidney (image 25 of series 3) there is a perfusion defect that effaces the normal corticomedullary differentiation - this is concerning for a pyelonephritis. There is a trace amount of fluid around the right kidney - there is no drainable perinephric abscess. 2. Status post bowel resection and anastomosis. There are 2 adjacent nodules in the pelvis (lateral to the sigmoid colon, image 67 of series 3) that have increased in size since the CT from 11/15/2019 and measure 23 x 23 mm and 21 x 19 mm - these nodules are concerning for malignancy. Plan Plan of Treatment: - continue oral abx at home Stroke Is this a Stroke Patient?: No Acute Heart Failure Is this a Heart Failure Patient?: No
== END 2020-07-18 13:02 | disposition home or self-care (01) | DRG 698 ==
LOC: ER 22:08 → EH 07-15 03:43 → 4S 07-15 05:40 → OBSVTOIN 07-15 13:23
PROVIDERS: ADMIT Student in an Organized Health Care Education/Training Program; ATTEND Internal Medicine
DX: T83.512A Infection and inflammatory reaction due to nephrostomy catheter, initial encounter (principal); A41.9 Sepsis, unspecified organism; N39.0 Urinary tract infection, site not specified; E66.3 Overweight; Y84.6 Urinary catheterization as the cause of abnormal reaction of the patient, or of later complication, without mention of misadventure at the time of the procedure; B96.20 Unspecified Escherichia coli [E. coli] as the cause of diseases classified elsewhere; B96.89 Other specified bacterial agents as the cause of diseases classified elsewhere; I25.10 Atherosclerotic heart disease of native coronary artery without angina pectoris; E78.5 Hyperlipidemia, unspecified; I10 Essential (primary) hypertension; J44.9 Chronic obstructive pulmonary disease, unspecified; M17.0 Bilateral primary osteoarthritis of knee; D86.9 Sarcoidosis, unspecified; I25.2 Old myocardial infarction; Z96.641 Presence of right artificial hip joint; Z85.038 Personal history of other malignant neoplasm of large intestine; Z79.899 Other long term (current) drug therapy; Z79.01 Long term (current) use of anticoagulants; Z79.82 Long term (current) use of aspirin; Z90.49 Acquired absence of other specified parts of digestive tract; Z95.5 Presence of coronary angioplasty implant and graft
CPT/HCPCS: 36415; 74178; 80048; 80053; 81001; 83605; 85025; 87040; 87086; 87088; 87186; 96361; 96365; 99285; G0378; J0713; J3490; J7030; J7060

== ENCOUNTER 2020-07-20 17:42 | Emergency (ER) | payer MEDICAID ==
--- NOTE | 2020-07-20 18:10 | ER Document Report ---
ED Medical Screen (RME) - General Mode of Arrival: Wheelchair Information source: Patient TRAVEL OUTSIDE OF THE [place] IN LAST 30 DAYS: No <BRODERICK JENSEN - Last Filed: 07/20/20 18:09> <RODNEY CABRERA CHERYL - Last Filed: 07/21/20 01:15> - General Chief Complaint: Chest Pain Stated Complaint: CHEST PAIN Time Seen by Provider: 07/20/20 18:07 Primary Care Provider: ELLIE MAY MD [Primary Care Provider] - Follow up as needed Notes: 60-year-old male presented to ED for complaint of chest pain lightheadedness dizziness and short of breath. He states he just got out of the hospital on [place] for a UTI. He states he was in the hospital for 5 days for the UTI and still is a little tired and weak. He states he does have a history of coronary artery disease CHF COPD and sarcoidosis. He states he has had KS in the past. He states he was very concerned so he came to the emergency room for this pain. Patient is alert and oriented respirations regular nonlabored speaking in full sentences. I have greeted and performed a rapid initial assessment of this patient. A comprehensive ED assessment and evaluation of the patient, analysis of test results and completion of medical decision making process will be conducted by an additional ED providers. (BRODERICK JENSEN) - Related Data Allergies/Adverse Reactions: No Known Allergies Allergy (Verified 04/22/20 11:02) Past Medical History - Past Medical History Cardiac Medical History: Reports: Hx Congestive Heart Failure, Hx Coronary Artery Disease - stents x2, 2001/2002, Hx Heart Attack - 2012, Hx Hypercholesterolemia, Hx Hypertension Pulmonary Medical History: Reports: Hx COPD Denies: Hx Bronchitis, Hx Pneumonia Neurological Medical History: Denies: Hx Cerebrovascular Accident, Hx Seizures Renal/ Medical History: Reports: Hx Kidney Stones. Denies: Hx Peritoneal Dialysis Malignancy Medical History: Reports Hx Colorectal Cancer Musculoskeltal Medical History: Reports Hx Arthritis - hips,knees Psychiatric Medical History: Denies: Hx Depression Past Surgical History: Reports: Hx Bowel Surgery - colon cancer removal, Hx Cardiac Catheterization - two stents, Hx Orthopedic Surgery - R hip replacement, Hx Urinary Tract Surgery - right nephrostomy in place, Other - Partial colectomy and right percutaneous nephrostomy - Immunizations Immunizations up to date: No Hx Diphtheria, Pertussis, Tetanus Vaccination: Yes <BRODERICK JENSEN - Last Filed: 07/20/20 18:09> Physical Exam - Vital signs Vitals: Temp Pulse Resp BP Pulse Ox 98.2 F 80 18 153/95 H 98 07/20/20 17:44 07/20/20 17:44 07/20/20 17:44 07/20/20 17:44 07/20/20 17:44 Course - Laboratory Results Result Diagrams: 07/20/20 19:22 07/20/20 19:22 <RODNEY CABRERA IV - Last Filed: 07/21/20 01:15> - Vital Signs Vital signs: Temp Pulse Resp BP Pulse Ox 98.2 F 71 16 126/98 H 99 07/20/20 22:52 07/20/20 22:52 07/20/20 22:52 07/20/20 22:52 07/20/20 22:52 - Laboratory Results Laboratory Results Interpreted: 07/20/20 07/20/20 07/21/20 19:22 19:22 00:00 Hgb 12.4 L Hct 37.5 L ALT 52 H Urine Blood MODERATE H Ur Leukocyte Esterase LARGE H Doctor's Discharge <BRODERICK JENSEN - Last Filed: 07/20/20 18:09> <RODNEY CABRERA IV - Last Filed: 07/21/20 01:15> - Discharge Referrals: ELLIE MAY MD [Primary Care Provider] - Follow up as needed
--- NOTE | 2020-07-20 19:10 | RADIOLOGY REPORT (SQ) ---
EXAM DESCRIPTION: CHEST 2 VIEWS IMAGES COMPLETED DATE/TIME: 07/20/2020 5:27 pm REASON FOR STUDY: chest pain dizziness short of breath COMPARISON: 07/12/2020 EXAM PARAMETERS: NUMBER OF VIEWS: two views TECHNIQUE: Digital Frontal and Lateral radiographic views of the chest acquired. RADIATION DOSE: NA LIMITATIONS: none FINDINGS: LUNGS AND PLEURA: No opacities, masses or pneumothorax. No pleural effusion. MEDIASTINUM AND HILAR STRUCTURES: No masses or contour abnormalities. HEART AND VASCULAR STRUCTURES: Heart normal size. No evidence for failure. BONES: No acute findings. HARDWARE: None in the chest. OTHER: No other significant finding. IMPRESSION: NO ACUTE RADIOGRAPHIC FINDING IN THE CHEST. TECHNICAL DOCUMENTATION: JOB ID: [id number] 2010 [employer]- All Rights Reserved Reading location - IP/workstation name: [email or web address]
[2020-07-20 19:33] LABS: ABSOLUTE BASOPHILS # (AUTO) 0.1 10^3/uL (0.0-0.2); ABSOLUTE EOSINOPHILS # (AUTO) 0.2 10^3/uL (0.0-0.6); ABSOLUTE LYMPHOCYTES (AUTO) 2.6 10^3/uL (0.5-4.7); ABSOLUTE MONOCYTES (AUTO) 0.6 10^3/uL (0.1-1.4); ABSOLUTE NEUT (AUTO) 5.1 10^3/uL (1.7-8.2); BASOPHILS % (AUTO) 1.2 % (0-2); EOSINOPHILS % (AUTO) 2.3 % (0-6); HEMATOCRIT 37.5 % (37.9-51.0); HEMOGLOBIN 12.4 g/dL (13.5-17.0); LYMPHOCYTES % (AUTO) 30.2 % (13-45); MEAN CORPUSCULAR HEMOGLOBIN 28.5 pg (27.0-33.4); MEAN CORPUSCULAR VOLUME 86 fl (80-97); MONOCYTES % (AUTO) 6.9 % (3-13); PLATELET COUNT 330 10^3/uL (150-450); RED BLOOD COUNT 4.35 10^6/uL (4.35-5.55); SEGMENTED NEUTROPHILS % (AUTO) 59.4 % (42-78); TOTAL CELLS COUNTED % (AUTO) 100 %; WHITE BLOOD COUNT 8.5 10^3/uL (4.0-10.5)
[2020-07-20 19:51] LABS: ALBUMIN 4.1 g/dL (3.5-5.0); ALKALINE PHOSPHATASE 94 U/L (38-126); ANION GAP 8 (5-19); ASPARTATE AMINO TRANSFERASE 48 U/L (17-59); BILIRUBIN,DIRECT 0.1 mg/dL (0.0-0.4); BILIRUBIN,TOTAL 0.5 mg/dL (0.2-1.3); BLOOD UREA NITROGEN 13 mg/dL (7-20); CALCIUM 9.4 mg/dL (8.4-10.2); CARBON DIOXIDE 27 mmol/L (22-30); CHLORIDE 105 mmol/L (98-107); CREATINE KINASE 124 U/L (55-170); GLUCOSE 86 mg/dL (75-110); TOTAL PROTEIN 8.2 g/dL (6.3-8.2)
--- NOTE | 2020-07-20 22:04 | EKG REPORT ---
SEVERITY:- NORMAL ECG - SINUS RHYTHM : Confirmed by: Kevin Guardado MD 20-Jul-2020 22:03:55
[2020-07-21 00:27] LABS: APPEARANCE,URINE SLIGHTLY-CLOUDY; BILIRUBIN,URINE NEGATIVE (NEGATIVE); COLOR,URINE YELLOW; GLUCOSE, URINE NEGATIVE (NEGATIVE); KETONES,URINE NEGATIVE (NEGATIVE); LEUKOCYTE ESTERASE,URINE LARGE (NEGATIVE); NITRITE,URINE NEGATIVE (NEGATIVE); PROTEIN,URINE NEGATIVE (NEGATIVE); URINE SPECIFIC GRAVITY 1.011; UROBILINOGEN,URINE NEGATIVE mg/dL (<2.0)
[2020-07-21] MEDS ORDERED: NORMAL SALINE 1000 ML 1,000 ML IV ONE (01:30)
--- NOTE | 2020-07-21 01:38 | ER Document Report ---
ED General - General Chief Complaint: Chest Pain Stated Complaint: CHEST PAIN Time Seen by Provider: 07/20/20 18:07 Primary Care Provider: ELLIE MAY MD [Primary Care Provider] - Follow up as needed Mode of Arrival: Wheelchair TRAVEL OUTSIDE OF THE [place] IN LAST 30 DAYS: No - HPI Context: Chief Complaint: [Lightheadedness, headache, chest pain, dizziness and shortness of breath [This is a 60-year-old male with a history of colectomy and 2023 colon cancer that was complicated by accidental ligation of the patient's right ureter that resulted in a nephrostomy tube having to be placed. Patient was seen by this MD several days ago for urinary tract symptoms that were worsening despite outpatient antibiotics and the patient ended up being admitted for IV antibiotic therapy. Patient was discharged after a 4-day stay with prescriptions for Augmentin and Levaquin to cover the mixed patricia present in his urine culture. Patient states since he is gone home from the hospital he has felt weak, lightheaded has had a headache chest discomfort and shortness of breath. ] History obtained from [patient] Symptoms began:[3 days ago] Onset: [Sudden] Timing: [After discharge from hospital] Quality: [Patient describes the headache as sharp and a 4 out of 5, chest pain is sharp, located in his mid chest and he rates that as a 5 out of 5.] Intensity: [Patient states the intensity of his symptoms are severe] Location: [Head and chest] Radiation: [Denies] [The pain does not migrate to a new location.] Aggravating factors: Activity and ambulation Relieving factors: [none] [Denies] SOB [Denies] nausea [Denies] vomiting [Denies] sweats [Denies] fever [Denies] cough [Denies] calf or leg swelling or pain - Related Data Allergies/Adverse Reactions: No Known Allergies Allergy (Verified 04/22/20 11:02) Past Medical History - General Information source: Patient - Social History Smoking Status: Never Smoker Frequency of alcohol use: None Drug Abuse: None Family History: Reviewed & Not Pertinent, Hypertension - Past Medical History Cardiac Medical History: Reports: Hx Congestive Heart Failure, Hx Coronary Artery Disease - stents x2, 2001/2002, Hx Heart Attack - 2012, Hx Hypercholesterolemia, Hx Hypertension Pulmonary Medical History: Reports: Hx COPD Denies: Hx Bronchitis, Hx Pneumonia Neurological Medical History: Denies: Hx Cerebrovascular Accident, Hx Seizures Renal/ Medical History: Reports: Hx Kidney Stones. Denies: Hx Peritoneal Dialysis Malignancy Medical History: Reports Hx Colorectal Cancer Musculoskeletal Medical History: Reports Hx Arthritis - hips,knees Psychiatric Medical History: Denies: Hx Depression Past Surgical History: Reports: Hx Bowel Surgery - colon cancer removal, Hx Cardiac Catheterization - two stents, Hx Orthopedic Surgery - R hip replacement, Hx Urinary Tract Surgery - right nephrostomy in place, Other - Partial colectomy and right percutaneous nephrostomy - Immunizations Immunizations up to date: No Hx Diphtheria, Pertussis, Tetanus Vaccination: Yes Review of Systems - Review of Systems Notes: Review of systems as below unless otherwise stated in HPI. CONSTITUTIONAL [No] fever, [No] chills. EYES [No] eye pain. ENT [No] URI symptoms, [No] sore throat, [No] ear pain. CARDIOVASCULAR Positive chest pain, [No] palpitations, [No] edema. RESPIRATORY [No] Cough, positive SOB, [No] wheezing. GASTROINTESTINAL [No] abdominal pain, [No] nausea, [No] Diarrhea, [No] Vomiting, [No] constipation, [No] melena, [No] rectal bleeding. GENITOURINARY [No] dysuria, [No] urinary frequency, [No] hematuria, [No] urinary urgency MUSCULOSKELETAL [No] Back pain. SKIN [No] Rash. NEUROLOGIC Positive headache, [No] recent seizures, [No] paralysis,[No] parathesias., Positive dizziness and lightheadedness ENDOCRINE [No] polyuria. HEMO/LYMPATIC [No] easy brusing PSYCHIATRIC [No] depression. Physical Exam - Vital signs Vitals: Temp Pulse Resp BP Pulse Ox 98.2 F 80 18 153/95 H 98 07/20/20 17:44 07/20/20 17:44 07/20/20 17:44 07/20/20 17:44 07/20/20 17:44 - Notes Notes: CONSTITUTIONAL [Vital signs reviewed, Patient appears comfortable, Alert and oriented X 3, Normal stature.] HEAD [Atraumatic, Normocephalic.] EYES [Eyes are normal to inspection, No discharge from eyes, Extraocular muscles intact, Sclera are normal, Conjunctiva are normal.] ENT [External ears normal to inspection, Nose examination normal, Mouth normal to inspection.] NECK [Normal ROM, No jugular venous distention, No meningeal signs, ] RESPIRATORY CHEST [Chest is nontender, Breath sounds normal, No respiratory distress.] CARDIOVASCULAR [RRR, No murmurs, Normal S1 S2, No rub, No gallop.] ABDOMEN [Abdomen is nontender, No pulsatile masses, No other masses, Bowel sounds normal, No distension, No peritoneal signs, No hernias.] BACK [There is no CVA Tenderness, There is no tenderness to palpation.] UPPER EXTREMITY [Inspection normal, No cyanosis, No clubbing, No edema, LOWER EXTREMITY [Inspection normal, No cyanosis, No clubbing, No edema, No calf tenderness, NEURO [No focal motor deficits, No focal sensory deficits, Speech normal.] SKIN [Skin is warm, Skin is dry, Skin is normal color.] PSYCHIATRIC [Normal affect. ] Course - Re-evaluation Re-evalutation: 07/21/20 01:45 Patient's prior medical records from this facility were reviewed by this MD. 07/21/20 03:56 Patient's orthostatics are negative. Patient states he feels better after receiving IV fluids here in the emergency department. Results of ED MSE discussed with patient. Patient encouraged to drink fluids, rest and be careful to avoid overexertion as he is just getting over a significant urinary tract infection and getting home from the hospital. All questions were answered prior to discharge. Emergency signs and symptoms, reasons to return to the emergency department discussed with patient. Patient was encouraged to continue taking his Levaquin and Augmentin as prescribed for his urinary tract infection. 07/21/20 03:58 Patient's heart rate is currently 61, blood pressure is 127/80. Patient is sitting up in bed, alert and oriented x4, nontoxic appearance. - Vital Signs Vital signs: Temp Pulse Resp BP Pulse Ox 98.2 F 70 16 132/76 H 99 07/20/20 22:52 07/21/20 01:56 07/20/20 22:52 07/21/20 01:56 07/20/20 22:52 - Laboratory Results Result Diagrams: 07/20/20 19:22 07/20/20 19:22 Laboratory Results Interpreted: 07/20/20 07/20/20 07/21/20 19: 19:22 00:00 Hgb 12.4 L Hct 37.5 L ALT 52 H Urine Blood MODERATE H Ur Leukocyte Esterase LARGE H Critical Laboratory Results Reviewed: Yes Attending or Supervising Physician who Reviewed Labs: RODNEY CABRERA IV - Results of urinalysis noted. Patient is on Augmentin and Levaquin. Results of patient's last urine culture with sensitivities reviewed by this MD. Troponin negative x2 - Radiology Results Critical Radiology Results Reviewed: No Critical Results Attending or Supervising Physician who Reviewed Radiology: RODNEY CABRERA IV - EKG Interpretation by Me Additional EKG results interpreted by me: 07/21/20 01:41 EKG obtained on 2020-07-21 at 00 23 hours was interpreted by this MD. Findings: Sinus tachycardia, rate 147, normal axis, [place] interval appears to be within normal limits, P waves preceding QRS complexes, QRS complexes appear narrow, QTC is 438, there are no obvious patterns of ST segment elevation, depression or reciprocal changes seen to suggest acute myocardial ischemia or infarction. When compared with prior EKG from 2020-07-14 the morphology of the 2 EKGs is grossly the same. Impression sinus tachycardia with nonspecific ST segments. Discharge - Discharge Clinical Impression: Physical deconditioning UTI (urinary tract infection) Qualifiers: Urinary tract infection type: site unspecified Hematuria presence: with hematuria Qualified Code(s): N39.0 - Urinary tract infection, site not specified; R31.9 - Hematuria, unspecified Condition: Stable Disposition: HOME, SELF-CARE Additional Instructions: You still have a urinary tract infection. You are encouraged to continue taking the Levaquin and Augmentin you were prescribed. Please keep in mind that you have just recently been discharged from the hospital and there is some amount of deconditioning associated with hospital stay. Drink plenty of fluids, rest and avoid overexertion. Return to the Emergency Department without delay if any worse. HOME CARE INSTRUCTIONS & INFORMATION: Thank you for choosing us for your medical needs. We hope you're satisfied with the care you received. After you leave, you must properly care for your problem and, at the same time, observe its progress. Any condition can change. Some illnesses can change rapidly over hours or days. If your condition worsens, return to the Emergency Department or see your physician promptly. ABOUT YOUR X-RAYS AND EKG'S: If you had an EKG or X-rays taken, they have been read by the Emergency Physician. The X-rays and EKG's will also be read by a Radiologist or Director Of Home Economics within 24 hours. If discrepancies are noted, you will be notified by telephone. Please be certain the ED has a correct telephone number & address where you can be reached. Also, realize that some fractures or abnormalities do not show up on initial X-rays. If your symptoms continue, see your physician. ABOUT YOUR LABORATORY TEST: If you had laboratory tests, the results have been reviewed by the Emergency Physician. Some test results (for example cultures) may not be available for several days. You will be contacted if any test result shows you need additional treatment. Please be certain the ED has a correct telephone number and address where you can be reached. ABOUT YOUR MEDICATIONS: You will receive instructions on how to take your medicine on the prescription label you receive. Additional information may be provided by the Pharmacy. If you have questions afterwards, call the ED for clarification or further instructions. Some prescribed medications may cause drowsiness. Do not perform tasks such as driving a car or operating machinery w ithout consulting your Pharmacist. If you feel you need a refill of pain medication, your condition will need re-evaluation. Please do not call for a refill of any medication. ABOUT YOUR SIGNATURE: Signature of this document acknowledges to followin. Understanding that you received emergency treatment and that you may be released before al medical problems are known or treated. Please be certain the ED has a correct phone number & address where you can be reached. 2. Acknowledgement that you will arrange for follow-up care as recommended. 3. Authorization for the Emergency Physician to provide information to your follow-up Physician in order to maximize your care. AT ANY TIME, IF YOUR SYMPTOMS CHANGE SIGNIFICANTLY OR WORSEN OR YOU DEVELOP NEW SYMPTOMS, RETURN TO THE EMERGENCY DEPARTMENT IMMEDIATELY FOR RE-EVALUATION. OUR GOAL IS TO PROVIDE EXCELLENT MEDICAL CARE! WE HOPE THAT WE HAVE MET YOUR EXPECTATIONS DURING YOUR EMERGENCY DEPARTMENT VISIT AND THAT YOU FEEL YOU HAVE RECEIVED EXCELLENT CARE! Referrals: ELLIE MAY MD [Primary Care Provider] - Follow up as needed
[2020-07-21 04:30] VITALS: BP 128/73
== END 2020-07-21 04:22 | disposition home or self-care (01) ==
LOC: ER 17:42
DX: N39.0 Urinary tract infection, site not specified (principal); R31.9 Hematuria, unspecified; R07.9 Chest pain, unspecified; R51.9 Headache, unspecified; R06.02 Shortness of breath; Z96.641 Presence of right artificial hip joint; I11.0 Hypertensive heart disease with heart failure; I50.9 Heart failure, unspecified; I25.10 Atherosclerotic heart disease of native coronary artery without angina pectoris; E78.00 Pure hypercholesterolemia, unspecified; Z87.442 Personal history of urinary calculi
CPT/HCPCS: 93005; 99285; 96360; 36415; 87086; 82550; 83735; 85025; 80053; 81001; 84484; 71046; 93010; J7030

== ENCOUNTER 2020-08-02 13:04 | Emergency (ER) | payer MEDICAID ==
--- NOTE | 2020-08-02 13:34 | ER Document Report ---
ED Medical Screen (RME) - General Chief Complaint: Dizziness Stated Complaint: LIGHTHEADED,HEADACHES Time Seen by Provider: 08/02/20 13:22 Primary Care Provider: ELLIE MAY MD [Primary Care Provider] - Follow up as needed Mode of Arrival: Ambulatory Information source: Patient Notes: HPI; 60-year-old male presents to the emergency room complaining of persistent dizziness for the past several months. Has been seen in the ER multiple times for chest pain and recurrent urinary tract infections but is not had a recent CAT scan. Does have a history of colon cancer. States he has been having recurrent urinary tract infections from nephrostomy after his ureter was clipped during a colon resection. States he did see his primary care physician on the was started on blood pressure medications for elevated blood pressure but states the dizziness is persistent. He denies any nausea, vomiting, no shortness of breath, difficulty breathing. States he has chronic diarrhea secondary to multiple antibiotics. States he has an appointment with a urologist the end of July. Denies any COVID-19 exposure. PE: Alert and oriented x3, lungs: Clear to auscultation without rales, rhonchi, wheezes. Heart: Regular rate rhythm without murmurs, rubs, gallops. I have greeted and performed a rapid initial assessment of this patient. A comprehensive ED assessment and evaluation of the patient, analysis of test results and completion of the medical decision making process will be conducted by additional ED providers. I have specifically instructed the patient or family members with the patient to immediately return to any nursing staff should anything change in the patient's condition or with their chief complaint. TRAVEL OUTSIDE OF THE [place] IN LAST 30 DAYS: No - Related Data Allergies/Adverse Reactions: No Known Allergies Allergy (Verified 04/22/20 11:02) Home Medications: norvasc Past Medical History - Social History Chew tobacco use (# tins/day): No Frequency of alcohol use: None Drug Abuse: None - Past Medical History Cardiac Medical History: Reports: Hx Congestive Heart Failure, Hx Coronary Artery Disease - stents x2, 2001/2002, Hx Heart Attack - 2012, Hx Hypercholesterolemia, Hx Hypertension Pulmonary Medical History: Reports: Hx COPD Denies: Hx Bronchitis, Hx Pneumonia Neurological Medical History: Denies: Hx Cerebrovascular Accident, Hx Seizures Renal/ Medical History: Reports: Hx Kidney Stones. Denies: Hx Peritoneal Dialysis Malignancy Medical History: Reports Hx Colorectal Cancer Musculoskeltal Medical History: Reports Hx Arthritis - hips,knees Psychiatric Medical History: Denies: Hx Depression Past Surgical History: Reports: Hx Bowel Surgery - colon cancer removal, Hx Cardiac Catheterization - two stents, Hx Orthopedic Surgery - R hip replacement, Hx Urinary Tract Surgery - right nephrostomy in place, Other - Partial colectomy and right percutaneous nephrostomy - Immunizations Immunizations up to date: No Hx Diphtheria, Pertussis, Tetanus Vaccination: Yes Physical Exam - Vital signs Vitals: Temp Pulse Resp BP Pulse Ox 97.9 F 71 20 135/85 H 99 08/02/20 13:07 08/02/20 13:07 08/02/20 13:07 08/02/20 13:07 08/02/20 13:07 Course - Vital Signs Vital signs: Temp Pulse Resp BP Pulse Ox 97.9 F 71 20 135/85 H 99 08/02/20 13:07 08/02/20 13:07 08/02/20 13:07 08/02/20 13:07 08/02/20 13:07 Doctor's Discharge - Discharge Referrals: ELLIE MAY MD [Primary Care Provider] - Follow up as needed
--- NOTE | 2020-08-02 14:01 | RADIOLOGY REPORT (SQ) ---
EXAM DESCRIPTION: CT HEAD WITHOUT IMAGES COMPLETED DATE/TIME: 08/02/2020 1:50 pm REASON FOR STUDY: dizzy COMPARISON: 05/14/2020 TECHNIQUE: Axial images acquired through the brain without intravenous contrast. Images reviewed wi th bone, brain and subdural windows. Additional sagittal and coronal reconstructions were generated. Images stored on PACS. All CT scanners at this facility use dose modulation, iterative reconstruction, and/or weight based d osing when appropriate to reduce radiation dose to as low as reasonably achievable (ALARA). [facility]: Dose Right [facility]: CareDose [facility]: Dose Right [facility]: Teradose 4D [facility]: Smart Kontest RADIATION DOSE: CT Rad equipment meets quality standard of care and radiation dose reduction techniq ues were employed. CTDIvol: 53.2 mGy. DLP: 1070 mGy-cm. mGy. LIMITATIONS: None. FINDINGS: VENTRICLES: Normal size and contour. CEREBRUM: No masses. No hemorrhage. No midline shift. No evidence for acute infarction. Normal gra y/white matter differentiation. No areas of low density in the white matter. CEREBELLUM: No masses. No hemorrhage. No alteration of density. No evidence for acute infarction. EXTRAAXIAL SPACES: No fluid collections. No masses. ORBITS AND GLOBE: No intra- or extraconal masses. Normal contour of globe without masses. CALVARIUM: No fracture. PARANASAL SINUSES: No fluid or mucosal thickening. SOFT TISSUES: No mass or hematoma. Skin thickening with scattered dermal calcifications. OTHER: No other significant finding. IMPRESSION: No evidence of acute intracranial process. EVIDENCE OF ACUTE STROKE: NO. COMMENT: Quality ID # [id number]: Final reports with documentation of one or more dose reduction techniques (e.g., Automated exposure control, adjustment of the mA and/or kV according to patient size, use of iterative reconstruction technique) TECHNICAL DOCUMENTATION: JOB ID: [id number] 2010 [employer]- All Rights Reserved Reading location - IP/workstation name: [email or web address]
[2020-08-02 14:16] LABS: APPEARANCE,URINE CLEAR; BILIRUBIN,URINE NEGATIVE (NEGATIVE); COLOR,URINE YELLOW; GLUCOSE, URINE NEGATIVE (NEGATIVE); KETONES,URINE NEGATIVE (NEGATIVE); LEUKOCYTE ESTERASE,URINE MODERATE (NEGATIVE); NITRITE,URINE NEGATIVE (NEGATIVE); PROTEIN,URINE 30 mg/dL (NEGATIVE); URINE SPECIFIC GRAVITY 1.003; UROBILINOGEN,URINE NEGATIVE mg/dL (<2.0)
--- NOTE | 2020-08-02 16:57 | ER Document Report ---
ED General - General Chief Complaint: Dizziness Stated Complaint: LIGHTHEADED,HEADACHES Time Seen by Provider: 08/02/20 13:22 Primary Care Provider: ELLIE MAY MD [Primary Care Provider] - Follow up as needed Mode of Arrival: Ambulatory TRAVEL OUTSIDE OF THE [place] IN LAST 30 DAYS: No - HPI Notes: 60-year-old male presents with lightheadedness. Patient states he has been having intermittent lightheadedness ongoing for some time. He has seen his primary care doctor for this and was recently started on amlodipine 5 mg, started taking this about 2 weeks ago, he states that he thought that this would instantly take care of the lightheadedness however he did not realize that blood pressure medicine takes a few weeks to have full effect. He states that the lightheadedness occurs every now and then, states that sometimes he can just be lying in bed and will feel light in the head. He denies any chest pain or shortness of breath associated with this. Patient has history of colon cancer status post resection, has a right nephrostomy tube due to the right ureter being accidentally cut during surgery. He has a history of urinary tract i nfections. He states that he just finished a course of antibiotics last week. He states he currently denies any UTI-like symptoms. Patient states that he has urology follow-up at [facility] on August 16. I reviewed his most recent admission which shows CT abdomen 07/15 with 2 nodules increasing in size, patient states that he is aware of this finding and there is a plan to get a biopsy once he sees urology. - Related Data Allergies/Adverse Reactions: No Known Allergies Allergy (Verified 04/22/20 11:02) Home Medications: norvasc Past Medical History - General Information source: Patient - Social History Smoking Status: Never Smoker Chew tobacco use (# tins/day): No Frequency of alcohol use: None Drug Abuse: None Family History: Reviewed & Not Pertinent, Hypertension - Past Medical History Cardiac Medical History: Reports: Hx Congestive Heart Failure, Hx Coronary Artery Disease - stents x2, 2001/2002, Hx Heart Attack - 2012, Hx Hypercholesterolemia, Hx Hypertension Pulmonary Medical History: Reports: Hx COPD Denies: Hx Bronchitis, Hx Pneumonia Neurological Medical History: Denies: Hx Cerebrovascular Accident, Hx Seizures Renal/ Medical History: Reports: Hx Kidney Stones. Denies: Hx Peritoneal Dialysis Malignancy Medical History: Reports Hx Colorectal Cancer Musculoskeletal Medical History: Reports Hx Arthritis - hips,knees Psychiatric Medical History: Denies: Hx Depression Past Surgical History: Reports: Hx Bowel Surgery - colon cancer removal, Hx Cardiac Catheterization - two stents, Hx Orthopedic Surgery - R hip replacement, Hx Urinary Tract Surgery - right nephrostomy in place, Other - Partial colectomy and right percutaneous nephrostomy - Immunizations Immunizations up to date: No Hx Diphtheria, Pertussis, Tetanus Vaccination: Yes Review of Systems - Review of Systems Constitutional: No symptoms reported EENT: No symptoms reported Cardiovascular: denies: Chest pain Respiratory: denies: Short of breath Gastrointestinal: Diarrhea - Chronic. denies: Abdominal pain Genitourinary: Hematuria - Chronic, intermittent due to nephrostomy. denies: Dysuria, Discharge Male Genitourinary: No symptoms reported Musculoskeletal: No symptoms reported Skin: No symptoms reported Hematologic/Lymphatic: No symptoms reported Neurological/Psychological: denies: Weakness, Numbness Physical Exam - Vital signs Vitals: Temp Pulse Resp BP Pulse Ox 97.9 F 71 20 135/85 H 99 08/02/20 13:07 08/02/20 13:07 08/02/20 13:07 08/02/20 13:07 08/02/20 13:07 - General General appearance: Appears well, Alert In distress: None - HEENT Head: Normocephalic, Atraumatic Extraocular movements intact: Yes Pupils: PERRL - Respiratory Breath sounds: Normal - Cardiovascular Rhythm: Regular Heart sounds: Normal auscultation - Abdominal Distension: No distension Tenderness: Nontender - Extremities General upper extremity: Normal ROM General lower extremity: Normal ROM. No: Edema - Neurological Neuro grossly intact: Yes Cognition: Normal Orientation: AAOx4 Speech: Normal Cranial nerves: Normal Motor strength normal: LUE, RUE, LLE, RLE Sensory: Normal - Psychological Associated symptoms: Normal affect - Skin Skin Temperature: Warm Course - Re-evaluation Re-evalutation: 60-year-old male here with intermittent lightheadedness ongoing for several months. Has been seen by primary care doctor and started on amlodipine about 2 weeks ago. Patient is known to have recurrent UTIs secondary to nephrostomy tube, he finished an course of antibiotics last week, he currently denies any symptoms suggestive of recurrent infection. His urine does have some hematuria and bacteria, we discussed that we will send for culture and await culture results before restarting antibiotics. His abdomen is soft without focal area tenderness. He is afebrile, hemodynamically stable and neurologically intact. Discussed with him potentially could be related to high blood pressure. Through triage she had a head CT done which was negative for intracranial process. I discussed with him the CT findings from 07/15 which showed the increasing size, patient states he was made aware of these results and plan is in place. Will check basic labs to assure that no metabolic derangements are present. Patient already stating that he would like to go home. 08/02/20 19:24 Hemoglobin increased from previous, no leukocytosis. No electrolyte abnormalities. 08/02/20 19:27 Patient continues to be well-appearing. Updated him on his lab results. He is in agreement to wait till urine culture to see if a new course of antibiotics are needed. Return precautions given, stable at time of discharge. - Vital Signs Vital signs: Temp Pulse Resp BP Pulse Ox 97.9 F 67 18 134/76 H 98 08/02/20 13:07 08/02/20 14:14 08/02/20 14:14 08/02/20 14:14 08/02/20 14:14 - Laboratory Results Result Diagrams: 08/02/20 18:10 08/02/20 18:10 Laboratory Results Interpreted: 08/02/20 08/02/20 08/02/20 13:37 18:10 18:10 Hgb 13.1 L Glucose 124 H Urine Protein 30 H Urine Blood LARGE H Ur Leukocyte Esterase MODERATE H Critical Laboratory Results Reviewed: No Critical Results - Radiology Results Critical Radiology Results Reviewed: No Critical Results Discharge - Discharge Clinical Impression: Light-headed feeling Disposition: HOME, SELF-CARE Additional Instructions: As discussed, you will be called with your urine culture results if you need to restart a new course of antibiotics. Otherwise continue all medications as prescribed. Return to the emergency department for any concerning worsening symptoms. Referrals: ELLIE MAY MD [Primary Care Provider] - Follow up as needed
[2020-08-02 18:40] LABS: ABSOLUTE BASOPHILS # (AUTO) 0.1 10^3/uL (0.0-0.2); ABSOLUTE EOSINOPHILS # (AUTO) 0.2 10^3/uL (0.0-0.6); ABSOLUTE LYMPHOCYTES (AUTO) 3.1 10^3/uL (0.5-4.7); ABSOLUTE MONOCYTES (AUTO) 0.5 10^3/uL (0.1-1.4); ABSOLUTE NEUT (AUTO) 3.4 10^3/uL (1.7-8.2); EOSINOPHILS % (AUTO) 2.9 % (0-6); HEMATOCRIT 40.3 % (37.9-51.0); HEMOGLOBIN 13.1 g/dL (13.5-17.0); LYMPHOCYTES % (AUTO) 42.7 % (13-45); MEAN CORPUSCULAR HEMOGLOBIN 28.4 pg (27.0-33.4); MEAN CORPUSCULAR HGB CONC 32.5 g/dL (32.0-36.0); MEAN CORPUSCULAR VOLUME 87 fl (80-97); MONOCYTES % (AUTO) 6.3 % (3-13); PLATELET COUNT 253 10^3/uL (150-450); RED BLOOD COUNT 4.61 10^6/uL (4.35-5.55); RED CELL DISTRIBUTION WIDTH 13.7 % (11.5-14.0); SEGMENTED NEUTROPHILS % (AUTO) 47.1 % (42-78); TOTAL CELLS COUNTED % (AUTO) 100 %; WHITE BLOOD COUNT 7.2 10^3/uL (4.0-10.5)
[2020-08-02 19:05] LABS: ANION GAP 11 (5-19); BLOOD UREA NITROGEN 9 mg/dL (7-20); CALCIUM 9.1 mg/dL (8.4-10.2); CARBON DIOXIDE 26 mmol/L (22-30); CHLORIDE 104 mmol/L (98-107); GLUCOSE 124 mg/dL (75-110); POTASSIUM 3.6 mmol/L (3.6-5.0)
[2020-08-02 19:55] VITALS: BP 130/74
== END 2020-08-02 19:55 | disposition home or self-care (01) ==
LOC: ER 13:04
DX: R42 Dizziness and giddiness (principal); I10 Essential (primary) hypertension; R31.9 Hematuria, unspecified; K52.9 Noninfective gastroenteritis and colitis, unspecified; I25.10 Atherosclerotic heart disease of native coronary artery without angina pectoris; J44.9 Chronic obstructive pulmonary disease, unspecified; Z85.048 Personal history of other malignant neoplasm of rectum, rectosigmoid junction, and anus; Z93.6 Other artificial openings of urinary tract status; Z87.440 Personal history of urinary (tract) infections; Z95.5 Presence of coronary angioplasty implant and graft
CPT/HCPCS: 36415; 70450; 80048; 81001; 85025; 87086; 99284

== ENCOUNTER 2020-08-19 18:49 | Emergency (ER) | payer MEDICAID ==
--- NOTE | 2020-08-19 20:27 | ER Document Report ---
ED Medical Screen (RME) - General Chief Complaint: Urinary Problem Stated Complaint: URINARY ISSUE Time Seen by Provider: 08/19/20 20:15 Primary Care Provider: ELLIE MAY MD [Primary Care Provider] - Follow up as needed Mode of Arrival: Ambulatory Information source: Patient Notes: HPI; 60-year-old male presents emergency room complaining of persistent dizzin ess with shortness of breath and urinary symptoms for the past month. Patient states he has nephrostomy tube and has a history of recurrent urinary tract infections. Patient also states that his primary care physician put him on blood pressure medication a month ago but is not helping any of the symptoms. He denies any chest pain. Denies any COVID-19 exposure PE: Alert and oriented x3. Lungs: Clear to auscultation without rales, rhonchi, wheezes. Heart: Regular rate rhythm without murmurs, rubs, gallops I have greeted and performed a rapid initial assessment of this patient. A comprehensive ED assessment and evaluation of the patient, analysis of test results and completion of the medical decision making process will be conducted by additional ED providers. I have specifically instructed the patient or family members with the patient to immediately return to any nursing staff should anything change in the patient's condition or with their chief complaint. TRAVEL OUTSIDE OF THE [place] IN LAST 30 DAYS: No - Related Data Allergies/Adverse Reactions: No Known Allergies Allergy (Verified 08/19/20 20:12) Past Medical History - Social History Frequency of alcohol use: None Drug Abuse: None - Past Medical History Cardiac Medical History: Reports: Hx Congestive Heart Failure, Hx Coronary Artery Disease - stents x2, 2001/2002, Hx Heart Attack - 2012, Hx Hypercholesterolemia, Hx Hypertension Pulmonary Medical History: Reports: Hx COPD Denies: Hx Bronchitis, Hx Pneumonia Neurological Medical History: Denies: Hx Cerebrovascular Accident, Hx Seizures Renal/ Medical History: Reports: Hx Kidney Stones. Denies: Hx Peritoneal Dialysis Malignancy Medical History: Reports Hx Colorectal Cancer Musculoskeltal Medical History: Reports Hx Arthritis - hips,knees Psychiatric Medical History: Denies: Hx Depression Past Surgical History: Reports: Hx Bowel Surgery - colon cancer removal, Hx Cardiac Catheterization - two stents, Hx Orthopedic Surgery - R hip replacement, Hx Urinary Tract Surgery - right nephrostomy in place, Other - Partial colectomy and right percutaneous nephrostomy - Immunizations Immunizations up to date: No Hx Diphtheria, Pertussis, Tetanus Vaccination: Yes Physical Exam - Vital signs Vitals: Temp Pulse Resp BP Pulse Ox 98.0 F 78 20 139/84 H 98 08/19/20 19:08 08/19/20 19:08 08/19/20 19:08 08/19/20 19:08 08/19/20 19:08 Course - Vital Signs Vital signs: Temp Pulse Resp BP Pulse Ox 98.0 F 78 20 139/84 H 98 08/19/20 19:08 08/19/20 19:08 08/19/20 19:08 08/19/20 19:08 08/19/20 19:08 Doctor's Discharge - Discharge Referrals: ELLIE MAY MD [Primary Care Provider] - Follow up as needed
[2020-08-19 20:58] LABS: APPEARANCE,URINE CLEAR; BILIRUBIN,URINE NEGATIVE (NEGATIVE); COLOR,URINE STRAW; GLUCOSE, URINE NEGATIVE (NEGATIVE); KETONES,URINE NEGATIVE (NEGATIVE); LEUKOCYTE ESTERASE,URINE SMALL (NEGATIVE); NITRITE,URINE NEGATIVE (NEGATIVE); PROTEIN,URINE NEGATIVE (NEGATIVE); URINE SPECIFIC GRAVITY 1.004; UROBILINOGEN,URINE NEGATIVE mg/dL (<2.0)
--- NOTE | 2020-08-19 21:20 | RADIOLOGY REPORT (SQ) ---
CLINICAL INDICATION: dyspnea. TECHNIQUE: PA and lateral views were obtained of the chest COMPARISON: July 20, 2020. FINDINGS: The cardiomediastinal silhouette is prominent but stable. The lungs again demonstrate chronic interstitial changes and bullous changes bilaterally. Progressive streaky airspace disease when compared to prior. No evidence of effusion or pneumothorax. Visualized bones are unremarkable. . IMPRESSION: Progressive streaky airspace disease and interstitial prominence on a background of chronic interstitial change .
[2020-08-19 21:46] LABS: ABSOLUTE BASOPHILS # (AUTO) 0.1 10^3/uL (0.0-0.2); ABSOLUTE EOSINOPHILS # (AUTO) 0.3 10^3/uL (0.0-0.6); ABSOLUTE LYMPHOCYTES (AUTO) 3.7 10^3/uL (0.5-4.7); ABSOLUTE MONOCYTES (AUTO) 0.7 10^3/uL (0.1-1.4); ABSOLUTE NEUT (AUTO) 3.7 10^3/uL (1.7-8.2); BASOPHILS % (AUTO) 1.4 % (0-2); EOSINOPHILS % (AUTO) 3.1 % (0-6); HEMATOCRIT 41.3 % (37.9-51.0); HEMOGLOBIN 13.8 g/dL (13.5-17.0); MEAN CORPUSCULAR HGB CONC 33.4 g/dL (32.0-36.0); MEAN CORPUSCULAR VOLUME 87 fl (80-97); MONOCYTES % (AUTO) 7.8 % (3-13); PLATELET COUNT 252 10^3/uL (150-450); RED BLOOD COUNT 4.76 10^6/uL (4.35-5.55); RED CELL DISTRIBUTION WIDTH 13.2 % (11.5-14.0); SEGMENTED NEUTROPHILS % (AUTO) 43.7 % (42-78); TOTAL CELLS COUNTED % (AUTO) 100 %; WHITE BLOOD COUNT 8.4 10^3/uL (4.0-10.5)
[2020-08-19 21:57] LABS: ALBUMIN 4.3 g/dL (3.5-5.0); ALKALINE PHOSPHATASE 97 U/L (38-126); ANION GAP 7 (5-19); ASPARTATE AMINO TRANSFERASE 34 U/L (17-59); BILIRUBIN,DIRECT 0.1 mg/dL (0.0-0.4); BILIRUBIN,TOTAL 0.5 mg/dL (0.2-1.3); BLOOD UREA NITROGEN 12 mg/dL (7-20); CALCIUM 9.5 mg/dL (8.4-10.2); CARBON DIOXIDE 29 mmol/L (22-30); CHLORIDE 104 mmol/L (98-107); GLUCOSE 92 mg/dL (75-110); POTASSIUM 3.7 mmol/L (3.6-5.0); TOTAL PROTEIN 8.3 g/dL (6.3-8.2)
[2020-08-19] MEDS ORDERED: NORMAL SALINE 1000 ML 1,000 ML IV ONE (22:37)
--- NOTE | 2020-08-19 22:39 | ER Document Report ---
Entered by RUEL MEDEL SCRIBE 08/19/20 2216 Acting as scribe for:HERVE GUTIERREZ DO ED GI/ - General Chief Complaint: Urinary Problem Stated Complaint: URINARY ISSUE Time Seen by Provider: 08/19/20 20:15 Primary Care Provider: ELLIE MAY MD [Primary Care Provider] - 08/20/20 Mode of Arrival: Ambulatory Information source: Patient Notes: This 60-year-old male patient presents to the emergency department today with complaints of lightheadedness. Patient reports that his lightheadedness sometimes clears when he drinks water. He mentions that he has been on blood pressure medication for one month and he is unsure if it is related to this. He denies a fever, cough, chest pain, or concerns of COVID-19 infection. TRAVEL OUTSIDE OF THE [place] IN LAST 30 DAYS: No - Related Data Allergies/Adverse Reactions: No Known Allergies Allergy (Verified 08/19/20 20:12) Past Medical History - General Information source: Patient - Social History Smoking Status: Former Smoker Cigarette use (# per day): No Frequency of alcohol use: None Drug Abuse: None Lives with: Family Family History: Reviewed & Not Pertinent, Hypertension - Past Medical History Cardiac Medical History: Reports: Hx Congestive Heart Failure, Hx Coronary Artery Disease - stents x2, 2001/2002, Hx Heart Attack - 2011, Hx Hyp ercholesterolemia, Hx Hypertension Pulmonary Medical History: Reports: Hx COPD Renal/ Medical History: Reports: Hx Kidney Stones Malignancy Medical History: Reports Hx Colorectal Cancer Musculoskeletal Medical History: Reports Hx Arthritis - hips,knees Past Surgical History: Reports: Hx Bowel Surgery - colon cancer removal, Hx Cardiac Catheterization - two stents, Hx Orthopedic Surgery - R hip replacement, Hx Urinary Tract Surgery - right nephrostomy in place, Other - Partial colectomy and right percutaneous nephrostomy - Immunizations Immunizations up to date: No Hx Diphtheria, Pertussis, Tetanus Vaccination: Yes Review of Systems - Review of Systems Constitutional: No symptoms reported EENT: No symptoms reported Cardiovascular: See HPI, Lightheaded Respiratory: No symptoms reported Gastrointestinal: No symptoms reported Genitourinary: No symptoms reported Male Genitourinary: No symptoms reported Musculoskeletal: No symptoms reported Skin: No symptoms reported Hematologic/Lymphatic: No symptoms reported Neurological/Psychological: No symptoms reported -: Yes All other systems reviewed and negative Physical Exam - Vital signs Vitals: Temp Pulse Resp BP Pulse Ox 98.0 F 78 20 139/84 H 98 08/19/20 19:08 08/19/20 19:08 08/19/20 19:08 08/19/20 19:08 08/19/20 19:08 - Notes Notes: Physical Exam: General: Alert, appears well. HEENT: Normocephalic. Atraumatic. PERRL. Extraocular movements intact. Oropharynx clear. Neck: Supple. Non-tender. Respiratory: No respiratory distress. Clear and equal breath sounds bilaterally. Cardiovascular: Regular rate and rhythm. Abdominal: Normal Inspection. Non-tender. No distension. Normal Bowel Sounds. Back: No gross abnormalities. Right nephrostomy tube in place. Extremities: Moves all four extremities. Upper extremities: Normal inspection. Normal ROM. Lower extremities: Normal inspection. No edema. Normal ROM. Neurological: Normal cognition. AAOx4. Normal speech. Psychological: Normal affect. Normal Mood. Skin: Warm. Dry. Normal color. Course - Re-evaluation Re-evalutation: 08/20/20 00:30 MDM 60 year old male with right sided nephrostomy tube is here with weakness. Near syncope and concerned over possible infection. Had right ureter injured during colon cancer surgery at [facility] and has recently been to [facility] to have urology look into reversal/ correction of urostomy. He denies fever or chills or chest pain or sob. Feel he is safe for follow up. - Vital Signs Vital signs: Temp Pulse Resp BP Pulse Ox 98 F 72 19 129/81 H 99 08/20/20 01:45 08/20/20 01:45 08/20/20 01:45 08/20/20 01:45 08/20/20 01:45 - Laboratory Results Result Diagrams: 08/19/20 21:29 08/19/20 21:29 Laboratory Results Interpreted: 08/19/20 08/19/20 08/19/20 19:09 21:29 23:45 Total Protein 8.3 H Urine Protein 100 H Urine Blood LARGE H LARGE H Ur Leukocyte Esterase SMALL H Leukocyte Esterase Rfl LARGE H Critical Laboratory Results Reviewed: No Critical Results - Radiology Results Critical Radiology Results Reviewed: No Critical Results Discharge - Discharge Clinical Impression: Complicated UTI (urinary tract infection) Urinary tract infection associated with nephrostomy catheter Qualifiers: Encounter type: initial encounter Qualified Code(s): T83.512A - Infection and inflammatory reaction due to nephrostomy catheter, initial encounter Condition: Stable Disposition: HOME, SELF-CARE Instructions: Cephalexin ([facility]), Urinary Tract Infection ([facility]) Additional Instructions: See your doctor in follow up. Rest, take your medicine as directed. Return here for fever, persistent vomiting, other problems or concerns. Your medicine has been sent to [facility]. Prescriptions: Cephalexin Monohydrate [Keflex 500 mg Capsule] 500 mg PO TID #30 capsule Cephalexin Monohydrate [Keflex 500 mg Capsule] 500 mg PO TID #30 capsule Forms: Elevated Blood Pressure Referrals: ELLIE MAY MD [Primary Care Provider] - 08/20/20 I personally performed the services described in the documentation, reviewed and edited the documentation which was dictated to the scribe in my presence, and it accurately records my words and actions.
[2020-08-20 00:11] LABS: APPEARANCE,URINE SLIGHTLY-CLOUDY; BILIRUBIN,URINE NEGATIVE (NEGATIVE); COLOR,URINE YELLOW; GLUCOSE, URINE NEGATIVE (NEGATIVE); KETONES,URINE NEGATIVE (NEGATIVE); PROTEIN,URINE 100 mg/dL (NEGATIVE); URINE SPECIFIC GRAVITY 1.009; UROBILINOGEN,URINE NEGATIVE mg/dL (<2.0)
[2020-08-20 01:47] VITALS: BP 129/81
--- NOTE | 2020-08-20 09:20 | EKG REPORT ---
SEVERITY:- NORMAL ECG - SINUS RHYTHM : Confirmed by: Toribio Burger MD 20-Aug-2020 09:20:02
== END 2020-08-20 01:45 | disposition home or self-care (01) ==
LOC: ER 18:49
DX: T83.512A Infection and inflammatory reaction due to nephrostomy catheter, initial encounter (principal); N39.0 Urinary tract infection, site not specified; Y84.6 Urinary catheterization as the cause of abnormal reaction of the patient, or of later complication, without mention of misadventure at the time of the procedure; R42 Dizziness and giddiness; R53.1 Weakness; J44.9 Chronic obstructive pulmonary disease, unspecified; I25.10 Atherosclerotic heart disease of native coronary artery without angina pectoris; I10 Essential (primary) hypertension; I25.2 Old myocardial infarction; Z79.899 Other long term (current) drug therapy; Z87.891 Personal history of nicotine dependence; Z85.048 Personal history of other malignant neoplasm of rectum, rectosigmoid junction, and anus; Z90.49 Acquired absence of other specified parts of digestive tract
CPT/HCPCS: 93005; 99285; 96360; 96361; 36415; 87086; 82962; 83605; 85025; 87088; 80053; 81001; 84484; 71046; 93010; J7030; 87186

== ENCOUNTER 2020-08-21 01:10 | Emergency (ER) | payer MEDICAID | END 2020-08-21 01:45 | disposition left against medical advice (07) | LOC: ER 01:10 | DX: Z53.21 Procedure and treatment not carried out due to patient leaving prior to being seen by health care provider (principal) ==